=== PATIENT | female | born 1970 | race Caucasian/White ===

== ENCOUNTER 2021-06-15 06:20 | Day surgery (SDC) | payer BC ==
[2021-06-10 16:22] LABS: Absolute Lymphocytes (CBC) 2.5 K/uL (0.7-4.9); Basophils % 0.7 % (0-1.3); Hematocrit 39.8 % (36.0-45.0); Lymphocytes % 24.9 % (15.3-44.8); MPV 9.2 fL (7.6-11.3); RBC Red Blood Cell Count 4.17 M/uL (3.86-4.86)
[2021-06-10 16:25] LABS: Protime INR 0.96
[2021-06-10 16:46] LABS: Potassium 3.7 mmol/L (3.5-5.1)
[2021-06-10 17:03] LABS: Urine Appearance CLEAR (Clear); Urine Bilirubin NEGATIVE (Negative); Urine Blood NEGATIVE (Negative); Urine Color YELLOW (Yellow); Urine Glucose NEGATIVE (Negative); Urine Protein NEGATIVE (Negative); Urine Specific Gravity <=1.005 (1.005-1.030); Urine Urobilinogen 0.2 mg/dL (0.2-1.0); Urine pH 6.5 (5.0-7.0)
[2021-06-10 17:15] LABS: Urine Microscopic Reflex NO UMIC
[2021-06-15] MEDS ORDERED: Ringers Lactate 1,000 ML IV ONE (06:48)
[2021-06-15] MEDS ORDERED: CEFAZOLIN/SWI 1gm 1 GM/10 ML SYR ONE ×2 (06:49→07:19)
[2021-06-15] MEDS ORDERED: CEFAZOLIN/SWI 2gm 2 GM/20 ML SYR ONE (06:49)
[2021-06-15 07:06] LABS: Specific Gravity < 1.005 (1.005-1.030)
[2021-06-15] MEDS ORDERED: NA CHLORIDE 0.9% 0 ML IV ONE (07:18)
[2021-06-15] MEDS ORDERED: LIDOCAINE 1% W/EPI 1:100,000 MDV 20 ML VIAL ONE (07:18)
[2021-06-15] MEDS ORDERED: NA CHLORIDE 0.9% 1,000 ML ONE (07:18)
[2021-06-15] MEDS ORDERED: VASOPRESSIN 20 UNIT/ML VIAL ONE (07:19)
[2021-06-15] MEDS ORDERED: MIDAZOLAM HCL 2 MG/2 ML INJ ONE (07:27)
[2021-06-15] MEDS ORDERED: LIDOCAINE 1% MPF 5 ML VIAL ONE (07:27)
[2021-06-15] MEDS ORDERED: propofoL 200 MG/20 ML VIAL IV ONE (07:27)
[2021-06-15] MEDS ORDERED: dexAMETHasone 10 MG/ML VIAL ONE (07:27)
[2021-06-15] MEDS ORDERED: FENTANYL CITR 100 MCG/2 ML ONE (07:27)
[2021-06-15] MEDS ORDERED: ONDANSETRON 4 MG/2 ML VIAL ONE (07:29)
[2021-06-15] MEDS ORDERED: KETOROLAC 30 MG/ML INJ ONE (08:51)
[2021-06-15] MEDS ORDERED: SUMATRIPTAN SUCCI 50 MG TAB PO PRN (09:23)
[2021-06-15] MEDS ORDERED: ALPRAZOLAM 1 MG TABLET PO PRN (09:23)
[2021-06-15] MEDS ORDERED: HYDROCODONE/APAP 5/325 MG TAB PO PRN (09:24)
--- NOTE | 2021-06-15 09:27 | P.BOP ---
Preoperative diagnosis: AMPARO Postoperative diagnosis: same Primary procedure: MUS (TVT-O) Cystoscopy Answering Service Telephone Operator: Catarina Milner Estimated blood loss: 50 Specimen: none Findings: ant wall prolapse 0/0/-3/5/mod/7/-2/-2/-4 Anesthesia: General Drain(s): Urinary catheter Transferred to: Recovery Room
[2021-06-15] MEDS ORDERED: SUMATRIPTAN SUCCI 50 MG TAB PO ONE (11:45)
[2021-06-15 12:57] VITALS: BP 136/76; TEMP 97; O2SAT 94
[2021-06-15] MEDS ORDERED: HOME MED 1 EA UNK (Trazodone Hcl [Trazodone Hcl] 100 MG Tablet) PO SCH (21:00)
[2021-06-15] MEDS ORDERED: HOME MED 1 EA UNK (Citalopram Hydrobromide [Celexa] 40 MG Tablet) PO SCH (21:00)
[2021-06-15] MEDS ORDERED: HOME MED 1 EA UNK (Ropinirole Hcl [Requip] 2 MG Tablet) PO SCH (21:00)
[2021-06-16] MEDS ORDERED: DOXAZOSIN 4 MG TAB PO SCH (09:00)
[2021-06-16] MEDS ORDERED: HOME MED 1 EA UNK (Levothyroxine Sodium [Synthroid] 150 MCG Tablet) PO SCH (09:00)
--- NOTE | 2021-06-21 15:20 | OP ---
Date of Procedure: 06/15/2021 Surgeon: Carmen Andrade MD Director Environmental: Catarina Boles Preoperative Diagnosis: Stress urinary incontinence. Postoperative Diagnosis: Stress urinary incontinence. Procedures Performed: Mid urethral sling, cystoscopy (TVT-O). Anesthesia: General with LMA. Specimens: No specimens. Complications: No complications. Drains: Nolan catheter. Patient's Condition: Stable. Findings: Significant stress urinary incontinence noted with during the exam under anesth esia. The patient also has significant vaginal wall prolapse, anterior and apical, especially POP-Q -1, 0, -3, 5 cm, moderate 7, -2, -1, and -4. The patient was re-consented in the preoperative area. present . After explaining all the benefits and risks and complications of the procedure, she was consented and taken back to [facility] OR. 3 g of Ancef was given. SCDs were started. The patient was placed in a supine fashion on e operating table and general anesthesia was given. She was placed in dorsal lithotomy position [facility]. After arms were tucked by the side, positioning was checked, lower abdomen, vulva, vagina, perineum, and lateral thighs were all prepped and draped in a sterile fashion. Nolan was pl aced to drain the bladder. POP-Q as dictated above. Mid urethral area was identified by gently tugg ing on the of the Nolan at the level of the bladder neck and the mid urethral section was marked with the help of a marking pen. Dilute lidocaine with epinephrine was injected, 15 cc in the midline as well as on the sides. The le gs were placed in a high dorsal lithotomy position. Then, 1 cm mid urethral incision was made with [facility] help of a scalpel. Using the Allis clamps on both flaps, track was created on either side going t owards the ipsilateral obturator space, hugging the inferior pubic ramus at a 45-degree angle to the horizontal and vertical planes in the ipsilateral shoulder. Once the track was created, [facility] obturator membrane was perforated, the scissors were withdrawn expanding the tract. Similar disse ction performed on the opposite side as well and once the obturator space was entered, the track was widened as the scissors were pulled out. The TVT-O kit was opened. Wing guide was placed in the usu al fashion retracing the tract. The left trocar was passed first, hugging the inferior pubic ramus, exiting at a point marked 2 cm lateral to the groin fold and 1 cm above the level of the horizontal l ine dropped at the meatus. Then, once the plastic sheath was held with a Lexii, the needle was remov ed. The plastic dilator was pulled out and cut. The sheath and the graft were held with Lexii. Sim ilar pass was taken on the opposite side without any problems. There was no perforation in the forni x. Once the mesh and the sheaths were held on both sides, the mid urethral area was tensioned with the h elp of Metzenbaum scissors in the middle and the sheaths were gradually loosened from the sling leavi ng it in the place that it was tensioned. Sheath pulled out, mesh trimmed, flushed with the skin. S kin closed with the help of Dermabond, vaginal epithelium closed with the help of 3-0 Vicryl in a con tinuous running locked fashion. Once this was done, there was excellent closure. No evidence of any bleeding from the lateral incisions. Nolan was removed, cystoscopy was performed with a 17-degree s giovanna, 30-degree lens, and normal saline. Cystoscopy was normal. No evidence of any perforation or foreign body in the bladder. The scope was then removed. Nolan was replaced. The patient was recov ered from anesthesia and taken to the PACU in stable condition. EBL was less than 50. Plan was to do a voiding trial in 2 hours postop and then discharg e the patient . STEFFI/ANASTASIYAL Voice ID: [id number] Report ID: [id number]
== END 2021-06-15 12:40 | disposition home or self-care (01) ==
LOC: OR 06:20
PROVIDERS: ATTEND Obstetrics & Gynecology
PROC: 0TSD0ZZ Reposition Urethra, Open Approach (ICD-10-PCS; principal; 2021-06-15 07:30)
DX: N39.3 Stress incontinence (female) (male) (principal); N81.2 Incomplete uterovaginal prolapse; R15.9 Full incontinence of feces; E66.01 Morbid (severe) obesity due to excess calories; R39.15 Urgency of urination
CPT/HCPCS: 57288; 85025; 80048; 36415 ×2; 86900; 86850; 84703; 81025; 85610; 86901; 85730; 81003; J2704; J2250; J3010; J1100; J0690 ×3; J7120; J7030; J2405

== ENCOUNTER 2021-08-02 10:23 | Day surgery (SDC) | payer BC ==
[2021-07-29 15:32] LABS: Basophils % 0.3 % (0-1.3); Hematocrit 40.7 % (36.0-45.0); Lymphocytes % 25.2 % (15.3-44.8); MPV 9.1 fL (7.6-11.3); RBC Red Blood Cell Count 4.28 M/uL (3.86-4.86)
[2021-07-29 15:36] LABS: Protime INR 1.03
[2021-07-29 15:40] LABS: Urine Appearance CLEAR (Clear); Urine Bilirubin NEGATIVE (Negative); Urine Blood NEGATIVE (Negative); Urine Color YELLOW (Yellow); Urine Glucose NEGATIVE (Negative); Urine Protein NEGATIVE (Negative); Urine Specific Gravity <=1.005 (1.005-1.030); Urine Urobilinogen 0.2 mg/dL (0.2-1.0); Urine pH 6.5 (5.0-7.0)
[2021-07-29 15:41] LABS: Urine Microscopic Reflex NO UMIC
[2021-07-29 15:48] LABS: Potassium 3.6 mmol/L (3.5-5.1)
[2021-08-02] MEDS ORDERED: SCOPOLAMINE HYDROBROMIDE PATCH TD ONE (10:45)
[2021-08-02] MEDS ORDERED: Ringers Lactate 1,000 ML IV ONE ×3 (10:45→16:36)
[2021-08-02] MEDS ORDERED: CEFAZOLIN/NS 1gm 1 GM/50 ML BAG ONE (10:46)
[2021-08-02] MEDS ORDERED: CEFAZOLIN/SWI 2gm 2 GM/20 ML SYR ONE (10:46)
[2021-08-02] MEDS ORDERED: KETAMINE HCL 500 MG/5 ML VIAL ONE (11:15)
[2021-08-02] MEDS ORDERED: propofoL 200 MG/20 ML VIAL IV ONE (11:15)
[2021-08-02] MEDS ORDERED: dexAMETHasone 10 MG/ML VIAL ONE (11:15)
[2021-08-02] MEDS ORDERED: LIDOCAINE 2% MPF 5 ML VIAL ONE (11:15)
[2021-08-02] MEDS ORDERED: ROCURONIUM 50 MG/5 ML VIAL IV ONE (11:15)
[2021-08-02] MEDS ORDERED: NS 0.9% VIAL 10 ML ONE (11:16)
[2021-08-02] MEDS ORDERED: FENTANYL CITR 250 MCG/5 ML ONE (11:16)
[2021-08-02] MEDS ORDERED: MIDAZOLAM HCL 2 MG/2 ML INJ ONE (11:16)
[2021-08-02] MEDS ORDERED: ONDANSETRON 4 MG/2 ML VIAL ONE (11:17)
[2021-08-02] MEDS ORDERED: NA CHLORIDE 0.9% 1,000 ML ONE (11:21)
[2021-08-02 11:27] LABS: Specific Gravity < 1.005 (1.005-1.030)
[2021-08-02] MEDS ORDERED: BUPIVACAINE 0.25% PF 30 ML VIAL ONE (12:38)
[2021-08-02] MEDS: Ringers Lactate 1,000 ML IV ONE (13:45)
[2021-08-02] MEDS ORDERED: FENTANYL CITR 100 MCG/2 ML ONE (14:42)
[2021-08-02] MEDS ORDERED: GLYCOPYRROLATE 0.2 MG/ML SYR ONE (16:02)
[2021-08-02] MEDS ORDERED: NEOSTIGMINE 1 MG/ML -5 ML ONE (16:02)
[2021-08-02] MEDS ORDERED: HYDROCODONE/APAP 5/325 MG TAB PO PRN ×2 (16:12→20:13)
[2021-08-02] MEDS ORDERED: MEPERIDINE HCL 25 MG/ML SYR IM PRN (16:12)
[2021-08-02] MEDS ORDERED: PROMETHAZINE INJ 25 MG/ML AMP IV PRN ×2 (16:12→20:13)
[2021-08-02] MEDS ORDERED: IBUPROFEN 600 MG TAB PO PRN (16:12)
--- NOTE | 2021-08-02 16:17 | P.BOP ---
Preoperative diagnosis: stage 2 incomplete uterovaginal prolapse, AMPARO Postoperative diagnosis: same Primary procedure: TLH BS USLS colpopexy, cystoscopy Calciminer: BENJI WEST Estimated blood loss: min Specimen: uterus and tubes Findings: -2/-2/0/4/mod/7/-2/-2/-4, hemorrhoids and posterior defect with valsalva Anesthesia: General Complications: None Transferred to: Recovery Room Condition: Good
[2021-08-02] MEDS: MORPHINE 4 MG/ML SYR ONE ×4 (16:57→17:12)
[2021-08-02] MEDS ORDERED: MEPERIDINE HCL 50 MG/ML ONE (17:09)
[2021-08-02] MEDS: HYDROMORPHONE HCL 1 MG/ML INJ ONE ×2 (17:39→17:48)
[2021-08-02] MEDS ORDERED: HYDROCODONE/APAP 10/325 TAB ONE (18:05)
[2021-08-02] MEDS ORDERED: MEPERIDINE HCL 25 MG/ML SYR IV PRN (20:13)
[2021-08-02] MEDS ORDERED: IBUPROFEN 200 MG TAB PO PRN (20:13)
[2021-08-02] MEDS ORDERED: ONDANSETRON 4 MG/2 ML VIAL IV PRN (20:13)
[2021-08-02 20:49] VITALS: O2SAT 97
[2021-08-02] MEDS ORDERED: Ringers Lactate 1,000 ML IV SCH (21:00)
[2021-08-02 21:33] VITALS: BMI 31.7
[2021-08-03] MEDS: Ringers Lactate 1,000 ML IV ONE (07:35)
[2021-08-03] MEDS ORDERED: HYDROCODONE/APAP 5/325 MG TAB ONE (10:41)
--- NOTE | 2021-08-03 11:30 | OP ---
Date of Procedure: 08/02/2021 Surgeon: Carmen Andrade MD Ldr Rn: Lisbeth Wen. Preoperative Diagnoses: Stage II incomplete uterovaginal prolapse, stress urinary incontinence. Postoperative Diagnoses: Stage II incomplete uterovaginal prolapse, stress urinary incontinence, neftaly dder adhesions from a prior sections and abdominoplasty scar. Procedures Performed: Total laparoscopic hysterectomy, bilateral salpingectomy, uterosacral ligament suspension, colpopexy, and cystoscopy. Estimated Blood Loss: Minimal. Specimens: Uterus and tubes. Complications: No complications. Drains: No drains. Anesthesia: General endotracheal. Condition: Stable. Findings: Pop Q -2, -2, 0, 4, moderate 7, -2, -2, -4. Hemorrhoids that were significantly externall y were seen and the posterior defect was noted with Valsalva, however, mostly unremarkable. The mid urethral sling that was placed is very well healed, is not palpable. Indications: The patient noticed vaginal bulge symptoms and has been having increasing difficulty em ptying, definitely wanted her prolapse taken care of. She had her stress incontinence, mostly resolv ed after the sling. She had still a few drops that are occasional, not daily. We discussed about th e further treatment with urethral bulking of the time of the hysterectomy or we just were going to wa it and watch and do this later after the colpopexy was performed. All the benefits and risks and alternatives of the procedure were discussed with the patient includin g uterine preservation, the vaginal [place] tissue repair with sacral colpopexy after hysterectomy. A ll these were discussed, compared to the uterosacral ligament suspension, its benefits, risks, side e ffects, and recovery, and she was consented for uterosacral ligament suspension. Procedure In Detail: After informed consent was verified, she was taken back to the OR. 2 g of Ance f were given. SCDs were placed. She was placed in supine fashion. General anesthesia was given. S he was placed in a dorsal lithotomy position using Luis Carlos stirrups and the arms were tucked by the micaela e, positioning checked. SCDs were started. The case was started. Abdomen, vulva, vagina, and perineum were prepped and draped in a sterile fashion. Nolan was placed to drain the bladder and large VCare introduced into the uterus. It would not advance easily all the way to the fundus, but this was left in place. A 1 cm supraumbilical incision was made with a scalpel. There was abdominoplasty scar and the umbili cus was slightly tilted upward, so a midline supraumbilical incision was made after injecting 0.25% M arcaine. The subcutaneous fascia was incised, tagged with 0 Vicryl sutures. Multiple layers of Ethi shell sutures were noted; however, after incising clearly through the fascia and tacking this with 0 V icryl suture peritoneum was picked up between 2 hemostats and opened sharply with [place]. T hen, S retractors were placed and Audelia introduced, where the Audelia was guided and fixed in place. The abdomen was adequately insufflated. Site of entry was checked and was unremarkable. The upper abdominal surface was unremarkable as well. The patient was placed in Trendelenburg and examination of the pelvic cavity was conducted. The ureters were undisplaced and were the normal courses. No ot her anatomical deviation was seen. There were dense adhesions of the bladder to the anterior vaginal wall. The tube on the left side was detached. The utero-ovarian ligament and round ligament were taken josephine n, anterior broad ligament was opened up to go up to the bladder flap carefully. Once I was in the a aryan right next to the cervix, between the cervix and the uterine vessels, then space was created by p ush-spread technique to the expose the anterior vaginal wall. Once this was done, then staying in th is plane, the bladder adhesions were taken down close to the lower uterine segment. Once these were taken down, the bladder had pushed back exposing the anterior vaginal wall with a circumferential VCa re cup. Going posteriorly, the dissection was performed all the way on the peritoneum to past the midline. T hen, the uterine vessels, artery, and vein were dissected and the vessels were cauterized. On the opposite side, the tube was removed and handed off for permanent pathology. Utero-ovarian lig ament was taken down along the round ligament. The ovaries were attached to the round ligament. The n, the anterior flap was connected and posterior peritoneum taken down. Here, there was an injury to the ovarian vein, which started to then bleed. Pressure was held with the tip of atraumatic grasper here, and then anteriorly, the dissection was opened up on the right lateral aspect to expose the an terior vaginal wall. The adhesions were taken down systematically as well as on the other side. The anterior vaginal wall was completely exposed. The vessels were dissected away from the cervix. The n, the vessels were taken down with the help of the LigaSure laterally and medially, staying close th e cup, and once this was dissected, the uterine vessels were cauterized bleeding was seen. The cardinal ligaments were taken down on the right side than on the left side. Dissection was per formed again to expose the lateral aspect of the bladder. Then, the vessels were taken down with the help of the LigaSure and then cardinal ligaments as well. Circumferential colpotomy was performed w ith a monopolar hook blade. The specimen was detached and pulled out into the vagina. There was dif ficulty pulling it out; however, it was a tight fit, but did come out without any morcellation. Vaginal cuff was thoroughly irrigated and suctioned. There was 1 area on the posterior cuff that had to be cauterized with the help of the LigaSure. Then, there was excellent hemostasis on both sides. Simple 3-0 Vicryl sutures were placed at both ends and then 2-0 V-Loc was used to close the rest of the vaginal epithelial incision. Vaginal epithelium and sub-epithelium and some connective tissue w ere closed as the first layer from right to left and then this layer was buried by taking bites with the connective tissue and the peritoneum closing the anterior and posterior colmenares together on top of the cuff. Then, the 2 back sutures were taken to prevent rewinding of V-Loc. The 3-0 Monocryl stay suture was placed on the uterosacral ligament on the left side first after iden tifying the course of the ureter did not need a relaxing incision was made, so went ahead and took a bite through the uterosacral. This was held for retraction. [place]-Henrique suture was taken on a CT-2 needle and passed from medial to lateral, then lateral to medial on the uterosacral ligament, and the last one-third of the pelvic ligament, then posterior vaginal wall and anterior vaginal wall taken with a stitch. The stitch was held on the side, clamped. Then, the 0 PDS suture was taken an d placed through the slightly more proximal part of the uterosacral ligament. Then this was passed t hrough the posterior vaginal wall and the anterior vaginal wall and the [place]-Henrique suture was tied, the n the PDS was done. In a similar fashion, the uterosacral ligament on the right side was much more d etached. This was picked up using a 3-0 Monocryl stay suture on this from the other side was placed on this side. Then using this, the [place]-Henrique suture was placed from inside out, outside in , and then through the posterior vaginal and anterior vaginal without entering the vaginal epithelium . Then PDS suture was placed more proximal to this and then medial to the stitch in a similar fashio n as the opposite side. Once all [place]-Henrique was tied, the PDS was tied, there was excellent support an d no evidence of any injury to the ureters. Thorough irrigation and suction were performed. Picture s were taken. The ovaries were a small area of the bladder that was bleeding that was cau terized. All the trocars were removed under direct vision and injected with 0.25% Marcaine. The trocars were replaced and we are awaiting as I performed a cystoscopy. Nolan was removed. Cystoscopy was performed with a 17-[place] sheath, 30 degree lens, and normal sali ne. There were excellent jets of urine from both ureteric orifices. No evidence of any trauma or fo reign body in the bladder. The bladder was then drained. The gloves were changed and came back up. The trocars were removed under direct vision. Gas was desufflated. Fascia at the umbilicus was clos ed with the help of the tagged 0 Vicryl sutures tied to each other and simple 0 Vicryl stitch at the fascial incision suprapubic site. All skin incisions closed with the help of 4-0 chromic. The patie nt was recovered from anesthesia and instrument and sponge counts x3 were correct at the end of the case. She was taken to the PACU in a stable condition. STEFFI/RADHA Voice ID: [id number] Report ID: [id number]
[2021-08-03 12:04] VITALS: BP 101/63; TEMP 98.3
--- OUTSIDE RECORDS SUMMARY | 2021-08-07 17:32 | XMS REPORT | Continuity of Care Document ---
:1970 Author Organization [facility] t Address [address] [place] [address] [address] [place] [address] Care Team Providers Name Role Phone Mariposa Huynh Attending Clinician Nurse, Urgent Care Attending Clinician Unavailable Ayesha VELEZ Attending Clinician AYESHA Attending Clinician Unavailable OG ESPARZA Attending Clinician Unavailable Lab, Fam Pob I Attending Clinician Unavailable Og Martínez Attending Clinician Yanelis ALBERTO Attending Clinician Unavailable Christopher MACIEL Attending Clinician Red VELEZ Attending Clinician Lee MACIEL Attending Clinician Unknown Attending Clinician Unavailable UNKNOWN Attending Clinician Unavailable Harsh SCHULZ, S Attending Clinician Unavailable Sarina Hanson Attending Clinician Sarina SHARPE Attending Clinician Unavailable Doctor Unassigned, Name Attending Clinician Unavailable Sin GALAN, S Attending Clinician Manoj VOGT Attending Clinician Unavailable Payers Payer Name Policy Type Policy Number Effective Date Expiration Date [facility] - [id number] 2021 00:00:00 OUT OF STATE Problems Condition Condition Condition Status Onset Resolution Last Treating Co mments Source Name Details Category Date Date Treatment Clinician Date UTI (lower UTI (lower Disease Active U nivers urinary urinary 04-21 ity of tract tract 00:00: [place] infection) infection) 00 Il dical Branch Allergies, Adverse Reactions, Alerts Allergy Allergy Status Severity Reaction(s) Onset Inactive Treating Comm ents Source Name Type Date Date Clinician IBUPROFE DRUG Active N/V Univers N INGREDI 04-20 ity of 00:00: [place] 00 [facility] Ibuprofe Propensi Active Nausea Univer s n ty to and/or 04-20 ity of adverse Vomiting 00:00: [place] reaction 00 [facility] MORPHINE DRUG Active Anaphylaxis Uni vers INGREDI - ity of 00:00: [place] 00 [facility] Morphine Propensi Active Anaphylaxis U nivers ty to ity of adverse 00:00: [place] reaction 00 [facility] s [place] Social History Social Habit Start Date Stop Date Quantity Comments Source Exposure to Yes [facility] SARS-CoV-2 (event) [facility] Tobacco use and 2021-04-30 2021-04-30 Never used [facility] exposure 00:00:00 00:00:00 [facility] Alcohol intake 2021-04-30 2021-04-30 [facility] 00:00:00 00:00:00 [facility] Sex Ass[birth year] At [birth year] [facility] 00:00:00 00:00:00 [facility] Smoking Status Start Date Stop Date Source Never smoker [facility] Medications Ordered Filled Start Stop Current Ordering Indication Dosage Frequency Signature Comments Components Source Medication Medication Date Date Medication? Clinician (SIG) Name Name iopamidol 2020- No [id number] 100mL 100 mL, Univers (ISOVUE 05-01 Intravenou ity o f 370-500 mL) 04:35: 04:35 s, ONCE, 1 [place] injection 00 :00 dose, Fri Medic al 100 mL 04/30/21 at Branch 2345, Routine benzonatate Yes [id number] 200mg Take 1 Univers 200 mg 05-01 capsule by ity of capsule 00:00: mouth 3 [place] 00 (three) Medical times [place] daily as needed for Cough for up to 20 doses. azithromyci Yes [id number] 250mg Take 1 Univers n 04-12 [id number] tablet by ity of (ZITHROMAX 00:00: mouth [place] Z-EMELY) 250 00 daily. Medical mg tablet Take 500 Branch mg day 1, then 250 mg days 2 to 5. albuterol Yes [id number] 2{puff} Inhale 2 Univers 90 04-12 [id number] Puffs ity of mcg/actuati 00:00: every 4 [place] as on inhaler 00 (four) Medical hours as Branch needed for Wheezing or Shortness of Breath. azithromyci Yes [id number] 250mg Take 1 Univers n 7- [id number] tablet by ity of (ZITHROMAX 00:00: mouth [place] Z-EMELY) 250 00 daily. Medical mg tablet Take 500 Branch mg day 1, then 250 mg days 2 to 5. albuterol Yes [id number] 2{puff} Inhale 2 Univers 90 7- [id number] Puffs ity of mcg/actuati 00:00: every 4 [place] on inhaler 00 (four) Medical hours as Branch needed for Wheezing or Shortness of Breath. azithromyci Yes [id number] 250mg Take 1 Univers n 7- [id number] tablet by ity of (ZITHROMAX 00:00: mouth [place] Z-EMELY) 250 00 daily. Medical mg tablet Take 500 Branch mg day 1, then 250 mg days 2 to 5. albuterol Yes [id number] 2{puff} Inhale 2 Univers 90 7- [id number] Puffs ity of mcg/actuati 00:00: every 4 [place] on inhaler 00 (four) Medical hours as Branch needed for Wheezing or Shortness of Breath. azithromyci Yes [id number] 250mg Take 1 Univers n 7- [id number] tablet by ity of (ZITHROMAX 00:00: mouth [place] Z-EMELY) 250 00 daily. Medical mg tablet Take 500 Branch mg day 1, then 250 mg days 2 to 5. albuterol Yes [id number] 2{puff} Inhale 2 Univers 90 7- [id number] Puffs ity of mcg/actuati 00:00: every 4 [place] on inhaler 00 (four) Medical hours as Branch needed for Wheezing or Shortness of Breath. codeine-gua 2020- No [id number] 5mL Take 5 mL Univers ifenesin 04-12 by mouth ity of 10-100 mg/5 00:00: 04:59 every 6 [place] mL solution 00 :00 (six) Medical hours as Branch needed for Cough for up to 7 days. Indication s: acute pain citalopram Yes 40mg Take 40 mg U nivers (CELEXA) 40 7-15 by mouth ity of mg tablet 23:37: daily. [place] [address] Medical Branch levothyroxi Yes 150ug Take 150 U nivers ne 7-15 mcg by ity of (SYNTHROID) 23:37: mouth [place] 150 mcg 49 every Medical tablet morning. Branch zolpidem Yes 10mg Take 10 mg Uni vers (AMBIEN) 10 7-15 by mouth ity of mg tablet 23:37: at bedtime [place] 49 as needed Medical for Branch Insomnia. ALPRAZolam Yes 1mg Take 1 mg Un [place] (XANAX) 1 7-15 by mouth ity of mg tablet 23:37: [facility] citalopram Yes 40mg Take 40 mg U nivers (CELEXA) 40 7-15 by mouth ity of mg tablet 23:37: daily. [place] [address] Medical Branch levothyroxi Yes 150ug Take 150 U nivers ne 7-15 mcg by ity of (SYNTHROID) 23:37: mouth [place] 150 mcg 49 every Medical tablet morning. Branch zolpidem Yes 10mg Take 10 mg Uni vers (AMBIEN) 10 7-15 by mouth ity of mg tablet 23:37: at bedtime [place] 49 as needed Medical for Branch Insomnia. ALPRAZolam Yes 1mg Take 1 mg Un [place] (XANAX) 1 7-15 by mouth ity of mg tablet 23:37: [facility] citalopram Yes 40mg Take 40 mg U nivers (CELEXA) 40 7-15 by mouth ity of mg tablet 23:37: daily. [place] [address] Medical Branch levothyroxi Yes 150ug Take 150 U nivers ne 7-15 mcg by ity of (SYNTHROID) 23:37: mouth [place] 150 mcg 49 every Medical tablet morning. Branch zolpidem Yes 10mg Take 10 mg Uni vers (AMBIEN) 10 7-15 by mouth ity of mg tablet 23:37: at bedtime [place] 49 as needed Medical for Branch Insomnia. ALPRAZolam 0 Yes 1mg Take 1 mg Un [place] (XANAX) 1 7-15 by mouth ity of mg tablet 23:37: as needed. [place] 49 Medical Branch citalopram Yes 40mg Take 40 mg U nivers (CELEXA) 40 7-15 by mouth ity of mg tablet 23:37: daily. [place] [address] Medical Branch levothyroxi Yes 150ug Take 150 U nivers ne 7-15 mcg by ity of (SYNTHROID) 23:37: mouth [place] 150 mcg 49 every Medical tablet morning. Branch zolpidem Yes 10mg Take 10 mg Uni vers (AMBIEN) 10 7-15 by mouth ity of mg tablet 23:37: at bedtime [place] 49 as needed Medical for Branch Insomnia. ALPRAZolam Yes 1mg Take 1 mg Un [place] (XANAX) 1 7-15 by mouth ity of mg tablet 23:37: as needed. [place] [address] Medical Branch citalopram Yes 40mg Take 40 mg U nivers (CELEXA) 40 7-15 by mouth ity of mg tablet 23:37: daily. [place] [address] Medical Branch levothyroxi Yes 150ug Take 150 U nivers ne 7-15 mcg by ity of (SYNTHROID) 23:37: mouth [place] 150 mcg 49 every Medical tablet morning. Branch zolpidem Yes 10mg Take 10 mg Uni vers (AMBIEN) 10 7-15 by mouth ity of mg tablet 23:37: at bedtime [place] 49 as needed Medical for Branch Insomnia. ALPRAZolam 0 Yes 1mg Take 1 mg Un [place] (XANAX) 1 7-15 by mouth ity of mg tablet 23:37: as needed. [place] [address] Medical Branch citalopram Yes 40mg Take 40 mg U nivers (CELEXA) 40 7-15 by mouth ity of mg tablet 23:37: daily. [place] [address] Medical Branch levothyroxi 0 Yes 150ug Take 150 U nivers ne 7-15 mcg by ity of (SYNTHROID) 23:37: mouth [place] 150 mcg 49 every Medical tablet morning. Branch zolpidem 0 Yes 10mg Take 10 mg Uni vers (AMBIEN) 10 7-15 by mouth ity of mg tablet 23:37: at bedtime [place] 49 as needed Medical for Branch Insomnia. ALPRAZolam 0 Yes 1mg Take 1 mg Un [place] (XANAX) 1 7-15 by mouth [place]y of mg tablet 23:37: [place] needed. [place] 49 [place] Branch citalopram 0 Yes 40mg Take 40 mg U nivers (CELEXA) 40 7-15 by mouth ity of mg tablet 23:37: daily. [place] [address] Medical Branch levothyroxi 0 Yes 150ug Take 150 U nivers ne 7-15 mcg by ity of (SYNTHROID) 23:37: mouth [place] 150 mcg 49 every Medical tablet morning. Branch zolpidem 0 Yes 10mg Take 10 mg Uni vers (AMBIEN) 10 7-15 by mouth ity of mg tablet 23:37: at bedtime [place] 49 as needed Medical for Branch Insomnia. ALPRAZolam 0 Yes 1mg Take 1 mg Un [place] (XANAX) 1 7-15 by mouth ity of mg tablet 23:37: as needed. [place] 49 Medical Branch citalopram 0 Yes 40mg Take 40 mg U nivers (CELEXA) 40 7-15 by mouth ity of mg tablet 23:37: daily. [place] [address] Medical Branch levothyroxi 0 Yes 150ug Take 150 U nivers ne 7-15 mcg by ity of (SYNTHROID) 23:37: mouth [place] 150 mcg 49 every Medical tablet morning. Branch zolpidem 0 Yes 10mg Take 10 mg Uni vers (AMBIEN) 10 7-15 by mouth ity of mg tablet 23:37: at bedtime [place] 49 as needed Medical for Branch Insomnia. ALPRAZolam 2020-0 Yes 1mg Take 1 mg Un [place] (XANAX) 1 7-15 by mouth ity of mg tablet 23:37: [place] needed. [place] 49 [place] citalopram 0 Yes 40mg Take 40 mg U nivers (CELEXA) 40 7-15 by mouth ity of mg tablet 23:37: daily. [place] [address] Medical Branch levothyroxi Yes 150ug Take 150 U nivers ne 7-15 mcg by ity of (SYNTHROID) 23:37: mouth [place] 150 mcg 49 every Medical tablet morning. Branch zolpidem 0 Yes 10mg Take 10 mg Uni vers (AMBIEN) 10 7-15 by mouth ity of mg tablet 23:37: at bedtime [place] 49 as needed Medical for Branch Insomnia. ALPRAZolam 0 Yes 1mg Take 1 mg Un [place] (XANAX) 1 7-15 by mouth ity of mg tablet 23:37: as needed. [place] [facility] Medical Branch citalopram Yes 40mg Take 40 mg U nivers (CELEXA) 40 7-15 by mouth ity of mg tablet 23:37: daily. [place] [address] Medical Branch levothyroxi Yes 150ug Take 150 U nivers ne 7-15 mcg by ity of (SYNTHROID) 23:37: mouth [place] 150 mcg 49 every Medical tablet morning. Branch zolpidem 0 Yes 10mg Take 10 mg Uni vers (AMBIEN) 10 7-15 by mouth ity of mg tablet 23:37: at bedtime [place] 49 as needed Medical for Branch Insomnia. ALPRAZolam 0 Yes 1mg Take 1 mg Un [place] (XANAX) 1 7-15 by mouth ity of mg tablet 23:37: as needed. [place] [address] Medical Branch citalopram Yes 40mg Take 40 mg U nivers (CELEXA) 40 7-15 by mouth ity of mg tablet 23:37: daily. [place] [address] Medical Branch levothyroxi 0 Yes 150ug Take 150 U nivers ne 7-15 mcg by ity of (SYNTHROID) 23:37: mouth [place] 150 mcg 49 every Medical tablet morning. Branch zolpidem 0 Yes 10mg Take 10 mg Uni vers (AMBIEN) 10 7-15 by mouth ity of mg tablet 23:37: at bedtime [place] 49 as needed Medical for Branch Insomnia. ALPRAZolam 0 Yes 1mg Take 1 mg Un [place] (XANAX) 1 7-15 by mouth ity of mg tablet 23:37: as needed. [place] 49 Medical Branch benzonatate 1-0 Yes [id number] 200mg Take 2 Univers 100 mg 7-15 capsules ity of capsule 00:00: by mouth 2 [place] 00 (two) Medical times Branch daily as needed for Cough. guaiFENesin 1-0 Yes [id number] 400mg Take 1 Univers 400 mg 7-15 tablet by ity of tablet 00:00: mouth [place] 00 every 4 Medical (four) Branch hours as needed for Cough. ondansetron 2020-0 Yes [id number] 4mg Take 1 Univers 4 mg 7-15 tablet by ity of disintegrat 00:00: mouth [place] ing tablet 00 every 8 Medica l (eight) Branch hours as needed for Nausea and Vomiting (N/V). benzonatate 1-0 Yes [id number] 200mg Take 2 Univers 100 mg 7-15 capsules ity of capsule 00:00: by mouth 2 [place] 00 (two) Medical times Branch daily as needed for Cough. guaiFENesin 2020-0 Yes [id number] 400mg Take 1 Univers 400 mg 7-15 tablet by ity of tablet 00:00: mouth [place] 00 every 4 Medical (four) Branch hours as needed for Cough. ondansetron 2020-0 Yes [id number] 4mg Take 1 Univers 4 mg 7-15 tablet by ity of disintegrat 00:00: mouth [place] ing tablet 00 every 8 Medica l (eight) Branch hours as needed for Nausea and Vomiting (N/V). benzonatate 1-0 Yes [id number] 200mg Take 2 Univers 100 mg 7-15 capsules ity of capsule 00:00: by mouth 2 [place] 00 (two) Medical times Branch daily as needed for Cough. guaiFENesin 2021-0 Yes [id number] 400mg Take 1 Univers 400 mg 7-15 tablet by ity of tablet 00:00: mouth [place] 00 every 4 Medical (four) Branch hours as needed for Cough. ondansetron 2021-0 Yes [id number] 4mg Take 1 Univers 4 mg 7-15 tablet by ity of disintegrat 00:00: mouth [place] ing tablet 00 every 8 Medica l (eight) Branch hours as needed for Nausea and Vomiting (N/V). benzonatate 2021-0 Yes [id number] 200mg Take 2 Univers 100 mg 7-15 capsules ity of capsule 00:00: by mouth 2 [place] 00 (two) Medical times Branch daily as needed for Cough. guaiFENesin 1-0 Yes [id number] 400mg Take 1 Univers 400 mg 7-15 tablet by ity of tablet 00:00: mouth [place] 00 every 4 Medical (four) Branch hours as needed for Cough. ondansetron 2020-0 Yes [id number] 4mg Take 1 Univers 4 mg 7-15 tablet by ity of disintegrat 00:00: mouth [place] ing tablet 00 every 8 Medica l (eight) Branch hours as needed for Nausea and Vomiting (N/V). benzonatate 2020-0 Yes [id number] 200mg Take 2 Univers 100 mg 7-15 capsules ity of capsule 00:00: by mouth 2 [place] 00 (two) Medical times Branch daily as needed for Cough. guaiFENesin 2020-0 Yes [id number] 400mg Take 1 Univers 400 mg 7-15 tablet by ity of tablet 00:00: mouth [place] 00 every 4 Medical (four) Branch hours as needed for Cough. ondansetron 2020-0 Yes [id number] 4mg Take 1 Univers 4 mg 7-15 tablet by ity of disintegrat 00:00: mouth [place] ing tablet 00 every 8 Medica l (eight) Branch hours as needed for Nausea and Vomiting (N/V). benzonatate 1-0 Yes [id number] 200mg Take 2 Univers 100 mg 7-15 capsules ity of capsule 00:00: by mouth 2 [place] 00 (two) Medical times Branch daily as needed for Cough. guaiFENesin 2020-0 Yes [id number] 400mg Take 1 Univers 400 mg 7-15 tablet by ity of tablet 00:00: mouth [place] 00 every 4 Medical (four) Branch hours as needed for Cough. ondansetron 2021-0 Yes [id number] 4mg Take 1 Univers 4 mg 7-15 tablet by ity of disintegrat 00:00: mouth [place] ing tablet 00 every 8 Medica l (eight) Branch hours as needed for Nausea and Vomiting (N/V). benzonatate 2021-0 Yes [id number] 200mg Take 2 Univers 100 mg 7-15 capsules ity of capsule 00:00: by mouth 2 [place] 00 (two) Medical times Branch daily as needed for Cough. guaiFENesin 2021-0 Yes [id number] 400mg Take 1 Univers 400 mg 7-15 tablet by ity of tablet 00:00: mouth [place] 00 every 4 Medical (four) Branch hours as needed for Cough. ondansetron 2021-0 Yes [id number] 4mg Take 1 Univers 4 mg 7-15 tablet by ity of disintegrat 00:00: mouth [place] ing tablet 00 every 8 Medica l (eight) Branch hours as needed for Nausea and Vomiting (N/V). benzonatate 2021-0 Yes [id number] 200mg Take 2 Univers 100 mg 7-15 capsules ity of capsule 00:00: by mouth 2 [place] 00 (two) Medical times Branch daily as needed for Cough. guaiFENesin 1-0 Yes [id number] 400mg Take 1 Univers 400 mg 7-15 tablet by ity of tablet 00:00: mouth [place] 00 every 4 Medical (four) Branch hours as needed for Cough. ondansetron 2020-0 Yes [id number] 4mg Take 1 Univers 4 mg 7-15 tablet by ity of disintegrat 00:00: mouth [place] ing tablet 00 every 8 Medica l (eight) Branch hours as needed for Nausea and Vomiting (N/V). benzonatate 1-0 Yes [id number] 200mg Take 2 Univers 100 mg 7-15 capsules ity of capsule 00:00: by mouth 2 [place] 00 (two) Medical times Branch daily as needed for Cough. guaiFENesin 1-0 Yes [id number] 400mg Take 1 Univers 400 mg 7-15 tablet by ity of tablet 00:00: mouth [place] 00 every 4 Medical (four) Branch hours as needed for Cough. ondansetron 2021-0 Yes [id number] 4mg Take 1 Univers 4 mg 7-15 tablet by ity of disintegrat 00:00: mouth [place] ing tablet 00 every 8 Medica l (eight) Branch hours as needed for Nausea and Vomiting (N/V). benzonatate 2021-0 Yes [id number] 200mg Take 2 Univers 100 mg 7-15 capsules ity of capsule 00:00: by mouth 2 [place] 00 (two) Medical times Branch daily as needed for Cough. guaiFENesin 2021-0 Yes [id number] 400mg Take 1 Univers 400 mg 7-15 tablet by ity of tablet 00:00: mouth [place] 00 every 4 Medical (four) Branch hours as needed for Cough. ondansetron 2021-0 Yes [id number] 4mg Take 1 Univers 4 mg 7-15 tablet by ity of disintegrat 00:00: mouth [place] ing tablet 00 every 8 Medica l (eight) Branch hours as needed for Nausea and Vomiting (N/V). benzonatate 2020-0 Yes [id number] 200mg Take 2 Univers 100 mg 7-15 capsules ity of capsule 00:00: by mouth 2 [place] 00 (two) Medical times Branch daily as needed for Cough. guaiFENesin 2021-0 Yes [id number] 400mg Take 1 Univers 400 mg 7-15 tablet by ity of tablet 00:00: mouth [place] 00 every 4 Medical (four) Branch hours as needed for Cough. ondansetron 2020-0 Yes [id number] 4mg Take 1 Univers 4 mg 7-15 tablet by ity of disintegrat 00:00: mouth [place] ing tablet 00 every 8 Medica l (eight) Branch hours as needed for Nausea and Vomiting (N/V). NaCl 0.9% 2019-0 2019- No 1000mL at 999 Uni vers (NS) bolus 7 07-08 mL/hr, ity of infusion 07:00: 07:28 1,000 mL, [place] as 1,000 mL 00 :00 IV Medical Infusion, Branch ONCE, 1 dose, Mon04/01/20 at 0200, STAT benzonatate 2020-0 Yes [id number] 100mg Take 1 Univers 100 mg 7-08 capsule by ity of capsule 00:00: mouth 3 [place] 00 (three) Medical times Branch daily as needed for Cough. benzonatate 2020-0 Yes [id number] 100mg Take 1 Univers 100 mg 7-08 capsule by ity of capsule 00:00: mouth 3 [place] 00 (three) Medical times Branch daily as needed for Cough. benzonatate 2020-0 2021- No [id number] 100mg Take 1 Univers 100 mg 7-08 07-15 capsule by ity of capsule 00:00: 00:00 mouth 3 [place] 00 :00 (three) Medical times Branch daily as needed for Cough. citalopram Yes 40mg Take 40 mg U nivers (CELEXA) 40 7-28 by mouth ity of mg tablet 02:54: daily. [place] [facility] Branch levothyroxi Yes 150ug Take 150 U nivers ne 7-28 mcg by ity of (SYNTHROID) 02:54: mouth [place] 150 mcg 02 every Medical tablet morning. Branch zolpidem Yes 10mg Take 10 mg Uni vers (AMBIEN) 10 7-28 by mouth ity of mg tablet 02:54: at bedtime [place] 02 as needed Medical for Branch Insomnia. ALPRAZolam Yes 1mg Take 1 mg Un [place] (XANAX) 1 7-28 by mouth ity of mg tablet 02:54: [place] needed. [place] [facility] Branch citalopram Yes 40mg Take 40 mg U nivers (CELEXA) 40 7-28 by mouth ity of mg tablet 02:54: daily. [place] [facility] Branch levothyroxi Yes 150ug Take 150 U nivers ne 7-28 mcg by ity of (SYNTHROID) 02:54: mouth [place] 150 mcg 02 every Medical tablet morning. Branch zolpidem Yes 10mg Take 10 mg Uni vers (AMBIEN) 10 7-28 by mouth ity of mg tablet 02:54: at bedtime [place] 02 as needed Medical for Branch Insomnia. ALPRAZolam Yes 1mg Take 1 mg [place] (XANAX) 1 7-28 by mouth ity of mg tablet 02:54: [place] needed. [place] [facility] Branch Nitrofurant Yes [id number] Take one Univers oin&Nit. 7-27 tablet by ity of Macrocryst 00:00: mouth [place] (MACROBID) 00 twice a Medica l 100 mg day Branch capsule phenazopyri Yes [id number] 200mg Take 2 Univers dine 7-27 Tabs by ity of (PYRIDIUM) 00:00: mouth 3 [place] 100 mg 00 (three) Medical tablet times Branch daily. Nitrofurant Yes [id number] Take one Univers oin&Nit. 7-27 tablet by ity of Macrocryst 00:00: mouth [place] (MACROBID) 00 twice a Medica l 100 mg day Branch capsule phenazopyri 2014- Yes [id number] 200mg Take 2 Univers dine 7-27 Tabs by ity of (PYRIDIUM) 00:00: mouth 3 [place] 100 mg 00 (three) Medical tablet times Branch daily. Nitrofurant Yes [id number] Take one Univers oin&Nit. 7-27 tablet by ity of [place]rocryst 00:00: mouth [place] (MACROBID) 00 twice a Medica l 100 mg day Branch capsule phenazopyri Yes [id number] 200mg Take 2 Univers dine 7-27 Tabs by ity of (PYRIDIUM) 00:00: mouth 3 [place] 100 mg 00 (three) Medical tablet times Branch daily. Nitrofurant Yes [id number] Take one Univers oin&Nit. 7-27 tablet by ity of [place] 00:00: mouth [place] (MACROBID) 00 twice a Medica l 100 mg day Branch capsule phenazopyri 2014- Yes [id number] 200mg Take 2 Univers dine 7-27 Tabs by ity of (PYRIDIUM) 00:00: mouth 3 [place] 100 mg 00 (three) Medical tablet times Branch daily. Nitrofurant Yes [id number] Take one Univers oin&Nit. 7-27 tablet by ity of [place] 00:00: mouth [place] (MACROBID) 00 twice a Medica l 100 mg day Branch capsule phenazopyri 2014- Yes [id number] 200mg Take 2 Univers dine 7-27 Tabs by ity of (PYRIDIUM) 00:00: mouth 3 [place] 100 mg 00 (three) Medical tablet times Branch daily. Nitrofurant Yes [id number] Take one Univers oin&Nit. 7-27 tablet by ity of [place] 00:00: mouth [place] (MACROBID) 00 twice a Medica l 100 mg day Branch capsule phenazopyri 2014- Yes [id number] 200mg Take 2 Univers dine 7-27 Tabs by ity of (PYRIDIUM) 00:00: mouth 3 [place] 100 mg 00 (three) Medical tablet times Branch daily. Nitrofurant Yes [id number] Take one Univers oin&Nit. 7-27 tablet by ity of [place] 00:00: mouth [place] (MACROBID) 00 twice a Medica l 100 mg day Branch capsule phenazopyri Yes [id number] 200mg Take 2 Univers dine 7-27 Tabs by ity of (PYRIDIUM) 00:00: mouth 3 [place] 100 mg 00 (three) Medical tablet times Branch daily. Nitrofurant Yes [id number] Take one Univers oin&Nit. 7-27 tablet by ity of Macrocryst 00:00: mouth [place] (MACROBID) 00 twice a Medica l 100 mg day Branch capsule phenazopyri Yes [id number] 200mg Take 2 Univers dine 7-27 Tabs by ity of (PYRIDIUM) 00:00: mouth 3 [place] 100 mg 00 (three) Medical tablet times Branch daily. Nitrofurant Yes [id number] Take one Univers oin&Nit. 7-27 tablet by ity of [place]roc[place] 00:00: mouth [place] (MACROBID) 00 twice a Medica l 100 mg day Branch capsule phenazopyri Yes [id number] 200mg Take 2 Univers dine 7-27 Tabs by ity of (PYRIDIUM) 00:00: mouth 3 [place] 100 mg 00 (three) Medical tablet times Branch daily. Nitrofurant Yes [id number] Take one Univers oin&Nit. 7-27 tablet by ity of [place] 00:00: mouth [place] (MACROBID) 00 twice a Medica l 100 mg day Branch capsule phenazopyri Yes [id number] 200mg Take 2 Univers dine 7-27 Tabs by ity of (PYRIDIUM) 00:00: mouth 3 [place] 100 mg 00 (three) Medical tablet times Branch daily. Nitrofurant Yes [id number] Take one Univers oin&Nit. 7-27 tablet by ity of [place]rocryst 00:00: mouth [place] (MACROBID) 00 twice a Medica l 100 mg day Branch capsule phenazopyri Yes [id number] 200mg Take 2 Univers dine 7-27 Tabs by ity of (PYRIDIUM) 00:00: mouth 3 [place] 100 mg 00 (three) Medical tablet times Branch daily. Nitrofurant Yes [id number] Take one Univers oin&Nit. 7-27 tablet by ity of Macrocryst 00:00: mouth [place] (MACROBID) 00 twice a Medica l 100 mg day Branch capsule phenazopyri Yes [id number] 200mg Take 2 Univers dine 7-27 Tabs by ity of (PYRIDIUM) 00:00: mouth 3 [place] 100 mg 00 (three) Medical tablet times Branch daily. Nitrofurant Yes [id number] Take one Univers oin&Nit. 7-27 tablet by ity of Macrocryst 00:00: mouth [place] (MACROBID) 00 twice a Medica l 100 mg day Branch capsule phenazopyri Yes [id number] 200mg Take 2 Univers dine 7-27 Tabs by ity of (PYRIDIUM) 00:00: mouth 3 [place] 100 mg 00 (three) Medical tablet times Branch daily. Vital Signs Vital Name Observation Time Observation Value Comments Source Systolic blood 2021-05-01 06:00:00 140 mm[facility]Hg[facility] 2021-05-01 06:00:00 83 mm[Hg] Unive [facility] Respiratory rate 2021-05-01 06:00:00 20 /min [facility] Oxygen saturation in 2021-05-01 06:00:00 97 /min [facility] Arterial blood by [facility] Pulse oximetry [place] Heart rate 2021-05-01 04:00:00 99 /min [facility] Body temperature 2021-05-01 04:00:00 37 Padmini [facility] Body weight 2021-05-01 00:10:00 86.183 kg [facility] BMI 2021-05-01 00:10:00 32.61 kg/m2 [facility] Systolic blood 2021-04-30 23:55:00 134 mm[Hg] [facility] Di[facility] 2021-04-30 23:55:00 80 mm[Hg] Unive [facility] Heart rate 2021-04-30 23:55:00 103 /min [facility] Body temperature 2021-04-30 23:55:00 36.5 Padmini [facility] Respiratory rate 2021-04-30 23:55:00 20 /min [facility] Body height 2021-04-30 23:55:00 162.6 cm [facility] Body weight 2021-04-30 23:55:00 86.183 kg [facility] BMI 2021-04-30 23:55:00 32.61 kg/m2 [facility] Oxygen saturation in 2021-04-30 23:55:00 96 /min [facility] Arterial blood by [place] [facility] P[facility] oximetry [facility] Systolic blood 2021-04-12 22:30:00 123 mm[Hg] [facility]iver [facility] Diastolic blood 2021-04-12 22:30:00 73 mm[Hg] Unive [facility] Heart rate 2021-04-12 22:30:00 105 /min [facility] Body temperature 2021-04-12 22:30:00 36.61 Padmini [facility] Respiratory rate 2021-04-12 22:30:00 20 /min [facility] Body height 2021-04-12 22:30:00 162.6 cm [facility] Body weight 2021-04-12 22:30:00 86.183 kg [facility] BMI 2021-04-12 22:30:00 32.61 kg/m2 [facility] Oxygen saturation in 2021-04-12 22:30:00 96 /min [facility] Arterial blood by [place] [facility]xim[facility] Systolic blood 2021-04-13 00:00:00 116 mm[Hg] [facility] Diastolic blood 2021-04-13 00:00:00 82 mm[Hg] Unive [facility] Heart rate 2021-04-13 00:00:00 102 /min [facility] Respiratory rate 2021-04-13 00:00:00 20 /min [facility] Oxygen saturation in 2021-04-13 00:00:00 97 /min [facility] Arterial blood by [facility] Pulse oximetry Branch Body temperature 2021-04-12 22:58:00 37.11 Padmini [facility] Body weight 2021-04-12 22:58:00 86.183 kg [facility] BMI 2021-04-12 22:58:00 32.61 kg/m2 [facility] Systolic blood 2021-04-12 22:46:00 123 mm[Hg] [facility] Diastolic blood 2021-04-12 22:46:00 73 mm[Hg] Unive [facility] Heart rate 2021-04-12 22:46:00 105 /min [facility] Body temperature 2021-04-12 22:46:00 36.61 Padmini [facility] Respiratory rate 2021-04-12 22:46:00 20 /min [facility] Body height 2021-04-12 22:46:00 162.6 cm [facility] Body weight 2021-04-12 22:46:00 86.183 kg [facility] BMI 2021-04-12 22:46:00 32.61 kg/m2 [facility] Oxygen saturation in 2021-04-12 22:46:00 96 /min [facility] Arterial blood by [facility] Pulse oximetry Branch Systolic blood 2021-04-08 23:40:00 128 mm[Hg] [facility] Diastolic blood 2021-04-08 23:40:00 88 mm[Hg] Unive [facility] Heart rate 2021-04-08 23:40:00 99 /min [facility] Body temperature 2021-04-08 23:40:00 37 Padmini [facility] Respiratory rate 2021-04-08 23:40:00 20 /min [facility] Body height 2021-04-08 23:40:00 162.6 cm [facility] Body weight 2021-04-08 23:40:00 86.183 kg [facility] BMI 2021-04-08 23:40:00 32.61 kg/m2 [facility] Oxygen saturation in 2021-04-08 23:40:00 97 /min University Arterial blood by [facility] Pulse oximetry Branch Systolic blood 2020-04-01 07:33:00 133 mm[Hg] Univer sity of pressure [facility] Diastolic blood 2020-04-01 07:33:00 75 mm[Hg] Unive [facility]ity of [facility] Heart rate 2020-04-01 07:33:00 98 /min [facility] Body temperature 2020-04-01 07:33:00 36.67 Padmini [facility] 2020-04-01 07:33:00 20 /min [facility] Oxygen saturation in 2020-04-01 07:33:00 97 /min [facility] Arterial blood by [facility] Pulse oximetry Branch Body weight 2020-04-01 05:16:00 81.647 kg [facility] Procedures Procedure Date / Time Performing Clinician Source Performed CT CHEST PULMONARY 2021-05-01 04:39:51 Charan Healy [facility] ANGIOGRAM Medical Branch LIPASE 2021-05-01 03:04:00 Charan Healy [facility] TROPONIN I 2021-05-01 03:04:00 Charan Healy [facility] COMP. METABOLIC PANEL 2021-05-01 03:04:00 Charan Healy [facility] ([id number]) [facility] D-DIMER 2021-05-01 03:04:[address] CBC WITH DIFF 2021-05-01 03:03:00 Charan Healy [facility] NOTICE OF PRIVACY 2021-04-30 23:47:31 Doctor Unassigned, No Univ [facility] Name Medical Branch CONSENT/REFUSAL FOR 2021-04-30 23:47:14 Doctor Unassigned, No [facility] XR CHEST 1 VW 2021-04-12 23:30:[address] [facility] NOTICE OF PRIVACY 2021-04-12 22:51:44 Doctor Unassigned, No [facility] [place] [facility] Name Medical Branch CONSENT/REFUSAL FOR 2021-04-12 22:51:23 Doctor Unassigned, No Un [facility] DIAGNOSIS AND TREATMENT Name [facility] POCT GRP A STREP 2021-04-08 23:51:00 Keara White [facility] (MOLECULAR) [facility] POCT FLU A AND B 2021-04-08 23:51:00 Keara White [facility] (MOLECULAR) [facility] ASSIGNMENT OF BENEFITS 2021-04-08 23:16:40 Doctor Unassigned, No [facility] XR CHEST 1 VW 2020-04-01 06:29:43 Xochilt Vogt Price o f [facility] COMP. METABOLIC PANEL 2020-04-01 05:57:00 Xochilt Vogt [facility] ([id number]) [facility] CBC WITH DIFFERENTIAL 2020-04-01 05:57:00 Xochilt Vogt [facility] COVID-19 (ID NOW RAPID 2020-04-01 05:57:00 Xochilt Vogt [facility] TESTING) [facility] Branch ASSIGNMENT OF BENEFITS 2020-04-01 05:06:57 Doctor Unassigned, No [facility] Encounters Start End Encounter Admission Attending Care Care Encounter Source Date/Time Date/Time Type Type Clinicians Facility Department ID 2021-07-26 Emergency [facility] [id number] Univers 13:47:47 ity [facility] 2021-07-26 Emergency [facility] [id number] Univers 09:15:38 ity [facility] 2021-04-30 2021-05-01 Emergency Charan Healy [facility] [id number] Univers 20:47:00 01:23:00 Mariposa Melissa [id number] i ty of [place] [id number] [facility] [phone] [facility] 084 Branch 2021-04-30 2021-04-30 Nurse Nurse, [facility] 1.2 .840.114 [id number] Univers 18:44:17 18:59:[address] [facility] [id number] ity [facility] [id number] Henrique as Professio [phone] Il dical nal [address] [place] [address] One 2021-04-30 2021-04-30 [facility] [id number] Univers 18:45:00 18:45:00 NAYA ity o f [facility] 2021-04-30 2021-04-30 Outpatient [facility] [id number] Univers 18:20:00 18:20:00 [id number] [facility] 2021-04-30 2021-04-30 [facility] [id number] Univers 18:20:00 18:20:00 NAYA ity o inez [facility] 2021-04-29 2021-04-29 Outpatient [facility] [id number] Univers 20:00:00 20:00:00 [id number] [facility] 2021-04-25 2021-04-25 Outpatient R [facility] [id number] Univers 18:20:00 18:20:00 [id number] [facility] 2021-04-25 2021-04-25 [facility] [id number] Univers 18:20:00 18:20:00 TOMY [facility] 2021-04-25 2021-04-25 Laboratory Lab, Adc Fam Pob I [facility] 1.2. 840.114 [id number] Univers 17:44:09 18:04:09 Only [facility] 350.1.13. 10 [facility] [id number] Henrique as Professio [phone] [facility] nal [address] [place] [address] One 2021-04-13 2021-04-13 [facility] [id number] Univers 14:30:00 14:30:00 LUIS E [facility] 2021-04-13 2021-04-13 Outpatient R [facility] [id number] Univers 14:30:00 14:30:00 [id number] [facility] 2021-04-12 2021-04-12 [facility] 1.2.840.114 [id number] Univers 20:00:00 20:20:00 Care [facility] [id number] it y of [place] [id number] Henrique as Professio [phone] [facility] [address] One 2021-04-12 2021-04-12 Outpatient [facility] [id number] Univers 20:00:00 20:00:00 [id number] ity of [facility] 2021-04-12 2021-04-12 Outpatient R [facility] [id number] Univers 20:00:00 20:00:00 ity of [facility] 2021-04-12 2021-04-12 Emergency Moon, [facility] 1.2.840.114 [id number] Univers 18:01:00 19:37:00 Zo Melissa [id number] i ty [facility] [id number] [facility] [phone] [facility] 084 Branch 2021-04-12 2021-04-12 Nurse Nurse, [facility] 1.2 .840.114 [id number] Univers 17:44:38 17:59:38 Visit Keara [facility] [id number] ity of [place] [id number] Henrique as Professio [phone] Il dicwa nal [address] One 2021-04-12 2021-04-12 Outpatient R [facility] [id number] Univers 17:15:00 17:15:00 ity of [facility] 2021-04-10 2021-04-10 Telemedici Darryn Howard [facility] 1.2. 840.114 [id number] Univers 11:21:33 11:51:33 ne Visit Unknown, [facility] 350.1.13.1 0 [facility] [id number] [place] [address] [phone] [facility] 370 Branch Specialty Care 2021-04-10 2021-04-10 Outpatient R [facility] [id number] Univers 11:45:00 11:45:00 [id number] ity of [facility] 2021-04-10 2021-04-10 Outpatient R UNKNOWN, [facility] [id number] Univers 11:45:00 11:45:00 ATTENDING ity of [facility] 2021-04-10 2021-04-10 Nurse SCOTTIE House 1.2.840.114 [id number] Univers 00:00:00 00:00:00 Triage Anna BLEDSOE [id number] ity of [facility] [id number] Henrique as [phone] [address] 2021-04-10 2021-04-10 Telephone [facility] 1.2.215.016 [id number] Univers 00:00:00 00:00:00 [facility] [id number] it y of [place] [id number] Henrique as Professio [phone] [address] Office [facility] 2021-04-09 2021-04-09 [place] [facility] [id number] Univers 00:00:00 00:00:00 [facility] [id number] it y of [place] [id number] Henrique as Professio [phone] [address] 2021-04-08 2021-04-08 [facility] ChristopherKeara [facility] 1.2.840.114 [id number] Univers 18:17:52 18:37:52 Care Jessica Sharpe [facility] [id number] ity of [place] [id number] Henrique as Professio [phone] [address] Office [facility] One 2021-04-08 2021-04-08 Outpatient R OLIVA, [facility] [id number] Univers 18:20:00 18:20:00 JESSICA hunt o f [facility] 2021-04-08 2021-04-08 Orders Doctor RUBIN 1.2.840.114 [id number] Univers 00:00:00 00:00:00 Only Unassigned, LADI 350.1.13.10 ity of [place] [facility] [id number] Henrique as [phone] [address] 2020-04-01 2020-04-01 Emergency [facility] [id number] Univers 00:20:31 02:36:00 Xochilt [place] 350.1.13.10 i ty of [place] 4.2.7.2.686 Mauro verduzco [place] [phone] [facility] 084 Branch 2020-04-01 2020-04-01 Emergency X SIN [facility] ERT [id number] Univers 00:20:31 00:20:31 XOCHILT ity [facility] Results Test Description Test Time Test Results Result Source Comments Comments CT CHEST Impression: No CTA Univer sity of PULMONARY 7 evidence for pulmonary [facility] ANGIOGRAM 05:33:54 embolus. Linear Branch atelectasis in the lower lobes bilaterally without other acutepulmonary process. RL: 460 AFC: 14112 Ordering physician: Charan HEALY Indication: Chest pain, short of breath, elevated d-dimer Comparison: Chest radiograph dated 04/12/2021 Technique: CTA of the chest was performed following the administration ofintravenous contrast material. Three-dimensional reformats were generatedfollowing completion of the exam. CT scan was performed according to ALARA(as low as reasonably achievable) policy. Findings: The visualized thyroid gland is within normal limits. There is nothoracic aortic aneurysm or dissection. The heart is normal in size withoutsignificant pericardial effusion. No filling defect is appreciated in thepulmonary arteries to the level of the distal segmental arteries. Nopathologically enlarged mediastinal or hilar lymph nodes are identified. No acute process is identified in the upper abdomen. There is linearatelectasis in the bilateral lower lobes. Bone windows through the chestdemonstrate no osseous destructive lesion. Bilateral breast implants are inplace. [facility], Radiant Results Inft User - 05/01/2021 12:34 AM CDT Ordering physician: Charan DONALDYEUIndication: Chest pain, short of breath, elevated d-dimerComparison: Chest radiograph dated 04/12/2021Technique: CTA of the chest was performed following the administration ofintravenous contrast material. Three-dimensional reformats were generatedfollowing completion of the exam. CT scan was performed according to ALARA(as low as reasonably achievable) policy.Findings: The visualized thyroid gland is within normal limits. There is nothoracic aortic aneurysm or dissection. The heart is normal in size withoutsignificant pericardial effusion. No filling defect is appreciated in thepulmonary arteries to the level of the distal segmental arteries. Nopathologically enlarged mediastinal or hilar lymph nodes are identified.No acute process is identified in the upper abdomen. There is linearatelectasis in the bilateral lower lobes. Bone windows through the chestdemonstrate no osseous destructive lesion. Bilateral breast implants are inplace.IMPRESSIONImpr ession:No CTA evidence for pulmonary embolus.Linear atelectasis in the lower lobes bilaterally without other acutepulmonary process.RL: 460AF: [id number] signed by Amena Shi MD, PhD at 05/01/2021 12:33 AM TROPONIN I 2021-05-01 04:03:05 Test Item Value Reference Range Interpretation Comme nts TROPONIN I (test code = 0.000 ng/mL See_Comment [Au tomated message] The [id number]) system which blogTV nerated this result tra nsmitted reference range : <=0.034. The reference r devan was not used to int erpret this result as normal/abnormal . NEW (test code = NEW) Reference (Normal) Range (defined by the 99th percentile reference limit): <= 0.034 ng/mL Note: Cardiac troponin begins to rise 3-4 hours after the onset of ischemia. Repeat in 4-6 hours if the sample was drawn within 3-4 hours of the onset of the symptom and found normal. Diagnosis of myocardial injury is made with acute changes in cTn concentrations with at least one serial sample above the 99th percentile upper reference limit (URL), taken together with the patient's clinical presentation. Biotin has been reported to cause a negative bias, interpret results relative to patient's use of biotin. Lab Interpretation Normal (test code = 87019-8) [facility]. METABOLIC PANEL (97498)2021-05-01 03:53:09 Test Item Value Reference Range Interpretation Comments NA (test code = 140 mmol/L 135-145 4488071917) K (test code = 3.3 mmol/L 3.5-5.0 L 5956862654) CL (test code = 101 mmol/L 98-108 5328306962) CO2 TOTAL (test code = 30 mmol/L 23-31 5547481114) AGAP (test code = 2-16 3082943966) BUN (test code = 14 mg/dL 7-23 5043485271) GLUCOSE (test code = 88 mg/dL 70-110 7365564846) CREATININE (test code = 0.88 mg/dL 0.50-1.04 9950119691) TOTAL BILI (test code = 0.3 mg/dL 0.1-1.2 8002199748) CALCIUM (test code = 9.6 mg/dL 8.6-10.6 7930807128) T PROTEIN (test code = 8.6 g/dL 6.3-8.2 H 9820188591) ALBUMIN (test code = 4.8 g/dL 3.5-5.0 6269966190) ALK PHOS (test code = 134 U/L 34-122 H 0906864704) ALTv (test code = 28 U/L 5-35 1742-6) AST(SGOT) (test code = 33 U/L 13-40 6820886568) eGFR (test code = mL/min/1.73m2 8450170821) NEW (test code = NEW) Association of Glomerular Filtration Rate (GFR) and Staging of Kidney Disease* + --+ --+ ------+| GFR (mL/min/1.73 m2) ?| With Kidney Damage ?| ?Without Kidney Damage+ --------+ --------+ +| ?>90 ?| ?Stage one ?| ? Normal ?+ ---+ ---+ -------+| ?60-89 ?| ?Stage two ?| ? Decreased GFR ? + --+ --+ ------+| ?30-59 ?| ?Stage three ?| ? Stage three ? + --+ --+ ------+| ?15-29 ?| ?Stage four ? | ? Stage four ?+ ---+ ---+ -------+| ?<15 (or dialysis) ? ?| ?Stage five ? | ? Stage five ?+ ---+ ---+ -------+ *Each stage assumes the associated GFR level has been in effect for at least three months. ?Stages 1 to 5, with or without kidney disease, indicate chronic kidney disease. Notes: Determination of stages one and two (with eGFR >59mL/min/1.73 m2) requires estimation of kidney damage for at least three months as defined by structural or functional abnormalities of the kidney, manifested by either:Pathological abnormalities or Markers of kidney damage (including abnormalities in the composition of the blood or urine or abnormalities in imaging tests). Lab Interpretation Abnormal (test code = 76804-4) [facility], [id number] 03:53:04 Test Item Value Reference Range Interpretation Comments LIPASE (test code = 9447343289) 120 U/L 0-220 Lab Interpretation (test code = Normal 24398-6) [facility]-[id number] 03:45:46 Test Item Value Reference Interpretation Comments Range D-DIMER (test code = See_Comment H [Autom ated 5385018704) message] The system which generated this result transmitted reference range : <0.41 ?g/mL (FEU). The reference range was not used to interpret this result as normal/abnormal . NEW (test code = This test may be NEW) used in conjunction with a clinical pretest probability (PTP) assessment model to exclude venous thromboembolism (VTE) in patients suspected of deep venous thrombosis (DVT) and pulmonary embolism (PE) A D-Dimer value less than 0.50 ?g/ml (FEU) has a negative predicative value of 96 to 100% (95% CI)and 97 to 100% (95% CI) as an aid in the diagnosis of deep vein thrombosis (DVT) and pulmonary embolism when there is low or moderate pretest probability of PE or DVT. D-Dimer values are expressed in initial fibrinogen equivalent units (FEU)" The assay results should be used with other information, including the clinical context, in forming a diagnosis. Lab Interpretation Abnormal (test code = 81974-7) [facility] WITH [id number] 03:41:28 Test Item Value Reference Range Interpretation Comments WBC (test code = See_Comment H [Automated 6690-2) message] The sy stem which generated this result transmitted reference range : 4.30 - 11.10 10*3/?L. The reference range was not used to interpret this result as normal/abnormal . RBC (test code = See_Comment [Automated 789-8) message] The sy stem which generated this result transmitted reference range : 3.93 - 5.25 10*6/?L. The reference range was not used to interpret this result as normal/abnormal . HGB (test code = 13.2 g/dL 11.6-15.0 718-7) HCT (test code = 42.2 % 35.7-45.2 4544-3) MCV (test code = 99.1 fL 80.6-95.5 H 787-2) MCH (test code = 31.0 pg 25.9-32.8 785-6) MCHC (test code = 31.3 g/dL 31.6-35.1 L 786-4) RDW-SD (test code = 51.0 fL 39.0-49.9 H 53713-4) RDW-CV (test code = 14.0 % 12.0-15.5 788-0) PLT (test code = See_Comment [Automated 777-3) message] The sy stem which generated this result transmitted reference range : 166 - 358 10*3/ ?L. The reference r devan was not used to interpret this result as normal/abnormal . MPV (test code = 10.1 fL 9.5-12.9 67301-1) NRBC/100 WBC (test See_Comment [Automat ed code = 3672530727) message] The system which generated this result transmitted reference range : 0.0 - 10.0 /100 WBCs. The refer ence range was not u sed to interpret th is result as normal/abnormal . NRBC x10^3 (test code <0.01 See_Comment [Auto mated = 2168114068) message] The s ystem which generated this result transmitted reference range : 10*3/?L. The reference range was not used to interpret this result as normal/abnormal . GRAN MAT (NEUT) % 55.6 % (test code = 770-8) IMM GRAN % (test code 0.50 % = 1955396328) LYMPH % (test code = 33.8 % 736-9) MONO % (test code = 7.4 % 5905-5) EOS % (test code = 2.2 % 713-8) BASO % (test code = 0.5 % 706-2) GRAN MAT x10^3(ANC) 6.42 10*3/uL 1.88-7.09 (test code = 1768887242) IMM GRAN x10^3 (test 0.06 10*3/uL 0.00-0.06 code = 0860025160) LYMPH x10^3 (test code 3.91 10*3/uL 1.32-3.29 H = 731-0) MONO x10^3 (test code 0.85 10*3/uL 0.33-0.92 = 742-7) EOS x10^3 (test code = 0.26 10*3/uL 0.03-0.39 711-2) BASO x10^3 (test code 0.06 10*3/uL 0.01-0.07 = 704-7) Lab Interpretation Abnormal (test code = 34541-5) [facility] FLU A AND B (MOLECULAR)2021-04-09 00:01:00 Test Item Value Reference Range Interpretation Comments POCT INFLUENZA A (test code = negative Negative - Negative 3840) POCT INFLUENZA B (test code = negative Negative - Negative 3841) Lab Interpretation (test code = Normal 19178-1) [facility] GRP A STREP (MOLECULAR)2021-04-08 23:51:00 Test Item Value Reference Range Interpretation Comments POCT GP A STREP (test neg Negative - code = 26797-7) Negative NEW (test code = NEW) accurate development and interpretation of all internal controls Lab Interpretation Normal (test code = 50666-2) [facility] (ID NOW RAPID TESTING)2020-04-01 06:48:00 Test Item Value Reference Range Interpretation Comments SARS-CoV-2 Rapid ID NOW Not Detected Not Detected (test code = 19134-2) NEW (test code = NEW) ID NOW COVID-19 Assay is an isothermal nucleic acid amplification test intended for the qualitative detection of nucleic acid from SARS-CoV-2 viral RNA in nasopharyngeal ([employer]ING [employer]PERVISOR) specimens. It is used under Emergency Use Authorization (EUA) by FDA. The limit of detection (LOD) of the assay is 125 Genome Equivalents/mL. A positive result is indicative of the presence of SARS-CoV-2 RNA. ?Clinical correlation with patient history and other diagnostic information is necessary to determine patient infection status. A negative (Not Detected) result does not preclude SARS-CoV-2 infection. In patients with clinical symptoms and other tests that are consistent with SARS-CoV-2 infection, negative results should be treated as presumptive negative and a new specimen should be tested with alternative PCR molecular test. Invalid: Please collect a new specimen for repeat patient testing if clinically indicated. Lab Interpretation Normal (test code = 07411-3) [facility]. METABOLIC PANEL ([id number])2020-04-01 06:38:00 Test Item Value Reference Range Interpretation Comments NA (test code = 139 mmol/L 135-145 9668046301) K (test code = 4.2 mmol/L 3.5-5 5942443638) CL (test code = 105 mmol/L 98-108 1532968866) CO2 TOTAL (test code = 25 mmol/L 23-31 3999748265) AGAP (test code = 2-16 0744986628) BUN (test code = 11 mg/dL 7-23 5670792348) GLUCOSE (test code = 112 mg/dL 70-110 H 5754305999) CREATININE (test code = 0.75 mg/dL 0.5-1.04 1546987845) TOTAL BILI (test code = 0.3 mg/dL 0.1-1.9 2741520167) CALCIUM (test code = 9.3 mg/dL 8.6-10.6 3276681187) T PROTEIN (test code = 7.9 g/dL 6.3-8.2 5485611472) ALBUMIN (test code = 4.3 g/dL 3.5-5 6300957957) ALK PHOS (test code = 107 U/L 34-122 7005370793) ALTv (test code = 15 U/L 5-35 1742-6) AST(SGOT) (test code = 21 U/L 13-40 5847645838) eGFR Calculation mL/min/1.73m2 (Non-) (test code = 8782591333) eGFR Calculation mL/min/1.73m2 () (test code = 8417249520) NEW (test code = NEW) Association of Glomerular Filtration Rate (GFR) and Staging of Kidney Disease* + --+ --+ ------+| GFR (mL/min/1.73 m2) ?| With Kidney Damage ?| ?Without Kidney Damage+ --------+ --------+ +| ?>90 ?| ?Stage one ?| ? Normal ?+ ---+ ---+ -------+| ?60-89 ?| ?Stage two ?| ? Decreased GFR ? + --+ --+ ------+| ?30-59 ?| ?Stage three ?| ? Stage three ? + --+ --+ ------+| ?15-29 ?| ?Stage four ? | ? Stage four ?+ ---+ ---+ -------+| ?<15 (or dialysis) ? ?| ?Stage five ? | ? Stage five ?+ ---+ ---+ -------+ *Each stage assumes the associated GFR level has been in effect for at least three months. ?Stages 1 to 5, with or without kidney disease, indicate chronic kidney disease. Notes: Determination of stages one and two (with eGFR >59mL/min/1.73 m2) requires estimation of kidney damage for at least three months as defined by structural or functional abnormalities of the kidney, manifested by either:Pathological abnormalities or Markers of kidney damage (including abnormalities in the composition of the blood or urine or abnormalities in imaging tests). Lab Interpretation Abnormal (test code = 22615-0) [facility] WITH [id number] 06:10:00 Test Item Value Reference Range Interpretation Comments WBC (test code = See_Comment [Automated 3811-2) message] The sy stem which generated this result transmitted reference range : 4.30 - 11.10 10*3/?L. The reference range was not used to interpret this result as normal/abnormal . RBC (test code = See_Comment [Automated 441-4) message] The sy stem which generated this result transmitted reference range : 3.93 - 5.25 10*6/?L. The reference range was not used to interpret this result as normal/abnormal . HGB (test code = 13.0 g/dL 11.6-15 718-7) HCT (test code = 40.7 % 35.7-45.2 4544-3) MCV (test code = 99.5 fL 80.6-95.5 H 787-2) MCH (test code = 31.8 pg 25.9-32.8 785-6) MCHC (test code = 31.9 g/dL 31.6-35.1 786-4) RDW-SD (test code = 52.1 fL 39-49.9 H 46707-9) RDW-CV (test code = 14.3 % 12-15.5 788-0) PLT (test code = See_Comment [Automated 777-3) message] The sy stem which generated this result transmitted reference range : 166 - 358 10*3/ ?L. The reference r devan was not used to interpret this result as normal/abnormal . MPV (test code = 9.8 fL 9.5-12.9 31917-9) NRBC/100 WBC (test See_Comment [Automat ed code = 7796102957) message] The system which generated this result transmitted reference range : 0.0 - 10.0 /100 WBCs. The refer ence range was not u sed to interpret th is result as normal/abnormal . NRBC x10^3 (test code <0.01 See_Comment [Auto mated = [id number]) message] The s ystem which generated this result transmitted reference range : 10*3/?L. The reference range was not used to interpret this result as normal/abnormal . GRAN MAT (NEUT) % 57.1 % (test code = 770-8) IMM GRAN % (test code 0.80 % = 4260795267) LYMPH % (test code = 31.5 % 736-9) MONO % (test code = 7.2 % 5905-5) EOS % (test code = 3.3 % 713-8) BASO % (test code = 0.1 % 706-2) GRAN MAT x10^3(ANC) 5.22 10*3/uL 1.88-7.09 (test code = 7217153203) IMM GRAN x10^3 (test 0.07 10*3/uL 0-0.06 H code = 1818610772) LYMPH x10^3 (test code 2.88 10*3/uL 1.32-3.29 = 731-0) MONO x10^3 (test code 0.66 10*3/uL 0.33-0.92 = 742-7) EOS x10^3 (test code = 0.30 10*3/uL 0.03-0.39 711-2) BASO x10^3 (test code <0.03 0.01-0.07 = 704-7) Lab Interpretation Abnormal (test code = 67243-2) [facility]
== END 2021-08-03 12:30 | disposition home or self-care (01) ==
LOC: OR 10:23 → 2ND-WC 20:14 → UNDOADMIN 20:21 → 2ND-WC 20:21 → OR 08-03 12:30
PROVIDERS: ATTEND Obstetrics & Gynecology
PROC: 0UT74ZZ Resection of Bilateral Fallopian Tubes, Percutaneous Endoscopic Approach (ICD-10-PCS; 2021-08-02)
PROC: 0USG7ZZ Reposition Vagina, Via Natural or Artificial Opening (ICD-10-PCS; 2021-08-02)
PROC: 0UT94ZZ Resection of Uterus, Percutaneous Endoscopic Approach (ICD-10-PCS; principal; 2021-08-02 12:00)
DX: N81.2 Incomplete uterovaginal prolapse (principal); N39.3 Stress incontinence (female) (male); K59.00 Constipation, unspecified; Z20.822 Contact with and (suspected) exposure to COVID-19
CPT/HCPCS: 85025; 80048; 36415 ×2; 86900; 86850; 84703; 81025; 85610; 86901; 88305; 85730; 81003; 58571; 57283; U0003; J2704; J2250; J3010 ×2; J1100; J2175 ×3; J1170; J2710; J0690 ×2; J7120 ×6; J7030; J2405; 88307

== ENCOUNTER 2022-07-17 15:39 | Inpatient (IN) | payer BC ==
--- OUTSIDE RECORDS SUMMARY | 2022-07-17 15:44 | XMS REPORT | Continuity of Care Document ---
:1970 Author Organization [facility] t Address [address] [place] [address] [address] [place] [address] Care Team Providers Name Role Phone EZEQUIEL Attending Clinician Unavailable Carlota Houston Attending Clinician [phone] LEBRON Attending Clinician Unavailable Christopher Weldon Attending Clinician [phone] Charan Huynh Attending Clinician Nurse, [facility] Attending Clinician Unavailable Beverley Maier Attending Clinician BEVERLEY HODGE Attending Clinician Unavailable LISETH ESPARZA Attending Clinician Unavailable Lab, [facility] Attending Clinician Unavailable Liseth Martínez Attending Clinician LUIS E ALBERTO Attending Clinician Unavailable Keara White MD Attending Clinician Zo Willoughby Attending Clinician Darryn Howard MD Attending Clinician Unknown, Attending Attending Clinician Unavailable UNKNOWN, ATTENDING Attending Clinician Unavailable Harsh SCHULZ, Anna Verduzco Attending Clinician Unavailable Jessica Hanson Attending Clinician JESSICA SHARPE Attending Clinician Unavailable Doctor Unassigned, [place] Attending Clinician Unavailable tresa Attending Clinician Unavailable Xochilt Cormier Attending Clinician XOCHILT VOGT Attending Clinician Unavailable SISSONYang Admitting Clinician Unavailable LEBRON Admitting Clinician Unavailable tresa Admitting Clinician Unavailable Payers Payer Name Policy Type Policy Number Effective Date Expiration Date [id number] 00:00:00 OUT [facility] [id number] 2021 00:00:00 Problems Condition Condition Condition Status Onset Resolution Last Treating Co mments Source Name Details Category Date Date Treatment Clinician Date UTI (lower UTI (lower Disease Active U nivers urinary urinary 04-21 ity of tract tract 00:00: [place] infection) infection) 00 In dical Branch Allergies, Adverse Reactions, Alerts Allergy Allergy Status Severity Reaction(s) Onset Inactive Treating Comm ents Source Name Type Date Date Clinician IBUPROFE DRUG Active N/V Univers N INGREDI 04-20 ity of 00:00: [place] 00 Medical Branch Ibuprofe Propensi Active Nausea Univer s n ty to and/or 04-20 ity of adverse Vomiting 00:00: [place] reaction 00 Medical s Branch MORPHINE DRUG Active Anaphylaxis Uni vers INGREDI ity of 00:00: [place] [facility] Morphine Propensi Active Anaphylaxis U nivers ty to ity of adverse 00:00: [place] reaction 00 Medical s Branch Ibuprofe Allergy Active [place] n to [facility] Social History Social Habit Start Date Stop Date Quantity Comments Source Exposure to Yes [facility] SARS-CoV-2 (event) Medica l Branch Tobacco use and 2021-04-30 2021-04-30 Never used [facility] exposure 00:00:00 00:00:00 Medical [place] Alcohol intake 2021-04-30 2021-04-30 [facility] 00:00:00 00:00:00 [facility] Sex Ass[birth year] At [birth year] [facility] 00:00:00 00:00:00 [facility] Smoking Status Start Date Stop Date Source Never Smoker [facility] Medications Ordered Filled Start Stop Current Ordering Indication Dosage Frequency Signature Comments Components Source Medication Medication Date Date Medication? Clinician (SIG) Name Name iopamidol 2020- No [id number] 100mL 100 mL, Univers (ISOVUE 05-01 Intravenou ity o f 370-500 mL) 04:35: 04:35 s, ONCE, 1 [place] injection 00 :00 dose, Fri Medic al 100 mL 8/6/21 at Branch 2345, Routine benzonatate 0 Yes [id number] 200mg Take 1 Univers 200 mg 05-01 capsule by ity of capsule 00:00: mouth 3 [place] 00 (three) Medical times Branch daily as needed for Cough for up to 20 doses. azithromyci Yes [id number] 250mg Take 1 Univers n 7- [id number] tablet by ity of (ZITHROMAX 00:00: mouth [place] Z-EMELY) 250 00 daily. Medical mg tablet Take 500 Branch mg day 1, then 250 mg days 2 to 5. albuterol Yes [id number] 2{puff} Inhale 2 [facility] 90 7 [id number] Puffs ity of mcg/actuati 00:00: every 4 [place] as on inhaler 00 (four) Medical hours as Branch needed for Wheezing or Shortness of Breath. azithromyci Yes [id number] 250mg Take 1 Univers n 7- [id number] tablet by ity of (ZITHROMAX 00:00: mouth [place] Z-EMELY) 250 00 daily. Medical mg tablet Take 500 Branch mg day 1, then 250 mg days 2 to 5. albuterol Yes [id number] 2{puff} Inhale 2 [facility] 90 7 [id number] Puffs ity of mcg/actuati 00:00: every 4 [place] as on inhaler 00 (four) Medical hours as Branch needed for Wheezing or Shortness of Breath. azithromyci Yes [id number] 250mg Take 1 Univers n 7- [id number] tablet by ity of (ZITHROMAX 00:00: mouth [place] Z-EMELY) 250 00 daily. Medical mg tablet Take 500 Branch mg day 1, then 250 mg days 2 to 5. albuterol 2020- Yes [id number] 2{puff} Inhale 2 Univers 90 7 [id number] Puffs ity of mcg/actuati 00:00: every 4 [place] as on inhaler 00 (four) Medical hours as Branch needed for Wheezing or Shortness of Breath. azithromyci Yes [id number] 250mg Take 1 Univers n 7- [id number] tablet by ity of (ZITHROMAX 00:00: mouth [place] Z-EMELY) 250 00 daily. Medical mg tablet Take 500 Branch mg day 1, then 250 mg days 2 to 5. albuterol Yes [id number] 2{puff} Inhale 2 Univers 90 04-12 [id number] Puffs ity of mcg/actuati 00:00: every 4 [place] as on inhaler 00 (four) Medical hours as Branch needed for Wheezing or Shortness of Breath. codeine-gua No [id number] 5mL Take 5 mL Univers ifenesin 04-12 by mouth ity of 10-100 mg/5 00:00: 04:59 every 6 [place] mL solution 00 :00 (six) Medical hours as Branch needed for Cough for up to 7 days. Indication s: acute pain citalopram Yes 40mg Take 40 mg U nivers (CELEXA) 40 7-15 by mouth ity of mg tablet 23:37: daily. [place] [address] Medical Branch levothyroxi Yes 150ug Take 150 [...] as needed. [place] 49 [facility] Branch citalopram Yes 40mg Take 40 mg U nivers (CELEXA) 40 7-15 by mouth ity of mg tablet 23:37: daily. [place] [address] Medical Branch levothyroxi Yes 150ug Take 150 [...] as needed. [place] 49 [place] [facility] citalopram 0 Yes 40mg Take 40 mg U nivers (CELEXA) 40 7-15 by mouth ity of mg tablet 23:37: daily. [place] [address] Medical Branch levothyroxi 0 Yes 150ug Take [...] mouth ity of mg tablet 23:37: daily. [place] [address] Medical Branch levothyroxi Yes 150ug Take 150 [...] ity of mg tablet 23:37: as needed. [place] 49 [place] Branch citalopram 0 Yes 40mg Take 40 mg U nivers (CELEXA) 40 7-15 by mouth ity of mg tablet 23:37: daily. [place] [address] Medical Branch levothyroxi 0 Yes 150ug Take [...] of mg tablet 23:37: as needed. Te [facility] Medical Branch citalopram Yes 40mg Take 40 mg U nivers (CELEXA) 40 7-15 by mouth ity of mg tablet 23:37: daily. [place] [address] Medical Branch levothyroxi Yes 150ug Take 150 [...] ity of mg tablet 23:37: as needed. [place] [address] Medical Branch citalopram Yes 40mg Take 40 mg U nivers (CELEXA) 40 7-15 by mouth ity of mg tablet 23:37: daily. [place] [address] Medical Branch levothyroxi Yes 150ug Take 150 [...] ity of mg tablet 23:37: as needed. [place] [address] Medical Branch citalopram Yes 40mg Take 40 mg U nivers (CELEXA) 40 7-15 by mouth ity of mg tablet 23:37: daily. [place] [address] Medical Branch levothyroxi Yes 150ug Take 150 [...] [place] needed. [place] citalopram Yes 40mg Take 40 mg U nivers (CELEXA) 40 7-15 by mouth ity of mg tablet 23:37: daily. [place] [address] Medical Branch levothyroxi Yes 150ug Take 150 [...] mouth ity of mg tablet 23:37: daily. [place] [address] Medical Branch levothyroxi Yes 150ug Take 150 [...] as needed. [place] [facility] citalopram Yes 40mg Take 40 mg U nivers (CELEXA) 40 7-15 by mouth ity of mg tablet 23:37: daily. [address] Branch levothyroxi 0 Yes 150ug Take 150 U nivers ne 7-15 mcg by ity of (SYNTHROID) 23:37: mouth [place] 150 mcg 49 every Medical tablet morning. Branch zolpidem Yes 10mg Take 10 mg Uni vers (AMBIEN) 10 7-15 by mouth ity of mg tablet 23:37: at bedtime [place] [address] as needed Medical for Branch Insomnia. ALPRAZolam Yes 1mg Take 1 mg Un [place] (XANAX) 1 7-15 by mouth ity of mg tablet 23:37: as needed. [address] Branch benzonatate Yes [id number] 200mg Take 2 Univers 100 mg 7-15 capsules ity of capsule 00:00: by mouth 2 [place] 00 (two) Medical times Branch daily as needed for Cough. guaiFENesin Yes [id number] 400mg Take 1 Univers 400 mg 7-15 tablet by ity of tablet 00:00: mouth [place] 00 every 4 Medical (four) Branch hours as needed for Cough. ondansetron 0 Yes [id number] 4mg Take 1 Univers 4 mg 7-15 tablet by ity of disintegrat 00:00: mouth [place] ing tablet 00 every 8 Medica l (eight) Branch hours as needed for Nausea and Vomiting (N/V). benzonatate Yes [id number] 200mg Take 2 [facility] 100 mg 7-15 capsules ity of capsule 00:00: by mouth 2 [place] 00 (two) Medical times Branch daily as needed for Cough. guaiFENesin Yes [id number] 400mg Take 1 [facility] 400 mg 7-15 tablet by ity of tablet 00:00: mouth [place] 00 every 4 Medical (four) Branch hours as needed for Cough. ondansetron 0 Yes [id number] 4mg Take 1 Univers 4 mg 7-15 tablet by ity of disintegrat 00:00: mouth [place] ing tablet 00 every 8 Medica l (eight) Branch hours as needed for Nausea and Vomiting (N/V). benzonatate 2021-0 Yes [id number] 200mg Take 2 [facility] 100 mg 7-15 capsules ity of capsule 00:00: by mouth 2 [place] 00 (two) Medical times Branch daily as needed for Cough. guaiFENesin 2021-0 Yes [id number] 400mg Take 1 Univers 400 mg 7-15 tablet by ity of tablet 00:00: mouth [place] 00 every 4 Medical (four) Branch hours as needed for Cough. ondansetron 2021-0 Yes [id number] 4mg Take 1 Univers 4 mg 7-15 tablet by ity of disintegrat 00:00: mouth [place] ing tablet 00 every 8 Medica l (eight) Branch hours as needed for Nausea and Vomiting (N/V). benzonatate 1-0 Yes [id number] 200mg Take 2 Univers 100 mg 7-15 capsules ity of capsule 00:00: by mouth 2 [place] 00 (two) Medical times Branch daily as needed for Cough. guaiFENesin 1-0 Yes [id number] 400mg Take 1 Univers 400 mg 7-15 tablet by ity of tablet 00:00: mouth [place] 00 every 4 Medical (four) Branch hours as needed for Cough. ondansetron 1-0 Yes [id number] 4mg Take 1 Univers 4 mg 7-15 tablet by ity of disintegrat 00:00: mouth [place] ing tablet 00 every 8 Medica l (eight) Branch hours as needed for Nausea and Vomiting (N/V). benzonatate 2021-0 Yes [id number] 200mg Take 2 Univers 100 mg 7-15 capsules ity of capsule 00:00: by mouth 2 [place] 00 (two) Medical times Branch daily as needed for Cough. guaiFENesin 2021-0 Yes [id number] 400mg Take 1 Univers 400 mg 7-15 tablet by ity of tablet 00:00: mouth [place] 00 every 4 Medical (four) Branch hours as needed for Cough. ondansetron 2021-0 Yes [id number] 4mg Take 1 Univers 4 mg 7-15 tablet by ity of disintegrat 00:00: mouth [place] ing tablet 00 every 8 Medica l (eight) Branch hours as needed for Nausea and Vomiting (N/V). benzonatate 2021-0 Yes [id number] 200mg Take 2 Univers 100 mg 7-15 capsules ity of capsule 00:00: by mouth 2 [place] 00 (two) Medical times Branch daily as needed for Cough. guaiFENesin 2020-0 Yes [id number] 400mg Take 1 Univers 400 mg 7-15 tablet by ity of tablet 00:00: mouth [place] 00 every 4 Medical (four) Branch hours as needed for Cough. ondansetron 2020-0 Yes [id number] 4mg Take 1 Univers 4 mg 7-15 tablet by ity of disintegrat 00:00: mouth [place] ing tablet 00 every 8 Medica l (eight) Branch hours as needed for Nausea and Vomiting (N/V). benzonatate 2020-0 Yes [id number] 200mg Take 2 Univers 100 mg 7-15 capsules ity of capsule 00:00: by mouth 2 [place] 00 (two) Medical times Branch daily as needed for Cough. guaiFENesin 2020-0 Yes [id number] 400mg Take 1 Univers 400 mg 7-15 tablet by ity of tablet 00:00: mouth [place] 00 every 4 Medical (four) Branch hours as needed for Cough. ondansetron 2020-0 Yes [id number] 4mg Take 1 Univers 4 mg 7-15 tablet by ity of disintegrat 00:00: mouth [place] ing tablet 00 every 8 Medica l (eight) Branch hours as needed for Nausea and Vomiting (N/V). benzonatate 2020-0 Yes [id number] 200mg Take 2 Univers 100 mg 7-15 capsules ity of capsule 00:00: by mouth 2 [place] 00 (two) Medical times Branch daily as needed for Cough. guaiFENesin 2020-0 Yes [id number] 400mg Take 1 Univers 400 mg 7-15 tablet by ity of tablet 00:00: mouth [place] 00 every 4 Medical (four) Branch hours as needed for Cough. ondansetron 2020-0 Yes [id number] 4mg Take 1 Univers 4 mg 7-15 tablet by ity of disintegrat 00:00: mouth [place] ing tablet 00 every 8 Medica l (eight) Branch hours as needed for Nausea and Vomiting (N/V). benzonatate 2020-0 Yes [id number] 200mg Take 2 Univers 100 mg 7-15 capsules ity of capsule 00:00: by mouth 2 [place] 00 (two) Medical times Branch daily as needed for Cough. guaiFENesin 2021-0 Yes [id number] 400mg Take 1 Univers 400 mg 7-15 tablet by ity of tablet 00:00: mouth [place] 00 every 4 Medical (four) Branch hours as needed for Cough. ondansetron 2021-0 Yes [id number] 4mg Take 1 Univers 4 mg 7-15 tablet by ity of disintegrat 00:00: mouth [place] ing tablet 00 every 8 Medica l (eight) Branch hours as needed for Nausea and Vomiting (N/V). benzonatate 2021-0 Yes [id number] 200mg Take 2 Univers 100 mg 7-15 capsules ity of capsule 00:00: by mouth 2 [place] 00 (two) Medical times Branch daily as needed for Cough. guaiFENesin 2021-0 Yes [id number] 400mg Take 1 Univers 400 mg 7-15 tablet by ity of tablet 00:00: mouth [place] 00 every 4 Medical (four) Branch hours as needed for Cough. ondansetron 1-0 Yes [id number] 4mg Take 1 Univers 4 mg 7-15 tablet by ity of disintegrat 00:00: mouth [place] ing tablet 00 every 8 Medica l (eight) Branch hours as needed for Nausea and Vomiting (N/V). benzonatate 1-0 Yes [id number] 200mg Take 2 Univers 100 mg 7-15 capsules ity of capsule 00:00: by mouth 2 [place] 00 (two) Medical times Branch daily as needed for Cough. guaiFENesin 2021-0 Yes [id number] 400mg Take 1 Univers 400 mg 7-15 tablet by ity of tablet 00:00: mouth [place] 00 every 4 Medical (four) Branch hours as needed for Cough. ondansetron 2021-0 Yes [id number] 4mg Take 1 Univers 4 mg 7-15 tablet by ity of disintegrat 00:00: mouth [place] ing tablet 00 every 8 Medica l (eight) Branch hours as needed for Nausea and Vomiting (N/V). NaCl 0.9% 2020-0 2020- No 1000mL at 999 Uni vers (NS) bolus 04-01 07-08 mL/hr, ity of infusion 07:00: 07:28 1,000 mL, [place] as 1,000 mL 00 :00 IV Medical Infusion, Branch ONCE, 1 dose, Mon04/01/20 at 0200, STAT benzonatate 2020-0 Yes [id number] 100mg Take 1 Univers 100 mg 7-08 capsule by ity of capsule 00:00: mouth 3 [place] 00 (three) Medical times Branch daily as needed for Cough. benzonatate 2020-0 Yes [id number] 100mg Take 1 Univers 100 mg 7-08 capsule by ity of capsule 00:00: mouth 3 [place] 00 (three) Medical times Branch daily as needed for Cough. benzonatate 2020-0 2021- No [id number] 100mg Take 1 Univers 100 mg 7-08 07-15 capsule by ity of capsule 00:00: 00:00 mouth 3 [place] 00 :00 (three) Medical times Branch daily as needed for Cough. citalopram Yes 40mg Take 40 mg U nivers (CELEXA) 40 7-28 by mouth ity of mg tablet 02:54: daily. [place] Medical Branch levothyroxi Yes 150ug Take 150 [...] mg tablet 02:54: as needed. [place] 02 [place] Branch citalopram Yes 40mg Take 40 mg U nivers (CELEXA) 40 7-28 by mouth ity of mg tablet 02:54: daily. [place] Medical Branch levothyroxi Yes 150ug Take 150 [...] mg tablet 02:54: as needed. [place] 02 [place] Branch Nitrofurant Yes [id number] Take one Univers oin&Nit. 7-27 tablet by ity of Macrocryst 00:00: mouth [place] (MACROBID) 00 twice a Medica l 100 mg day Branch capsule phenazopyri Yes [id number] 200mg Take 2 Univers dine 7-27 Tabs by ity of (PYRIDIUM) 00:00: mouth 3 [place] 100 mg 00 (three) Medical tablet times Branch daily. Nitrofurant Yes [id number] Take one Univers oin&Nit. 7-27 tablet by ity of Macrocryst 00:00: mouth [place] (MACROBID) 00 twice a Medica l 100 mg day Branch capsule phenazopyri Yes [id number] 200mg Take 2 Univers dine 7-27 Tabs by ity of (PYRIDIUM) 00:00: mouth 3 [place] 100 mg 00 (three) Medical tablet times Branch daily. Nitrofurant Yes [id number] Take one Univers oin&Nit. 7-27 tablet by ity of Macrocryst 00:00: mouth [place] (MACROBID) 00 twice a Medica l 100 mg day Branch capsule phenazopyri Yes [id number] 200mg Take 2 Univers dine 7-27 Tabs by ity of (PYRIDIUM) 00:00: mouth 3 [place] 100 mg 00 (three) Medical tablet times Branch daily. Nitrofurant Yes [id number] Take one Univers oin&Nit. 7-27 tablet by ity of Macrocryst 00:00: mouth [place] (MACROBID) 00 twice a Medica l 100 mg day Branch capsule phenazopyri Yes [id number] 200mg Take 2 Univers dine 7-27 Tabs by ity of (PYRIDIUM) 00:00: mouth 3 [place] 100 mg 00 (three) Medical tablet times Branch daily. Nitrofurant Yes [id number] Take one Univers oin&Nit. 7-27 tablet by ity of Macrocryst 00:00: mouth [place] (MACROBID) 00 twice a Medica l 100 mg day Branch capsule phenazopyri Yes [id number] 200mg Take 2 Univers dine 7-27 Tabs by ity of (PYRIDIUM) 00:00: mouth 3 [place] 100 mg 00 (three) Medical tablet times Branch daily. Nitrofurant Yes [id number] Take one Univers oin&Nit. 7-27 tablet by ity of Macrocryst 00:00: mouth [place] (MACROBID) 00 twice a Medica l 100 mg day Branch capsule phenazopyri Yes [id number] 200mg Take 2 Univers dine 7-27 Tabs by ity of (PYRIDIUM) 00:00: mouth 3 [place] 100 mg 00 (three) Medical tablet times Branch daily. Nitrofurant Yes [id number] Take one Univers oin&Nit. 7-27 tablet by ity of Macrocryst 00:00: mouth [place] (MACROBID) 00 twice a Medica l 100 mg day Branch capsule phenazopyri Yes [id number] 200mg Take 2 Univers dine 7-27 Tabs by ity of (PYRIDIUM) 00:00: mouth 3 [place] 100 mg 00 (three) Medical tablet times Branch daily. Nitrofurant Yes [id number] Take one Univers oin&Nit. 7-27 tablet by ity of Macrocryst 00:00: mouth [place] (MACROBID) 00 twice a Medica l 100 mg day Branch capsule phenazopyri Yes [id number] 200mg Take 2 Univers dine 7-27 Tabs by ity of (PYRIDIUM) 00:00: mouth 3 [place] 100 mg 00 (three) Medical tablet times Branch daily. Nitrofurant Yes [id number] Take one Univers oin&Nit. 7-27 tablet by ity of Macrocryst 00:00: mouth [place] (MACROBID) 00 twice a Medica l 100 mg day Branch capsule phenazopyri Yes [id number] 200mg Take 2 Univers dine 7-27 Tabs by ity of (PYRIDIUM) 00:00: mouth 3 [place] 100 mg 00 (three) Medical tablet times Branch daily. Nitrofurant Yes [id number] Take one Univers oin&Nit. 7-27 tablet by ity of Macrocryst 00:00: mouth [place] (MACROBID) 00 twice a Medica l 100 mg day Branch capsule phenazopyri Yes [id number] 200mg Take 2 Univers dine 7-27 Tabs by ity of (PYRIDIUM) 00:00: mouth 3 [place] 100 mg 00 (three) Medical tablet times Branch daily. Nitrofurant Yes [id number] Take one Univers oin&Nit. 7-27 tablet by ity of Macrocryst 00:00: mouth [place] (MACROBID) 00 twice a Medica l 100 mg day Branch capsule phenazopyri Yes [id number] 200mg Take 2 Univers dine 7-27 Tabs by ity of (PYRIDIUM) 00:00: mouth 3 [place] 100 mg 00 (three) Medical tablet times Branch daily. Nitrofurant Yes [id number] Take one Univers oin&Nit. 7-27 tablet by ity of Macrocryst 00:00: mouth [place] (MACROBID) 00 twice a Medica l 100 mg day Branch capsule phenazopyri Yes [id number] 200mg Take 2 Univers dine 7-27 Tabs by ity of (PYRIDIUM) 00:00: mouth 3 [place] 100 mg 00 (three) Medical tablet times Branch daily. Nitrofurant Yes [id number] Take one Univers oin&Nit. 7-27 tablet by ity of Macrocryst 00:00: mouth [place] (MACROBID) 00 twice a Medica l 100 mg day Branch capsule phenazopyri Yes [id number] 200mg Take 2 Univers dine 7-27 Tabs by ity of (PYRIDIUM) 00:00: mouth 3 [place] 100 mg 00 (three) Medical tablet times Branch daily. methotrexat methotrexat No methotrexa [place] e sodium e sodium te sodium Co mmuni 2.5 mg 2.5 mg 2.5 mg ty tablet TAKE tablet TAKE tablet Hospita 5 TABLETS 5 TABLETS TAKE 5 l BY MOUTH 1 BY MOUTH 1 TABLETS BY Clinics TIME A WEEK TIME A WEEK MOUTH 1 DIRECTED DIRECTED TIME A WEEK DIRECTED metoclopram metoclopram No metoclopra [place] rosario 10 mg rosario 10 mg mide 10 mg Communi tablet TAKE tablet TAKE tablet ty 1 TABLET BY 1 TABLET BY TAKE 1 Hospita MOUTH EVERY MOUTH EVERY TABLET BY l 8 HOURS 8 HOURS MOUTH Cl inics NEEDED NEEDED EVERY 8 HOURS NEEDED Mounjaro 5 Mounjaro 5 No 5mg Q1W Mounjaro 5 [place] mg/0.5 mL mg/0.5 mL mg/0.5 mL Communi subcutaneou subcutaneou subcutaneo ty s pen s pen us pen Hospita injector injector injector l Inject 5 mg Inject 5 mg Inject 5 Clinics every week every week mg every by by week by subcutaneou subcutaneou subcutaneo s route for s route for us route 84 days. 84 days. for 84 days. nitrofurant nitrofurant No nitrofuran [place] oin oin toin Communi monohydrate monohydrate monohydrat ty /macrocryst /macrocryst e/macrocry Hospita als 100 mg als 100 mg stals 100 l capsule capsule mg capsule Cli nics TAKE 1 TAKE 1 TAKE 1 CAPSULE BY CAPSULE BY CAPSULE BY MOUTH IN MOUTH IN MOUTH IN THE MORNING THE MORNING THE AND TAKE 1 AND TAKE 1 MORNING CAPSULE BY CAPSULE BY AND TAKE 1 MOUTH IN MOUTH IN CAPSULE BY THE THE MOUTH IN EVENING. DO EVENING. DO THE ALL THIS ALL THIS EVENING. FOR 5 DAYS. FOR 5 DAYS. DO ALL THIS FOR 5 DAYS. omeprazole omeprazole No omeprazole [place] 20 mg 20 mg 20 mg Communi capsule,del capsule,del capsule,de ty ayed ayed layed Hospita release release release l TAKE 1 TAKE 1 TAKE 1 Clinics CAPSULE BY CAPSULE BY CAPSULE BY MOUTH EVERY MOUTH EVERY MOUTH MORNING IN MORNING IN EVERY THE MORNING THE MORNING MORNING IN THE MORNING ondansetron ondansetron No ondansetro [place] 4 mg 4 mg n 4 mg Communi disintegrat disintegrat disintegra ty ing tablet ing tablet ting [facility] DISSOLVE 1 DISSOLVE 1 tablet l TABLET TABLET DISSOLVE 1 Clini cs UNDER THE UNDER THE TABLET TONGUE TONGUE UNDER THE EVERY 4 EVERY 4 TONGUE HOURS HOURS EVERY 4 NEEDED NEEDED HOURS FORNAUSEA FORNAUSEA NEEDED AND AND FORNAUSEA VOMITING VOMITING AND VOMITING ondansetron ondansetron No ondansetro [place] 8 mg 8 mg n 8 mg Communi disintegrat disintegrat disintegra ty ing tablet ing tablet ting Hos [facility]ael tablet l Clinics pantoprazol pantoprazol No pantoprazo [place] e 40 mg e 40 mg le 40 mg Commu ni tablet,carlos tablet,carlos tablet,del ty yed release yed release ayed H ospita TAKE 1 TAKE 1 release l TABLET BY TABLET BY TAKE 1 Cli nics MOUTH TWICE MOUTH TWICE TABLET BY DAILY DAILY MOUTH TWICE DAILY phentermine phentermine No phentermin [place] 37.5 mg 37.5 mg e 37.5 mg Comm uni tablet tablet tablet ty Hospita l Clinics prednisone prednisone No prednisone [place] 10 mg 10 mg 10 mg Communi tablet TAKE tablet TAKE tablet ty 1 TABLET BY 1 TABLET BY TAKE 1 Hospita MOUTH TWICE MOUTH TWICE TABLET BY l DAILY DAILY MOUTH Clinics TWICE DAILY Pyridium Pyridium No Pyridium [facility] 100 mg 100 mg 100 mg Communi tablet TAKE tablet TAKE tablet ty 1 TABLET BY 1 TABLET BY TAKE 1 Hospita MOUTH THREE MOUTH THREE TABLET BY l TIMES DAILY TIMES DAILY MOUTH Clinics AFTER MEALS AFTER MEALS THREE FOR 3 DAYS FOR 3 DAYS TIMES DAILY AFTER MEALS FOR 3 DAYS quetiapine quetiapine No quetiapine [place] 400 mg 400 mg 400 mg Communi tablet TAKE tablet TAKE tablet ty 3 TABLETS 3 TABLETS TAKE 3 Hos [facility]ael BY MOUTH AT BY MOUTH AT TABLETS BY l BEDTIME BEDTIME MOUTH AT Clini BEDTIME ropinirole ropinirole No ropinirole [place] 1 mg tablet 1 mg tablet 1 mg C ommuni TAKE 1 TAKE 1 tablet ty TABLET BY TABLET BY TAKE 1 [facility]ael MOUTH AT MOUTH AT TABLET BY l BEDTIME BEDTIME MOUTH AT Clini cs BEDTIME spironolact spironolact No spironolac [place] one 100 mg one 100 mg tone 100 Communi tablet TAKE tablet TAKE mg tablet ty 1 TABLET BY 1 TABLET BY TAKE 1 Hospita MOUTH TWICE MOUTH TWICE TABLET BY l DAILY DAILY MOUTH Clinics TWICE DAILY spironolact spironolact No spironolac [place] one 50 mg one 50 mg tone 50 mg Communi tablet TAKE tablet TAKE tablet ty 1 TABLET BY 1 TABLET BY TAKE 1 Hospita MOUTH TWICE MOUTH TWICE TABLET BY l DAILY DAILY MOUTH Clinics TWICE DAILY sulfamethox sulfamethox No sulfametho [place] azole 800 azole 800 xazole 800 Communi mg-trimetho mg-trimetho mg-trimeth ty prim 160 mg prim 160 mg oprim 160 Hospita tablet tablet mg tablet l Clinics sumatriptan sumatriptan No sumatripta [place] 100 mg 100 mg n 100 mg Communi tablet TAKE tablet TAKE tablet ty 1 TABLET BY 1 TABLET BY TAKE 1 Hospita MOUTH EVERY MOUTH EVERY TABLET BY l DAY DAY MOUTH Clinics NEEDED NEEDED EVERY DAY NEEDED Sutab Sutab No Sutab [place] 1.479-0.188 1.479-0.188 1.479-0.18 Communi -0.225 gram -0.225 gram 8-0.225 ty tablet TAKE tablet TAKE gram H [facility]spita DIRECTED DIRECTED tablet l BY YOUR BY YOUR TAKE Clinic s COLONOSCOPY COLONOSCOPY DIRECTED PACKET PACKET BY YOUR INSTRUCTION INSTRUCTION COLONOSCOP S S Y PACKET INSTRUCTIO NS testosteron testosteron No 150mg testostero [place] e 100 mg e 100 mg ne 100 mg [facility] implant implant implant ty pellet Take pellet Take pellet Hospita 150 mg by 150 mg by Take 150 l implantatio implantatio mg by Clinics n route. n route. implantati on route. tranexamic tranexamic No tranexamic [place] acid 650 mg acid 650 mg acid 650 Communi tablet TAKE tablet TAKE mg tablet ty 2 TABLETS 2 TABLETS TAKE 2 [facility] BY MOUTH BY MOUTH TABLETS BY l THREE TIMES THREE TIMES MOUTH Clinics DAILY DAILY THREE DURING DURING TIMES MENSES FOR MENSES FOR DAILY 5 DAYS. 5 DAYS. DURING MENSES FOR 5 DAYS. trazodone trazodone No trazodone [place] 100 mg 100 mg 100 mg Communi tablet TAKE tablet TAKE tablet ty 1 TABLET BY 1 TABLET BY TAKE 1 Hospita MOUTH AT MOUTH AT TABLET BY l BEDTIME BEDTIME MOUTH AT Clini cs BEDTIME Uribel 118 Uribel 118 No Uribel 118 [place] mg-10 mg-10 mg-10 Communi mg-40.8 mg-40.8 mg-40.8 ty mg-36 mg mg-36 mg mg-36 mg [facility] capsule capsule capsule l TAKE 1 TAKE 1 TAKE 1 Clinics CAPSULE BY CAPSULE BY CAPSULE BY MOUTH FOUR MOUTH FOUR MOUTH FOUR TIMES DAILY TIMES DAILY TIMES FOR 10 DAYS FOR 10 DAYS DAILY FOR 10 DAYS valacyclovi valacyclovi No valacyclov [place] r 1 gram r 1 gram ir 1 gram [facility] tablet TAKE tablet TAKE tablet ty 1 TABLET BY 1 TABLET BY TAKE 1 Hospita MOUTH THREE MOUTH THREE TABLET BY l TIMES DAILY TIMES DAILY MOUTH Clinics FOR 7 DAYS FOR 7 DAYS THREE TIMES DAILY FOR 7 DAYS valacyclovi valacyclovi No valacyclov [place] r 500 mg r 500 mg ir 500 mg [facility] tablet tablet tablet ty [facility] valsartan valsartan No valsartan [place] 80 mg 80 mg 80 mg Commun[facility] tablet tablet tablet ty [facility] Virtussin Virtussin No Virtussin [place] AC 10 AC 10 AC 10 Communi mg-100 mg/5 mg-100 mg/5 mg-100 ty mL oral mL oral mg/5 mL Hospit a liquid TAKE liquid TAKE oral l 5 ML BY 5 ML BY liquid Clinics MOUTH EVERY MOUTH EVERY TAKE 5 ML 6 HOURS 6 HOURS BY MOUTH NEEDED NEEDED EVERY 6 HOURS NEEDED zinc zinc No zinc [place] sulfate 50 sulfate 50 sulfate 50 Communi mg zinc mg zinc mg zinc ty (220 mg) (220 mg) (220 mg) [facility] capsule capsule capsule l TAKE ONE TAKE ONE TAKE ONE Cli nics CAPSULE BY CAPSULE BY CAPSULE BY MOUTH EVERY MOUTH EVERY MOUTH DAY DAY EVERY DAY acyclovir acyclovir No acyclovir [place] 400 mg 400 mg 400 mg Communi tablet tablet tablet ty [facility] acyclovir acyclovir No acyclovir [place] 800 mg 800 mg 800 mg Communi tablet TAKE tablet TAKE tablet ty 1 TABLET BY 1 TABLET BY TAKE 1 Hospita MOUTH EVERY MOUTH EVERY TABLET BY l 4 HOURS 4 HOURS MOUTH Clinics WHILE AWAKE WHILE AWAKE EVERY 4 FOR 7 DAYS FOR 7 DAYS HOURS WHILE AWAKE FOR 7 DAYS albuterol albuterol No albuterol [place] sulfate HFA sulfate HFA sulfate Communi 90 90 HFA 90 ty mcg/actuati mcg/actuati mcg/[facility] aerosol on aerosol ion l inhaler inhaler aerosol Clinic s INHALE 2 INHALE 2 inhaler PUFFS BY PUFFS BY INHALE 2 MOUTH EVERY MOUTH EVERY PUFFS BY 4 HOURS 4 HOURS MOUTH NEEDED FOR NEEDED FOR EVERY 4 SHORTNESS SHORTNESS HOURS OF BREATH OF BREATH NEEDED FOR OR WHEEZING OR WHEEZING SHORTNESS OF BREATH OR WHEEZING alprazolam alprazolam No alprazolam [place] 1 mg tablet 1 mg tablet 1 mg [facility] TAKE 1 TAKE 1 tablet ty TABLET BY TABLET BY TAKE 1 [facility] MOUTH THREE MOUTH THREE TABLET BY l TIMES DAILY TIMES DAILY MOUTH Clinics THREE TIMES DAILY amoxicillin amoxicillin No amoxicilli [place] 500 mg 500 mg n 500 mg Communi capsule capsule capsule ty Hospita l Clinics azithromyci azithromyci No azithromyc [place] n 250 mg n 250 mg in 250 mg [facility] tablet TK 2 tablet TK 2 tablet TK ty TS PO ON TS PO ON 2 TS PO ON H ospita DAY 1, THEN DAY 1, THEN DAY 1, l TK 1 T PO D TK 1 T PO D THEN TK 1 Clinics FOR 4 DAYS FOR 4 DAYS T PO D FOR 4 DAYS benzonatate benzonatate No benzonatat [place] 100 mg 100 mg e 100 mg Communi capsule capsule capsule ty TAKE 2 TAKE 2 TAKE 2 Hospita CAPSULES BY CAPSULES BY CAPSULES l MOUTH TWICE MOUTH TWICE BY MOUTH Clinics DAILY DAILY TWICE NEEDED FOR NEEDED FOR DAILY COUGH COUGH NEEDED FOR COUGH cefuroxime cefuroxime No cefuroxime [place] axetil 500 axetil 500 axetil 500 Communi mg tablet mg tablet mg tablet ty TAKE 1 TAKE 1 TAKE 1 Hospita TABLET BY TABLET BY TABLET BY l MOUTH TWICE MOUTH TWICE MOUTH Clinics DAILY DAILY TWICE DAILY cholecalcif cholecalcif No cholecalci [place] ry ry ferol Communi (vitamin (vitamin (vitamin ty D3) 1,250 D3) 1,250 D3) 1,250 Hospita mcg (50,000 mcg (50,000 mcg l unit) unit) (50,000 Clinics capsule capsule unit) TAKE 1 TAKE 1 capsule CAPSULE BY CAPSULE BY TAKE 1 MOUTH EVERY MOUTH EVERY CAPSULE BY WEEK WEEK MOUTH EVERY WEEK citalopram citalopram No citalopram [place] 40 mg 40 mg 40 mg Communi tablet TAKE tablet TAKE tablet ty 1 TABLET BY 1 TABLET BY TAKE 1 Hospita MOUTH EVERY MOUTH EVERY TABLET BY l DAY DAY MOUTH Clinics EVERY DAY Contrave 8 Contrave 8 No 2 BID Contrave 8 [place] mg-90 mg mg-90 mg mg-90 mg Com nick tablet,exte tablet,exte tablet,ext ty nded nded ended Hospita release release release l Take 2 Take 2 Take 2 Clinics tablets tablets tablets twice a day twice a day twice a by oral by oral day by route for route for oral route 90 days. 90 days. for 90 days. diethylprop diethylprop No diethylpro [place] ion ER 75 ion ER 75 pion ER 75 Communi mg mg mg ty tablet,exte tablet,exte tablet,ext Hospita nded nded ended l release release release Clinic s doxazosin 4 doxazosin 4 No doxazosin [place] mg tablet mg tablet 4 mg Commu ni TAKE 1 TAKE 1 tablet ty TABLET BY TABLET BY TAKE 1 [facility] MOUTH AT MOUTH AT TABLET BY l BEDTIME BEDTIME MOUTH AT Clini cs BEDTIME escitalopra escitalopra No escitalopr [place] m 20 mg m 20 mg am 20 mg Commu ni tablet TAKE tablet TAKE tablet ty 1 TABLET BY 1 TABLET BY TAKE 1 Hospita MOUTH EVERY MOUTH EVERY TABLET BY l DAY DAY MOUTH Clinics EVERY DAY estradiol estradiol No estradiol [place] 12.5 mg 12.5 mg 12.5 mg Commun i implant implant implant ty pellet 15 pellet 15 pellet 15 Hospita mg mg mg l Clinics famotidine famotidine No famotidine [place] 20 mg 20 mg 20 mg Communi tablet TAKE tablet TAKE tablet ty 1 TABLET BY 1 TABLET BY TAKE 1 Hospita MOUTH EVERY MOUTH EVERY TABLET BY l NIGHT AT NIGHT AT MOUTH Clinic s BEDTIME BEDTIME EVERY NIGHT AT BEDTIME finasteride finasteride No finasterid [place] 5 mg tablet 5 mg tablet e 5 mg Communi TAKE 1 TAKE 1 tablet ty TABLET BY TABLET BY TAKE 1 [facility] MOUTH EVERY MOUTH EVERY TABLET BY l DAY DAY MOUTH Clinics EVERY DAY fluconazole fluconazole No fluconazol [place] 150 mg 150 mg e 150 mg Communi tablet TAKE tablet TAKE tablet ty 1 TABLET BY 1 TABLET BY TAKE 1 Hospita MOUTH NOW. MOUTH NOW. TABLET BY l REPEAT IN REPEAT IN MOUTH NOW. Clinics 72 HOURS 72 HOURS REPEAT IN 72 HOURS folic acid folic acid No folic acid [place] 1 mg tablet 1 mg tablet 1 mg [facility] TAKE 3 TAKE 3 tablet ty TABLETS BY TABLETS BY TAKE 3 H ospita MOUTH EVERY MOUTH EVERY TABLETS BY l DAY DAY MOUTH Clinics EVERY DAY gabapentin gabapentin No gabapentin [place] 300 mg 300 mg 300 mg Communi capsule capsule capsule ty TAKE 1 TAKE 1 TAKE 1 Hospita CAPSULE BY CAPSULE BY CAPSULE BY l MOUTH TWICE MOUTH TWICE MOUTH Clinics DAILY DAILY TWICE DAILY hydrocodone hydrocodone No hydrocodon [place] 5 5 e 5 Communi mg-acetamin mg-acetamin mg-acetami ty ophen 325 ophen 325 nophen 325 Hospita mg tablet mg tablet mg tablet l TAKE 1 TAKE 1 TAKE 1 Clinics TABLET BY TABLET BY TABLET BY MOUTH EVERY MOUTH EVERY MOUTH 6 HOURS 6 HOURS EVERY 6 HOURS hydroxychlo hydroxychlo No hydroxychl [place] roquine 200 roquine 200 oroquine Communi mg tablet mg tablet 200 mg ty TAKE 1 TAKE 1 tablet Hospita TABLET BY TABLET BY TAKE 1 l MOUTH TWICE MOUTH TWICE TABLET BY Clinics DAILY DAILY MOUTH TWICE DAILY levothyroxi levothyroxi No levothyrox [place] ne 150 mcg ne 150 mcg ine 150 Communi tablet TAKE tablet TAKE mcg tablet ty 1 TABLET BY 1 TABLET BY TAKE 1 Hospita MOUTH EVERY MOUTH EVERY TABLET BY l MORNING MORNING MOUTH Clinics EVERY MORNING lubiproston lubiproston No lubiprosto [place] e 24 mcg e 24 mcg ne 24 mcg [facility] capsule capsule capsule ty TAKE 1 TAKE 1 TAKE 1 Hospita CAPSULE BY CAPSULE BY CAPSULE BY l MOUTH TWICE MOUTH TWICE MOUTH Clinics DAILY WITH DAILY WITH TWICE FOOD FOOD DAILY WITH FOOD medroxyprog medroxyprog No medroxypro [place] esterone 10 esterone 10 gesterone Communi mg tablet mg tablet 10 mg ty TAKE 1 TAKE 1 tablet Hospita TABLET BY TABLET BY TAKE 1 l MOUTH EVERY MOUTH EVERY TABLET BY Clinics DAY WITH DAY WITH MOUTH FOOD FOR 14 FOOD FOR 14 EVERY DAY DAYS DAYS WITH FOOD FOR 14 DAYS methotrexat methotrexat No methotrexa [place] e sodium e sodium te sodium [facility] 2.5 mg 2.5 mg 2.5 mg ty tablet TAKE tablet TAKE tablet Hospita 5 TABLETS 5 TABLETS TAKE 5 l BY MOUTH 1 BY MOUTH 1 TABLETS BY Clinics TIME A WEEK TIME A WEEK MOUTH 1 DIRECTED DIRECTED TIME A WEEK DIRECTED metoclopram metoclopram No metoclopra [place] rosario 10 mg rosario 10 mg mide 10 mg Communi tablet TAKE tablet TAKE tablet ty 1 TABLET BY 1 TABLET BY TAKE 1 Hospita MOUTH EVERY MOUTH EVERY TABLET BY l 8 HOURS 8 HOURS MOUTH Cl inics NEEDED NEEDED EVERY 8 HOURS NEEDED Mounjaro 5 Mounjaro 5 No 5mg Q1W Mounjaro 5 [place] mg/0.5 mL mg/0.5 mL mg/0.5 mL Communi subcutaneou subcutaneou subcutaneo ty s pen s pen us pen Hospita injector injector injector l Inject 5 mg Inject 5 mg Inject 5 Clinics every week every week mg every by by week by subcutaneou subcutaneou subcutaneo s route for s route for us route 84 days. 84 days. for 84 days. nitrofurant nitrofurant No nitrofuran [place] oin oin toin Communi monohydrate monohydrate monohydrat ty /macrocryst /macrocryst e/macrocry Hospita als 100 mg als 100 mg stals 100 l capsule capsule mg capsule Cli nics TAKE 1 TAKE 1 TAKE 1 CAPSULE BY CAPSULE BY CAPSULE BY MOUTH IN MOUTH IN MOUTH IN THE MORNING THE MORNING THE AND TAKE 1 AND TAKE 1 MORNING CAPSULE BY CAPSULE BY AND TAKE 1 MOUTH IN MOUTH IN CAPSULE BY THE THE MOUTH IN EVENING. DO EVENING. DO THE ALL THIS ALL THIS EVENING. FOR 5 DAYS. FOR 5 DAYS. DO ALL THIS FOR 5 DAYS. omeprazole omeprazole No omeprazole [place] 20 mg 20 mg 20 mg Communi capsule,del capsule,del capsule,de ty ayed ayed layed Hospita release release release l TAKE 1 TAKE 1 TAKE 1 Clinics CAPSULE BY CAPSULE BY CAPSULE BY MOUTH EVERY MOUTH EVERY MOUTH MORNING IN MORNING IN EVERY THE MORNING THE MORNING MORNING IN THE MORNING ondansetron ondansetron No ondansetro [place] 4 mg 4 mg n 4 mg Communi disintegrat disintegrat disintegra ty ing tablet ing tablet ting [facility] DISSOLVE 1 DISSOLVE 1 tablet l TABLET TABLET DISSOLVE 1 Clini cs UNDER THE UNDER THE TABLET TONGUE TONGUE UNDER THE EVERY 4 EVERY 4 TONGUE HOURS HOURS EVERY 4 NEEDED NEEDED HOURS FORNAUSEA FORNAUSEA NEEDED AND AND FORNAUSEA VOMITING VOMITING AND VOMITING ondansetron ondansetron No ondansetro [place] 8 mg 8 mg n 8 mg Communi disintegrat disintegrat disintegra ty ing tablet ing tablet ting [facility] tablet l Clinics pantoprazol pantoprazol No pantoprazo [place] e 40 mg e 40 mg le 40 mg Commu ni tablet,carlos tablet,carlos tablet,del ty yed release yed release ayed H ospita TAKE 1 TAKE 1 release l TABLET BY TABLET BY TAKE 1 Cli nics MOUTH TWICE MOUTH TWICE TABLET BY DAILY DAILY MOUTH TWICE DAILY phentermine phentermine No phentermin [place] 37.5 mg 37.5 mg e 37.5 mg Comm uni tablet tablet tablet ty Hospita l Clinics prednisone prednisone No prednisone [place] 10 mg 10 mg 10 mg Communi tablet TAKE tablet TAKE tablet ty 1 TABLET BY 1 TABLET BY TAKE 1 Hospita MOUTH TWICE MOUTH TWICE TABLET BY l DAILY DAILY MOUTH Clinics TWICE DAILY Pyridium Pyridium No P[facility] mg 100 mg 100 mg Communi tablet TAKE tablet TAKE tablet ty 1 TABLET BY 1 TABLET BY TAKE 1 Hospita MOUTH THREE MOUTH THREE TABLET BY l TIMES DAILY TIMES DAILY MOUTH Clinics AFTER MEALS AFTER MEALS THREE FOR 3 DAYS FOR 3 DAYS TIMES DAILY AFTER MEALS FOR 3 DAYS quetiapine quetiapine No quetiapine [place] 400 mg 400 mg 400 mg Communi tablet TAKE tablet TAKE tablet ty 3 TABLETS 3 TABLETS TAKE 3 [facility] BY MOUTH AT BY MOUTH AT TABLETS BY l BEDTIME BEDTIME MOUTH AT [facility] BEDTIME ropinirole ropinirole No ropinirole [place] 1 mg tablet 1 mg tablet 1 mg [facility] TAKE 1 TAKE 1 tablet ty TABLET BY TABLET BY TAKE 1 [facility] MOUTH AT MOUTH AT TABLET BY l BEDTIME BEDTIME MOUTH AT [facility] BEDTIME spironolact spironolact No spironolac [place] one 100 mg one 100 mg tone 100 Communi tablet TAKE tablet TAKE mg tablet ty 1 TABLET BY 1 TABLET BY TAKE 1 Hospita MOUTH TWICE MOUTH TWICE TABLET BY l DAILY DAILY MOUTH Clinics TWICE DAILY spironolact spironolact No spironolac [place] one 50 mg one 50 mg tone 50 mg Communi tablet TAKE tablet TAKE tablet ty 1 TABLET BY 1 TABLET BY TAKE 1 Hospita MOUTH TWICE MOUTH TWICE TABLET BY l DAILY DAILY MOUTH Clinics TWICE DAILY sulfamethox sulfamethox No sulfametho [place] azole 800 azole 800 xazole 800 Communi mg-trimetho mg-trimetho mg-trimeth ty prim 160 mg prim 160 mg oprim 160 Hospita tablet tablet mg tablet l Clinics sumatriptan sumatriptan No sumatripta [place] 100 mg 100 mg n 100 mg Communi tablet TAKE tablet TAKE tablet ty 1 TABLET BY 1 TABLET BY TAKE 1 Hospita MOUTH EVERY MOUTH EVERY TABLET BY l DAY DAY MOUTH Clinics NEEDED NEEDED EVERY DAY NEEDED Sutab Sutab No Sutab [place] 1.479-0.188 1.479-0.188 1.479-0.18 Communi -0.225 gram -0.225 gram 8-0.225 ty tablet TAKE tablet TAKE gram H ospita DIRECTED DIRECTED tablet l BY YOUR BY YOUR TAKE Clinic s COLONOSCOPY COLONOSCOPY DIRECTED PACKET PACKET BY YOUR INSTRUCTION INSTRUCTION COLONOSCOP S S Y PACKET INSTRUCTIO NS testosteron testosteron No 150mg testostero [place] e 100 mg e 100 mg ne 100 mg [facility] implant implant implant ty pellet Take pellet Take pellet Hospita 150 mg by 150 mg by Take 150 l implantatio implantatio mg by Clinics n route. n route. implantati on route. tranexamic tranexamic No tranexamic [place] acid 650 mg acid 650 mg acid 650 Communi tablet TAKE tablet TAKE mg tablet ty 2 TABLETS 2 TABLETS TAKE 2 [facility] BY MOUTH BY MOUTH TABLETS BY l THREE TIMES THREE TIMES MOUTH Clinics DAILY DAILY THREE DURING DURING TIMES MENSES FOR MENSES FOR DAILY 5 DAYS. 5 DAYS. DURING MENSES FOR 5 DAYS. trazodone trazodone No trazodone [place] 100 mg 100 mg 100 mg Communi tablet TAKE tablet TAKE tablet ty 1 TABLET BY 1 TABLET BY TAKE 1 Hospita MOUTH AT MOUTH AT TABLET BY l BEDTIME BEDTIME MOUTH AT Clini cs BEDTIME Uribel 118 Uribel 118 No Uribel 118 [place] mg-10 mg-10 mg-10 Communi mg-40.8 mg-40.8 mg-40.8 ty mg-36 mg mg-36 mg mg-36 mg [facility] capsule capsule capsule l TAKE 1 TAKE 1 TAKE 1 Clinics CAPSULE BY CAPSULE BY CAPSULE BY MOUTH FOUR MOUTH FOUR MOUTH FOUR TIMES DAILY TIMES DAILY TIMES FOR 10 DAYS FOR 10 DAYS DAILY FOR 10 DAYS valacyclovi valacyclovi No valacyclov [place] r 1 gram r 1 gram ir 1 gram [facility] tablet TAKE tablet TAKE tablet ty 1 TABLET BY 1 TABLET BY TAKE 1 Hospita MOUTH THREE MOUTH THREE TABLET BY l TIMES DAILY TIMES DAILY MOUTH Clinics FOR 7 DAYS FOR 7 DAYS THREE TIMES DAILY FOR 7 DAYS valacyclovi valacyclovi No valacyclov [place] r 500 mg r 500 mg ir 500 mg [facility] tablet tablet tablet ty Hospita l Clinics valsartan valsartan No valsartan [place] 80 mg 80 mg 80 mg Communi tablet tablet tablet ty Hospita l Clinics Virtussin Virtussin No Virtussin [place] AC 10 AC 10 AC 10 Communi mg-100 mg/5 mg-100 mg/5 mg-100 ty mL oral mL oral mg/5 mL Hospit a liquid TAKE liquid TAKE oral l 5 ML BY 5 ML BY liquid Clinics MOUTH EVERY MOUTH EVERY TAKE 5 ML 6 HOURS 6 HOURS BY MOUTH NEEDED NEEDED EVERY 6 HOURS NEEDED zinc zinc No zinc [place] sulfate 50 sulfate 50 sulfate 50 Communi mg zinc mg zinc mg zinc ty (220 mg) (220 mg) (220 mg) [facility] capsule capsule capsule l TAKE ONE TAKE ONE TAKE ONE Cli nics CAPSULE BY CAPSULE BY CAPSULE BY MOUTH EVERY MOUTH EVERY MOUTH DAY DAY EVERY DAY acyclovir acyclovir No acyclovir [place] 400 mg 400 mg 400 mg Communi tablet tablet tablet ty Hospita l Clinics acyclovir acyclovir No acyclovir [place] 800 mg 800 mg 800 mg Communi tablet TAKE tablet TAKE tablet ty 1 TABLET BY 1 TABLET BY TAKE 1 Hospita MOUTH EVERY MOUTH EVERY TABLET BY l 4 HOURS 4 HOURS MOUTH Clinics WHILE AWAKE WHILE AWAKE EVERY 4 FOR 7 DAYS FOR 7 DAYS HOURS WHILE AWAKE FOR 7 DAYS albuterol albuterol No albuterol [place] sulfate HFA sulfate HFA sulfate Communi 90 90 HFA 90 ty mcg/actuati mcg/actuati mcg/actuat Hospita on aerosol on aerosol ion l inhaler inhaler aerosol Clinic s INHALE 2 INHALE 2 inhaler PUFFS BY PUFFS BY INHALE 2 MOUTH EVERY MOUTH EVERY PUFFS BY 4 HOURS 4 HOURS MOUTH NEEDED FOR NEEDED FOR EVERY 4 SHORTNESS SHORTNESS HOURS OF BREATH OF BREATH NEEDED FOR OR WHEEZING OR WHEEZING SHORTNESS OF BREATH OR WHEEZING alprazolam alprazolam No alprazolam [place] 1 mg tablet 1 mg tablet 1 mg [facility] TAKE 1 TAKE 1 tablet ty TABLET BY TABLET BY TAKE 1 [facility] MOUTH THREE MOUTH THREE TABLET BY l TIMES DAILY TIMES DAILY MOUTH Clinics THREE TIMES DAILY amoxicillin amoxicillin No amoxicilli [place] 500 mg 500 mg n 500 mg Communi capsule capsule capsule ty Hospita l Clinics azithromyci azithromyci No azithromyc [place] n 250 mg n 250 mg in 250 mg [facility] tablet TK 2 tablet TK 2 tablet TK ty TS PO ON TS PO ON 2 TS PO ON H ospita DAY 1, THEN DAY 1, THEN DAY 1, l TK 1 T PO D TK 1 T PO D THEN TK 1 Clinics FOR 4 DAYS FOR 4 DAYS T PO D FOR 4 DAYS benzonatate benzonatate No benzonatat [place] 100 mg 100 mg e 100 mg Communi capsule capsule capsule ty TAKE 2 TAKE 2 TAKE 2 Hospita CAPSULES BY CAPSULES BY CAPSULES l MOUTH TWICE MOUTH TWICE BY MOUTH Clinics DAILY DAILY TWICE NEEDED FOR NEEDED FOR DAILY COUGH COUGH NEEDED FOR COUGH cefuroxime cefuroxime No cefuroxime [place] axetil 500 axetil 500 axetil 500 Communi mg tablet mg tablet mg tablet ty TAKE 1 TAKE 1 TAKE 1 Hospita TABLET BY TABLET BY TABLET BY l MOUTH TWICE MOUTH TWICE MOUTH Clinics DAILY DAILY TWICE DAILY cholecalcif cholecalcif No cholecalci [place] ry ry ferol Communi (vitamin (vitamin (vitamin ty D3) 1,250 D3) 1,250 D3) 1,250 Hospita mcg (50,000 mcg (50,000 mcg l unit) unit) (50,000 Clinics capsule capsule unit) TAKE 1 TAKE 1 capsule CAPSULE BY CAPSULE BY TAKE 1 MOUTH EVERY MOUTH EVERY CAPSULE BY WEEK WEEK MOUTH EVERY WEEK citalopram citalopram No citalopram [place] 40 mg 40 mg 40 mg Communi tablet TAKE tablet TAKE tablet ty 1 TABLET BY 1 TABLET BY TAKE 1 Hospita MOUTH EVERY MOUTH EVERY TABLET BY l DAY DAY MOUTH Clinics EVERY DAY Contrave 8 Contrave 8 No 2 BID Contrave 8 [place] mg-90 mg mg-90 mg mg-90 mg Com nick tablet,exte tablet,exte tablet,ext ty nded nded ended Hospita release release release l Take 2 Take 2 Take 2 Clinics tablets tablets tablets twice a day twice a day twice a by oral by oral day by route for route for oral route 90 days. 90 days. for 90 days. diethylprop diethylprop No diethylpro [place] ion ER 75 ion ER 75 pion ER 75 Communi mg mg mg ty tablet,exte tablet,exte tablet,ext Hospita nded nded ended l release release release Clinic s doxazosin 4 doxazosin 4 No doxazosin [place] mg tablet mg tablet 4 mg Commu ni TAKE 1 TAKE 1 tablet ty TABLET BY TABLET BY TAKE 1 [facility] MOUTH AT MOUTH AT TABLET BY l BEDTIME BEDTIME MOUTH AT Clini cs BEDTIME escitalopra escitalopra No escitalopr [place] m 20 mg m 20 mg am 20 mg Commu ni tablet TAKE tablet TAKE tablet ty 1 TABLET BY 1 TABLET BY TAKE 1 Hospita MOUTH EVERY MOUTH EVERY TABLET BY l DAY DAY MOUTH Clinics EVERY DAY estradiol estradiol No estradiol [place] 12.5 mg 12.5 mg 12.5 mg Commun i implant implant implant ty pellet 15 pellet 15 pellet 15 Hospita mg mg mg l Clinics famotidine famotidine No famotidine [place] 20 mg 20 mg 20 mg Communi tablet TAKE tablet TAKE tablet ty 1 TABLET BY 1 TABLET BY TAKE 1 Hospita MOUTH EVERY MOUTH EVERY TABLET BY l NIGHT AT NIGHT AT MOUTH Clinic s BEDTIME BEDTIME EVERY NIGHT AT BEDTIME finasteride finasteride No finasterid [place] 5 mg tablet 5 mg tablet e 5 mg Communi TAKE 1 TAKE 1 tablet ty TABLET BY TABLET BY TAKE 1 [facility] MOUTH EVERY MOUTH EVERY TABLET BY l DAY DAY MOUTH Clinics EVERY DAY fluconazole fluconazole No fluconazol [place] 150 mg 150 mg e 150 mg Communi tablet TAKE tablet TAKE tablet ty 1 TABLET BY 1 TABLET BY TAKE 1 Hospita MOUTH NOW. MOUTH NOW. TABLET BY l REPEAT IN REPEAT IN MOUTH NOW. Clinics 72 HOURS 72 HOURS REPEAT IN 72 HOURS folic acid folic acid No folic acid [place] 1 mg tablet 1 mg tablet 1 mg [facility] TAKE 3 TAKE 3 tablet ty TABLETS BY TABLETS BY TAKE 3 H [facility]spita MOUTH EVERY MOUTH EVERY TABLETS BY l DAY DAY MOUTH Clinics EVERY DAY gabapentin gabapentin No gabapentin [place] 300 mg 300 mg 300 mg Communi capsule capsule capsule ty TAKE 1 TAKE 1 TAKE 1 Hospita CAPSULE BY CAPSULE BY CAPSULE BY l MOUTH TWICE MOUTH TWICE MOUTH Clinics DAILY DAILY TWICE DAILY hydrocodone hydrocodone No hydrocodon [place] 5 5 e 5 Communi mg-acetamin mg-acetamin mg-acetami ty ophen 325 ophen 325 nophen 325 Hospita mg tablet mg tablet mg tablet l TAKE 1 TAKE 1 TAKE 1 Clinics TABLET BY TABLET BY TABLET BY MOUTH EVERY MOUTH EVERY MOUTH 6 HOURS 6 HOURS EVERY 6 HOURS hydroxychlo hydroxychlo No hydroxychl [place] roquine 200 roquine 200 oroquine Communi mg tablet mg tablet 200 mg ty TAKE 1 TAKE 1 tablet Hospita TABLET BY TABLET BY TAKE 1 l MOUTH TWICE MOUTH TWICE TABLET BY Clinics DAILY DAILY MOUTH TWICE DAILY levothyroxi levothyroxi No levothyrox [place] ne 150 mcg ne 150 mcg ine 150 Communi tablet TAKE tablet TAKE mcg tablet ty 1 TABLET BY 1 TABLET BY TAKE 1 Hospita MOUTH EVERY MOUTH EVERY TABLET BY l MORNING MORNING MOUTH Clinics EVERY MORNING lubiproston lubiproston No lubiprosto [place] e 24 mcg e 24 mcg ne 24 mcg [facility] capsule capsule capsule ty TAKE 1 TAKE 1 TAKE 1 Hospita CAPSULE BY CAPSULE BY CAPSULE BY l MOUTH TWICE MOUTH TWICE MOUTH Clinics DAILY WITH DAILY WITH TWICE FOOD FOOD DAILY WITH FOOD medroxyprog medroxyprog No medroxypro [place] esterone 10 esterone 10 gesterone Communi mg tablet mg tablet 10 mg ty TAKE 1 TAKE 1 tablet Hospita TABLET BY TABLET BY TAKE 1 l MOUTH EVERY MOUTH EVERY TABLET BY Clinics DAY WITH DAY WITH MOUTH FOOD FOR 14 FOOD FOR 14 EVERY DAY DAYS DAYS WITH FOOD FOR 14 DAYS Vital Signs Vital Name Observation Time Observation Value Comments Source BP Diastolic 2022-07-14 00:00:00 69 mm[Hg] [facility] Clinic s Height 2022-07-14 00:00:00 64 [in_i] [facility] s BMI (Body Mass 2022-07-14 00:00:00 34.2 kg/m2 [facility] Index) [facility] s BP Systolic 2022-07-14 00:00:00 130 mm[Hg] [facility] s Body Weight 2022-07-14 00:00:00 3184 [oz_av] [facility] Clinic s Systolic blood 2021-05-01 06:00:00 140 mm[Hg] [facility] Diastolic blood 2021-05-01 06:00:00 83 mm[Hg] [facility] Respiratory rate 2021-05-01 06:00:00 20 /min [facility] Oxygen saturation in 2021-05-01 06:00:00 97 /min [facility] Arterial blood by [facility] Pulse oximetry Branch Heart rate 2021-05-01 04:00:00 99 /min [facility] Body temperature 2021-05-01 04:00:00 37 Padmini [facility] Body weight 2021-05-01 00:10:00 86.183 kg [facility] BMI 2021-05-01 00:10:00 32.61 kg/m2 [facility] Systolic blood 2021-04-30 23:55:00 134 mm[Hg] [facility] Diastolic blood 2021-04-30 23:55:00 80 mm[Hg] [facility] Heart rate 2021-04-30 23:55:00 103 /min [facility] Body temperature 2021-04-30 23:55:00 36.5 Padmini [facility] Respiratory rate 2021-04-30 23:55:00 20 /min [facility] Body height 2021-04-30 23:55:00 162.6 cm [facility] Body weight 2021-04-30 23:55:00 86.183 kg [facility] BMI 2021-04-30 23:55:00 32.61 kg/m2 [facility] Oxygen saturation in 2021-04-30 23:55:00 96 /min [facility] Arterial blood by [place] [employer] [facility] Pulse oximetry Branch Systolic blood 2021-04-12 22:30:00 123 mm[Hg] [facility] [place] [facility] Diastolic blood 2021-04-12 22:30:00 73 mm[Hg] [facility] [place] [facility] Heart rate 2021-04-12 22:30:00 105 /min [facility] Body temperature 2021-04-12 22:30:00 36.61 Padmini [facility] [place] [facility] Respiratory rate 2021-04-12 22:30:00 20 /min [facility] [place] [facility] Body height 2021-04-12 22:30:00 162.6 cm [facility] Body weight 2021-04-12 22:30:00 86.183 kg [facility] BMI 2021-04-12 22:30:00 32.61 kg/m2 [facility] Oxygen saturation in 2021-04-12 22:30:00 96 /min [facility] Arterial blood by [employer] gil Pulse oximetry Branch Systolic blood 2021-04-13 00:00:00 116 mm[Hg] [facility] [place] [facility] Diastolic blood 2021-04-13 00:00:00 82 mm[Hg] [facility] [place] [facility] Heart rate 2021-04-13 00:00:00 102 /min [facility] Respiratory rate 2021-04-13 00:00:00 20 /min [facility] [place] [facility] Oxygen saturation in 2021-04-13 00:00:00 97 /min [facility] Arterial blood by [place] [employer] [facility] Body temperature 2021-04-12 22:58:00 37.11 Padmini [facility] [place] [facility] Body weight 2021-04-12 22:58:00 86.183 kg [facility] [place] [facility] BMI 2021-04-12 22:58:00 32.61 kg/m2 [facility] [place] [facility] Systolic blood 2021-04-12 22:46:00 123 mm[Hg] [facility] Diastolic blood 2021-04-12 22:46:00 73 mm[Hg] [facility] Heart rate 2021-04-12 22:46:00 105 /min [facility] Body temperature 2021-04-12 22:46:00 36.61 Padmini [facility] [place] [facility] Respiratory rate 2021-04-12 22:46:00 20 /min [facility] [place] [facility] Body height 2021-04-12 22:46:00 162.6 cm [facility] Body weight 2021-04-12 22:46:00 86.183 kg [facility] BMI 2021-04-12 22:46:00 32.61 kg/m2 [facility] [place] [facility] Oxygen saturation in 2021-04-12 22:46:00 96 /min [facility] Arterial blood by [facility] gil Pulse oximetry Branch Systolic blood 2021-04-08 23:40:00 128 mm[Hg] [facility] [place] [facility] Diastolic blood 2021-04-08 23:40:00 88 mm[Hg] [facility] Heart rate 2021-04-08 23:40:00 99 /min [facility] Body temperature 2021-04-08 23:40:00 37 Padmini [facility] [place] [facility] Respiratory rate 2021-04-08 23:40:00 20 /min [facility] height 2021-04-08 23:40:00 162.6 cm [facility] Body weight 2021-04-08 23:40:00 86.183 kg [facility] BMI 2021-04-08 23:40:00 32.61 kg/m2 [facility] Oxygen saturation in 2021-04-08 23:40:00 97 /min [facility] Arterial blood by [facility] Pulse oximetry Branch Systolic blood 2020-04-01 07:33:00 133 mm[Hg] [facility] Diastolic blood 2020-04-01 07:33:00 75 mm[Hg] [facility] Heart rate 2020-04-01 07:33:00 98 /min [facility] Body temperature 2020-04-01 07:33:00 36.67 Padmini [facility] Respiratory rate 2020-04-01 07:33:00 20 /min [facility] Oxygen saturation in 2020-04-01 07:33:00 97 /min [facility] Arterial blood by [facility] Pulse oximetry Branch Body weight 2020-04-01 05:16:00 81.647 kg [facility] Procedures Procedure Date / Time Performing Clinician Source Performed CT CHEST PULMONARY 2021-05-01 04:39:51 Charan Healy [facility] ANGIOGRAM Medical Branch LIPASE 2021-05-01 03:04:00 Charan Healy [facility] TROPONIN I 2021-05-01 03:04:00 Charan Healy [facility] COMP. METABOLIC PANEL 2021-05-01 03:04:00 Charan [facility]aly [facility] ([id number]) [facility] D-DIMER 2021-05-01 03:04:00 Charan Healy [facility] CBC WITH DIFF 2021-05-01 03:03:00 Charan Healy [facility] NOTICE OF PRIVACY 2021-04-30 23:47:31 Doctor Unassigned, No [facility] Name Medical Branch CONSENT/REFUSAL FOR 2021-04-30 23:47:14 [facility]igned, [facility] Branch XR CHEST 1 VW 2021-04-12 23:30:00 Toby Calix [facility] NOTICE OF PRIVACY 2021-04-12 22:51:44 Doctor Unassigned, No [facility] Name Medical Branch CONSENT/REFUSAL FOR 2021-04-12 22:51:23 Doctor Unassigned, No [facility] Name Medical Branch POCT GRP A STREP 2021-04-08 23:51:00 Christopher Keara [facility] (MOLECULAR) [facility] POCT FLU A AND B 2021-04-08 23:51:00 Christopher [facility] Medical [place] ASSIGNMENT OF BENEFITS 2021-04-08 23:16:40 Doctor Unassigned, No [facility] XR CHEST 1 VW 2020-04-01 06:29:43 Xochilt Vogt [facility] COMP. METABOLIC PANEL 2020-04-01 05:57:00 Xochilt [facility]ogt [facility] ([id number]) [facility] CBC WITH DIFFERENTIAL 2020-04-01 05:57:00 Xochilt Vogt [facility] COVID-19 (ID NOW RAPID 2020-04-01 05:57:00 Xochilt Vogt [facility] TESTING) Medical Branch ASSIGNMENT OF BENEFITS 2020-04-01 05:06:57 Doctor Unassigned, No [facility] Encounters Start End Encounter Admission Attending Care Care Encounter Source Date/Time Date/Time Type Type Clinicians Facility Department ID 2021-07-26 Emergency [facility] [id number] Univers 13:47:47 ity [facility] 2021-07-26 Emergency [facility] [id number] Univers 09:15:38 ity [facility] 2022-07-14 2022-07-14 Out[address] SISSON_C 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 2022-02-09 2022-02-09 [address] [facility]IS[address]_C [facility] 2021 [place] 05:51:00 05:51:00 0518 [facility] 2022-02-09 2022-02-[address] [facility] [id number] 00:00:00 00:00:00 Carlota [id number] 2022-02-02 2022-02-02 Outpatient ROSEMARIE_Torrey [facility] 2021 [place] 05:49:00 05:49:00 0511 [facility] 2022-02-02 2022-02-[address] [facility] [id number] e-[id number] 00:00:00 00:00:00 Carlota [id number] 2022-01-12 2022-01-12 [address] RUYSON_C [facility] 2021 [place] 02:54:00 02:54:00 0420 [facility] 2021-12-17 2021-12-17 Out[address] ERICKSON_R [facility] 1163 [place] 02:40:00 02:40:00 0325 [facility] 2021-11-12 2021-11-12 [address] ERICKSON_R [facility] 1163 [place] 03:36:00 03:36:00 0218 [facility] 2021-10-11 2021-10-11 [address] [facility]_R [facility] 1163 [place] 10:01:00 10:01:00 0117 [facility] 2021-10-07 2021-10-07 [address] ERICKSON_R [facility] 1163 [place] 04:23:00 04:23:00 0113 [facility] 2021-10-01 2021-10-[address] ERICKSON_R [facility] 1163 [place] 05:21:00 05:21:00 0107 [facility] 2021-10-01 2021-10-01 Outpatient Shiraz, [facility] [id number] 00:00:00 00:00:00 Christopher [id number] López [id number] 2021-04-30 2021-05-01 Emergency [facility] 1.2.840.114 [id number] Univers 20:47:00 01:23:00 Mariposa Melissa [id number] i ty [facility] 4.2.7.2.686 [facility] [phone] [address] 2021-04-30 2021-04-30 Nurse Nurse, [facility] Urgent Care [facility] 1.2 .840.114 [id number] Univers 18:44:17 18:59:17 Visit [facility]ha [id number] [facility] 4.2.7.2.686 [facility] Professio [phone] [address] Office Building One 2021-04-30 2021-04-30 Outpatient R AYESHA [facility] [id number] Univers 18:45:00 18:45:00 BEVERLEY hunt [facility] 2021-04-30 2021-04-30 Outpatient R AYESHA [facility] [id number] Univers 18:20:00 18:20:00 BEVERLEY hunt [facility] 2021-04-25 2021-04-25 [facility] [id number] Univers 18:20:00 18:20:00 [facility] 2021-04-25 2021-04-25 Laboratory Lab, Adc Fam Pob I [facility] 1.2. 840.114 [id number] Univers 17:44:09 18:04:09 Only Liseth Esp[facility]za [facility] 350.1.13. 10 ity of [place] 4.2.7.2.686 Henrique as Professio [phone] [address] One 2021-04-13 2021-04-13 [facility] [id number] Univers 14:30:00 14:30:00 LUIS E ity [facility] 2021-04-12 2021-04-12 [facility] 1.2.840.114 [id number] Univers 20:00:00 20:20:00 Care [facility] [id number] it y of [place] 4.2.7.2.686 Henrique as Professio [phone] [address] One 2021-04-12 2021-04-12 Outpatient R [facility] [id number] Univers 20:00:00 20:00:00 ity [facility] 2021-04-12 2021-04-12 Emergency Moon, [facility] 1.2.840.114 [id number] Univers 18:01:00 19:37:00 Zo Melissa 350.1.13.10 i ty [place]2.7.2.686 [place] [phone] [address] 2021-04-12 2021-04-12 Nurse Nurse, [facility] Urgent Care [facility] 1.2 .840.114 [id number] Univers 17:44:38 17:59:38 Visit [facility] [id number] ity of [place] 4.2.7.2.686 Henrique as Professio [phone] [address] Office [facility] One 2021-04-12 2021-04-12 Outpatient R [facility] [id number] Univers 17:15:00 17:15:00 ity [facility] 2021-04-10 2021-04-10 Telemedici Darryn Howard [facility] 1.2. 840.114 [id number] Univers 11:21:33 11:51:33 ne Visit Unknown, Attending [facility] 350.1.13.1 0 ity of [place] 4.2.7.2.686 [facility] [phone] [facility] Primary & 370 Branch Specialty Care 2021-04-10 2021-04-10 Outpatient R UNKNOWN, [facility] [id number] Univers 11:45:00 11:45:00 ATTENDING ity of [facility] 2021-04-10 2021-04-10 Nurse SCOTTIE House 1.2.840.114 [id number] Univers 00:00:00 00:00:00 Triage Anna BLEDSOE [id number] ity of [facility] 4.2.7.2.686 Henrique as [phone] [place] [address] Branch 2021-04-10 2021-04-10 Telephone [facility] [id number] Univers 00:00:00 00:00:00 [facility] 350.1.13.10 it y of [place] 4.2.7.2.686 Henrique as Professio [phone] [address] Office Building One 2021-04-09 2021-04-09 Telephone [facility] [id number] Univers 00:00:00 00:00:00 [facility] 350.1.13.10 it y of [place] 4.2.7.2.686 Henrique as Professio [phone] [address] Office Building One 2021-04-08 2021-04-08 Urgent Keara White [facility] 1.2.840.114 [id number] Univers 18:17:52 18:37:52 Care Jessica Sharpe [facility] 350.1.13.10 ity of [place] 4.2.7.2.686 Henrique as Professio [phone] [address] Office Building One 2021-04-08 2021-04-08 Outpatient R OLIVA [facility] [id number] Univers 18:20:00 18:20:00 JESSICA hunt o f [facility] 2021-04-08 2021-04-08 Orders Doctor RUBIN 1.2.840.114 [id number] Univers 00:00:00 00:00:00 Only Unassigned, LADI 350.1.13.10 ity of [place] [facility] 4.2.7.2.686 [facility] [phone] [facility] 009 Branch 2020-08-12 2020-08-12 Outpatient jesika_roshni [facility] [id number] [place] 02:46:00 02:46:00 1118 [facility] 2020-04-01 2020-04-01 Emergency [facility] [id number] Univers 00:20:31 02:36:00 Xochilt S [place] 350.1.13.10 i ty of [place] 4.2.7.2.686 [facility] [phone] [facility] 084 Branch 2020-04-01 2020-04-01 Emergency X [facility] ERT [id number] Univers 00:20:31 00:20:31 XOCHILT ity of [facility] Results Test Description Test Time Test Results Result Source Comments Comments CT CHEST Impression: No CTA Univer sity of PULMONARY 7 evidence for pulmonary [facility] ANGIOGRAM 05:33:54 embolus. Linear Branch atelectasis in the lower lobes bilaterally without other acutepulmonary process. RL: 460 AFC: [id number] Ordering physician: Charan HEALY Indication: Chest pain, [...] destructive lesion. Bilateral breast implants are inplace. [facility], Radiant Results Inft User - 05/01/2021 12:34 AM CDT Ordering physician: Charan CORRALES BILYEUIndication: Chest pain, short of breath, elevated d-dimerComparison: [...] lobes bilaterally without other acutepulmonary process.RL: 460AF: [id number] signed by Amena Shi MD, PhD at 05/01/2021 12:33 AM TROPONIN I 2021-05-01 04:03:05 Test Item Value Reference Range Interpretation Comme nts TROPONIN I (test code = 0.000 ng/mL See_Comment [Au tomated message] The 8062550852) system which Relevant e-solution nerated this result tra nsmitted reference range [...] biotin. Lab Interpretation Normal (test code = 11991-5) [facility]. METABOLIC PANEL ([id number])2021-05-01 03:53:09 Test Item Value Reference Range Interpretation Comments NA (test code = 140 mmol/L 135-145 1066141667) K (test code = 3.3 mmol/L 3.5-5.0 L 0441018649) CL (test code = 101 mmol/L 98-108 3465511060) CO2 TOTAL (test code = 30 mmol/L 23-31 7748957306) AGAP (test code = 2-16 7384854948) BUN (test code = 14 mg/dL 7-23 6931784459) GLUCOSE (test code = 88 mg/dL 70-110 7922587718) CREATININE (test code = 0.88 mg/dL 0.50-1.04 8197558595) TOTAL BILI (test code = 0.3 mg/dL 0.1-1.7 9974643998) CALCIUM (test code = 9.6 mg/dL 8.6-10.6 1278429807) T PROTEIN (test code = 8.6 g/dL 6.3-8.2 H 6445648632) ALBUMIN (test code = 4.8 g/dL 3.5-5.0 8517929282) ALK PHOS (test code = 134 U/L 34-122 H 2989496154) ALTv (test code = 28 U/L 5-35 1742-6) AST(SGOT) (test code = 33 U/L 13-40 9200821336) eGFR (test code = mL/min/1.73m2 2596000406) NEW (test code = NEW) Association of [...] tests). Lab Interpretation Abnormal (test code = 93877-5) [facility] [id number] 03:53:04 Test Item Value Reference Range Interpretation Comments LIPASE (test code = 3039917547) 120 U/L 0-220 Lab Interpretation (test code = Normal 84947-6) [facility][id number] 03:45:46 Test Item Value Reference Interpretation Comments Range D-DIMER (test code = See_Comment H [Autom ated 7966795108) message] The system which generated this result [...] diagnosis. Lab Interpretation Abnormal (test code = 12941-3) [facility] WITH [id number] 03:41:28 Test Item Value Reference Range Interpretation [...] (test code = 51.0 fL 39.0-49.9 H 97822-7) RDW-CV (test code = 14.0 % 12.0-15.5 788-0) PLT (test code = See_Comment [Automated 777-3) message] The sy stem which generated this result transmitted reference range : 166 - 358 10*3/ ?L. The reference r devan was not used to interpret this result as normal/abnormal . MPV (test code = 10.1 fL 9.5-12.9 93536-1) NRBC/100 WBC (test See_Comment [Automat ed code = 7401070308) message] The system which generated this result transmitted reference range : 0.0 - 10.0 /100 WBCs. The refer ence range was not u sed to interpret th is result as normal/abnormal . NRBC x10^3 (test code <0.01 See_Comment [Auto mated = 0041499321) message] The s ystem which generated this result transmitted reference range : 10*3/?L. The reference range was not used to interpret this result as normal/abnormal . GRAN MAT (NEUT) % 55.6 % (test code = 770-8) IMM GRAN % (test code 0.50 % = 6282264850) LYMPH % (test code = 33.8 % 736-9) MONO % (test code = 7.4 % 5905-5) EOS % (test code = 2.2 % 713-8) BASO % (test code = 0.5 % 706-2) GRAN MAT x10^3(ANC) 6.42 10*3/uL 1.88-7.09 (test code = 3335621145) IMM GRAN x10^3 (test 0.06 10*3/uL 0.00-0.06 code = 7421009961) LYMPH x10^3 (test code 3.91 10*3/uL 1.32-3.29 H = 731-0) MONO x10^3 (test code 0.85 10*3/uL 0.33-0.92 = 742-7) EOS x10^3 (test code = 0.26 10*3/uL 0.03-0.39 711-2) BASO x10^3 (test code 0.06 10*3/uL 0.01-0.07 = 704-7) Lab Interpretation Abnormal (test code = 47397-0) [facility] FLU A AND B (MOLECULAR)2021-04-09 00:01:00 Test Item Value Reference Range Interpretation Comments POCT INFLUENZA A (test code = negative Negative - Negative 3840) POCT INFLUENZA B (test code = negative Negative - Negative 3841) Lab Interpretation (test code = Normal 93185-2) [facility] GRP A STREP (MOLECULAR)2021-04-08 23:51:00 Test Item Value Reference Range Interpretation Comments POCT GP A STREP (test neg Negative - code = 42811-4) Negative NEW (test code = NEW) accurate development and interpretation of all internal controls Lab Interpretation Normal (test code = 82174-1) [facility] (ID NOW RAPID TESTING)2020-04-01 06:48:00 Test Item Value Reference Range Interpretation Comments SARS-CoV-2 Rapid ID NOW Not Detected Not Detected (test code = 52873-0) NEW (test code = NEW) ID NOW COVID-19 Assay is an isothermal nucleic acid amplification test intended for the qualitative detection of nucleic acid from SARS-CoV-2 viral RNA in nasopharyngeal (LICENSE REGISTRATION EXAMINER) specimens. It is used under Emergency Use [...] indicated. Lab Interpretation Normal (test code = 57275-9) [facility]. METABOLIC PANEL (17915)2020-04-01 06:38:00 Test Item Value Reference Range Interpretation Comments NA (test code = 139 mmol/L 135-145 1246771813) K (test code = 4.2 mmol/L 3.5-5 7734202328) CL (test code = 105 mmol/L 98-108 7503464215) CO2 TOTAL (test code = 25 mmol/L 23-31 4844502350) AGAP (test code = 2-16 4670874499) BUN (test code = 11 mg/dL 7-23 3785999127) GLUCOSE (test code = 112 mg/dL 70-110 H 0717310546) CREATININE (test code = 0.75 mg/dL 0.5-1.04 8904442029) TOTAL BILI (test code = 0.3 mg/dL 0.1-1.8 0638692893) CALCIUM (test code = 9.3 mg/dL 8.6-10.6 6441483852) T PROTEIN (test code = 7.9 g/dL 6.3-8.2 4701566840) ALBUMIN (test code = 4.3 g/dL 3.5-5 5503851148) ALK PHOS (test code = 107 U/L 34-122 8913503245) ALTv (test code = 15 U/L 5-35 1742-6) AST(SGOT) (test code = 21 U/L 13-40 1533835912) eGFR Calculation mL/min/1.73m2 (Non-) (test code = 1013690689) eGFR Calculation mL/min/1.73m2 () (test code = 3994744868) NEW (test code = NEW) Association of [...] tests). Lab Interpretation Abnormal (test code = 42973-5) [facility] WITH [id number] 06:10:00 Test Item Value Reference Range Interpretation Comments WBC (test code = See_Comment [Automated 9090-2) message] The sy stem which generated this [...] (test code = 52.1 fL 39-49.9 H 84747-2) RDW-CV (test code = 14.3 % 12-15.5 788-0) PLT (test code = See_Comment [Automated 777-3) message] The sy stem which generated this result transmitted reference range : 166 - 358 10*3/ ?L. The reference r edvan was not used to interpret this result as normal/abnormal . MPV (test code = 9.8 fL 9.5-12.9 64067-5) NRBC/100 WBC (test See_Comment [Automat ed code = 9672796725) message] The system which generated this result transmitted reference range : 0.0 - 10.0 /100 WBCs. The refer ence range was not u sed to interpret th is result as normal/abnormal . NRBC x10^3 (test code <0.01 See_Comment [Auto mated = 3919971765) message] The s ystem which generated this result transmitted reference range : 10*3/?L. The reference range was not used to interpret this result as normal/abnormal . GRAN MAT (NEUT) % 57.1 % (test code = 770-8) IMM GRAN % (test code 0.80 % = 3366486371) LYMPH % (test code = 31.5 % 736-9) MONO % (test code = 7.2 % 5905-5) EOS % (test code = 3.3 % 713-8) BASO % (test code = 0.1 % 706-2) GRAN MAT x10^3(ANC) 5.22 10*3/uL 1.88-7.09 (test code = 4530011453) IMM GRAN x10^3 (test 0.07 10*3/uL 0-0.06 H code = 5121382767) LYMPH x10^3 (test code 2.88 10*3/uL 1.32-3.29 = 731-0) MONO x10^3 (test code 0.66 10*3/uL 0.33-0.92 = 742-7) EOS x10^3 (test code = 0.30 10*3/uL 0.03-0.39 711-2) BASO x10^3 (test code <0.03 0.01-0.07 = 704-7) Lab Interpretation Abnormal (test code = 48969-1) [facility]
[2022-07-17] MEDS ORDERED: MORPHINE 4 MG/ML SYR ONE ×2 (16:10→17:11)
[2022-07-17] MEDS ORDERED: FAMOTIDINE 20 MG/2 ML VIAL IV ONE (16:11)
[2022-07-17] MEDS ORDERED: ONDANSETRON 4 MG/2 ML VIAL ONE (16:11)
[2022-07-17 16:27] LABS: Urine Blood Negative (Negative); Urine Glucose Negative (Negative); Urine Protein 2+ (Negative); Urine Specific Gravity >=1.030 (1.005-1.030)
[2022-07-17 16:35] LABS: Absolute Lymphocytes (CBC) 1.7 K/uL (0.7-4.9); Lymphocytes % 17.5 % (15.3-44.8); MCV 96.9 fL (80-100); MPV 8.7 fL (7.6-11.3); RBC Red Blood Cell Count 4.64 M/uL (3.86-4.86)
[2022-07-17 16:52] LABS: Albumin 4.9 g/dL (3.4-5.0); Bilirubin Total 0.3 mg/dL (0.2-1.0)
--- NOTE | 2022-07-17 17:35 | RAD REPORT ---
EXAM DESCRIPTION: RAD - Chest Single View - 07/17/2022 5:28 pm CLINICAL HISTORY: ABDOMINAL DISTENTION COMPARISON: Chest Pa And Lat (2 Views) dated 09/05/2016 FINDINGS: Lines: None. Lungs: No evidence of edema or pneumonia. Pleural: No significant pleural effusions or pneumothorax. Cardiac: The heart size is within normal limits. Mediastinum: Within normal limits. Bones: No acute fractures. Other: None IMPRESSION: No acute cardiopulmonary disease.
[2022-07-17] MEDS ORDERED: NA CHLORIDE 0.9% 1,000 ML ONE (17:54)
[2022-07-17 18:33] LABS: Urine Bacteria <20 /HPF (<20); Urine Mucus Slight /HPF (None Seen); Urine RBC <5 /HPF (None Seen)
--- NOTE | 2022-07-17 19:23 | RAD REPORT ---
EXAM DESCRIPTION: CTAbdomen Pelvis W Contrast - 07/17/2022 6:59 pm CLINICAL HISTORY: abdominal distension COMPARISON: Abdomen Pelvis W Contrast dated 02/08/2017 TECHNIQUE: CT of the abdomen and pelvis was performed. All CT scans are performed using dose optimization technique as appropriate and may include automated exposure control or mA/KV adjustment according to patient size. FINDINGS: Lower chest: There is fluid in the distal esophagus . Liver: Low-density lesion left hepatic lobe has benign imaging features. Biliary: Mild intrahepatic biliary duct dilatation. Cholecystectomy. The common bile duct is dilated measuring 9 mm. Stomach: No significant focal abnormality. Duodenum: No significant focal abnormality. Pancreas: No significant abnormality. Spleen: No significant abnormality. Adrenal: No suspicious lesions. Kidney/ureter: No hydronephrosis. No renal calculi. Too small to characterize and/or benign appearing renal lesions are noted. Retroperitoneum: No retroperitoneal adenopathy. Vascular: No aneurysm. Bowel: Possible stricture at the sigmoid colon. The colon is redundant.. Normal appendix . Diffusely distended colon with air-fluid levels. Peritoneum: No ascites or free air. Bladder: Grossly unremarkable. Reproductive: No adnexal masses. Bones: No acute fracture. Other: n/a IMPRESSION: Findings suspicious for fixed narrowing in the sigmoid colon. This could be secondary t o underlying neoplasm or stricture. Recommend surgical consultation and/or colonoscopy. There is also some questionable hyperenhancement at the rectum. Extrahepatic common bile duct dilatation. Correlate with LFTs. It may be related to the postcholecyst ectomy state. MRCP could better evaluate.
--- NOTE | 2022-07-17 21:14 | EDPHYS ---
Physician Documentation [facility] Name: Niki Yang Age: 52 yrs Sex: Female : 1970 Arrival Date: 07/17/2022 Time: 15:42 Bed 23 Private MD: Viktor Barrera T ED Physician Benny Cortes HPI: 07/17 16:10 This 52 yrs old Female presents to ER via Ambulatory with complaints of Constipation. cp 16:10 The patient presents with abdominal pain that is diffuse, abdominal distention that is cp diffuse. 16:10 Associated signs and symptoms: Pertinent positives: constipation times 2 weeks with cp last BM 1 week ago, nausea/vomiting today, Pertinent negatives: blood in stools, diarrhea, dysuria, fever. The symptoms are described as constant. Severity of pain: in the emergency department the pain is unchanged despite home interventions. 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 - Social history:: Smoking status: Patient denies any tobacco usage or history of. Patient/guardian denies using alcohol. ROS: 16:15 Constitutional: Negative for fever. cp 16:15 Eyes: Negative for injury, pain, redness, and discharge. cp 16:15 ENT: Negative for drainage from ear(s), ear pain, sore throat, difficulty swallowing, difficulty handling secretions. 16:15 Cardiovascular: Negative for chest pain, palpitations. 16:15 Respiratory: Negative for cough, shortness of breath, wheezing. 16:15 Abdomen/GI: Positive for abdominal pain, nausea and vomiting, constipation, Negative for diarrhea, anorexia, black/tarry stool, rectal bleeding. 16:15 Back: Negative for pain at rest, pain with movement. 16:15 : Negative for urinary symptoms. 16:15 Neuro: Negative for altered mental status, headache, weakness. 16:15 All other systems are negative. Exam: 16:20 Constitutional: The patient appears in no acute distress, alert, awake, cp non-diaphoretic, non-toxic, well developed, well nourished, uncomfortable. 16:20 Head/Face: Normocephalic, atraumatic. cp 16:20 Eyes: Periorbital structures: appear normal, Conjunctiva: normal, no exudate, no cp injection, Sclera: no appreciated abnormality, Lids and lashes: appear normal, bilaterally. 16:20 ENT: External ear(s): are unremarkable, Nose: is normal, Mouth: Lips: moist, Oral cp mucosa: pink and intact, moist, Posterior pharynx: Airway: no evidence of obstruction, patent. 16:20 Chest/axilla: Inspection: normal. 16:20 Cardiovascular: Rate: tachycardic, Rhythm: regular, Edema: is not appreciated, JVD: is not appreciated. 16:20 Respiratory: the patient does not display signs of respiratory distress, Respirations: normal, no use of accessory muscles, no retractions, labored breathing, is not present, Breath sounds: are clear throughout, no decreased breath sounds, no stridor, no wheezing. 16:20 Abdomen/GI: Inspection: distension, that is moderate, in the abdomen diffusely, Bowel sounds: active, all quadrants, Palpation: soft, in all quadrants, moderate abdominal tenderness, in all quadrants, rebound tenderness, is not appreciated, involuntary guarding, is not appreciated. 16:20 Back: pain, is absent, ROM is normal. 16:20 Neuro: Orientation: to person, place \T\ time. Mentation: is normal, Motor: moves all fours, strength is normal. Vital Signs: 15:47 BP 114 / 80; Pulse 113; Resp 18; Temp 97.4; Pulse Ox 95% on R/A; Weight 77.11 kg; hb Height 5 ft. 4 in. (162.56 cm); Pain 8/10; 16:33 BP 123 / 79; Pulse 111; Resp 17; Pulse Ox 96% on R/A; Pain 9/10; ld1 17:51 BP 118 / 87; Pulse 102; Resp 18; Pulse Ox 93% on R/A; ld1 18:33 BP 118 / 87; Pulse 99; Resp 18; Pulse Ox 95% on R/A; ld1 21:32 BP 127 / 75; Pulse 105; Resp 16; Pulse Ox 95% ; Pain 3/10; kb3 15:47 Body Mass Index 29.18 (77.11 kg, 162.56 cm) hb MDM: 15:44 Patient medically screened. cp 17:00 Differential diagnosis: bowel obstruction, diverticulitis, constipation, colon mass. cp 19:40 Data reviewed: vital signs, nurses notes, lab test result(s), radiologic studies, CT cp scan, plain films, I have discussed the patient's presentation/case with the attending Emergency Department Physician;. 20:00 Physician consultation: Jesus Deng MD was contacted at 20:00, regarding consult, wants GI consult and available. 20:02 Physician consultation: Ken Lawler MD was called at 20:03, left message on voicemail. 20:50 Physician consultation: Ken Lawler MD was called at 20:50, attempt to contact, no cp answer. 20:50 ED course: Pain improved. DR Mckinley available and director of personnel starting morning of 07/18/2022. Will admit with surgical consult to DR Deng. 07/17 16:04 Order name: CBC with Diff; Complete Time: 17:09 cp 07/17 16:04 Order name: CMP; Complete Time: 17:09 cp 07/17 17:09 Interpretation: Normal except: NA 133; GLUC 119; CRE 1.32; GFR 49; CA 10.3; TP 10.0; cp GLOB 5.1; A/G 1.0. 07/17 16:04 Order name: Lipase; Complete Time: 17:09 cp 07/17 16:04 Order name: Urine Microscopic Only; Complete Time: 18:37 cp 07/17 18:38 Interpretation: Normal except: SQEPI 20-50; HYAL 5-10. 07/17 16:28 Order name: Urine Dipstick-Ancillary; Complete Time: 17:09 EDMS 07/17 16:29 Order name: Urine --Ancillary (enter results); Complete Time: 19:30 eb 07/17 16:05 Order name: XRAY Chest (1 view); Complete Time: 17:39 cp 07/17 17:39 Interpretation: Report review. 07/17 16:05 Order name: CT Abd/Pelvis - PO and IV Contrast; Complete Time: 19:30 cp 07/17 21:24 Order name: SARS RAPID; Complete Time: 22:08 kb3 07/17 16:04 Order name: IV Saline Lock; Complete Time: 16:33 cp 07/17 16:04 Order name: Labs collected and sent; Complete Time: 16:33 cp 07/17 16:04 Order name: Urine Dipstick-Ancillary (obtain specimen); Complete Time: 16:33 cp 07/17 16:04 Order name: Urine Test (obtain specimen); Complete Time: 16:33 cp Administered Medications: 16:15 Drug: Pepcid (famotidine) 20 mg Route: IVP; Site: left antecubital; ld1 17:36 Follow up: Response: No adverse reaction ld1 16:15 Drug: Zofran (Ondansetron) 4 mg Route: IVP; Site: left antecubital; ld1 17:36 Follow up: Response: No adverse reaction ld1 16:15 Drug: morphine 4 mg Route: IVP; Infused Over: 4 mins; Site: left antecubital; ld1 17:36 Follow up: Response: No adverse reaction; RASS: Alert and Calm (0) ld1 17:36 Drug: morphine 4 mg Route: IVP; Infused Over: 4 mins; Site: left antecubital; ld1 17:58 Follow up: Response: No adverse reaction; Pain is unchanged, physician notified; RASS: ld1 Alert and Calm (0) 17:58 Drug: NS 0.9% 1000 ml Route: IV; Rate: 500 ml/hr; Site: left antecubital; ld1 20:00 Follow up: Response: No adverse reaction; IV Status: Completed infusion; IV Intake: kb3 1000ml 23:19 Follow up: IV Status: Completed infusion; IV Intake: 500ml kb3 Disposition: 07/18 18:53 Co-signature as Attending Physician, Benny Cortes MD. rn Disposition Summary: 07/17/22 21:13 Hospitalization Ordered Hospitalization Status: Inpatient Admission cp Provider: Marilee Elmore cp Location: Telemetry/MedSur (Inpatient) cp Condition: Stable cp Problem: new cp Symptoms: have improved cp Bed/Room Type: Standard cp Room Assignment: 427(07/17/22 22:59) Diagnosis - Nausea with vomiting, unspecified cp - Constipation cp - Obstruction Sigmoid Colon cp Forms: - Medication Reconciliation Form cp - SBAR form cp Signatures: Dispatcher [employer] Kristin Leon RN RN mw Nieto, Roman, MD MD rn Page, Corey, PA PA cp Hilton Wyatther, RN RN hb Karla Ramachandran, RN RN ld1 Lexii Ferris, RN RN kb3 Marilee Elmore PA-C PA-C sb4 Corrections: (The following items were deleted from the chart) 07/17 22:59 21:13 cp darcie
--- NOTE | 2022-07-17 21:14 | ER ---
Nurse's Notes [facility] Name: Niki Yang Age: 52 yrs Sex: Female : 1970 Arrival Date: 07/17/2022 Time: 15:42 Bed 23 Private MD: Viktor Barrera T Diagnosis: Nausea with vomiting, unspecified;Constipation;Obstruction Sigmoid Colon Presentation: 07/17 15:47 Chief complaint: Constipation x 2 weeks, vomiting today. Today pt tried enema x 4, a hb bottle of milk of mag, and stool softeners with no results. Coronavirus screen: At this time, the client does not indicate any symptoms associated with coronavirus-19. Ebola Screen: No symptoms or risks identified at this time. Risk Assessment: Do you want to hurt yourself or someone else? Patient reports no desire to harm self or others. Onset of symptoms was June 2022. 15:47 Method Of Arrival: Ambulatory hb 15:47 Acuity: SUSANA 3 hb 23:20 Initial Sepsis Screen: Does the patient meet any 2 criteria? No. Patient's initial kb3 sepsis screen is negative. Does the patient have a suspected source of infection? No. Patient's initial sepsis screen is negative. 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 - Social history:: Smoking status: Patient denies any tobacco usage or history of. Patient/guardian denies using alcohol. Screenin:33 Abuse screen: Denies threats or abuse. Denies injuries from another. Nutritional ld1 screening: No deficits noted. Tuberculosis screening: No symptoms or risk factors identified. Fall Risk None identified. Assessment: 16:33 General: Appears in no apparent distress. uncomfortable, Behavior is calm, cooperative, ld1 appropriate for age. Pain: Complains of pain in abdomen Pain does not radiate. Pain currently is 9 out of 10 on a pain scale. Quality of pain is described as aching, throbbing, Pain began 2-3 days ago. Is continuous. Neuro: Level of Consciousness is awake, alert, obeys commands, Oriented to person, place, time, situation, Appropriate for age. Cardiovascular: Capillary refill < 3 seconds Patient's skin is warm and dry. Rhythm is sinus rhythm. Respiratory: Airway is patent Respiratory effort is even, unlabored. GI: Abdomen is round non-distended, Bowel sounds present X 4 quads. Abd is soft Abdomen is tender to palpation Reports constipation. GI: Reports nausea, vomiting. : No signs and/or symptoms were reported regarding the genitourinary system. EENT: No signs and/or symptoms were reported regarding the EENT system. Derm: No signs and/or symptoms reported regarding the dermatologic system. Musculoskeletal: No signs and/or symptoms reported regarding the musculoskeletal system. 17:51 Reassessment: Patient appears in no apparent distress at this time. Patient is alert, ld1 oriented x 3, equal unlabored respirations, skin warm/dry/pink. 18:40 Reassessment: Patient appears in no apparent distress at this time. Patient is alert, ld1 oriented x 3, equal unlabored respirations, skin warm/dry/pink. Pt reports having several loose bowel movements in a row - moved pt to room closer to bathroom. 19:00 General: Received care of pt from Karla SCHULZ. Pt was moved to room 23 in order to be kb3 closer to restroom. Pt reports ongoing constipation, took multiple OTC constipation medications and drank oral contrast for CT and now has diarrhea. Pt ambulatory to restroom numerous times with small amounts of liquid stool. Vital Signs: 15:47 BP 114 / 80; Pulse 113; Resp 18; Temp 97.4; Pulse Ox 95% on R/A; Weight 77.11 kg; hb Height 5 ft. 4 in. (162.56 cm); Pain 8/10; 16:33 BP 123 / 79; Pulse 111; Resp 17; Pulse Ox 96% on R/A; Pain 9/10; ld1 17:51 BP 118 / 87; Pulse 102; Resp 18; Pulse Ox 93% on R/A; ld1 18:33 BP 118 / 87; Pulse 99; Resp 18; Pulse Ox 95% on R/A; ld1 21:32 BP 127 / 75; Pulse 105; Resp 16; Pulse Ox 95% ; Pain 3/10; kb3 15:47 Body Mass Index 29.18 (77.11 kg, 162.56 cm) hb ED Course: 15:42 Patient arrived in ED. am2 15:42 Viktor Barrera MD is Private Physician. am2 15:44 [facility] cp 15:44 Benny Cortes MD is Attending Physician. cp 15:49 Triage completed. hb 16:32 Karla Ramachandran RN is Primary Nurse. ld1 16:33 Patient has correct armband on for positive identification. Placed in gown. Bed in low ld1 position. Call light in reach. Side rails up X2. clinical research monitor on. Pulse ox on. NIBP on. Door closed. Noise minimized. Warm blanket given. 16:33 No provider procedures requiring assistance completed. Inserted saline lock: 20 gauge ld1 in left antecubital area, using aseptic technique. Blood collected. 17:30 XRAY Chest (1 view) In Process Unspecified. EDMS 18:41 Report given to JAZZ Shultz. ld1 18:[address] via wheelchair. kb3 18:50 Arm band placed on left wrist. Patient placed in an exam room, on a stretcher. kb3 19:01 CT Abd/Pelvis - PO and IV Contrast In Process Unspecified. EDMS 21:13 Marilee Elmore PA-C is Hospitalizing Provider. cp 23:22 Patient admitted, IV remains in place. kb3 Administered Medications: 16:15 Drug: Pepcid (famotidine) 20 mg Route: IVP; Site: left antecubital; ld1 17:36 Follow up: Response: No adverse reaction ld1 16:15 Drug: Zofran (Ondansetron) 4 mg Route: IVP; Site: left antecubital; ld1 17:36 Follow up: Response: No adverse reaction ld1 16:15 Drug: morphine 4 mg Route: IVP; Infused Over: 4 mins; Site: left antecubital; ld1 17:36 Follow up: Response: No adverse reaction; RASS: Alert and Calm (0) ld1 17:36 Drug: morphine 4 mg Route: IVP; Infused Over: 4 mins; Site: left antecubital; ld1 17:58 Follow up: Response: No adverse reaction; Pain is unchanged, physician notified; RASS: ld1 Alert and Calm (0) 17:58 Drug: NS 0.9% 1000 ml Route: IV; Rate: 500 ml/hr; Site: left antecubital; ld1 20:00 Follow up: Response: No adverse reaction; IV Status: Completed infusion; IV Intake: kb3 1000ml 23:19 Follow up: IV Status: Completed infusion; IV Intake: 500ml kb3 Medication: 16:33 VIS not applicable for this client. ld1 Intake: 20:00 IV: 1000ml; Total: 1000ml. kb3 23:19 IV: 500ml; Total: 1500ml. kb3 Outcome: 21:13 Decision to Hospitalize by Provider. cp 23:30 Admitted to Med/surg accompanied by tech, via wheelchair. kb3 23:30 Condition: stable 23:30 Instructed on the need for admit. 23:58 Patient left the ED. kb3 Signatures: Dispatcher [employer] EDMS Peng Kapadia PA PA cp Baxter, Heather, RN RN Keara Pastor Lauren, RN RN ld1 Lexii Ferris RN RN kb3
[2022-07-17 21:57] LABS: SARS-CoV-2 Antigen Rapid Res Negative (Negative)
--- NOTE | 2022-07-17 22:23 | P.HP ---
Certification for Inpatient Patient admitted to: Inpatient With expected LOS: <2 Midnights Patient will require the following post-hospital care: None Practitioner: I am a practitioner with admitting privileges, knowledge of patient current condition, hospital course, and medical plan of care. Services: Services provided to patient in accordance with Admission requirements found in Title 42 Section 412.3 of the Code of Federal Regulations Patient History Date of Service: 07/17/22 Reason for admission: Colonic Stricture History of Present Illness: Patient is a 52 year old female with history of hypothyroidism and SLE who presented to the ED with complaints of constipation and abdominal pain. Patient has been seeing GI for about 10 months now for this issue and had a colonoscopy a few months back that did not reveal any abnormalities. Today, she had a CT abdomen pelvis with PO contrast that showed "Findings suspicious for fixed narrowing in the sigmoid colon. This could be secondary to underlying neoplasm or stricture. Recommend surgical consultation and/or colonoscopy. There is also some questionable hyperenhancement at the rectum." She reports that since drinking the contrast, she has had several BMs and no longer feels constipated. General surgery was contacted and has agreed to consult along side of GI. Patient will be admitted for further management. Allergies ibuprofen Allergy (Severe, Verified 08/02/21 11:30) Nausea/Vomiting Home medications list reviewed: Yes Home Medications: Alprazolam [Xanax] 1 mg PO TIDP PRN 02/08/17 Citalopram Hydrobromide [Celexa] 40 mg PO BEDTIME 02/08/17 Levothyroxine Sodium [Synthroid] 150 mcg PO DAILY #30 tablet 02/08/17 Ropinirole HCl [Requip] 1 mg PO BEDTIME 02/08/17 Sumatriptan Succinate [Imitrex] 50 mg PO PRN PRN 02/08/17 Trazodone HCl 100 mg PO BEDTIME 02/08/17 Doxazosin Mesylate 4 mg PO DAILY 06/10/21 Nitrofurantoin Monohyd/M-Cryst [Macrobid 100 mg Capsule] 100 mg PO BID #1 capsule 08/03/21 - Past Medical/Surgical History Diabetic: No -: Hypothyroidism -: Anxiety -: Depression -: Heartburn -: Lupus, stable off meds -: C-sections x2 -: Cholecystectomy -: Tubal ligation -: Breast augmentation -: Tummy tuck Psychosocial/ Personal History: Patient is single. She has 3 children. She is currently unemployed. - Family History Father -: Other (see notes) Mother -: Hypertension - Social History Smoking Status: Never smoker Alcohol use: No CD- Drugs: No Caffeine use: No Place of Residence: Home Review of Systems Gastrointestinal: Abdominal Pain, Constipation Physical Examination - Physical Exam General: Alert, In no apparent distress HEENT: Atraumatic, PERRLA, EOMI, Sclerae nonicteric Neck: Supple, 2+ carotid pulse no bruit, No LAD, Without JVD or thyroid abnormality Respiratory: Clear to auscultation bilaterally, Normal air movement Cardiovascular: Regular rate/rhythm, Normal S1 S2 Gastrointestinal: Normal bowel sounds, Soft and benign, Non-distended Musculoskeletal: No tenderness Integumentary: No rashes Neurological: Normal gait, Normal speech, Normal strength at 5/5 x4 extr, Normal tone, Normal affect - Studies Laboratory Data (last 24 hrs) 07/17/22 16:21: Sodium 133 L, Potassium 4.0, BUN 12, Creatinine 1.32 H, Glucose 119 H, Total Bilirubin 0.3, AST 17, ALT 31, Alkaline Phosphatase 106, Lipase 118 07/17/22 16:21: WBC 9.90, Hgb 14.9, Hct 45.0, Plt Count 313 Assessment and Plan - Problems (Diagnosis) (1) Colonic stricture Current Visit: Yes Status: Acute (2) Constipation Current Visit: Yes Status: Acute Qualifiers: Constipation type: unspecified constipation type Qualified Code(s): K59.00 - Constipation, unspecified (3) Hypothyroidism Current Visit: Yes Status: Chronic Qualifiers: Hypothyroidism type: acquired Qualified Code(s): E03.9 - Hypothyroidism, unspecified (4) CKD (chronic kidney disease) Current Visit: Yes Status: Acute Qualifiers: Chronic kidney disease stage: stage 3 (moderate) Chronic kidney disease stage 3 subtype: stage 3a (GFR 45-59) Qualified Code(s): N18.31 - Chronic kidney disease, stage 3a (5) Lupus (systemic lupus erythematosus) Current Visit: Yes Status: Acute Qualifiers: Systemic lupus erythematosus type: unspecified Systemic lupus erythematosus organ involvement: unspecified Qualified Code(s): M32.9 - Systemic lupus erythematosus, unspecified - Plan -NPO at midnight -GI and surgery consult -Pain medications as needed, limit to prevent further constipation -IV hydration -Stool softeners as needed -Monitor and replete electrolytes per protocol -Reconcile and continue home medications -VTE prophylaxis -Full code Discharge Plan: Home Plan to discharge in: 48 Hours - Advance Directives Does patient have a Living Will: No Does patient have a Durable POA for Healthcare: No - Code Status/Comfort Care Code Status Assessed: Yes (Full) Critical Care: No Time Spent Managing Pts Care (In Minutes): 50
[2022-07-18] MEDS ORDERED: ACETAMINOPHEN 500 MG TAB PO PRN (00:52)
[2022-07-18] MEDS: NA CHLORIDE 0.9% 1,000 ML IV SCH ×4 (01:14→21:22)
[2022-07-18] MEDS: MORPHINE 2 MG/ML SYR IV PRN ×4 (01:15→21:20)
[2022-07-18] MEDS: ONDANSETRON 4 MG/2 ML VIAL IV PRN ×4 (01:15→21:20)
[2022-07-18 01:32] VITALS: BMI 29.2
[2022-07-18 04:14] LABS: Absolute Lymphocytes (CBC) 2.2 K/uL (0.7-4.9); Hematocrit 38.2 % (36.0-45.0); Lymphocytes % 22.8 % (15.3-44.8); MCV 97.9 fL (80-100); MPV 8.4 fL (7.6-11.3)
[2022-07-18 04:30] LABS: Magnesium 2.1 mg/dL (1.8-2.4); Phosphorus 2.7 mg/dL (2.5-4.9); Potassium 3.7 mmol/L (3.5-5.1)
[2022-07-18] MEDS ORDERED: POLYETHYL GLY 3350 17 GM/DOSE PO ONE ×2 (08:10→15:00)
[2022-07-18] MEDS ORDERED: KCL 20 MEQ/100 mL IVPB 20 MEQ/100 ML BAG IV SCH (09:00)
--- NOTE | 2022-07-18 13:47 | CON ---
Date of Consultation: 07/18/2022 Brief History Of Present Illness: The patient is a 52-year-old female with a history of hypothyroidi sm, lupus, and chronic constipation and redundant colon, who presents with approximately 1 month hist ory of worsening abdominal complaints. She states that her constipation began approximately year ago . Prior to that, she had diarrhea, but she has had constipation for approximately 10 months getting progressively worse. Her last colonoscopy was approximately a year ago and she cannot recall details other than saying she believes it was fairly normal. She states that Dr. Lawler was her endoscopist at that time, but she cannot recall followup with respect to her pathology if any was performed. Avila nesbitt states that over the past several days, she had significantly worse abdominal pain and worsening co nstipation. She has been on chronic stool softeners and laxatives to help with her bowel movements. She came in with nausea, vomiting, constipation, and abdominal pain. She had a CT scan performed ye sterday and since then she states she has had multiple bowel movements, which were quite loose and avila nesbitt has no more abdominal pain. No nausea. No vomiting. No abdominal distention after multiple soft bowel movements after her CAT scan contrast was given yesterday. Past Medical History: Significant for hypothyroidism, anxiety, depression, heartburn, lupus without medications. Past Surgical History: Includes colonoscopy 1 year ago, C-sections x2, cholecystectomy, tubal ligati on, breast augmentation, abdominoplasty, and pelvic surgery with a sling approximately 1/4 years ago. Home Medications: Include Xanax, Celexa, Synthroid, Requip, Imitrex, trazodone, doxazosin, nitrofura ntoin/Macrobid. Allergies: TO IBUPROFEN WHICH CAUSES NAUSEA, VOMITING. Social History: She is single, has 3 children. Currently unemployed. Smoking, she denies smoking, alcohol, or recreational drug use. Family History: Her mother has hypertension. Review of Systems: Ten-point review of systems other than HPI, currently denies. Physical Examination: General: At the time of my examination; she is awake, alert, oriented. Psychiatric: She is appropriate, conversive. HEENT: Normocephalic. Sclerae anicteric. Mucous membranes are moist. Oropharynx clear. Neck: Supple without JVD. Chest: Expansion and excursion. Cardiovascular: Regular rate and rhythm. Pulmonary: Clear to auscultation bilaterally. Abdomen: Soft, nontender, nondistended. No rebound or guarding. No focal peritonitis. Well-healed surgical scars were evident in the periumbilical and lower pannus area. Extremities: No clubbing, cyanosis, or edema. Skin: Warm and dry. Laboratory Data: Revealed a white blood cell count of 9.6, hemoglobin 12.7, hematocrit 38.2, platele t count was 257. Her sodium was 135, potassium 3.7, chloride 103, carbon dioxide 25, BUN 9, creatini ne 0.8, glucose is 83, calcium 8.5, magnesium 2.1. Her urine test was negative. Her COVID was negative. She had a CT scan performed of the abdomen and pelvis, which was officially read on as findings suspicious for fixed narrowing of the sigmoid colon could be secondary to under lying neoplasm stricture, recommend surgical consultation and a colonoscopy. There was some question of hyperenhancement of the rectum, extrahepatic common bile duct dilatation felt easily related to p rior cholecystectomy state. MRCP could better evaluate. Assessment And Plan: This is a 52-year-old female, who comes in with abdominal pain and constipation and possible colonic stricture versus space-occupying lesion. 1.IV fluid hydration. 2.N.p.o. 3.Serial abdominal exams. 4.I have explained the patient likely would benefit from an EGD, colonoscopy. Based on her findings , I have recommended Dr. Mckinley and/or Dr. Lawler; however, the patient has stated she does not wis h to see Dr. Lawler at this time as she has experienced and was looking to change providers. Therefo re, I recommend Dr. Mckinley and the patient has asked if I could perform the endoscopy as per her re commendations of a family member of hers. As such, I have agreed to proceed with a screening colonos copy and upper gastrointestinal endoscopy. I have explained the risks, benefits, and alternatives of EGD, colonoscopy including, but not limited to bleeding, infection, damage to surrounding tissues, i njury to intestines or any internal organs, need for further operation and procedures. The patient a grees to proceed as indicated. Thank you for this interesting consult. SANGEETA/RADHA Voice ID: [id number] Report ID: [id number]
[2022-07-18] MEDS ORDERED: ALPRAZOLAM 1 MG TABLET PO PRN (14:17)
[2022-07-18] MEDS ORDERED: GOLYTELY 4000 ML PO ONE (15:00)
[2022-07-18] MEDS ORDERED: BISACODYL E.C. 5 MG TAB PO ONE (15:00)
[2022-07-18] MEDS: SUMATRIPTAN SUCCI 50 MG TAB PO PRN (15:29)
--- NOTE | 2022-07-18 16:22 | P.PN ---
Subjective Date of Service: 07/18/22 Chief Complaint: Colonic Stricture Patient is complaining of migraine. She reports intermittent abdominal pain. Physical Examination - Vital Signs Temperature: 97.6 F Blood Pressure: 113/56 Pulse: 98 Respirations: 18 Pulse Ox (%): 90 - Studies Laboratory Data (last 24 hrs) 07/17/22 16:21: Sodium 133 L, Potassium 4.0, BUN 12, Creatinine 1.32 H, Glucose 119 H, Total Bilirubin 0.3, AST 17, ALT 31, Alkaline Phosphatase 106, Lipase 118 07/17/22 16:21: WBC 9.90, Hgb 14.9, Hct 45.0, Plt Count 313 Assessment And Plan - Current Problems (Diagnosis) (1) Migraine Current Visit: Yes Status: Acute (2) Colonic stricture Current Visit: Yes Status: Acute (3) Constipation Current Visit: Yes Status: Acute Qualifiers: Constipation type: unspecified constipation type Qualified Code(s): K59.00 - Constipation, unspecified (4) Hyponatremia Current Visit: Yes Status: Acute (5) Anxiety disorder Current Visit: Yes Status: Acute - Plan Physical Exam General: Alert, In no apparent distress Respiratory: Clear to auscultation bilaterally, Normal air movement Cardiovascular: Regular rate/rhythm, Normal S1 S2 Gastrointestinal: Normal bowel sounds, Soft and benign, moderate diffuse tenderness Musculoskeletal: No tenderness Integumentary: No rashes Neurological: No focal motor deficit. Plan: Patient seen by Dr. Deng who is planning EGD and colonoscopy tomorrow. Bowel prep Supportive measures with pain management as needed. Resume home medications for migraine. Empiric zosyn. Monitor and optimize electrolytes. Continue other home medications.
--- NOTE | 2022-07-18 20:47 | P.PN ---
Date of Service: 07/19/22 Subjective: no acute events overnight no significant change, s/p bowel prep reported to nursing staff having clear liquid output ROS: 10 point ROS as noted above, otherwise negative Physical Exam: Gen: NAD, AOx3 HEENT: normal conjunctiva, sclera anicteric CV: regular rate & rhythm, no edema Pulm: non-labored respirations, clear bilaterally Abd: soft, mild-mod diffuse tenderness Neuro: normal speech, normal affect, moves all extremities vitals reviewed Problem List Possible Colonic stricture Constipation, chronic Hyponatremia, mild Anxiety disorder Migraine Patient seen by Dr. Deng who is planning EGD and colonoscopy today Bowel prep Supportive measures with pain management as needed. Resume home medications for migraine. Monitor and optimize electrolytes. continue chronic home meds pending scope findings VTE: held for procedures Code: full Dispo: home, ~1-2 days Time Spent Managing Pts Care (In Minutes): 35
[2022-07-18] MEDS ORDERED: HOME MED 1 EA UNK (Ropinirole Hcl [Requip] 2 MG Tablet) PO SCH (21:00)
[2022-07-18] MEDS ORDERED: TRAZODONE 50 MG TABLET PO SCH (21:00)
[2022-07-18] MEDS ORDERED: HOME MED 1 EA UNK (Citalopram Hydrobromide [Celexa] 40 MG Tablet) PO SCH (21:00)
[2022-07-18] MEDS ORDERED: CITALOPRAM 10 MG TABLET PO SCH (21:00)
[2022-07-18] MEDS ORDERED: HOME MED 1 EA UNK (Trazodone Hcl [Trazodone Hcl] 100 MG Tablet) PO SCH (21:00)
[2022-07-18] MEDS ORDERED: ROPINIROLE HCL 1 MG TAB PO SCH (21:00)
[2022-07-19] MEDS: SUMATRIPTAN SUCCI 50 MG TAB PO PRN (00:08)
[2022-07-19] MEDS ORDERED: PROMETHAZINE INJ 25 MG/ML AMP IV ONE (00:18)
[2022-07-19] MEDS ORDERED: LEVOTHYROXINE SOD 0.075 MG TAB PO SCH (06:30)
[2022-07-19 06:41] LABS: Hematocrit 36.8 % (36.0-45.0); MCV 98.3 fL (80-100); MPV 8.7 fL (7.6-11.3); RBC Red Blood Cell Count 3.74 M/uL (3.86-4.86)
[2022-07-19] MEDS: NA CHLORIDE 0.9% 1,000 ML IV SCH ×3 (06:52→16:52)
[2022-07-19 07:49] LABS: Magnesium 2.1 mg/dL (1.8-2.4); Potassium 3.7 mmol/L (3.5-5.1)
[2022-07-19] MEDS ORDERED: HOME MED 1 EA UNK (Levothyroxine Sodium [Synthroid] 150 MCG Tablet) PO SCH (09:00)
[2022-07-19] MEDS: MORPHINE 2 MG/ML SYR IV PRN (10:13)
[2022-07-19] MEDS: ONDANSETRON 4 MG/2 ML VIAL IV PRN (10:13)
[2022-07-19] MEDS ORDERED: propofoL 200 MG/20 ML VIAL IV ONE ×3 (14:59→15:41)
[2022-07-19] MEDS ORDERED: ONDANSETRON 4 MG/2 ML VIAL ONE (15:00)
[2022-07-19] MEDS ORDERED: LIDOCAINE 1% MPF 2 ML AMPULE ONE (15:00)
--- NOTE | 2022-07-19 15:49 | ENDO RPT ---
[address], [address] EGD PROCEDURE REPORT EXAM DATE: 07/19/2022 PATIENT NAME: Niki Yang MR#: [id number] BIRTHDATE: 1970 ATTENDING: Jesus Deng DR STATUS: inpatient - [facility] REPRODUCTION ARTIST: Kurt Santana and Kristina Burgess RN INDICATIONS: The patient is a 52 yr old Female here for an EGD due to Esophagitis, epigastric pain PROCEDURE PERFORMED: EGD with biopsy and EGD with biopsy for H. pylori MEDICATIONS: Per Anesthesia. TOPICAL ANESTHETIC: none CONSENT: The patient understands the risks and benefits of the procedure and understands that these risks include, but are not limited to: sedation, allergic reaction, infection, perforation and/or bleeding. Alternative means of evaluation and treatment include, among others: physical exam, x-rays, and/or surgical intervention. The patient elects to proceed with this endoscopic procedure. DESCRIPTION OF PROCEDURE: During intra-op preparation period all mechanical medical equipment was checked for proper function. Hand hygiene and appropriate measures for infection prevention was taken. Procedure, possible complications, and alternatives including but not limited to the possibility of bleeding, perforation, tear, infection, sepsis, need for surgery, need for blood transfusion, and anesthesia related complications were explained to the patient. After the risks, benefits and alternatives of the procedure were thoroughly explained, Informed consent was verified, confirmed and timeout was successfully executed by the treatment team. The patient was placed in the left lateral position. The patient was anesthetized with topical anesthesia. Through the anesthetized oropharyngeal area, the scope was passed without any difficulty. The [id number] ([id number]) endoscope was introduced through the mouth and advanced to the second portion of the duodenum. Retroflexed views revealed no abnormalities. The gastroscope was then slowly withdrawn and removed. Mild gastritis was found in the body and the antrum of the stomach. A biopsy of the GEJ was obtained to rule out Russo's. A biopsy for H. pylori was taken. With standard forceps, a biopsy was obtained and sent to pathology. Retained food was present in the fundus. ADVERSE EVENTS: There were no complications. IMPRESSIONS: 1. Mild gastritis was found in the body and the antrum of the stomach 2. Retained food was present in the fundus RECOMMENDATIONS: 1. anti-reflux regimen 2. anti-reflux regimen 3. await biopsy results 4. avoid NSAIDS 5. follow-up: office 2 week(s) 6. follow-up of helicobacter pylori status, treat if indicated 7. gastric emptying study REPEAT EXAM: Jesus Deng DR eSigned: Jesus Deng DR 07/19/2022 3:48 PM cc: CPT CODES: ICD9 CODES: PATIENT NAME: Niki Yang MR#: [id number]
--- NOTE | 2022-07-19 15:54 | ENDO RPT ---
[address], [address] COLONOSCOPY PROCEDURE REPORT EXAM DATE: 07/19/2022 PATIENT NAME: Niki Yang MR #: [id number] BIRTHDATE: 1970 ATTENDING: Jesus Deng DR STATUS: inpatient - 7 MANAGER CLINICAL RESEARCH: Kurt Santana and Kristina Burgess RN INDICATIONS: The patient is a 52 yr old Female here for a colonoscopy due to Possible Colonic Stricture PROCEDURE PERFORMED: Screening Colonoscopy MEDICATIONS: Per Anesthesia. ESTIMATED BLOOD LOSS: None CONSENT: The patient understands the risks and benefits of the procedure and understands that these risks include, but are not limited to: sedation, allergic reaction, infection, perforation and/or bleeding. Alternative means of evaluation and treatment include, among others: physical exam, x-rays, and/or surgical intervention. The patient elects to proceed with this endoscopic procedure. DESCRIPTION OF PROCEDURE: During intra-op preparation period all mechanical medical equipment was checked for proper function. Hand hygiene and appropriate measures for infection prevention was taken. Procedure, possible complications, alternatives including, but not limited to possibility of bleeding, perforation, tear, infection, sepsis, need for surgery, need for blood transfusion, were explained to the patient. After the risks, benefits and alternatives of the procedure were thoroughly explained, Informed consent was verified, confirmed and timeout was successfully executed by the treatment team. The patient was placed in the left lateral position. A digital rectal exam was performed and revealed internal hemorrhoids and A digital rectal exam was performed and revealed external hemorrhoids. After appropriate level of anesthesia, the scope was passed. The [id number] ([id number]) endoscope was introduced through the anus and advanced to the ascending colon. The quality of the prep was inadequate. The instrument was then slowly withdrawn as the colon was fully examined. Scope withdrawal time was 15 minutes. COLON FINDINGS: No stricture noted - scope passed easily to RIGHT colon, solid, semisolid stool present throughout entire colon. Retroflexed views revealed no abnormalities. The scope was then completely withdrawn from the patient and the procedure terminated. ADVERSE EVENTS: There were no complications. IMPRESSIONS: No stricture noted - scope passed easily to RIGHT colon, solid, semisolid stool present throughout entire colon RECOMMENDATIONS: 1. Repeat Colonoscopy with 2 day prep 2. follow-up: office 1 week(s) 3. Monitor for any evidence of rectal bleeding. 4. hemorrhoidal hygiene 5. increase dietary water RECALL: Return in 2 week(s) for Colonoscopy. Jesus Deng DR eSigned: Jesus Deng DR 07/19/2022 3:54 PM cc: CPT CODES: ICD9 CODES: PATIENT NAME: Yang Niki ManojQuirino MR#: [id number]
[2022-07-19] MEDS ORDERED: ALBUTEROL 2.5 MG/3 ML NEB SOL ONE (16:23)
[2022-07-19] MEDS ORDERED: dexAMETHasone 10 MG/ML VIAL ONE (16:28)
[2022-07-19] MEDS ORDERED: Ringers Lactate 1,000 ML IV ONE (16:28)
--- NOTE | 2022-07-19 16:33 | RAD REPORT ---
EXAM DESCRIPTION: RAD - Chest Single View - 07/19/2022 4:24 pm CLINICAL HISTORY: SOB COMPARISON: Chest Single View dated 07/17/2022; Chest Pa And Lat (2 Views) dated 09/05/2016; Abdomen Pelvis W Contrast dated 07/17/2022 FINDINGS: Lines: None. Lungs: Increased prominence of the pulmonary vasculature. Pleural: No significant pleural effusions or pneumothorax. Cardiac: The heart size is within normal limits. Mediastinum: Within normal limits. Bones: No acute fractures. Other: None IMPRESSION: Increased prominence of the pulmonary interstitium could reflect developing edema. No de finite findings to suggest aspiration.
[2022-07-19] MEDS ORDERED: MIDAZOLAM HCL 2 MG/2 ML INJ ONE (17:02)
[2022-07-19 17:42] VITALS: BP 106/63; TEMP 97.3; O2SAT 95
--- NOTE | 2022-07-19 20:23 | P.DS ---
Admission Date: 07/17/22 Discharge Date: 07/19/22 Disposition: ROUTINE DISCHARGE Reason for Admission: Colonic Stricture Consultations: General Surgery - Dr. Deng Brief History of Present Illness: 52yo F, PMH: hypothyroidism, SLE, chronic constipation and abdominal pain. Presents to ED due to constipation and abdominal pain. Previously had diarrhea / loose stools, then had c-scope a few months ago which was normal and developed constipation. Has seen GI for last ~10 months and tried several stool softeners/laxatives with no significant/consistent improvement. CT abd/pelvis in ED: suspicious for fixed narrowing in the sigmoid colon. After PO contrast, she had several BMs and no longer felt constipated. General surgery was consulted in ED and patient admitted for further management. Hospital Course: Problem List Possible Colonic stricture Constipation, chronic Hyponatremia, mild; resolved Anxiety disorder Migraine Patient was given bowel prep and Dr. Deng performed EGD and colonoscopy. These were limited due to undigested food in stomach, and stool in colon. Dr. Deng reported no evidence of a stricture, no intraluminal pathology noted on c-scope. He was able to pass the scope without any difficulty. Scopes were less than ideal secondary to insufficient prep. Patient was otherwise stable. Dr. Deng recommended further workup as outpat ient with evaluation for gastroparesis and repeat c-scope with 2+day bowel prep. After EGD/C-scope, patient was waking up and noted to have a coughing episode, associated with pressure of her chest and shortness of breath. EKG without acute ST-Twave changes, initial troponin negative, and CXR with mild increase in pulmonary vasculature. She was given breathing treatments and a benzo with some good relief. Patient was going to be monitored overnight due to episode, however she became upset that "nothing was found". Patient announced she was leaving the hospital. Patient discharged home. She was instructed to resume home meds as previously prescribed. Follow up: PCP within 1 week GI within 1-2 weeks. Vital Signs/Physical Exam: Temp Pulse Resp BP Pulse Ox 97.3 F 90 18 106/63 96 07/19/22 17:40 07/19/22 17:40 07/19/22 17:40 07/19/22 17:40 07/19/22 12:00 General: Alert, In no apparent distress, Oriented x3 HEENT: EOMI, Sclerae nonicteric Neck: Supple, No LAD Cardiovascular: No edema Gastrointestinal: Soft and benign, Non-distended, No rebound Musculoskeletal: No tenderness Integumentary: No rashes, No significant lesion Laboratory Data at Discharge: WBC 6.80 K/uL (4.3-10.9) 07/19/22 05:47 Hgb 12.2 g/dL (12.0-15.0) 07/19/22 05:47 Hct 36.8 % (36.0-45.0) 07/19/22 05:47 Plt Count 257 K/uL (152-406) 07/19/22 05:47 Sodium 139 mmol/L (136-145) 07/19/22 07:21 Potassium 3.7 mmol/L (3.5-5.1) 07/19/22 07:21 BUN 6 mg/dL (7-18) L 07/19/22 07:21 Creatinine 0.78 mg/dL (0.55-1.3) 07/19/22 07:21 Glucose 84 mg/dL (74-106) 07/19/22 07:21 Phosphorus 2.7 mg/dL (2.5-4.9) 07/18/22 04:04 Magnesium 2.1 mg/dL (1.8-2.4) 07/19/22 07:21 Total Bilirubin 0.3 mg/dL (0.2-1.0) 07/17/22 16:21 AST 17 U/L (15-37) 07/17/22 16:21 ALT 31 U/L (12-78) 07/17/22 16:21 Alkaline Phosphatase 106 U/L (45-117) 07/17/22 16:21 Lipase 118 U/L (73-393) 07/17/22 16:21 Home Medications: Alprazolam [Xanax] 1 mg PO TIDP PRN 02/08/17 Citalopram Hydrobromide [Celexa] 40 mg PO BEDTIME 02/08/17 Levothyroxine Sodium [Synthroid] 150 mcg PO DAILY #30 tablet 02/08/17 Ropinirole HCl [Requip] 1 mg PO BEDTIME 02/08/17 Sumatriptan Succinate [Imitrex] 50 mg PO PRN PRN 02/08/17 Trazodone HCl 100 mg PO BEDTIME 02/08/17 Doxazosin Mesylate 4 mg PO DAILY 06/10/21 Nitrofurantoin Monohyd/M-Cryst [Macrobid 100 mg Capsule] 100 mg PO BID #1 capsule 08/03/21 Followup: Viktor Barrera MD [Primary Care Provider] - 1 Week (Please call to make an appointment. ) Time spent managing pt's care (in minutes): 45
--- NOTE | 2022-07-21 14:34 | EKG ---
Test Date: 2022-07-19 Test Time: 16:53:19 Shaper Machine Hand: TERRY MEASUREMENT RESULTS: Intervals: Rate: 92 [place]: 162 QRSD: 80 QT: 380 QTc: 469 [place]: P: 63 [place]: 162 QRS: 5 T: 85 INTERPRETIVE STATEMENTS: Normal sinus rhythm Low voltage QRS Septal infarct, age undetermined Abnormal ECG No previous ECG available for comparison Electronically Signed On 07-21-22 14:31:14 CDT by Ricky Mixon
--- NOTE | 2022-07-21 14:34 | EKG ---
Test Date: 2022-07-19 Test Time: 16:54:24 Car Salesman: TERRY MEASUREMENT RESULTS: Intervals: Rate: 96 [place]: 150 QRSD: 82 QT: 358 QTc: 452 [place]: P: 60 HI: 150 QRS: 6 T: 81 INTERPRETIVE STATEMENTS: Normal sinus rhythm Low voltage QRS Septal infarct, age undetermined Abnormal ECG Compared to ECG 07/19/2022 16:53:19 No significant changes Electronically Signed On 07-21-22 14:31:12 CDT by Ricky Mixon
== END 2022-07-19 19:55 | disposition home or self-care (01) | DRG 392 ==
LOC: ER 15:39 → ERHOLD 22:16 → 4TH 23:23
PROVIDERS: ADMIT Internal Medicine; ATTEND Hospitalist
PROC: 0DJD8ZZ Inspection of Lower Intestinal Tract, Via Natural or Artificial Opening Endoscopic (ICD-10-PCS; 2022-07-19)
PROC: 0DB78ZX Excision of Stomach, Pylorus, Via Natural or Artificial Opening Endoscopic, Diagnostic (ICD-10-PCS; principal; 2022-07-19 15:15)
PROC: 0DB98ZX Excision of Duodenum, Via Natural or Artificial Opening Endoscopic, Diagnostic (ICD-10-PCS; 2022-07-19 15:15)
DX: K29.70 Gastritis, unspecified, without bleeding (principal); E87.1 Hypo-osmolality and hyponatremia; E03.9 Hypothyroidism, unspecified; F41.9 Anxiety disorder, unspecified; N18.31 Chronic kidney disease, stage 3a; K59.09 Other constipation; M32.9 Systemic lupus erythematosus, unspecified; G43.909 Migraine, unspecified, not intractable, without status migrainosus; Z88.8 Allergy status to other drugs, medicaments and biological substances; Z56.0 Unemployment, unspecified; Z79.01 Long term (current) use of anticoagulants; Z90.49 Acquired absence of other specified parts of digestive tract; Z98.51 Tubal ligation status; Z79.890 Hormone replacement therapy; Z79.899 Other long term (current) drug therapy; Z20.822 Contact with and (suspected) exposure to COVID-19
CPT/HCPCS: 36415; 71045; 74177; 80048; 80053; 81003; 81015; 81025; 83690; 83735; 84100; 84484; 85025; 87811; 88305; 88312; 93005; 96361; 96374; 96375; 99285; J1100; J2250; J2270; J2405; J2550; J2704; J3480; J7030; J7120; Q9967

== ENCOUNTER 2022-10-25 02:50 | Inpatient (IN) | payer BC ==
--- OUTSIDE RECORDS SUMMARY | 2022-10-25 02:57 | XMS REPORT | Continuity of Care Document ---
:1970 Author Organization [facility] Address [address] [place] [address] [address] [place] [address] Care Team Providers Name Role Phone EZEQUIEL Attending Clinician Unavailable Carlota Houston Attending Clinician [phone] LEBRON Attending Clinician Unavailable Christopher Weldon Attending Clinician [phone] Charan Huynh Attending Clinician Nurse, Bird Urgent [...] ATTENDING Attending Clinician Unavailable Harsh SCHULZ, Anna Aranda Attending Clinician Unavailable Jessica Hanson Attending Clinician JESSICA BAPTISTE Attending Clinician Unavailable Doctor Unassigned, [place] Attending Clinician Unavailable tresa Attending Clinician Unavailable Xochilt Cormier Attending Clinician XOCHILT VOGT Attending Clinician Unavailable SISSONYang Admitting Clinician Unavailable LEBRON Admitting Clinician Unavailable tresa Admitting Clinician Unavailable Payers Payer Name Policy Type Policy Number Effective Date Ex[facility] Date [id number] 00:00:00 OUT OF STATE [facility] [id number] 2021 00:00:00 Problems Condition Condition Condition Status Onset Resolution Last Treating Co mments Source Name Details Category Date Date Treatment Clinician Date UTI (lower UTI (lower Disease Active U nivers urinary urinary 04-21 ity of tract tract 00:00: [place] infection) infection) 00 Ct dical Branch Allergies, Adverse Reactions, Alerts Allergy [...] 00 Medical s Branch Ibuprofe Allergy Active [place] n to [facility] Social History Social Habit Start Date Stop Date Quantity Comments Source Exposure to Yes [facility] SARS-CoV-2 (event) Medica l Branch Tobacco use and 2021-04-30 2021-04-[address] [facility] exposure 00:00:00 00:00:00 [facility] [place] Alcohol intake 2021-04-30 2021-04-30 [facility] 00:00:00 00:00:00 [facility] Sex Assigned At [address] [facility] 00:00:00 00:00:00 [facility] Smoking Status Start Date Stop Date Source Never Smoker [facility] Medications Ordered Filled Start Stop Current Ordering Indication Dosage Frequency Signature Comments Components Source Medication Medication Date Date Medication? Clinician (SIG) Name Name iopamidol 2020- No [id number] 100mL 100 mL, Univers (ISOVUE 05-01 Intravenou ity o f 370-500 mL) 04:35: 04:35 s, ONCE, 1 [place] injection 00 :00 dose, Fri Medic al 100 mL 8/6/21 at Branch 2345, Routine benzonatate 0 Yes [id number] 200mg Take 1 Univers 200 mg 05-01 capsule by ity of capsule 00:00: mouth 3 [place] 00 (three) Medical times Branch daily as needed for Cough for up to 20 doses. azithromyci Yes [id number] 250mg Take 1 Univers n 7- [id number] tablet by ity of (ZITHROMAX 00:00: mouth [place] Z-EMELY) 250 00 daily. Medical mg tablet Take 500 Branch mg day 1, then 250 mg days 2 to 5. albuterol Yes [id number] 2{puff} Inhale 2 [facility] 90 7 [id number] Puffs ity of mcg/actuati 00:00: every 4 [place] as on inhaler 00 (four) Medical hours as Branch needed for Wheezing or Shortness of Breath. azithromyci Yes [id number] 250mg Take 1 Univers n 7- [id number] tablet by ity of (ZITHROMAX 00:00: mouth [place] Z-EMELY) 250 00 daily. Medical mg tablet Take 500 Branch mg day 1, then 250 mg days 2 to 5. albuterol Yes [id number] 2{puff} Inhale 2 [facility] 90 7 [id number] Puffs ity of mcg/actuati 00:00: every 4 [place] as on inhaler 00 (four) Medical hours as Branch needed for Wheezing or Shortness of Breath. azithromyci Yes [id number] 250mg Take 1 Univers n 7- [id number] tablet by ity of (ZITHROMAX 00:00: mouth [place] Z-EMELY) 250 00 daily. Medical mg tablet Take 500 Branch mg day 1, then 250 mg days 2 to 5. albuterol 2020- Yes [id number] 2{puff} Inhale 2 [facility] 90 7 [id number] Puffs ity of mcg/actuati 00:00: every 4 [place] as on inhaler 00 (four) Medical hours as Branch needed for Wheezing or Shortness of Breath. azithromyci Yes [id number] 250mg Take 1 Univers n 7- [id number] tablet by ity of (ZITHROMAX 00:00: mouth [place] Z-EMELY) 250 00 daily. Medical mg tablet Take 500 Branch mg day 1, then 250 mg days 2 to 5. albuterol Yes [id number] 2{puff} Inhale 2 [facility] 90 04-12 [id number] Puffs ity of mcg/actuati 00:00: every 4 [...] mouth ity of mg tablet 23:37: daily. [place] [address] Medical Branch levothyroxi Yes 150ug Take 150 [...] mouth ity of mg tablet 23:37: daily. [place] [address] Medical Branch levothyroxi Yes 150ug Take 150 [...] mouth ity of mg tablet 23:37: daily. [place] [address] Medical Branch levothyroxi 0 Yes 150ug Take [...] mouth ity of mg tablet 23:37: daily. [place] [address] Medical Branch levothyroxi Yes 150ug Take 150 [...] mouth ity of mg tablet 23:37: daily. [place] [address] Medical Branch levothyroxi 0 Yes 150ug Take [...] of mg tablet 23:37: as needed. [facility] Medical Branch citalopram Yes 40mg Take 40 mg U nivers (CELEXA) 40 7-15 by mouth ity of mg tablet 23:37: daily. [place] [address] Medical Branch levothyroxi Yes 150ug Take 150 [...] ity of mg tablet 23:37: as needed. [place] [address] Medical Branch citalopram Yes 40mg Take 40 mg U nivers (CELEXA) 40 7-15 by mouth ity of mg tablet 23:37: daily. [place] [address] Medical Branch levothyroxi Yes 150ug Take 150 [...] ity of mg tablet 23:37: as needed. [place] [address] Medical Branch citalopram Yes 40mg Take 40 mg U nivers (CELEXA) 40 7-15 by mouth ity of mg tablet 23:37: daily. [place] [address] Medical Branch levothyroxi Yes 150ug Take 150 [...] mouth ity of mg tablet 23:37: daily. [place] [address] Medical Branch levothyroxi Yes 150ug Take 150 [...] mouth ity of mg tablet 23:37: daily. [place] [address] Medical Branch levothyroxi Yes 150ug Take 150 [...] mouth ity of mg tablet 23:37: daily. [address] Branch levothyroxi 0 Yes 150ug Take 150 U nivers ne 7-15 mcg by ity of (SYNTHROID) 23:37: mouth [place] 150 mcg 49 every Medical tablet morning. Branch zolpidem Yes 10mg Take 10 mg Uni vers (AMBIEN) 10 7-15 by mouth ity of mg tablet 23:37: at bedtime [place] [address] as needed Medical for Branch Insomnia. ALPRAZolam Yes 1mg Take 1 mg Un [place] (XANAX) 1 7-15 by mouth ity of mg tablet 23:37: as needed. [address] Branch benzonatate Yes [id number] 200mg Take 2 [facility] 100 mg 7-15 capsules ity of capsule 00:00: by mouth 2 [place] (two) Medical times Branch daily as needed for Cough. guaiFENesin Yes [id number] 400mg Take 1 [facility] 400 mg 7-15 tablet by ity of tablet 00:00: mouth [place] 00 every 4 Medical (four) Branch hours as needed for Cough. ondansetron 0 Yes [id number] 4mg Take 1 Univers 4 mg 7-15 tablet by ity of disintegrat 00:00: mouth [place] ing tablet 00 every 8 Medica l (eight) Branch hours as needed for Nausea and Vomiting (N/V). benzonatate Yes [id number] 200mg Take 2 [facility] 100 mg 7-15 capsules ity of capsule 00:00: by mouth 2 [place] 00 (two) Medical times Branch daily as needed for Cough. guaiFENesin Yes [id number] 400mg Take 1 [facility] 400 mg 7-15 tablet by ity of tablet 00:00: mouth [place] 00 every 4 Medical (four) Branch hours as needed for Cough. ondansetron 0 Yes [id number] 4mg Take 1 Univers 4 mg 7-15 tablet by ity of disintegrat 00:00: mouth [place] ing tablet 00 every 8 Medica l (eight) Branch hours as needed for Nausea and Vomiting (N/V). benzonatate 2021-0 Yes [id number] 200mg Take 2 [facility] 100 mg 7-15 capsules ity of capsule 00:00: by mouth 2 [place] 00 (two) Medical times Branch daily as needed for Cough. guaiFENesin 2021-0 Yes [id number] 400mg Take 1 [facility] 400 mg 7-15 tablet by ity of tablet 00:00: mouth [place] 00 every 4 Medical (four) Branch hours as needed for Cough. ondansetron 2021-0 Yes [id number] 4mg Take 1 Univers 4 mg 7-15 tablet by ity of disintegrat 00:00: mouth [place] ing tablet 00 every 8 Medica l (eight) Branch hours as needed for Nausea and Vomiting (N/V). benzonatate 1-0 Yes [id number] 200mg Take 2 [facility] 100 mg 7-15 capsules ity of capsule 00:00: by mouth 2 [place] (two) Medical times Branch daily as needed for Cough. guaiFENesin 1-0 Yes [id number] 400mg Take 1 [facility] 400 mg 7-15 tablet by ity of tablet 00:00: mouth [place] 00 every 4 Medical (four) Branch hours as needed for Cough. ondansetron 1-0 Yes [id number] 4mg Take 1 Univers 4 mg 7-15 tablet by ity of disintegrat 00:00: mouth [place] ing tablet 00 every 8 Medica l (eight) Branch hours as needed for Nausea and Vomiting (N/V). benzonatate 2021-0 Yes [id number] 200mg Take 2 [facility] 100 mg 7-15 capsules ity of capsule 00:00: by mouth 2 [place] 00 (two) Medical times Branch daily as needed for Cough. guaiFENesin 2021-0 Yes [id number] 400mg Take 1 [facility] 400 mg 7-15 tablet by ity of tablet 00:00: mouth [place] 00 every 4 Medical (four) Branch hours as needed for Cough. ondansetron 2021-0 Yes [id number] 4mg Take 1 [facility] 4 mg 7-15 tablet by ity of disintegrat 00:00: mouth [place] ing tablet 00 every 8 Medica l (eight) Branch hours as needed for Nausea and Vomiting (N/V). benzonatate 2021-0 Yes [id number] 200mg Take 2 [facility] 100 mg 7-15 capsules ity of capsule 00:00: by mouth 2 [place] 00 (two) Medical times Branch daily as needed for Cough. guaiFENesin 2020-0 Yes [id number] 400mg Take 1 [facility] 400 mg 7-15 tablet by ity of tablet 00:00: mouth [place] 00 every 4 Medical (four) Branch hours as needed for Cough. ondansetron 2020-0 Yes [id number] 4mg Take 1 Univers 4 mg 7-15 tablet by ity of disintegrat 00:00: mouth [place] ing tablet 00 every 8 Medica l (eight) Branch hours as needed for Nausea and Vomiting (N/V). benzonatate 2020-0 Yes [id number] 200mg Take 2 [facility] 100 mg 7-15 capsules ity of capsule 00:00: by mouth 2 [place] (two) Medical times Branch daily as needed for Cough. guaiFENesin 2020-0 Yes [id number] 400mg Take 1 [facility] 400 mg 7-15 tablet by ity of tablet 00:00: mouth [place] 00 every 4 Medical (four) Branch hours as needed for Cough. ondansetron 2020-0 Yes [id number] 4mg Take 1 Univers 4 mg 7-15 tablet by ity of disintegrat 00:00: mouth [place] ing tablet 00 every 8 Medica l (eight) Branch hours as needed for Nausea and Vomiting (N/V). benzonatate 2020-0 Yes [id number] 200mg Take 2 [facility] 100 mg 7-15 capsules ity of capsule 00:00: by mouth 2 [place] 00 (two) Medical times Branch daily as needed for Cough. guaiFENesin 2020-0 Yes [id number] 400mg Take 1 [facility] 400 mg 7-15 tablet by ity of tablet 00:00: mouth [place] 00 every 4 Medical (four) Branch hours as needed for Cough. ondansetron 2020-0 Yes [id number] 4mg Take 1 Univers 4 mg 7-15 tablet by ity of disintegrat 00:00: mouth [place] ing tablet 00 every 8 Medica l (eight) Branch hours as needed for Nausea and Vomiting (N/V). benzonatate 2020-0 Yes [id number] 200mg Take 2 [facility] 100 mg 7-15 capsules ity of capsule 00:00: by mouth 2 [place] 00 (two) Medical times Branch daily as needed for Cough. guaiFENesin 2021-0 Yes [id number] 400mg Take 1 [facility] 400 mg 7-15 tablet by ity of tablet 00:00: mouth [place] 00 every 4 Medical (four) Branch hours as needed for Cough. ondansetron 2021-0 Yes [id number] 4mg Take 1 Univers 4 mg 7-15 tablet by ity of disintegrat 00:00: mouth [place] ing tablet 00 every 8 Medica l (eight) Branch hours as needed for Nausea and Vomiting (N/V). benzonatate 2021-0 Yes [id number] 200mg Take 2 [facility] 100 mg 7-15 capsules ity of capsule 00:00: by mouth 2 [place] 00 (two) Medical times Branch daily as needed for Cough. guaiFENesin 2021-0 Yes [id number] 400mg Take 1 [facility] 400 mg 7-15 tablet by ity of tablet 00:00: mouth [place] 00 every 4 Medical (four) Branch hours as needed for Cough. ondansetron 1-0 Yes [id number] 4mg Take 1 Univers 4 mg 7-15 tablet by ity of disintegrat 00:00: mouth [place] ing tablet 00 every 8 Medica l (eight) Branch hours as needed for Nausea and Vomiting (N/V). benzonatate 1-0 Yes [id number] 200mg Take 2 [facility] 100 mg 7-15 capsules ity of capsule 00:00: by mouth 2 [place] 00 (two) Medical times Branch daily as needed for Cough. guaiFENesin 2021-0 Yes [id number] 400mg Take 1 [facility] 400 mg 7-15 tablet by ity of tablet 00:00: mouth [place] 00 every 4 Medical (four) Branch hours as needed for Cough. ondansetron 2021-0 Yes [id number] 4mg Take 1 Univers 4 mg 7-15 [...] Mon04/01/20 at 0200, STAT benzonatate 2020-0 Yes [id number] 100mg Take 1 [facility] 100 mg 7-08 capsule by ity of capsule 00:00: mouth 3 [place] 00 (three) Medical times Branch daily as needed for Cough. benzonatate 2020-0 Yes [id number] 100mg Take 1 [facility] 100 mg 7-08 capsule by ity of capsule 00:00: mouth 3 [place] 00 (three) Medical times Branch daily as needed for Cough. benzonatate 2020-0 2021- No [id number] 100mg Take 1 Univers 100 mg 7-08 07-15 capsule by ity of capsule 00:00: 00:00 mouth 3 [place] 00 :00 (three) Medical times Branch daily as needed for Cough. citalopram Yes 40mg Take 40 mg U nivers (CELEXA) 40 7-28 by mouth ity of mg tablet 02:54: daily. [place] [facility] levothyroxi Yes 150ug Take 150 [...] mouth ity of mg tablet 02:54: daily. [place] [facility] levothyroxi Yes 150ug Take 150 [...] [place] 02 [place] Branch Nitrofurant Yes [id number] Take one Univers oin&Nit. 7-27 tablet by ity of Macrocryst 00:00: mouth [place] (MACROBID) 00 twice a Medica l 100 mg day Branch capsule phenazopyri Yes [id number] 200mg Take 2 Univers dine 7-27 Tabs by ity of (PYRIDIUM) 00:00: mouth 3 [place] 100 mg 00 (three) Medical tablet times Branch daily. Nitrofurant Yes [id number] Take one Univers oin&Nit. 7-27 tablet by ity of Macrocryst 00:00: mouth [place] (MACROBID) 00 twice a Medica l 100 mg day Branch capsule phenazopyri Yes [id number] 200mg Take 2 Univers dine 7-27 Tabs by ity of (PYRIDIUM) 00:00: mouth 3 [place] 100 mg 00 (three) Medical tablet times Branch daily. Nitrofurant Yes [id number] Take one Univers oin&Nit. 7-27 tablet by ity of Macrocryst 00:00: mouth [place] (MACROBID) 00 twice a Medica l 100 mg day Branch capsule phenazopyri Yes [id number] 200mg Take 2 Univers dine 7-27 Tabs by ity of (PYRIDIUM) 00:00: mouth 3 [place] 100 mg 00 (three) Medical tablet times Branch daily. Nitrofurant Yes [id number] Take one Univers oin&Nit. 7-27 tablet by ity of Macrocryst 00:00: mouth [place] (MACROBID) 00 twice a Medica l 100 mg day Branch capsule phenazopyri Yes [id number] 200mg Take 2 Univers dine 7-27 Tabs by ity of (PYRIDIUM) 00:00: mouth 3 [place] 100 mg 00 (three) Medical tablet times Branch daily. Nitrofurant Yes [id number] Take one Univers oin&Nit. 7-27 tablet by ity of Macrocryst 00:00: mouth [place] (MACROBID) 00 twice a Medica l 100 mg day Branch capsule phenazopyri Yes [id number] 200mg Take 2 Univers dine 7-27 Tabs by ity of (PYRIDIUM) 00:00: mouth 3 [place] 100 mg 00 (three) Medical tablet times Branch daily. Nitrofurant Yes [id number] Take one Univers oin&Nit. 7-27 tablet by ity of Mac[place]ryst 00:00: mouth [place] (MACROBID) 00 twice a Medica l 100 mg day Branch capsule phenazopyri Yes [id number] 200mg Take 2 Univers dine 7-27 Tabs by ity of (PYRIDIUM) 00:00: mouth 3 [place] 100 mg 00 (three) Medical tablet times Branch daily. Nitrofurant Yes [id number] Take one Univers oin&Nit. 7-27 tablet by ity of Macrocryst 00:00: mouth [place] (MACROBID) 00 twice a Medica l 100 mg day Branch capsule phenazopyri Yes [id number] 200mg Take 2 Univers dine 7-27 Tabs by ity of (PYRIDIUM) 00:00: mouth 3 [place] 100 mg 00 (three) Medical tablet times Branch daily. Nitrofurant Yes [id number] Take one Univers oin&Nit. 7-27 tablet by ity of [place] 00:00: mouth [place] (MACROBID) 00 twice a Medica l 100 mg day Branch capsule phenazopyri Yes [id number] 200mg Take 2 Univers dine 7-27 Tabs by ity of (PYRIDIUM) 00:00: mouth 3 [place] 100 mg 00 (three) Medical tablet times Branch daily. Nitrofurant Yes [id number] Take one Univers oin&Nit. 7-27 tablet by ity of Macrocryst 00:00: mouth [place] (MACROBID) 00 twice a Medica l 100 mg day Branch capsule phenazopyri Yes [id number] 200mg Take 2 Univers dine 7-27 Tabs by ity of (PYRIDIUM) 00:00: mouth 3 [place] 100 mg 00 (three) Medical tablet times Branch daily. Nitrofurant Yes [id number] Take one Univers oin&Nit. 7-27 tablet by ity of Macrocryst 00:00: mouth [place] (MACROBID) 00 twice a Medica l 100 mg day Branch capsule phenazopyri Yes [id number] 200mg Take 2 Univers dine 7-27 Tabs by ity of (PYRIDIUM) 00:00: mouth 3 [place] 100 mg 00 (three) Medical tablet times Branch daily. Nitrofurant Yes [id number] Take one Univers oin&Nit. 7-27 tablet by ity of Macrocryst 00:00: mouth [place] (MACROBID) 00 twice a Medica l 100 mg day Branch capsule phenazopyri Yes [id number] 200mg Take 2 Univers dine 7-27 Tabs by ity of (PYRIDIUM) 00:00: mouth 3 [place] 100 mg 00 (three) Medical tablet times Branch daily. Nitrofurant Yes [id number] Take one Univers oin&Nit. 7-27 tablet by ity of Macrocryst 00:00: mouth [place] (MACROBID) 00 twice a Medica l 100 mg day Branch capsule phenazopyri Yes [id number] 200mg Take 2 Univers dine 7-27 Tabs by ity of (PYRIDIUM) 00:00: mouth 3 [place] 100 mg 00 (three) Medical tablet times Branch daily. Nitrofurant Yes [id number] Take one Univers oin&Nit. 7-27 tablet by ity of Macrocryst 00:00: mouth [place] (MACROBID) 00 twice a Medica l 100 mg day Branch capsule phenazopyri Yes [id number] 200mg Take 2 Univers dine 7-27 Tabs by ity of (PYRIDIUM) 00:00: mouth 3 [place] 100 mg 00 (three) Medical tablet times Branch daily. Pyridium Pyridium No Pyridium [facility] 100 mg 100 mg 100 mg Communi tablet TAKE tablet TAKE tablet ty 1 TABLET BY 1 TABLET BY TAKE 1 Hospita MOUTH THREE MOUTH THREE TABLET BY l TIMES DAILY TIMES DAILY MOUTH Clinics AFTER MEALS AFTER MEALS THREE FOR 3 DAYS FOR 3 DAYS TIMES DAILY AFTER MEALS FOR 3 DAYS quetiapine quetiapine No quetiapine [place] 400 mg 400 mg 400 mg Communi tablet TAKE tablet TAKE tablet ty 3 TABLETS 3 TABLETS TAKE 3 [facility] BY MOUTH AT BY MOUTH AT TABLETS BY l BEDTIME BEDTIME MOUTH AT Clini cs BEDTIME ropinirole ropinirole No ropinirole [place] 1 mg tablet 1 mg tablet 1 mg C [facility]i TAKE 1 TAKE 1 tablet ty TABLET BY TABLET BY TAKE 1 [facility] MOUTH AT MOUTH AT TABLET BY l BEDTIME BEDTIME MOUTH AT Clini cs BEDTIME spironolact spironolact No spironolac [place] one 100 mg one 100 mg tone 100 Communi tablet TAKE tablet TAKE mg tablet ty 1 TABLET BY 1 TABLET BY TAKE 1 Hospita MOUTH TWICE MOUTH TWICE TABLET BY l DAILY DAILY MOUTH Clinics TWICE DAILY spironolact spironolact No spironolac [place] one 50 mg one 50 mg tone 50 mg Communi tablet TAKE tablet TAKE tablet ty 1 TABLET BY 1 TABLET BY TAKE 1 Hospita MOUTH TWICE MOUTH TWICE TABLET BY l DAILY DAILY MOUTH Clinics TWICE DAILY sulfamethox sulfamethox No sulfametho [place] azole 800 azole 800 xazole 800 Communi mg-trimetho mg-trimetho mg-trimeth ty prim 160 mg prim 160 mg oprim 160 Hospita tablet tablet mg tablet l Clinics sumatriptan sumatriptan No sumatripta [place] 100 mg 100 mg n 100 mg Communi tablet TAKE tablet TAKE tablet ty 1 TABLET BY 1 TABLET BY TAKE 1 Hospita MOUTH EVERY MOUTH EVERY TABLET BY l DAY DAY MOUTH Clinics NEEDED NEEDED EVERY DAY NEEDED Sutab Sutab No Sutab [place] 1.479-0.188 1.479-0.188 1.479-0.18 Communi -0.225 gram -0.225 gram 8-0.225 ty tablet TAKE tablet TAKE gram H ospita DIRECTED DIRECTED tablet l BY YOUR BY YOUR TAKE Clinic s COLONOSCOPY COLONOSCOPY DIRECTED PACKET PACKET BY YOUR INSTRUCTION INSTRUCTION COLONOSCOP S S Y PACKET INSTRUCTIO NS testosteron testosteron No 150mg testostero [place] e 100 mg e 100 mg ne 100 mg Co [facility] implant implant implant ty pellet Take pellet Take pellet Hospita 150 mg by 150 mg by Take 150 l implantatio implantatio mg by Clinics n route. n route. implantati on route. tranexamic tranexamic No tranexamic [place] acid 650 mg acid 650 mg acid 650 Communi tablet TAKE tablet TAKE mg tablet ty 2 TABLETS 2 TABLETS TAKE 2 [facility] BY MOUTH BY MOUTH TABLETS BY l THREE TIMES THREE TIMES MOUTH Clinics DAILY DAILY THREE DURING DURING TIMES MENSES FOR MENSES FOR DAILY 5 DAYS. 5 DAYS. DURING MENSES FOR 5 DAYS. trazodone trazodone No trazodone [place] 100 mg 100 mg 100 mg Communi tablet TAKE tablet TAKE tablet ty 1 TABLET BY 1 TABLET BY TAKE 1 Hospita MOUTH AT MOUTH AT TABLET BY l BEDTIME BEDTIME MOUTH AT Clini cs BEDTIME Uribel 118 Uribel 118 No Uribel 118 [place] mg-10 mg-10 mg-10 Communi mg-40.8 mg-40.8 mg-40.8 ty mg-36 mg mg-36 mg mg-36 mg [facility] capsule capsule capsule l TAKE 1 TAKE 1 TAKE 1 Clinics CAPSULE BY CAPSULE BY CAPSULE BY MOUTH FOUR MOUTH FOUR MOUTH FOUR TIMES DAILY TIMES DAILY TIMES FOR 10 DAYS FOR 10 DAYS DAILY FOR 10 DAYS valacyclovi valacyclovi No valacyclov [place] r 1 gram r 1 gram ir 1 gram [facility] tablet TAKE tablet TAKE tablet ty 1 TABLET BY 1 TABLET BY TAKE 1 Hospita MOUTH THREE MOUTH THREE TABLET BY l TIMES DAILY TIMES DAILY MOUTH Clinics FOR 7 DAYS FOR 7 DAYS THREE TIMES DAILY FOR 7 DAYS valacyclovi valacyclovi No valacyclov [place] r 500 mg r 500 mg ir 500 mg Co [facility] tablet tablet tablet ty [facility] valsartan valsartan No valsartan [place] 80 mg 80 mg 80 mg Communi tablet tablet tablet ty [facility] Virtussin Virtussin No Virtussin [place] AC 10 AC 10 AC 10 Communi mg-100 mg/5 mg-100 mg/5 mg-100 ty mL oral mL oral mg/5 mL Hospit a liquid TAKE liquid TAKE oral l 5 ML BY 5 ML BY liquid Clinics MOUTH EVERY MOUTH EVERY TAKE 5 ML 6 HOURS 6 HOURS BY MOUTH NEEDED NEEDED EVERY 6 HOURS NEEDED zinc zinc No zinc [place] sulfate 50 sulfate 50 sulfate 50 Communi mg zinc mg zinc mg zinc ty (220 mg) (220 mg) (220 mg) [facility] capsule capsule capsule l TAKE ONE TAKE ONE TAKE ONE Cli nics CAPSULE BY CAPSULE BY CAPSULE BY MOUTH EVERY MOUTH EVERY MOUTH DAY DAY EVERY DAY acyclovir acyclovir No acyclovir [place] 800 mg 800 mg 800 mg Communi tablet tablet tablet ty Hospita l Clinics albuterol albuterol No albuterol [place] sulfate HFA sulfate HFA sulfate Communi 90 [...] BREATH OR WHEEZING alprazolam alprazolam No alprazolam [place] 1 mg tablet 1 mg tablet 1 mg C [facility] TAKE 1 TAKE 1 tablet ty TABLET BY TABLET BY TAKE 1 [facility] MOUTH THREE MOUTH THREE TABLET BY l TIMES DAILY TIMES DAILY MOUTH Clinics THREE TIMES DAILY Amitiza 24 Amitiza 24 No Amitiza 24 [place] mcg capsule mcg capsule mcg C [facility] TAKE 1 TAKE 1 capsule ty CAPSULE BY CAPSULE BY TAKE 1 H ospita MOUTH TWICE MOUTH TWICE CAPSULE BY l DAILY WITH DAILY WITH MOUTH Cl inics FOOD AND FOOD AND TWICE WATER WATER DAILY WITH FOOD AND WATER azithromyci azithromyci No azithromyc [place] n 250 mg n 250 mg in [...] FOR 4 DAYS benzonatate benzonatate No benzonatat [place] 100 mg 100 mg e 100 mg Communi capsule capsule capsule ty TAKE 2 TAKE 2 TAKE 2 Hospita CAPSULES BY CAPSULES BY CAPSULES l MOUTH TWICE MOUTH TWICE BY MOUTH Clinics DAILY DAILY TWICE NEEDED FOR NEEDED FOR DAILY COUGH COUGH NEEDED FOR COUGH cefuroxime cefuroxime No cefuroxime [place] axetil 500 axetil 500 axetil 500 Communi mg tablet mg tablet mg tablet ty TAKE 1 TAKE 1 TAKE 1 Hospita TABLET BY TABLET BY TABLET BY l MOUTH TWICE MOUTH TWICE MOUTH Clinics DAILY DAILY TWICE DAILY citalopram citalopram No citalopram [place] 40 mg 40 mg 40 mg Communi tablet TAKE tablet TAKE tablet ty 1 TABLET BY 1 TABLET BY TAKE 1 Hospita MOUTH ONCE MOUTH ONCE TABLET BY l DAILY DAILY MOUTH ONCE Clinics DAILY diethylprop diethylprop No diethylpro [place] ion ER 75 ion ER 75 pion ER 75 Communi mg mg mg ty tablet,exte tablet,exte tablet,ext Hospita nded nded ended l release release release Clinic s doxazosin 4 doxazosin 4 No doxazosin [place] mg tablet mg tablet 4 mg Commu ni TAKE 1 TAKE 1 tablet ty TABLET BY TABLET BY TAKE 1 [facility] MOUTH AT MOUTH AT TABLET BY l BEDTIME BEDTIME MOUTH AT Clini cs BEDTIME escitalopra escitalopra No escitalopr [place] m 20 mg m 20 mg am 20 mg Com[facility] ni tablet TAKE tablet TAKE tablet ty 1 TABLET BY 1 TABLET BY TAKE 1 Hospita MOUTH EVERY MOUTH EVERY TABLET BY l DAY DAY MOUTH Clinics EVERY DAY famotidine famotidine No famotidine [place] 20 mg 20 mg 20 mg Communi tablet TAKE tablet TAKE tablet ty 1 TABLET BY 1 TABLET BY TAKE 1 Hospita MOUTH EVERY MOUTH EVERY TABLET BY l NIGHT AT NIGHT AT MOUTH Clinic s BEDTIME BEDTIME EVERY NIGHT AT BEDTIME fluconazole fluconazole No fluconazol [place] 150 mg 150 mg e 150 mg [facility] tablet TAKE tablet TAKE tablet ty 1 TABLET BY 1 TABLET BY TAKE 1 Hospita MOUTH NOW. MOUTH NOW. TABLET BY l REPEAT IN 7 REPEAT IN 7 MOUTH NOW. Clinics DAYS DAYS REPEAT IN 7 DAYS folic acid folic acid No folic acid [place] 1 mg tablet 1 mg tablet 1 mg [facility] TAKE 3 TAKE 3 tablet ty TABLETS BY TABLETS BY TAKE 3 [facility] MOUTH EVERY MOUTH EVERY TABLETS BY l DAY DAY MOUTH Clinics EVERY DAY gabapentin gabapentin No gabapentin [facility] [place] 300 mg 300 mg 300 mg [facility] capsule capsule capsule ty TAKE 1 TAKE 1 TAKE 1 [facility]ospita CAPSULE BY CAPSULE BY CAPSULE BY l MOUTH TWICE MOUTH TWICE MOUTH Clinics DAILY DAILY TWICE DAILY hydrocodone hydrocodone No hydrocodon [facility] 5 5 e 5 [facility] mg-acetamin mg-acetamin mg-acetami ty ophen 325 ophen 325 nophen 325 [facility]osp[facility] mg tablet mg tablet mg tablet l TAKE 1 TAKE 1 TAKE 1 Clinics TABLET BY TABLET BY TABLET BY MOUTH EVERY MOUTH EVERY MOUTH 6 HOURS 6 HOURS EVERY 6 HOURS hydroxychlo hydroxychlo No hydroxychl [facility] [place] roquine 200 roquine 200 oroquine [facility] mg tablet mg tablet 200 mg ty TAKE 1 TAKE 1 tablet Hospita TABLET BY TABLET BY TAKE 1 l MOUTH TWICE MOUTH TWICE TABLET BY Clinics DAILY DAILY MOUTH TWICE DAILY levothyroxi levothyroxi No levothyrox [facility] [place] ne 150 mcg ne 150 mcg ine 150 [facility] tablet TAKE tablet TAKE mcg tablet ty 1 TABLET BY 1 TABLET BY TAKE 1 Hospita MOUTH EVERY MOUTH EVERY TABLET BY l MORNING MORNING MOUTH Clinics EVERY MORNING medroxyprog medroxyprog No medroxypro [facility] [place] esterone 10 esterone 10 gesterone [facility] mg tablet mg tablet 10 mg ty TAKE 1 TAKE 1 tablet Hospita TABLET BY TABLET BY TAKE 1 l MOUTH EVERY MOUTH EVERY TABLET BY Clinics DAY WITH DAY WITH MOUTH FOOD FOR 14 FOOD FOR 14 EVERY DAY DAYS DAYS WITH FOOD FOR 14 DAYS methotrexat methotrexat No methotrexa [facility] [place] e sodium e sodium te sodium [facility] 2.5 mg 2.5 mg 2.5 mg ty tablet TAKE tablet TAKE tablet Hosp[facility] 5 TABLETS 5 TABLETS TAKE 5 l BY MOUTH 1 BY MOUTH 1 TABLETS BY Clinics TIME A WEEK TIME A WEEK MOUTH 1 DIRECTED DIRECTED TIME A WEEK DIRECTED metoclopram metoclopram No metoclopra [place] rosario 10 mg rosario 10 mg mide 10 mg [facility] tablet TAKE tablet TAKE tablet ty DIRECTED DIRECTED TAKE Hospita PER PER DIRECTED l COLONOSCOPY COLONOSCOPY PER C linics PREP PACKET PREP PACKET COLONOSCOP Y PREP PACKET nitrofurant nitrofurant No nitrofuran [facility] [place] oin oin toin Commun[facility] monohydrate monohydrate monohydrat ty /macrocryst /macrocryst e/macrocry [facility]osp[facility] als 100 mg als 100 mg stals 100 l capsule capsule mg capsule Cli nics TAKE 1 TAKE 1 TAKE 1 CAPSULE BY CAPSULE BY CAPSULE BY MOUTH TWICE MOUTH TWICE MOUTH A DAY WITH A DAY WITH TWICE A FOOD FOR 5 FOOD FOR 5 DAY WITH DAYS DAYS FOOD FOR 5 DAYS omeprazole omeprazole No omeprazole [facility] [place] 20 mg 20 mg 20 mg [facility] capsule,del capsule,del capsule,de ty ayed ayed layed Hospita release release release l TAKE 1 TAKE 1 TAKE 1 Clinics CAPSULE BY CAPSULE BY CAPSULE BY MOUTH EVERY MOUTH EVERY MOUTH MORNING MORNING EVERY MORNING ondansetron ondansetron No ondansetro [place] 4 mg 4 mg n 4 mg [...] VOMITING AND VOMITING ondansetron ondansetron No ondansetro [place] 8 mg 8 mg n 8 mg [facility] disintegrat disintegrat disintegra ty ing tablet ing tablet ting [facility] tablet l Clinics pantoprazol pantoprazol No pantoprazo [place] e 40 mg e 40 mg le 40 mg Commu ni tablet,carlos tablet,carlos tablet,del ty yed release yed release ayed [facility] TAKE 1 TAKE 1 release l TABLET BY TABLET BY TAKE 1 Cli nics MOUTH TWICE MOUTH TWICE TABLET BY DAILY DAILY MOUTH TWICE DAILY prednisone prednisone No prednisone [place] 10 mg 10 mg 10 mg Communi [...] FOR 3 DAYS quetiapine quetiapine No quetiapine [facility] [place] 400 mg 400 mg 400 mg [facility] tablet TAKE tablet TAKE tablet ty 3 TABLETS 3 TABLETS TAKE 3 [facility] BY MOUTH AT BY MOUTH AT TABLETS BY l BEDTIME BEDTIME MOUTH AT Clini cs BEDTIME ropinirole ropinirole No ropinirole [facility] [place] 1 mg tablet 1 mg tablet 1 mg [facility] TAKE 1 TAKE 1 tablet ty TABLET BY TABLET BY TAKE 1 [facility] MOUTH AT MOUTH AT TABLET BY l BEDTIME BEDTIME MOUTH AT Clini cs BEDTIME sulfamethox sulfamethox No sulfametho [facility] [place] azole 800 azole 800 xazole 800 [facility] mg-trimetho mg-trimetho mg-trimeth ty prim 160 mg prim 160 mg oprim 160 Hospita tablet tablet mg tablet l Clinics sumatriptan sumatriptan No sumatripta [facility] [place] 100 mg 100 mg n 100 mg [facility] tablet TAKE tablet TAKE tablet ty 1 TABLET BY 1 TABLET BY TAKE 1 Hospita MOUTH EVERY MOUTH EVERY TABLET BY l DAY DAY MOUTH Clinics NEEDED NEEDED EVERY DAY NEEDED Sutab Sutab No Sutab [place] 1.479-0.188 1.479-0.188 1.479-0.18 [facility]i -0.225 gram -0.225 gram 8-0.225 ty tablet TAKE tablet TAKE gram [facility] DIRECTED DIRECTED tablet l BY YOUR BY YOUR TAKE Clinic s COLONOSCOPY COLONOSCOPY DIRECTED PACKET PACKET BY YOUR INSTRUCTION INSTRUCTION COLONOSCOP S S Y PACKET INSTRUCTIO NS tranexamic tranexamic No tranexamic [facility] [place] acid 650 mg acid 650 mg acid 650 [facility] tablet TAKE tablet TAKE mg tablet ty 2 TABLETS 2 TABLETS TAKE 2 [facility] BY MOUTH BY MOUTH TABLETS BY l THREE TIMES THREE TIMES MOUTH Clinics DAILY DAILY THREE DURING DURING TIMES MENSES FOR MENSES FOR DAILY 5 DAYS. 5 DAYS. DURING MENSES FOR 5 DAYS. trazodone trazodone No trazodone [facility] [place] 100 mg 100 mg 100 mg [facility] tablet TAKE tablet TAKE tablet ty 1 TABLET BY 1 TABLET BY TAKE 1 [facility]ospita MOUTH AT MOUTH AT TABLET BY l BEDTIME BEDTIME MOUTH AT Clini cs BEDTIME Uribel 118 Uribel 118 No Uribel 118 [facility] [place] mg-10 mg-10 mg-10 [facility] mg-40.8 mg-40.8 mg-40.8 ty mg-36 mg mg-36 mg mg-36 mg [facility] capsule capsule capsule l TAKE 1 TAKE 1 TAKE 1 Clinics CAPSULE BY CAPSULE BY CAPSULE BY MOUTH FOUR MOUTH FOUR MOUTH FOUR TIMES DAILY TIMES DAILY TIMES FOR 10 DAYS FOR 10 DAYS DAILY FOR 10 DAYS valacyclovi valacyclovi No valacyclov [place] r 1 gram r 1 gram ir 1 gram [facility] tablet tablet tablet ty [facility]osp[facility] l Clinics valsartan valsartan No valsartan [place] 80 mg 80 mg 80 mg [facility] tablet tablet tablet ty Hospita l Clinics Virtussin Virtussin No Virtussin [place] AC 10 AC 10 AC 10 [facility] mg-100 mg/5 mg-100 mg/5 mg-100 ty mL oral mL oral mg/5 mL Hospit a liquid TAKE liquid TAKE oral l 5 ML BY 5 ML BY liquid Clinics MOUTH EVERY MOUTH EVERY TAKE 5 ML 6 HOURS 6 HOURS BY MOUTH NEEDED NEEDED EVERY 6 HOURS NEEDED zinc zinc No zinc [facility] [place] sulfate 50 sulfate 50 sulfate 50 [facility] mg zinc mg zinc mg zinc ty (220 mg) (220 mg) (220 mg) [facility] capsule capsule capsule l TAKE ONE TAKE ONE TAKE ONE Cli nics CAPSULE BY CAPSULE BY CAPSULE BY MOUTH EVERY MOUTH EVERY MOUTH DAY DAY EVERY DAY acyclovir acyclovir No acyclovir [place] 400 mg 400 mg 400 mg [facility] acyclovir acyclovir No acyclovir [place] 800 mg 800 mg 800 mg [facility] tablet TAKE tablet TAKE tablet ty 1 TABLET BY 1 TABLET BY TAKE 1 Hospita MOUTH EVERY MOUTH EVERY TABLET BY l 4 HOURS 4 HOURS MOUTH Clinics WHILE AWAKE WHILE AWAKE EVERY 4 FOR 7 DAYS FOR 7 DAYS HOURS WHILE AWAKE FOR 7 DAYS albuterol albuterol No albuterol [place] sulfate HFA sulfate HFA sulfate [facility] 90 90 HFA 90 ty mcg/actuati mcg/actuati mcg/actuat [facility] on aerosol on aerosol ion l inhaler inhaler aerosol Clinic s INHALE 2 INHALE 2 inhaler PUFFS BY PUFFS BY INHALE 2 MOUTH EVERY MOUTH EVERY PUFFS BY 4 HOURS 4 HOURS MOUTH NEEDED FOR NEEDED FOR EVERY 4 SHORTNESS SHORTNESS HOURS OF BREATH OF BREATH NEEDED FOR OR WHEEZING OR WHEEZING SHORTNESS OF BREATH OR WHEEZING alprazolam alprazolam No alprazolam [place] 1 mg tablet 1 mg tablet 1 mg [facility] TAKE 1 TAKE 1 tablet ty TABLET BY TABLET BY TAKE 1 [facility] MOUTH THREE MOUTH THREE TABLET BY l TIMES DAILY TIMES DAILY MOUTH Clinics THREE TIMES DAILY [facility] 24 Amitiza 24 No Amitiza 24 [place] mcg capsule mcg capsule mcg [facility] TAKE 1 TAKE 1 capsule ty CAPSULE BY CAPSULE BY TAKE 1 H [facility]ita MOUTH TWICE MOUTH TWICE CAPSULE BY l DAILY WITH DAILY WITH MOUTH Cl inics FOOD AND FOOD AND TWICE WATER WATER DAILY WITH FOOD AND WATER amoxicillin amoxicillin No amoxicilli [place] 500 mg 500 mg n 500 mg [facility] capsule capsule capsule ty [facility] Clinics azithromyci azithromyci No azithromyc [place] n 250 mg n 250 mg in [...] FOR 4 DAYS benzonatate benzonatate No benzonatat [place] 100 mg 100 mg e 100 mg [facility] capsule capsule capsule ty TAKE 2 TAKE 2 TAKE 2 Hospita CAPSULES BY CAPSULES BY CAPSULES l MOUTH TWICE MOUTH TWICE BY MOUTH Clinics DAILY DAILY TWICE NEEDED FOR NEEDED FOR DAILY COUGH COUGH NEEDED FOR COUGH cefuroxime cefuroxime No cefuroxime [place] axetil 500 axetil 500 axetil 500 [facility] mg tablet mg tablet mg tablet ty TAKE 1 TAKE 1 TAKE 1 Hospita TABLET BY TABLET BY TABLET BY l MOUTH TWICE MOUTH TWICE MOUTH Clinics DAILY DAILY TWICE DAILY citalopram citalopram No citalopram [place] 40 mg 40 mg 40 mg [facility] tablet TAKE tablet TAKE tablet ty 1 TABLET BY 1 TABLET BY TAKE 1 Hospita MOUTH EVERY MOUTH EVERY TABLET BY l DAY DAY MOUTH Clinics EVERY DAY Contrave 8 Contrave 8 No 2 BID Contrave 8 [place] mg-90 mg mg-90 mg mg-90 mg Com [facility] tablet,exte tablet,exte tablet,ext ty nded nded ended Hospita release release release l Take 2 Take 2 Take 2 Clinics tablets tablets tablets twice a day twice a day twice a by oral by oral day by route for route for oral route 90 days. 90 days. for 90 days. diethylprop diethylprop No diethylpro [place] ion ER 75 ion ER 75 pion ER 75 Commun[facility] mg mg mg ty tablet,exte tablet,exte tablet,ext Hospita nded nded ended l release release release Clinic s doxazosin 4 doxazosin 4 No doxazosin [facility] [place] mg tablet mg tablet 4 mg Com[facility] ni TAKE 1 TAKE 1 tablet ty TABLET BY TABLET BY TAKE 1 [facility] MOUTH AT MOUTH AT TABLET BY l BEDTIME BEDTIME MOUTH AT Clini cs BEDTIME escitalopra escitalopra No escitalopr [place] m 20 mg m 20 mg am 20 mg Com[facility] ni tablet TAKE tablet TAKE tablet ty 1 TABLET BY 1 TABLET BY TAKE 1 Hospita MOUTH EVERY MOUTH EVERY TABLET BY l DAY DAY MOUTH Clinics EVERY DAY famotidine famotidine No famotidine [facility] [place] 20 mg 20 mg 20 mg [facility] tablet TAKE tablet TAKE tablet ty 1 TABLET BY 1 TABLET BY TAKE 1 Hospita MOUTH EVERY MOUTH EVERY TABLET BY l NIGHT AT NIGHT AT MOUTH Clinic s BEDTIME BEDTIME EVERY NIGHT AT BEDTIME finasteride finasteride No finasterid [place] 5 mg tablet 5 mg tablet e 5 mg [facility]i TAKE 1 TAKE 1 tablet ty TABLET BY TABLET BY TAKE 1 [facility] MOUTH EVERY MOUTH EVERY TABLET BY l DAY DAY MOUTH Clinics EVERY DAY fluconazole fluconazole No fluconazol [place] 150 mg 150 mg e 150 mg [facility] tablet TAKE tablet TAKE tablet ty 1 TABLET BY 1 TABLET BY TAKE 1 Hospita MOUTH NOW. MOUTH NOW. TABLET BY l REPEAT IN REPEAT IN MOUTH NOW. Clinics 72 HOURS 72 HOURS REPEAT IN 72 HOURS folic acid folic acid No folic acid [place] 1 mg tablet 1 mg tablet 1 mg [facility] TAKE 3 TAKE 3 tablet ty TABLETS BY TABLETS BY TAKE 3 [facility] MOUTH EVERY MOUTH EVERY TABLETS BY l DAY DAY MOUTH Clinics EVERY DAY gabapentin gabapentin No gabapentin [place] 300 mg 300 mg 300 mg [facility] capsule capsule capsule ty TAKE 1 TAKE 1 TAKE 1 [facility]ospita CAPSULE BY CAPSULE BY CAPSULE BY l MOUTH TWICE MOUTH TWICE MOUTH Clinics DAILY DAILY TWICE DAILY hydrocodone hydrocodone No hydrocodon [place] 5 5 e 5 Communi mg-acetamin mg-acetamin mg-acetami ty ophen 325 ophen 325 nophen 325 [facility]osp[facility] mg tablet mg tablet mg tablet l TAKE 1 TAKE 1 TAKE 1 Clinics TABLET BY TABLET BY TABLET BY MOUTH EVERY MOUTH EVERY MOUTH 6 HOURS 6 HOURS EVERY 6 HOURS hydroxychlo hydroxychlo No hydroxychl [place] roquine 200 roquine 200 oroquine [facility] mg tablet mg tablet 200 mg ty TAKE 1 TAKE 1 tablet [facility]ospita TABLET BY TABLET BY TAKE 1 l MOUTH TWICE MOUTH TWICE TABLET BY Clinics DAILY DAILY MOUTH TWICE DAILY levothyroxi levothyroxi No levothyrox [place] ne 150 mcg ne 150 mcg ine 150 Communi tablet TAKE tablet TAKE mcg tablet ty 1 TABLET BY 1 TABLET BY TAKE 1 Hospita MOUTH EVERY MOUTH EVERY TABLET BY l MORNING MORNING MOUTH Clinics EVERY MORNING medroxyprog medroxyprog No medroxypro [place] esterone 10 esterone 10 gesterone [facility] mg tablet mg tablet 10 mg ty TAKE 1 TAKE 1 tablet [facility]ospita TABLET BY TABLET BY TAKE 1 l MOUTH EVERY MOUTH EVERY TABLET BY Clinics DAY WITH DAY WITH MOUTH FOOD FOR 14 FOOD FOR 14 EVERY DAY DAYS DAYS WITH FOOD FOR 14 DAYS methotrexat methotrexat No methotrexa [place] e sodium e sodium te sodium [facility] 2.5 mg 2.5 mg 2.5 mg ty tablet TAKE tablet TAKE tablet Hosp[facility] 5 TABLETS 5 TABLETS TAKE 5 l BY MOUTH 1 BY MOUTH 1 TABLETS BY Clinics TIME A WEEK TIME A WEEK MOUTH 1 DIRECTED DIRECTED TIME A WEEK DIRECTED metoclopram metoclopram No metoclopra [place] rosario 10 mg rosario 10 mg mide 10 mg Commun[facility] tablet TAKE tablet TAKE tablet ty DIRECTED DIRECTED TAKE Hospita PER PER DIRECTED l COLONOSCOPY COLONOSCOPY PER C linics PREP PACKET PREP PACKET COLONOSCOP Y PREP PACKET nitrofurant nitrofurant No nitrofuran [place] oin oin toin Communi monohydrate monohydrate monohydrat ty /macrocryst /macrocryst e/macrocry [facility]osp[facility] als 100 mg als 100 mg stals 100 l capsule capsule mg capsule Cli nics TAKE 1 TAKE 1 TAKE 1 CAPSULE BY CAPSULE BY CAPSULE BY MOUTH TWICE MOUTH TWICE MOUTH A DAY WITH A DAY WITH TWICE A FOOD FOR 5 FOOD FOR 5 DAY WITH DAYS DAYS FOOD FOR 5 DAYS omeprazole omeprazole No omeprazole [facility] [place] 20 mg 20 mg 20 mg [facility] capsule,del capsule,del capsule,de ty ayed ayed layed [facility]osp[facility] release release release l TAKE 1 TAKE 1 TAKE 1 Clinics CAPSULE BY CAPSULE BY CAPSULE BY MOUTH EVERY MOUTH EVERY MOUTH MORNING MORNING EVERY MORNING ondansetron ondansetron No ondansetro [place] 4 mg 4 mg n 4 mg [...] VOMITING AND VOMITING ondansetron ondansetron No ondansetro [place] 8 mg 8 mg n 8 mg [facility] disintegrat disintegrat disintegra ty ing tablet ing tablet ting [facility] tablet l Clinics pantoprazol pantoprazol No pantoprazo [place] e 40 mg e 40 mg le 40 mg Commu ni tablet,carlos tablet,carlos tablet,del ty yed release yed release ayed [facility] TAKE 1 TAKE 1 release l TABLET BY TABLET BY TAKE 1 Cli nics MOUTH TWICE MOUTH TWICE TABLET BY DAILY DAILY MOUTH TWICE DAILY phentermine phentermine No phentermin [facility] [place] 37.5 mg 37.5 mg e 37.5 mg Comm uni tablet tablet tablet ty Hospita l Clinics prednisone prednisone No prednisone [place] 10 mg 10 mg 10 mg Communi [...] FOR 3 DAYS quetiapine quetiapine No quetiapine [place] 400 mg 400 mg 400 mg [facility] tablet TAKE tablet TAKE tablet ty 3 TABLETS 3 TABLETS TAKE 3 [facility] BY MOUTH AT BY MOUTH AT TABLETS BY l BEDTIME BEDTIME MOUTH AT [facility] BEDTIME ropinirole ropinirole No ropinirole [place] 1 mg tablet 1 mg tablet 1 mg [facility] TAKE 1 TAKE 1 tablet ty TABLET BY TABLET BY TAKE 1 [facility] MOUTH AT MOUTH AT TABLET BY l BEDTIME BEDTIME MOUTH AT [facility] BEDTIME spironolact spironolact No spironolac [place] one 100 mg one 100 mg tone 100 [facility] tablet TAKE tablet TAKE mg tablet ty 1 TABLET BY 1 TABLET BY TAKE 1 Hospita MOUTH TWICE MOUTH TWICE TABLET BY l DAILY DAILY MOUTH Clinics TWICE DAILY spironolact spironolact No spironolac [place] one 50 mg one 50 mg tone 50 mg [facility] tablet TAKE tablet TAKE tablet ty 1 TABLET BY 1 TABLET BY TAKE 1 Hospita MOUTH TWICE MOUTH TWICE TABLET BY l DAILY DAILY MOUTH Clinics TWICE DAILY sulfamethox sulfamethox No sulfametho [place] azole 800 azole 800 xazole 800 Communi mg-trimetho mg-trimetho mg-trimeth ty prim 160 mg prim 160 mg oprim 160 Hospita tablet tablet mg tablet l Clinics sumatriptan sumatriptan No sumatripta [facility] [place] 100 mg 100 mg n 100 mg [facility] tablet TAKE tablet TAKE tablet ty 1 TABLET BY 1 TABLET BY TAKE 1 Hospita MOUTH EVERY MOUTH EVERY TABLET BY l DAY DAY MOUTH Clinics NEEDED NEEDED EVERY DAY NEEDED Sutab Sutab No Sutab [place] 1.479-0.188 1.479-0.188 1.479-0.18 Communi -0.225 gram -0.225 gram 8-0.225 ty tablet TAKE tablet TAKE gram [facility] DIRECTED DIRECTED tablet l BY YOUR BY YOUR TAKE Clinic s COLONOSCOPY COLONOSCOPY DIRECTED PACKET PACKET BY YOUR INSTRUCTION INSTRUCTION COLONOSCOP S S Y PACKET INSTRUCTIO NS tranexamic tranexamic No tranexamic [place] acid 650 mg acid 650 mg acid 650 Communi tablet TAKE tablet TAKE mg tablet ty 2 TABLETS 2 TABLETS TAKE 2 [facility] BY MOUTH BY MOUTH TABLETS BY l THREE TIMES THREE TIMES MOUTH Clinics DAILY DAILY THREE DURING DURING TIMES MENSES FOR MENSES FOR DAILY 5 DAYS. 5 DAYS. DURING MENSES FOR 5 DAYS. trazodone trazodone No trazodone [place] 100 mg 100 mg 100 mg [facility] tablet TAKE tablet TAKE tablet ty 1 TABLET BY 1 TABLET BY TAKE 1 Hospita MOUTH AT MOUTH AT TABLET BY l BEDTIME BEDTIME MOUTH AT Clini cs BEDTIME Uribel 118 Uribel 118 No Uribel 118 [place] mg-10 mg-10 mg-10 [facility] mg-40.8 mg-40.8 mg-40.8 ty mg-36 mg mg-36 mg mg-36 mg [facility] capsule capsule capsule l TAKE 1 TAKE 1 TAKE 1 Clinics CAPSULE BY CAPSULE BY CAPSULE BY MOUTH FOUR MOUTH FOUR MOUTH FOUR TIMES DAILY TIMES DAILY TIMES FOR 10 DAYS FOR 10 DAYS DAILY FOR 10 DAYS valacyclovi valacyclovi No valacyclov [place] r 1 gram r 1 gram ir 1 gram [facility] tablet tablet tablet ty [facility] valsartan valsartan No valsartan [place] 80 mg 80 mg 80 mg Communi tablet tablet tablet ty [facility] Virtussin Virtussin No Virtussin [place] AC 10 AC 10 AC 10 [facility] mg-100 mg/5 mg-100 mg/5 mg-100 ty mL oral mL oral mg/5 mL Hospit a liquid TAKE liquid TAKE oral l 5 ML BY 5 ML BY liquid Clinics MOUTH EVERY MOUTH EVERY TAKE 5 ML 6 HOURS 6 HOURS BY MOUTH NEEDED NEEDED EVERY 6 HOURS NEEDED zinc zinc No zinc [place] sulfate 50 sulfate 50 sulfate 50 [facility] mg zinc mg zinc mg zinc ty (220 mg) (220 mg) (220 mg) [facility] capsule capsule capsule l TAKE ONE TAKE ONE TAKE ONE Cli nics CAPSULE BY CAPSULE BY CAPSULE BY MOUTH EVERY MOUTH EVERY MOUTH DAY DAY EVERY DAY acyclovir acyclovir No acyclovir [place] 400 mg 400 mg 400 mg [facility]i tablet tablet tablet ty [facility] Clinics acyclovir acyclovir No acyclovir [place] 800 mg 800 mg 800 mg [facility] tablet TAKE tablet TAKE tablet ty 1 TABLET BY 1 TABLET BY TAKE 1 Hospita MOUTH EVERY MOUTH EVERY TABLET BY l 4 HOURS 4 HOURS MOUTH Clinics WHILE AWAKE WHILE AWAKE EVERY 4 FOR 7 DAYS FOR 7 DAYS HOURS WHILE AWAKE FOR 7 DAYS albuterol albuterol No albuterol [place] sulfate HFA sulfate HFA sulfate Communi 90 90 HFA 90 ty mcg/actuati mcg/actuati mcg/actuat [facility] on aerosol on aerosol ion l inhaler inhaler aerosol Clinic s INHALE 2 INHALE 2 inhaler PUFFS BY PUFFS BY INHALE 2 MOUTH EVERY MOUTH EVERY PUFFS BY 4 HOURS 4 HOURS MOUTH NEEDED FOR NEEDED FOR EVERY 4 SHORTNESS SHORTNESS HOURS OF BREATH OF BREATH NEEDED FOR OR WHEEZING OR WHEEZING SHORTNESS OF BREATH OR WHEEZING alprazolam alprazolam No alprazolam [place] 1 mg tablet 1 mg tablet 1 mg [facility] TAKE 1 TAKE 1 tablet ty TABLET BY TABLET BY TAKE 1 [facility] MOUTH THREE MOUTH THREE TABLET BY l TIMES TIMES MOUTH Clinics DAILY. DAILY. THREE TIMES DAILY. Amitiza 24 Amitiza 24 No Amitiza 24 [place] mcg capsule mcg capsule mcg [facility] TAKE 1 TAKE 1 capsule ty CAPSULE BY CAPSULE BY TAKE 1 H [facility]spita MOUTH TWICE MOUTH TWICE CAPSULE BY l DAILY WITH DAILY WITH MOUTH Cl inics FOOD AND FOOD AND TWICE WATER WATER DAILY WITH FOOD AND WATER amoxicillin amoxicillin No amoxicilli [place] 500 mg 500 mg n 500 mg Communi capsule capsule capsule ty [facility] azithromyci azithromyci No azithromyc [place] n 250 mg n 250 mg in [...] FOR 4 DAYS benzonatate benzonatate No benzonatat [place] 100 mg 100 mg e 100 mg Communi capsule capsule capsule ty TAKE 2 TAKE 2 TAKE 2 Hospita CAPSULES BY CAPSULES BY CAPSULES l MOUTH TWICE MOUTH TWICE BY MOUTH Clinics DAILY DAILY TWICE NEEDED FOR NEEDED FOR DAILY COUGH COUGH NEEDED FOR COUGH cefuroxime cefuroxime No cefuroxime [place] axetil 500 axetil 500 axetil 500 Communi mg tablet mg tablet mg tablet ty TAKE 1 TAKE 1 TAKE 1 Hospita TABLET BY TABLET BY TABLET BY l MOUTH TWICE MOUTH TWICE MOUTH Clinics DAILY DAILY TWICE DAILY cholecalcif cholecalcif No 1capsul Q1W cholecalci [place] ry ry e(s) ferol Communi (vitamin (vitamin (vitamin ty D3) 1,250 D3) 1,250 D3) 1,250 Hospita mcg (50,000 mcg (50,000 mcg l unit) unit) (50,000 Clinics capsule capsule unit) Take 1 Take 1 capsule capsule capsule Take 1 every week every week capsule by oral by oral every week route for route for by oral 84 days. 84 days. route for 84 days. citalopram citalopram No citalopram [place] 40 mg 40 mg 40 mg Communi tablet TAKE tablet TAKE tablet ty 1 TABLET BY 1 TABLET BY TAKE 1 Hospita MOUTH EVERY MOUTH EVERY TABLET BY l DAY DAY MOUTH Clinics EVERY DAY Contrave 8 Contrave 8 No 2 BID Contrave 8 [facility] [place] mg-90 mg mg-90 mg mg-90 mg [facility] tablet,exte tablet,exte tablet,ext ty nded nded ended [facility]ospita release release release l Take 2 Take 2 Take 2 Clinics tablets tablets tablets twice a day twice a day twice a by oral by oral day by route for route for oral route 90 days. 90 days. for 90 days. diethylprop diethylprop No diethylpro [place] ion ER 75 ion ER 75 pion ER 75 Communi mg mg mg ty tablet,exte tablet,exte tablet,ext Hospita nded nded ended l release release release Clinic s doxazosin 4 doxazosin 4 No doxazosin [place] mg tablet mg tablet 4 mg Com[facility] ni TAKE 1 TAKE 1 tablet ty TABLET BY TABLET BY TAKE 1 [facility] MOUTH AT MOUTH AT TABLET BY l BEDTIME BEDTIME MOUTH AT Clini cs BEDTIME escitalopra escitalopra No escitalopr [place] m 20 mg m 20 mg am 20 mg Com[facility] ni tablet TAKE tablet TAKE tablet ty 1 TABLET BY 1 TABLET BY TAKE 1 Hospita MOUTH EVERY MOUTH EVERY TABLET BY l DAY DAY MOUTH Clinics EVERY DAY famotidine famotidine No famotidine [place] 20 mg 20 mg 20 mg Communi tablet TAKE tablet TAKE tablet ty 1 TABLET BY 1 TABLET BY TAKE 1 Hospita MOUTH EVERY MOUTH EVERY TABLET BY l NIGHT AT NIGHT AT MOUTH Clinic s BEDTIME BEDTIME EVERY NIGHT AT BEDTIME finasteride finasteride No finasterid [place] 5 mg tablet 5 mg tablet e 5 mg Communi TAKE 1 TAKE 1 tablet ty TABLET BY TABLET BY TAKE 1 [facility] MOUTH EVERY MOUTH EVERY TABLET BY l DAY DAY MOUTH Clinics EVERY DAY fluconazole fluconazole No fluconazol [place] 150 mg 150 mg e 150 mg Communi tablet TAKE tablet TAKE tablet ty 1 TABLET BY 1 TABLET BY TAKE 1 Hospita MOUTH NOW. MOUTH NOW. TABLET BY l REPEAT IN REPEAT IN MOUTH NOW. Clinics 72 HOURS 72 HOURS REPEAT IN 72 HOURS folic acid folic acid No folic acid [place] 1 mg tablet 1 mg tablet 1 mg [facility] TAKE 3 TAKE 3 tablet ty TABLETS BY TABLETS BY TAKE 3 H [facility] MOUTH EVERY MOUTH EVERY TABLETS BY l DAY DAY MOUTH Clinics EVERY DAY gabapentin gabapentin No gabapentin [place] 300 mg 300 mg 300 mg Communi capsule capsule capsule ty TAKE 1 TAKE 1 TAKE 1 [facility]ospita CAPSULE BY CAPSULE BY CAPSULE BY l MOUTH TWICE MOUTH TWICE MOUTH Clinics DAILY DAILY TWICE DAILY hydrocodone hydrocodone No hydrocodon [facility] [place] 5 5 e 5 Communi mg-acetamin mg-acetamin mg-acetami ty ophen 325 ophen 325 nophen 325 [facility]ospita mg tablet mg tablet mg tablet l TAKE 1 TAKE 1 TAKE 1 Clinics TABLET BY TABLET BY TABLET BY MOUTH EVERY MOUTH EVERY MOUTH 6 HOURS 6 HOURS EVERY 6 HOURS hydroxychlo hydroxychlo No hydroxychl [place] roquine 200 roquine 200 oroquine Communi mg tablet mg tablet 200 mg ty TAKE 1 TAKE 1 tablet [facility]ospita TABLET BY TABLET BY TAKE 1 l MOUTH TWICE MOUTH TWICE TABLET BY Clinics DAILY DAILY MOUTH TWICE DAILY levothyroxi levothyroxi No levothyrox [place] ne 150 mcg ne 150 mcg ine 150 Communi tablet TAKE tablet TAKE mcg tablet ty 1 TABLET BY 1 TABLET BY TAKE 1 Hospita MOUTH EVERY MOUTH EVERY TABLET BY l MORNING MORNING MOUTH Clinics EVERY MORNING medroxyprog medroxyprog No medroxypro [place] esterone 10 esterone 10 gesterone Communi mg tablet mg tablet 10 mg ty TAKE 1 TAKE 1 tablet Hospita TABLET BY TABLET BY TAKE 1 l MOUTH EVERY MOUTH EVERY TABLET BY Clinics DAY WITH DAY WITH MOUTH FOOD FOR 14 FOOD FOR 14 EVERY DAY DAYS DAYS WITH FOOD FOR 14 DAYS methotrexat methotrexat No methotrexa [place] e sodium e sodium te sodium [facility] 2.5 mg 2.5 mg 2.5 mg ty tablet TAKE tablet TAKE tablet [facility]osp[facility] 5 TABLETS 5 TABLETS TAKE 5 l BY MOUTH 1 BY MOUTH 1 TABLETS BY Clinics TIME A WEEK TIME A WEEK MOUTH 1 DIRECTED DIRECTED TIME A WEEK DIRECTED metoclopram metoclopram No metoclopra [place] rosario 10 mg rosario 10 mg mide 10 mg Communi tablet TAKE tablet TAKE tablet ty DIRECTED DIRECTED TAKE Hospita PER PER DIRECTED l COLONOSCOPY COLONOSCOPY PER C linics PREP PACKET PREP PACKET COLONOSCOP Y PREP PACKET nitrofurant nitrofurant No nitrofuran [place] oin oin toin Communi monohydrate monohydrate monohydrat ty /macrocryst /macrocryst e/macrocry [facility]osp[facility] als 100 mg als 100 mg stals 100 l capsule capsule mg capsule Cli nics TAKE 1 TAKE 1 TAKE 1 CAPSULE BY CAPSULE BY CAPSULE BY MOUTH TWICE MOUTH TWICE MOUTH A DAY WITH A DAY WITH TWICE A FOOD FOR 5 FOOD FOR 5 DAY WITH DAYS DAYS FOOD FOR 5 DAYS omeprazole omeprazole No omeprazole [facility] 20 mg 20 mg 20 mg [facility] capsule,del capsule,del capsule,de ty ayed ayed layed Hospita release release release l TAKE 1 TAKE 1 TAKE 1 Clinics CAPSULE BY CAPSULE BY CAPSULE BY MOUTH EVERY MOUTH EVERY MOUTH MORNING MORNING EVERY MORNING ondansetron ondansetron No ondansetro [facility] [place] 4 mg 4 mg n 4 mg [...] VOMITING AND VOMITING ondansetron ondansetron No ondansetro [place] 8 mg 8 mg n 8 mg Communi disintegrat disintegrat disintegra ty ing tablet ing tablet ting [facility] tablet l Clinics pantoprazol pantoprazol No pantoprazo [place] e 40 mg e 40 mg le 40 mg Commu ni tablet,carlos tablet,carlos tablet,del ty yed release yed release ayed [facility]ita TAKE 1 TAKE 1 release l TABLET BY TABLET BY TAKE 1 Cli nics MOUTH TWICE MOUTH TWICE TABLET BY DAILY DAILY MOUTH TWICE DAILY phentermine phentermine No phentermin [facility] [place] 37.5 mg 37.5 mg e 37.5 mg Comm uni tablet tablet tablet ty Hospita l Clinics prednisone prednisone No prednisone [place] 10 mg 10 mg 10 mg Communi [...] FOR 3 DAYS quetiapine quetiapine No quetiapine [facility] [place] 400 mg 400 mg 400 mg Communi tablet TAKE tablet TAKE tablet ty 3 TABLETS 3 TABLETS TAKE 3 [facility] BY MOUTH AT BY MOUTH AT TABLETS BY l BEDTIME BEDTIME MOUTH AT [facility] BEDTIME ropinirole ropinirole No ropinirole [place] 1 mg tablet 1 mg tablet 1 mg [facility] TAKE 1 TAKE 1 tablet ty TABLET BY TABLET BY TAKE 1 [facility] MOUTH AT MOUTH AT TABLET BY l BEDTIME BEDTIME MOUTH AT [facility] BEDTIME spironolact spironolact No spironolac [place] one 100 mg one 100 mg tone 100 Communi tablet TAKE tablet TAKE mg tablet ty 1 TABLET BY 1 TABLET BY TAKE 1 Hospita MOUTH TWICE MOUTH TWICE TABLET BY l DAILY DAILY MOUTH Clinics TWICE DAILY spironolact spironolact No spironolac [place] one 50 mg one 50 mg tone 50 mg Communi tablet TAKE tablet TAKE tablet ty 1 TABLET BY 1 TABLET BY TAKE 1 Hospita MOUTH TWICE MOUTH TWICE TABLET BY l DAILY DAILY MOUTH Clinics TWICE DAILY sulfamethox sulfamethox No sulfametho [place] azole 800 azole 800 xazole 800 Communi mg-trimetho mg-trimetho mg-trimeth ty prim 160 mg prim 160 mg oprim 160 Hospita tablet tablet mg tablet l Clinics sumatriptan sumatriptan No sumatripta [facility] [place] 100 mg 100 mg n 100 mg Communi tablet TAKE tablet TAKE tablet ty 1 TABLET BY 1 TABLET BY TAKE 1 Hospita MOUTH EVERY MOUTH EVERY TABLET BY l DAY DAY MOUTH Clinics NEEDED NEEDED EVERY DAY NEEDED Sutab Sutab No Sutab [place] 1.479-0.188 1.479-0.188 1.479-0.18 Communi -0.225 gram -0.225 gram 8-0.225 ty tablet TAKE tablet TAKE gram [facility]ita DIRECTED DIRECTED tablet l BY YOUR BY YOUR TAKE Clinic s COLONOSCOPY COLONOSCOPY DIRECTED PACKET PACKET BY YOUR INSTRUCTION INSTRUCTION COLONOSCOP S S Y PACKET INSTRUCTIO NS tranexamic tranexamic No tranexamic [place] acid 650 mg acid 650 mg acid 650 Communi tablet TAKE tablet TAKE mg tablet ty 2 TABLETS 2 TABLETS TAKE 2 [facility] BY MOUTH BY MOUTH TABLETS BY l THREE TIMES THREE TIMES MOUTH Clinics DAILY DAILY THREE DURING DURING TIMES MENSES FOR MENSES FOR DAILY 5 DAYS. 5 DAYS. DURING MENSES FOR 5 DAYS. trazodone trazodone No trazodone [place] 100 mg 100 mg 100 mg Communi tablet TAKE tablet TAKE tablet ty 1 TABLET BY 1 TABLET BY TAKE 1 Hospita MOUTH AT MOUTH AT TABLET BY l BEDTIME BEDTIME MOUTH AT Clini cs BEDTIME acyclovir acyclovir No acyclovir [place] 400 mg 400 mg 400 mg Communi tablet tablet tablet ty [facility] Uribel 118 Uribel 118 No Uribel 118 [place] mg-10 mg-10 mg-10 Communi mg-40.8 mg-40.8 mg-40.8 ty mg-36 mg mg-36 mg mg-36 mg [facility] capsule capsule capsule l TAKE 1 TAKE 1 TAKE 1 Clinics CAPSULE BY CAPSULE BY CAPSULE BY MOUTH FOUR MOUTH FOUR MOUTH FOUR TIMES DAILY TIMES DAILY TIMES FOR 10 DAYS FOR 10 DAYS DAILY FOR 10 DAYS valacyclovi valacyclovi No valacyclov [place] r 1 gram r 1 gram ir 1 gram [facility] tablet tablet tablet ty [facility] valsartan valsartan No valsartan [place] 80 mg 80 mg 80 mg [facility] tablet [facility] Virtussin Virtussin No Virtussin [place] AC 10 AC 10 AC 10 Communi mg-100 mg/5 mg-100 mg/5 mg-100 ty mL oral mL oral mg/5 mL Hospit a liquid TAKE liquid TAKE oral l 5 ML BY 5 ML BY liquid Clinics MOUTH EVERY MOUTH EVERY TAKE 5 ML 6 HOURS 6 HOURS BY MOUTH NEEDED NEEDED EVERY 6 HOURS NEEDED zinc zinc No zinc [place] sulfate 50 sulfate 50 sulfate 50 Communi mg zinc mg zinc mg zinc ty (220 mg) (220 mg) (220 mg) [facility] capsule capsule capsule l TAKE ONE TAKE ONE TAKE ONE Cli nics CAPSULE BY CAPSULE BY CAPSULE BY MOUTH EVERY MOUTH EVERY MOUTH DAY DAY EVERY DAY acyclovir acyclovir No acyclovir [place] 800 mg 800 mg 800 mg Communi tablet TAKE tablet TAKE tablet ty 1 TABLET BY 1 TABLET BY TAKE 1 Hospita MOUTH EVERY MOUTH EVERY TABLET BY l 4 HOURS 4 HOURS MOUTH Clinics WHILE AWAKE WHILE AWAKE EVERY 4 FOR 7 DAYS FOR 7 DAYS HOURS WHILE AWAKE FOR 7 DAYS acyclovir acyclovir No acyclovir [place] 400 mg 400 mg 400 mg Communi tablet tablet tablet ty Hospita l Clinics acyclovir acyclovir No acyclovir [place] 800 mg 800 mg 800 mg Communi tablet TAKE tablet TAKE tablet ty 1 TABLET BY 1 TABLET BY TAKE 1 Hospita MOUTH EVERY MOUTH EVERY TABLET BY l 4 HOURS 4 HOURS MOUTH Clinics WHILE AWAKE WHILE AWAKE EVERY 4 FOR 7 DAYS FOR 7 DAYS HOURS WHILE AWAKE FOR 7 DAYS albuterol albuterol No albuterol [place] sulfate HFA sulfate HFA sulfate Communi 90 90 HFA 90 ty mcg/actuati mcg/actuati mcg/actuat [facility] on aerosol on aerosol ion l inhaler inhaler aerosol Clinic s INHALE 2 INHALE 2 inhaler PUFFS BY PUFFS BY INHALE 2 MOUTH EVERY MOUTH EVERY PUFFS BY 4 HOURS 4 HOURS MOUTH NEEDED FOR NEEDED FOR EVERY 4 SHORTNESS SHORTNESS HOURS OF BREATH OF BREATH NEEDED FOR OR WHEEZING OR WHEEZING SHORTNESS OF BREATH OR WHEEZING alprazolam alprazolam No alprazolam [place] 1 mg tablet 1 mg tablet 1 mg [facility] TAKE 1 TAKE 1 tablet ty TABLET BY TABLET BY TAKE 1 [facility] MOUTH THREE MOUTH THREE TABLET BY l TIMES DAILY TIMES DAILY MOUTH Clinics THREE TIMES DAILY amoxicillin amoxicillin No amoxicilli [place] 500 mg 500 mg n 500 mg Communi capsule capsule capsule ty Hospita l Clinics azithromyci azithromyci No azithromyc [place] n 250 mg n 250 mg in [...] FOR 4 DAYS benzonatate benzonatate No benzonatat [place] 100 mg 100 mg e 100 mg Communi capsule capsule capsule ty TAKE 2 TAKE 2 TAKE 2 Hospita CAPSULES BY CAPSULES BY CAPSULES l MOUTH TWICE MOUTH TWICE BY MOUTH Clinics DAILY DAILY TWICE NEEDED FOR NEEDED FOR DAILY COUGH COUGH NEEDED FOR COUGH cefuroxime cefuroxime No cefuroxime [place] axetil 500 axetil 500 axetil 500 Communi mg tablet mg tablet mg tablet ty TAKE 1 TAKE 1 TAKE 1 Hospita TABLET BY TABLET BY TABLET BY l MOUTH TWICE MOUTH TWICE MOUTH Clinics DAILY DAILY TWICE DAILY cholecalcif cholecalcif No cholecalci [place] ry ry ferol Communi (vitamin (vitamin (vitamin ty D3) 1,250 D3) 1,250 D3) 1,250 Hospita mcg (50,000 mcg (50,000 mcg l unit) unit) (50,000 Clinics capsule capsule unit) TAKE 1 TAKE 1 capsule CAPSULE BY CAPSULE BY TAKE 1 MOUTH EVERY MOUTH EVERY CAPSULE BY WEEK WEEK MOUTH EVERY WEEK albuterol albuterol No albuterol [place] sulfate HFA sulfate HFA sulfate Communi 90 [...] OR WHEEZING SHORTNESS OF BREATH OR WHEEZING citalopram citalopram No citalopram [place] 40 mg 40 mg 40 mg Communi tablet TAKE tablet TAKE tablet ty 1 TABLET BY 1 TABLET BY TAKE 1 Hospita MOUTH EVERY MOUTH EVERY TABLET BY l DAY DAY MOUTH Clinics EVERY DAY Contrave 8 Contrave 8 No 2 BID Contrave 8 [place] mg-90 mg mg-90 mg mg-90 mg Com nick tablet,exte tablet,exte tablet,ext ty nded nded ended Hospita release release release l Take 2 Take 2 Take 2 Clinics tablets tablets tablets twice a day twice a day twice a by oral by oral day by route for route for oral route 90 days. 90 days. for 90 days. diethylprop diethylprop No diethylpro [place] ion ER 75 ion ER 75 pion ER 75 Communi mg mg mg ty tablet,exte tablet,exte tablet,ext Hospita nded nded ended l release release release Clinic s doxazosin 4 doxazosin 4 No doxazosin [facility] [place] mg tablet mg tablet 4 mg Com[facility] ni TAKE 1 TAKE 1 tablet ty TABLET BY TABLET BY TAKE 1 [facility] MOUTH AT MOUTH AT TABLET BY l BEDTIME BEDTIME MOUTH AT Clini cs BEDTIME escitalopra escitalopra No escitalopr [place] m 20 mg m 20 mg am 20 mg Commu ni tablet TAKE tablet TAKE tablet ty 1 TABLET BY 1 TABLET BY TAKE 1 Hospita MOUTH EVERY MOUTH EVERY TABLET BY l DAY DAY MOUTH Clinics EVERY DAY estradiol estradiol No estradiol [facility] [place] 12.5 mg 12.5 mg 12.5 mg Commun i implant implant implant ty pellet 15 pellet 15 pellet 15 Hospita mg mg mg l Clinics famotidine famotidine No famotidine [facility] [place] 20 mg 20 mg 20 mg Communi tablet TAKE tablet TAKE tablet ty 1 TABLET BY 1 TABLET BY TAKE 1 Hospita MOUTH EVERY MOUTH EVERY TABLET BY l NIGHT AT NIGHT AT MOUTH Clinic s BEDTIME BEDTIME EVERY NIGHT AT BEDTIME finasteride finasteride No finasterid [facility] [place] 5 mg tablet 5 mg tablet e 5 mg Communi TAKE 1 TAKE 1 tablet ty TABLET BY TABLET BY TAKE 1 [facility] MOUTH EVERY MOUTH EVERY TABLET BY l DAY DAY MOUTH Clinics EVERY DAY fluconazole fluconazole No fluconazol [facility] [place] 150 mg 150 mg e 150 mg Communi tablet TAKE tablet TAKE tablet ty 1 TABLET BY 1 TABLET BY TAKE 1 Hospita MOUTH NOW. MOUTH NOW. TABLET BY l REPEAT IN REPEAT IN MOUTH NOW. Clinics 72 HOURS 72 HOURS REPEAT IN 72 HOURS folic acid folic acid No folic acid [facility] [place] 1 mg tablet 1 mg tablet 1 mg [facility] TAKE 3 TAKE 3 tablet ty TABLETS BY TABLETS BY TAKE 3 H [facility]spita MOUTH EVERY MOUTH EVERY TABLETS BY l DAY DAY MOUTH Clinics EVERY DAY alprazolam alprazolam No alprazolam [facility] [place] 1 mg tablet 1 mg tablet 1 mg [facility] TAKE 1 TAKE 1 tablet ty TABLET BY TABLET BY TAKE 1 [facility] MOUTH THREE MOUTH THREE TABLET BY l TIMES DAILY TIMES DAILY MOUTH Clinics THREE TIMES DAILY gabapentin gabapentin No gabapentin [facility] [place] 300 mg 300 mg 300 mg Communi capsule capsule capsule ty TAKE 1 TAKE 1 TAKE 1 Hospita CAPSULE BY CAPSULE BY CAPSULE BY l MOUTH TWICE MOUTH TWICE MOUTH Clinics DAILY DAILY TWICE DAILY hydrocodone hydrocodone No hydrocodon [facility] [place] 5 5 e 5 Communi mg-acetamin mg-acetamin mg-acetami ty ophen 325 ophen 325 nophen 325 Hospita mg tablet mg tablet mg tablet l TAKE 1 TAKE 1 TAKE 1 Clinics TABLET BY TABLET BY TABLET BY MOUTH EVERY MOUTH EVERY MOUTH 6 HOURS 6 HOURS EVERY 6 HOURS hydroxychlo hydroxychlo No hydroxychl [facility] [place] roquine 200 roquine 200 oroquine Communi mg tablet mg tablet 200 mg ty TAKE 1 TAKE 1 tablet Hospita TABLET BY TABLET BY TAKE 1 l MOUTH TWICE MOUTH TWICE TABLET BY Clinics DAILY DAILY MOUTH TWICE DAILY levothyroxi levothyroxi No levothyrox [place] ne 150 mcg ne 150 mcg ine 150 Communi tablet TAKE tablet TAKE mcg tablet ty 1 TABLET BY 1 TABLET BY TAKE 1 Hospita MOUTH EVERY MOUTH EVERY TABLET BY l MORNING MORNING MOUTH Clinics EVERY MORNING lubiproston lubiproston No lubiprosto [facility] [place] e 24 mcg e 24 mcg ne 24 mcg [facility] capsule capsule capsule ty TAKE 1 TAKE 1 TAKE 1 Hospita CAPSULE BY CAPSULE BY CAPSULE BY l MOUTH TWICE MOUTH TWICE MOUTH Clinics DAILY WITH DAILY WITH TWICE FOOD FOOD DAILY WITH FOOD medroxyprog medroxyprog No medroxypro [place] esterone 10 esterone 10 gesterone Communi mg tablet mg tablet 10 mg ty TAKE 1 TAKE 1 tablet Hospita TABLET BY TABLET BY TAKE 1 l MOUTH EVERY MOUTH EVERY TABLET BY Clinics DAY WITH DAY WITH MOUTH FOOD FOR 14 FOOD FOR 14 EVERY DAY DAYS DAYS WITH FOOD FOR 14 DAYS methotrexat methotrexat No methotrexa [place] e sodium e sodium te sodium [facility] 2.5 mg 2.5 mg 2.5 mg ty tablet TAKE tablet TAKE tablet [facility]osp[facility] 5 TABLETS 5 TABLETS TAKE 5 l BY MOUTH 1 BY MOUTH 1 TABLETS BY Clinics TIME A WEEK TIME A WEEK MOUTH 1 DIRECTED DIRECTED TIME A WEEK DIRECTED metoclopram metoclopram No metoclopra [facility] [place] rosario 10 mg rosario 10 mg mide 10 mg Communi tablet TAKE tablet TAKE tablet ty 1 TABLET BY 1 TABLET BY TAKE 1 Hospita MOUTH EVERY MOUTH EVERY TABLET BY l 8 HOURS 8 HOURS MOUTH Cl inics NEEDED NEEDED EVERY 8 HOURS NEEDED Mounjaro 5 Mounjaro 5 No Mounjaro 5 [facility] [place] mg/0.5 mL mg/0.5 mL mg/0.5 mL Communi subcutaneou subcutaneou subcutaneo ty s pen s pen us pen Hospita injector injector injector l INJECT FIVE INJECT FIVE INJECT Clinics (5) MG (5) MG FIVE (5) UNDER THE UNDER THE MG UNDER SKIN SKIN THE SKIN WEEKLY. WEEKLY. WEEKLY. nitrofurant nitrofurant No nitrofuran [facility] [place] oin oin toin Communi monohydrate monohydrate monohydrat [...] DAYS. DO ALL THIS FOR 5 DAYS. amoxicillin amoxicillin No amoxicilli [facility] [place] 500 mg 500 mg n 500 mg Communi capsule capsule capsule ty Hospita l Clinics omeprazole omeprazole No omeprazole [facility] [place] 20 mg 20 mg 20 mg Communi capsule,del capsule,del capsule,de ty ayed ayed layed [facility]ospita release release release l TAKE 1 TAKE 1 TAKE 1 Clinics CAPSULE BY CAPSULE BY CAPSULE BY MOUTH EVERY MOUTH EVERY MOUTH MORNING IN MORNING IN EVERY THE MORNING THE MORNING MORNING IN THE MORNING ondansetron ondansetron No ondansetro [facility] [place] 4 mg 4 mg n 4 mg Communi disintegrat disintegrat disintegra ty ing tablet ing tablet ting [facility] DISSOLVE 1 DISSOLVE 1 tablet l TABLET ON TABLET ON DISSOLVE 1 Clinics THE TONGUE THE TONGUE TABLET ON EVERY 6 TO EVERY 6 TO THE TONGUE 8 HOURS FOR 8 HOURS FOR EVERY 6 TO 5 DAYS 5 DAYS 8 HOURS NEEDED NEEDED FOR 5 DAYS NEEDED ondansetron ondansetron No ondansetro [facility] [place] 8 mg 8 mg n 8 mg Communi disintegrat disintegrat disintegra ty ing tablet ing tablet ting [facility] tablet l Clinics pantoprazol pantoprazol No pantoprazo [place] e 40 mg e 40 mg le 40 mg Commu ni tablet,carlos tablet,carlos tablet,del ty yed release yed release ayed [facility] TAKE 1 TAKE 1 release l TABLET BY TABLET BY TAKE 1 Cli nics MOUTH TWICE MOUTH TWICE TABLET BY DAILY DAILY MOUTH TWICE DAILY phentermine phentermine No phentermin [facility] [place] 37.5 mg 37.5 mg e 37.5 mg Comm uni tablet tablet tablet ty Hospita l Clinics prednisone prednisone No prednisone [place] 10 mg 10 mg 10 mg Communi [...] FOR 3 DAYS quetiapine quetiapine No quetiapine [facility] [place] 400 mg 400 mg 400 mg Communi tablet TAKE tablet TAKE tablet ty 3 TABLETS 3 TABLETS TAKE 3 [facility] BY MOUTH AT BY MOUTH AT TABLETS BY l BEDTIME BEDTIME MOUTH AT Clini cs BEDTIME ropinirole ropinirole No ropinirole [facility] [place] 1 mg tablet 1 mg tablet 1 mg [facility] TAKE 1 TAKE 1 tablet ty TABLET BY TABLET BY TAKE 1 [facility] MOUTH AT MOUTH AT TABLET BY l BEDTIME BEDTIME MOUTH AT Clini cs BEDTIME spironolact spironolact No spironolac [place] one 100 mg one 100 mg tone 100 Communi tablet TAKE tablet TAKE mg tablet ty 1 TABLET BY 1 TABLET BY TAKE 1 Hospita MOUTH TWICE MOUTH TWICE TABLET BY l DAILY DAILY MOUTH Clinics TWICE DAILY azithromyci azithromyci No azithromyc [place] n 250 mg n 250 mg in [...] DAYS T PO D FOR 4 DAYS spironolact spironolact No spironolac [place] one 50 mg one 50 mg tone 50 mg Communi tablet TAKE tablet TAKE tablet ty 1 TABLET BY 1 TABLET BY TAKE 1 Hospita MOUTH TWICE MOUTH TWICE TABLET BY l DAILY DAILY MOUTH Clinics TWICE DAILY sulfamethox sulfamethox No sulfametho [place] azole 800 azole 800 xazole 800 Communi mg-trimetho mg-trimetho mg-trimeth ty prim 160 mg prim 160 mg oprim 160 Hospita tablet TAKE tablet TAKE mg tablet l 1 TABLET BY 1 TABLET BY TAKE 1 Clinics MOUTH TWICE MOUTH TWICE TABLET BY DAILY DAILY MOUTH TWICE DAILY sumatriptan sumatriptan No sumatripta [facility] [place] 100 mg 100 mg n 100 mg Communi tablet TAKE tablet TAKE tablet ty 1 TABLET BY 1 TABLET BY TAKE 1 Hospita MOUTH EVERY MOUTH EVERY TABLET BY l DAY DAY MOUTH Clinics NEEDED NEEDED EVERY DAY NEEDED Sutab Sutab No Sutab [place] 1.479-0.188 1.479-0.188 1.479-0.18 Communi -0.225 gram -0.225 gram 8-0.225 ty tablet TAKE tablet TAKE gram H [facility] DIRECTED DIRECTED tablet l BY YOUR BY YOUR TAKE Clinic s COLONOSCOPY COLONOSCOPY DIRECTED PACKET PACKET BY YOUR INSTRUCTION INSTRUCTION COLONOSCOP S S Y PACKET INSTRUCTIO NS testosteron testosteron No 150mg testostero [facility] [place] e 100 mg e 100 mg ne 100 mg [facility] implant implant implant ty pellet Take pellet Take pellet [facility]ospita 150 mg by 150 mg by Take 150 l implantatio implantatio mg by Clinics n route. n route. implantati on route. tranexamic tranexamic No tranexamic [facility] [place] acid 650 mg acid 650 mg acid 650 Communi tablet TAKE tablet TAKE mg tablet ty 2 TABLETS 2 TABLETS TAKE 2 [facility] BY MOUTH BY MOUTH TABLETS BY l THREE TIMES THREE TIMES MOUTH Clinics DAILY DAILY THREE DURING DURING TIMES MENSES FOR MENSES FOR DAILY 5 DAYS. 5 DAYS. DURING MENSES FOR 5 DAYS. trazodone trazodone No trazodone [facility] [place] 100 mg 100 mg 100 mg Communi tablet TAKE tablet TAKE tablet ty 1 TABLET BY 1 TABLET BY TAKE 1 Hospita MOUTH AT MOUTH AT TABLET BY l BEDTIME BEDTIME MOUTH AT Clini cs BEDTIME Uribel 118 Uribel 118 No Uribel 118 [place] mg-10 mg-10 mg-10 Communi mg-40.8 mg-40.8 mg-40.8 ty mg-36 mg mg-36 mg mg-36 mg [facility] capsule capsule capsule l TAKE 1 TAKE 1 TAKE 1 Clinics CAPSULE BY CAPSULE BY CAPSULE BY MOUTH FOUR MOUTH FOUR MOUTH FOUR TIMES DAILY TIMES DAILY TIMES FOR 10 DAYS FOR 10 DAYS DAILY FOR 10 DAYS valacyclovi valacyclovi No valacyclov [facility] [place] r 1 gram r 1 gram ir 1 gram [facility] tablet TAKE tablet TAKE tablet ty 1 TABLET BY 1 TABLET BY TAKE 1 Hospita MOUTH THREE MOUTH THREE TABLET BY l TIMES DAILY TIMES DAILY MOUTH Clinics FOR 7 DAYS FOR 7 DAYS THREE TIMES DAILY FOR 7 DAYS valacyclovi valacyclovi No valacyclov [facility] [place] r 500 mg r 500 mg ir 500 mg [facility] tablet tablet tablet ty [facility] benzonatate benzonatate No benzonatat [place] 100 mg 100 mg e 100 mg Communi capsule capsule capsule ty TAKE 2 TAKE 2 TAKE 2 Hospita CAPSULES BY CAPSULES BY CAPSULES l MOUTH TWICE MOUTH TWICE BY MOUTH Clinics DAILY DAILY TWICE NEEDED FOR NEEDED FOR DAILY COUGH COUGH NEEDED FOR COUGH valsartan valsartan No valsartan [place] 80 mg 80 mg 80 mg Communi tablet tablet tablet ty [facility] Virtussin Virtussin No Virtussin [place] AC 10 AC 10 AC 10 Communi mg-100 mg/5 mg-100 mg/5 mg-100 ty mL oral mL oral mg/5 mL Hospit a liquid TAKE liquid TAKE oral l 5 ML BY 5 ML BY liquid Clinics MOUTH EVERY MOUTH EVERY TAKE 5 ML 6 HOURS 6 HOURS BY MOUTH NEEDED NEEDED EVERY 6 HOURS NEEDED zinc zinc No zinc [facility] [place] sulfate 50 sulfate 50 sulfate 50 Communi mg zinc mg zinc mg zinc ty (220 mg) (220 mg) (220 mg) [facility] capsule capsule capsule l TAKE ONE TAKE ONE TAKE ONE Cli nics CAPSULE BY CAPSULE BY CAPSULE BY MOUTH EVERY MOUTH EVERY MOUTH DAY DAY EVERY DAY cefuroxime cefuroxime No cefuroxime [place] axetil 500 axetil 500 axetil 500 Communi mg tablet mg tablet mg tablet ty TAKE 1 TAKE 1 TAKE 1 Hospita TABLET BY TABLET BY TABLET BY l MOUTH TWICE MOUTH TWICE MOUTH Clinics DAILY DAILY TWICE DAILY acyclovir acyclovir No 1 Q12H acyclovir [place] 400 mg 400 mg 400 mg Communi tablet Take tablet Take tablet ty 1 tablet 1 tablet Take 1 Hospi ta every 12 every 12 tablet l hours by hours by every 12 Cli nics oral route oral route hours by for 90 for 90 oral route days. days. for 90 days. acyclovir acyclovir No acyclovir [place] 800 mg 800 mg 800 mg Communi tablet TAKE tablet TAKE tablet ty 1 TABLET BY 1 TABLET BY TAKE 1 Hospita MOUTH EVERY MOUTH EVERY TABLET BY l 4 HOURS 4 HOURS MOUTH Clinics WHILE AWAKE WHILE AWAKE EVERY 4 FOR 7 DAYS FOR 7 DAYS HOURS WHILE AWAKE FOR 7 DAYS alprazolam alprazolam No alprazolam [facility] [place] 1 mg tablet 1 mg tablet 1 mg [facility] TAKE 1 TAKE 1 tablet ty TABLET BY TABLET BY TAKE 1 [facility] MOUTH THREE MOUTH THREE TABLET BY l TIMES DAILY TIMES DAILY MOUTH Clinics THREE TIMES DAILY citalopram citalopram No citalopram [place] 40 mg 40 mg 40 mg Communi tablet TAKE tablet TAKE tablet ty 1 TABLET BY 1 TABLET BY TAKE 1 Hospita MOUTH EVERY MOUTH EVERY TABLET BY l DAY DAY MOUTH Clinics EVERY DAY estradiol estradiol No estradiol [facility] [place] 12.5 mg 12.5 mg 12.5 mg Commun i implant implant implant ty pellet 15 pellet 15 pellet 15 Hospita mg mg mg l Clinics famotidine famotidine No famotidine [facility] [place] 20 mg 20 mg 20 mg Communi tablet TAKE tablet TAKE tablet ty 1 TABLET BY 1 TABLET BY TAKE 1 Hospita MOUTH EVERY MOUTH EVERY TABLET BY l NIGHT AT NIGHT AT MOUTH Clinic s BEDTIME BEDTIME EVERY NIGHT AT BEDTIME cholecalcif cholecalcif No cholecalci [place] ry ry ferol Communi (vitamin (vitamin (vitamin ty D3) 1,250 D3) 1,250 D3) 1,250 Hospita mcg (50,000 mcg (50,000 mcg l unit) unit) (50,000 Clinics capsule capsule unit) TAKE 1 TAKE 1 capsule CAPSULE BY CAPSULE BY TAKE 1 MOUTH EVERY MOUTH EVERY CAPSULE BY WEEK WEEK MOUTH EVERY WEEK finasteride finasteride No finasterid [place] 5 mg tablet 5 mg tablet e 5 mg Communi TAKE 1 TAKE 1 tablet ty TABLET BY TABLET BY TAKE 1 [facility] MOUTH EVERY MOUTH EVERY TABLET BY l DAY DAY MOUTH Clinics EVERY DAY levothyroxi levothyroxi No levothyrox [place] ne 150 mcg ne 150 mcg ine 150 Communi tablet TAKE tablet TAKE mcg tablet ty 1 TABLET BY 1 TABLET BY TAKE 1 Hospita MOUTH EVERY MOUTH EVERY TABLET BY l MORNING MORNING MOUTH Clinics EVERY MORNING liothyronin liothyronin No 1 Q1D liothyroni [facility] [place] e 5 mcg e 5 mcg ne 5 mcg Com[facility] ni tablet Take tablet Take tablet ty 1 tablet 1 tablet Take 1 Hospi ta every day every day tablet l by oral by oral every day Clin ics route for route for by oral 90 days. 90 days. route for 90 days. lubiproston lubiproston No lubiprosto [facility] [place] e 24 mcg e 24 mcg ne 24 mcg [facility] capsule capsule capsule ty TAKE 1 TAKE 1 TAKE 1 Hospita CAPSULE BY CAPSULE BY CAPSULE BY l MOUTH TWICE MOUTH TWICE MOUTH Clinics DAILY WITH DAILY WITH TWICE FOOD FOOD DAILY WITH FOOD Mounjaro 5 Mounjaro 5 No Mounjaro 5 [place] mg/0.5 mL mg/0.5 mL mg/0.5 mL Communi subcutaneou subcutaneou subcutaneo ty s pen s pen us pen Hospita injector injector injector l INJECT FIVE INJECT FIVE INJECT Clinics (5) MG (5) MG FIVE (5) UNDER THE UNDER THE MG UNDER SKIN SKIN THE SKIN WEEKLY. WEEKLY. WEEKLY. ondansetron ondansetron No ondansetro [place] 4 mg 4 mg n 4 mg Communi disintegrat disintegrat disintegra ty ing tablet ing tablet ting [facility] DISSOLVE 1 DISSOLVE 1 tablet l TABLET ON TABLET ON DISSOLVE 1 Clinics THE TONGUE THE TONGUE TABLET ON EVERY 6 TO EVERY 6 TO THE TONGUE 8 HOURS FOR 8 HOURS FOR EVERY 6 TO 5 DAYS 5 DAYS 8 HOURS NEEDED NEEDED FOR 5 DAYS NEEDED quetiapine quetiapine No quetiapine [facility] [place] 400 mg 400 mg 400 mg Communi tablet TAKE tablet TAKE tablet ty 3 TABLETS 3 TABLETS TAKE 3 [facility] BY MOUTH AT BY MOUTH AT TABLETS BY l BEDTIME BEDTIME MOUTH AT Clini cs BEDTIME ropinirole ropinirole No ropinirole [facility] [place] 1 mg tablet 1 mg tablet 1 mg [facility] TAKE 1 TAKE 1 tablet ty TABLET BY TABLET BY TAKE 1 [facility] MOUTH AT MOUTH AT TABLET BY l BEDTIME BEDTIME MOUTH AT Clini cs BEDTIME spironolact spironolact No spironolac [facility] [place] one 100 mg one 100 mg tone 100 Communi tablet TAKE tablet TAKE mg tablet ty 1 TABLET BY 1 TABLET BY TAKE 1 Hospita MOUTH TWICE MOUTH TWICE TABLET BY l DAILY DAILY MOUTH Clinics TWICE DAILY sumatriptan sumatriptan No sumatripta [facility] [place] 100 mg 100 mg n 100 mg [facility] tablet TAKE tablet TAKE tablet ty 1 TABLET BY 1 TABLET BY TAKE 1 [facility]ospita MOUTH EVERY MOUTH EVERY TABLET BY l DAY DAY MOUTH Clinics NEEDED NEEDED EVERY DAY NEEDED citalopram citalopram No citalopram [place] 40 mg 40 mg 40 mg [facility] tablet TAKE tablet TAKE tablet ty 1 TABLET BY 1 TABLET BY TAKE 1 [facility]ospita MOUTH EVERY MOUTH EVERY TABLET BY l DAY DAY MOUTH Clinics EVERY DAY testosteron testosteron No 150mg testostero [place] e 100 mg e 100 mg ne 100 mg [facility] implant implant implant ty pellet Take pellet Take pellet [facility] 150 mg by 150 mg by Take 150 l implantatio implantatio mg by Clinics n route. n route. implantati on route. trazodone trazodone No trazodone [place] 100 mg 100 mg 100 mg [facility] tablet TAKE tablet TAKE tablet ty 1 TABLET BY 1 TABLET BY TAKE 1 [facility]ospita MOUTH AT MOUTH AT TABLET BY l BEDTIME BEDTIME MOUTH AT Clini cs BEDTIME zinc zinc No zinc [place] sulfate 50 sulfate 50 sulfate 50 [facility] mg zinc mg zinc mg zinc ty (220 mg) (220 mg) (220 mg) [facility] capsule capsule capsule l TAKE ONE TAKE ONE TAKE ONE Cli nics CAPSULE BY CAPSULE BY CAPSULE BY MOUTH EVERY MOUTH EVERY MOUTH DAY DAY EVERY DAY Contrave 8 Contrave 8 No 2 BID Contrave 8 [place] mg-90 mg mg-90 mg mg-90 mg Com [facility] tablet,exte tablet,exte tablet,ext ty nded nded ended Hospita release release release l Take 2 Take 2 Take 2 Clinics tablets tablets tablets twice a day twice a day twice a by oral by oral day by route for route for oral route 90 days. 90 days. for 90 days. diethylprop diethylprop No diethylpro [place] ion ER 75 ion ER 75 pion ER 75 [facility] mg mg mg ty tablet,exte tablet,exte tablet,ext Hospita nded nded ended l release release release Clinic s doxazosin 4 doxazosin 4 No doxazosin [place] mg tablet mg tablet 4 mg [facility] ni TAKE 1 TAKE 1 tablet ty TABLET BY TABLET BY TAKE 1 [facility] MOUTH AT MOUTH AT TABLET BY l BEDTIME BEDTIME MOUTH AT Clini cs BEDTIME escitalopra escitalopra No escitalopr [place] m 20 mg m 20 mg am 20 mg [facility] ni tablet TAKE tablet TAKE tablet ty 1 TABLET BY 1 TABLET BY TAKE 1 [facility] MOUTH EVERY MOUTH EVERY TABLET BY l DAY DAY MOUTH Clinics EVERY DAY estradiol estradiol No estradiol [place] 12.5 mg 12.5 mg 12.5 mg [facility] i implant implant implant ty pellet 15 pellet 15 pellet 15 [facility] mg mg mg l Clinics famotidine famotidine No famotidine [place] 20 mg 20 mg 20 mg [facility] tablet TAKE tablet TAKE tablet ty 1 TABLET BY 1 TABLET BY TAKE 1 [facility]ita MOUTH EVERY MOUTH EVERY TABLET BY l NIGHT AT NIGHT AT MOUTH Clinic s BEDTIME BEDTIME EVERY NIGHT AT BEDTIME finasteride finasteride No finasterid [place] 5 mg tablet 5 mg tablet e 5 mg [facility] TAKE 1 TAKE 1 tablet ty TABLET BY TABLET BY TAKE 1 [facility] MOUTH EVERY MOUTH EVERY TABLET BY l DAY DAY MOUTH Clinics EVERY DAY fluconazole fluconazole No fluconazol [place] 150 mg 150 mg e 150 mg [facility] tablet TAKE tablet TAKE tablet ty 1 TABLET BY 1 TABLET BY TAKE 1 [facility]ospita MOUTH NOW. MOUTH NOW. TABLET BY l REPEAT IN REPEAT IN MOUTH NOW. Clinics 72 HOURS 72 HOURS REPEAT IN 72 HOURS folic acid folic acid No folic acid [place] 1 mg tablet 1 mg tablet 1 mg [facility] TAKE 3 TAKE 3 tablet ty TABLETS BY TABLETS BY TAKE 3 [facility] MOUTH EVERY MOUTH EVERY TABLETS BY l DAY DAY MOUTH Clinics EVERY DAY gabapentin gabapentin No gabapentin [place] 300 mg 300 mg 300 mg [facility] capsule capsule capsule ty TAKE 1 TAKE 1 TAKE 1 [facility] CAPSULE BY CAPSULE BY CAPSULE BY l MOUTH TWICE MOUTH TWICE MOUTH Clinics DAILY DAILY TWICE DAILY hydrocodone hydrocodone No hydrocodon [place] 5 5 e 5 Communi mg-acetamin mg-acetamin mg-acetami ty ophen 325 ophen 325 nophen 325 [facility] mg tablet mg tablet mg tablet l TAKE 1 TAKE 1 TAKE 1 Clinics TABLET BY TABLET BY TABLET BY MOUTH EVERY MOUTH EVERY MOUTH 6 HOURS 6 HOURS EVERY 6 HOURS hydroxychlo hydroxychlo No hydroxychl [place] roquine 200 roquine 200 oroquine [facility] mg tablet mg tablet 200 mg ty TAKE 1 TAKE 1 tablet [facility] TABLET BY TABLET BY TAKE 1 l MOUTH TWICE MOUTH TWICE TABLET BY Clinics DAILY DAILY MOUTH TWICE DAILY levothyroxi levothyroxi No levothyrox [place] ne 150 mcg ne 150 mcg ine 150 [facility] tablet TAKE tablet TAKE mcg tablet ty 1 TABLET BY 1 TABLET BY TAKE 1 [facility]ospita MOUTH EVERY MOUTH EVERY TABLET BY l MORNING MORNING MOUTH Clinics EVERY MORNING lubiproston lubiproston No lubiprosto [place] e 24 mcg e 24 mcg ne 24 mcg [facility] capsule capsule capsule ty TAKE 1 TAKE 1 TAKE 1 [facility] CAPSULE BY CAPSULE BY CAPSULE BY l MOUTH TWICE MOUTH TWICE MOUTH Clinics DAILY WITH DAILY WITH TWICE FOOD FOOD DAILY WITH FOOD medroxyprog medroxyprog No medroxypro [place] esterone 10 esterone 10 gesterone [facility] mg tablet mg tablet 10 mg ty TAKE 1 TAKE 1 tablet [facility]osp[facility] TABLET BY TABLET BY TAKE 1 l MOUTH EVERY MOUTH EVERY TABLET BY Clinics DAY WITH DAY WITH MOUTH FOOD FOR 14 FOOD FOR 14 EVERY DAY DAYS DAYS WITH FOOD FOR 14 DAYS methotrexat methotrexat No methotrexa [place] e sodium e sodium te sodium [facility] 2.5 mg 2.5 mg 2.5 mg ty tablet TAKE tablet TAKE tablet [facility]osp[facility] 5 TABLETS 5 TABLETS TAKE 5 l BY MOUTH 1 BY MOUTH 1 TABLETS BY Clinics TIME A WEEK TIME A WEEK MOUTH 1 DIRECTED DIRECTED TIME A WEEK DIRECTED metoclopram metoclopram No metoclopra [place] rosario 10 mg rosario 10 mg mide 10 mg [facility] tablet TAKE tablet TAKE tablet ty 1 TABLET BY 1 TABLET BY TAKE 1 [facility] MOUTH EVERY MOUTH EVERY TABLET BY l 8 HOURS 8 HOURS MOUTH Cl inics NEEDED NEEDED EVERY 8 HOURS NEEDED Mounjaro 5 Mounjaro 5 No 5mg Q1W Mounjaro 5 [place] mg/0.5 mL mg/0.5 mL mg/0.5 mL [facility] subcutaneou subcutaneou subcutaneo ty s pen s pen us pen Hosp[facility] injector injector injector l Inject 5 mg Inject 5 mg Inject 5 Clinics every week every week mg every by by week by subcutaneou subcutaneou subcutaneo s route for s route for us route 84 days. 84 days. for 84 days. nitrofurant nitrofurant No nitrofuran [place] oin oin toin [facility] monohydrate monohydrate monohydrat [...] FOR 5 DAYS. omeprazole omeprazole No omeprazole [place] 20 mg 20 mg 20 mg [facility] capsule,del capsule,del capsule,de ty ayed ayed layed [facility]osp[facility] release release release l TAKE 1 TAKE 1 TAKE 1 Clinics CAPSULE BY CAPSULE BY CAPSULE BY MOUTH EVERY MOUTH EVERY MOUTH MORNING IN MORNING IN EVERY THE MORNING THE MORNING MORNING IN THE MORNING ondansetron ondansetron No ondansetro [place] 4 mg 4 mg n 4 mg [...] VOMITING AND VOMITING ondansetron ondansetron No ondansetro [place] 8 mg 8 mg n 8 mg [facility] disintegrat disintegrat disintegra ty ing tablet ing tablet ting [facility] tablet l Clinics pantoprazol pantoprazol No pantoprazo [place] e 40 mg e 40 mg le 40 mg Com[facility] ni tablet,carlos tablet,cralos tablet,del ty yed release yed release ayed [facility] TAKE 1 TAKE 1 release l TABLET BY TABLET BY TAKE 1 Cli nics MOUTH TWICE MOUTH TWICE TABLET BY DAILY DAILY MOUTH TWICE DAILY phentermine phentermine No phentermin [place] 37.5 mg 37.5 mg e 37.5 mg Comm uni tablet tablet tablet ty Hospita l Clinics prednisone prednisone No prednisone [place] 10 mg 10 mg 10 mg Communi [...] FOR 3 DAYS quetiapine quetiapine No quetiapine [place] 400 mg 400 mg 400 mg [facility] tablet TAKE tablet TAKE tablet ty 3 TABLETS 3 TABLETS TAKE 3 [facility] BY MOUTH AT BY MOUTH AT TABLETS BY l BEDTIME BEDTIME MOUTH AT Clini cs BEDTIME ropinirole ropinirole No ropinirole [place] 1 mg tablet 1 mg tablet 1 mg [facility] TAKE 1 TAKE 1 tablet ty TABLET BY TABLET BY TAKE 1 [facility] MOUTH AT MOUTH AT TABLET BY l BEDTIME BEDTIME MOUTH AT Clini cs BEDTIME spironolact spironolact No spironolac [place] one 100 mg one 100 mg tone 100 [facility] tablet TAKE tablet TAKE mg tablet ty 1 TABLET BY 1 TABLET BY TAKE 1 [facility] MOUTH TWICE MOUTH TWICE TABLET BY l DAILY DAILY MOUTH Clinics TWICE DAILY spironolact spironolact No spironolac [place] one 50 mg one 50 mg tone 50 mg [facility] tablet TAKE tablet TAKE tablet ty 1 TABLET BY 1 TABLET BY TAKE 1 [facility] MOUTH TWICE MOUTH TWICE TABLET BY l DAILY DAILY MOUTH Clinics TWICE DAILY sulfamethox sulfamethox No sulfametho [place] azole 800 azole 800 xazole 800 [facility] mg-trimetho mg-trimetho mg-trimeth ty prim 160 mg prim 160 mg oprim 160 [facility]ospita tablet tablet mg tablet l Clinics sumatriptan sumatriptan No sumatripta [place] 100 mg 100 mg n 100 mg [facility] tablet TAKE tablet TAKE tablet ty 1 TABLET BY 1 TABLET BY TAKE 1 [facility]ospita MOUTH EVERY MOUTH EVERY TABLET BY l DAY DAY MOUTH Clinics NEEDED NEEDED EVERY DAY NEEDED Sutab Sutab No Sutab [place] 1.479-0.188 1.479-0.188 1.479-0.18 Communi -0.225 gram -0.225 gram 8-0.225 ty tablet TAKE tablet TAKE gram H [facility] DIRECTED DIRECTED tablet l BY YOUR BY YOUR TAKE Clinic s COLONOSCOPY COLONOSCOPY DIRECTED PACKET PACKET BY YOUR INSTRUCTION INSTRUCTION COLONOSCOP S S Y PACKET INSTRUCTIO NS testosteron testosteron No 150mg testostero [place] e 100 mg e 100 mg ne 100 mg [facility] implant implant implant ty pellet Take pellet Take pellet [facility] 150 mg by 150 mg by Take 150 l implantatio implantatio mg by Clinics n route. n route. implantati on route. tranexamic tranexamic No tranexamic [place] acid 650 mg acid 650 mg acid 650 [facility] tablet TAKE tablet TAKE mg tablet ty 2 TABLETS 2 TABLETS TAKE 2 [facility] BY MOUTH BY MOUTH TABLETS BY l THREE TIMES THREE TIMES MOUTH Clinics DAILY DAILY THREE DURING DURING TIMES MENSES FOR MENSES FOR DAILY 5 DAYS. 5 DAYS. DURING MENSES FOR 5 DAYS. trazodone trazodone No trazodone [place] 100 mg 100 mg 100 mg [facility] tablet TAKE tablet TAKE tablet ty 1 TABLET BY 1 TABLET BY TAKE 1 [facility]ospita MOUTH AT MOUTH AT TABLET BY l BEDTIME BEDTIME MOUTH AT Clini cs BEDTIME Uribel 118 Uribel 118 No Uribel 118 [place] mg-10 mg-10 mg-10 [facility] mg-40.8 mg-40.8 mg-40.8 ty mg-36 mg mg-36 mg mg-36 mg [facility] capsule capsule capsule l TAKE 1 TAKE 1 TAKE 1 Clinics CAPSULE BY CAPSULE BY CAPSULE BY MOUTH FOUR MOUTH FOUR MOUTH FOUR TIMES DAILY TIMES DAILY TIMES FOR 10 DAYS FOR 10 DAYS DAILY FOR 10 DAYS valacyclovi valacyclovi No valacyclov [place] r 1 gram r 1 gram ir 1 gram [facility] tablet TAKE tablet TAKE tablet ty 1 TABLET BY 1 TABLET BY TAKE 1 [facility] MOUTH THREE MOUTH THREE TABLET BY l TIMES DAILY TIMES DAILY MOUTH Clinics FOR 7 DAYS FOR 7 DAYS THREE TIMES DAILY FOR 7 DAYS valacyclovi valacyclovi No valacyclov [place] r 500 mg r 500 mg ir 500 mg [facility] tablet tablet tablet ty [facility]osp[facility] l Clinics valsartan valsartan No valsartan [place] 80 mg 80 mg 80 mg [facility] tablet tablet tablet ty Hospita l Clinics Virtussin Virtussin No Virtussin [place] AC 10 AC 10 AC 10 [facility] mg-100 mg/5 mg-100 mg/5 mg-100 ty mL oral mL oral mg/5 mL Hospit a liquid TAKE liquid TAKE oral l 5 ML BY 5 ML BY liquid Clinics MOUTH EVERY MOUTH EVERY TAKE 5 ML 6 HOURS 6 HOURS BY MOUTH NEEDED NEEDED EVERY 6 HOURS NEEDED zinc zinc No zinc [place] sulfate 50 sulfate 50 sulfate 50 [facility] mg zinc mg zinc mg zinc ty (220 mg) (220 mg) (220 mg) [facility] capsule capsule capsule l TAKE ONE TAKE ONE TAKE ONE Cli nics CAPSULE BY CAPSULE BY CAPSULE BY MOUTH EVERY MOUTH EVERY MOUTH DAY DAY EVERY DAY diethylprop diethylprop No diethylpro [place] ion ER 75 ion ER 75 pion ER 75 [facility] mg mg mg ty tablet,exte tablet,exte tablet,ext [facility]ospita nded nded ended l release release release Clinic s acyclovir acyclovir No acyclovir [place] 400 mg 400 mg 400 mg [facility] tablet tablet tablet ty [facility]osp[facility] l Clinics acyclovir acyclovir No acyclovir [place] 800 mg 800 mg 800 mg [facility] tablet TAKE tablet TAKE tablet ty 1 TABLET BY 1 TABLET BY TAKE 1 [facility]ospita MOUTH EVERY MOUTH EVERY TABLET BY l 4 HOURS 4 HOURS MOUTH Clinics WHILE AWAKE WHILE AWAKE EVERY 4 FOR 7 DAYS FOR 7 DAYS HOURS WHILE AWAKE FOR 7 DAYS albuterol albuterol No albuterol [place] sulfate HFA sulfate HFA sulfate Communi 90 [...] BREATH OR WHEEZING alprazolam alprazolam No alprazolam [place] 1 mg tablet 1 mg tablet 1 mg [facility] TAKE 1 TAKE 1 tablet ty TABLET BY TABLET BY TAKE 1 [facility] MOUTH THREE MOUTH THREE TABLET BY l TIMES DAILY TIMES DAILY MOUTH Clinics THREE TIMES DAILY amoxicillin amoxicillin No amoxicilli [place] 500 mg 500 mg n 500 mg [facility] capsule capsule capsule ty [facility]osp[facility] l Clinics doxazosin 4 doxazosin 4 No doxazosin [place] mg tablet mg tablet 4 mg Com[facility] ni TAKE 1 TAKE 1 tablet ty TABLET BY TABLET BY TAKE 1 [facility] MOUTH AT MOUTH AT TABLET BY l BEDTIME BEDTIME MOUTH AT Clini cs BEDTIME azithromyci azithromyci No azithromyc [place] n 250 mg n 250 mg in [...] FOR 4 DAYS benzonatate benzonatate No benzonatat [place] 100 mg 100 mg e 100 mg [facility] capsule capsule capsule ty TAKE 2 TAKE 2 TAKE 2 [facility]ita CAPSULES BY CAPSULES BY CAPSULES l MOUTH TWICE MOUTH TWICE BY MOUTH Clinics DAILY DAILY TWICE NEEDED FOR NEEDED FOR DAILY COUGH COUGH NEEDED FOR COUGH cefuroxime cefuroxime No cefuroxime [place] axetil 500 axetil 500 axetil 500 [facility] mg tablet mg tablet mg tablet ty TAKE 1 TAKE 1 TAKE 1 [facility] TABLET BY TABLET BY TABLET BY l MOUTH TWICE MOUTH TWICE MOUTH Clinics DAILY DAILY TWICE DAILY cholecalcif cholecalcif No cholecalci [place] ry ry ferol [facility] (vitamin (vitamin (vitamin ty D3) 1,250 D3) 1,250 D3) 1,250 [facility]ospita mcg (50,000 mcg (50,000 mcg l unit) unit) (50,000 Clinics capsule capsule unit) TAKE 1 TAKE 1 capsule CAPSULE BY CAPSULE BY TAKE 1 MOUTH EVERY MOUTH EVERY CAPSULE BY WEEK WEEK MOUTH EVERY WEEK citalopram citalopram No citalopram [place] 40 mg 40 mg 40 mg [facility] tablet TAKE tablet TAKE tablet ty 1 TABLET BY 1 TABLET BY TAKE 1 [facility] MOUTH EVERY MOUTH EVERY TABLET BY l DAY DAY MOUTH Clinics EVERY DAY escitalopra escitalopra No escitalopr [place] m 20 mg m 20 mg am 20 mg Com[facility] ni tablet TAKE tablet TAKE tablet ty 1 TABLET BY 1 TABLET BY TAKE 1 [facility] MOUTH EVERY MOUTH EVERY TABLET BY l DAY DAY MOUTH Clinics EVERY DAY Contrave 8 Contrave 8 No 2 BID Contrave 8 [place] mg-90 mg mg-90 mg mg-90 mg [facility] tablet,exte tablet,exte tablet,ext ty nded nded ended [facility]osp[facility] release release release l Take 2 Take 2 Take 2 Clinics tablets tablets tablets twice a day twice a day twice a by oral by oral day by route for route for oral route 90 days. 90 days. for 90 days. estradiol estradiol No estradiol [place] 12.5 mg 12.5 mg 12.5 mg Commun i implant implant implant ty pellet 15 pellet 15 pellet 15 [facility] mg mg mg l Clinics famotidine famotidine No famotidine [place] 20 mg 20 mg 20 mg [facility] tablet TAKE tablet TAKE tablet ty 1 TABLET BY 1 TABLET BY TAKE 1 [facility] MOUTH EVERY MOUTH EVERY TABLET BY l NIGHT AT NIGHT AT MOUTH Clinic s BEDTIME BEDTIME EVERY NIGHT AT BEDTIME finasteride finasteride No finasterid [place] 5 mg tablet 5 mg tablet e 5 mg [facility]i TAKE 1 TAKE 1 tablet ty TABLET BY TABLET BY TAKE 1 [facility] MOUTH EVERY MOUTH EVERY TABLET BY l DAY DAY MOUTH Clinics EVERY DAY fluconazole fluconazole No fluconazol [place] 150 mg 150 mg e 150 mg [facility] tablet TAKE tablet TAKE tablet ty 1 TABLET BY 1 TABLET BY TAKE 1 [facility] MOUTH NOW. MOUTH NOW. TABLET BY l REPEAT IN REPEAT IN MOUTH NOW. Clinics 72 HOURS 72 HOURS REPEAT IN 72 HOURS folic acid folic acid No folic acid [place] 1 mg tablet 1 mg tablet 1 mg [facility] TAKE 3 TAKE 3 tablet ty TABLETS BY TABLETS BY TAKE 3 [facility] MOUTH EVERY MOUTH EVERY TABLETS BY l DAY DAY MOUTH Clinics EVERY DAY gabapentin gabapentin No gabapentin [place] 300 mg 300 mg 300 mg [facility] capsule capsule capsule ty TAKE 1 TAKE 1 TAKE 1 [facility] CAPSULE BY CAPSULE BY CAPSULE BY l MOUTH TWICE MOUTH TWICE MOUTH Clinics DAILY DAILY TWICE DAILY hydrocodone hydrocodone No hydrocodon [place] 5 5 e 5 Communi mg-acetamin mg-acetamin mg-acetami ty ophen 325 ophen 325 nophen 325 [facility] mg tablet mg tablet mg tablet l TAKE 1 TAKE 1 TAKE 1 Clinics TABLET BY TABLET BY TABLET BY MOUTH EVERY MOUTH EVERY MOUTH 6 HOURS 6 HOURS EVERY 6 HOURS hydroxychlo hydroxychlo No hydroxychl [place] roquine 200 roquine 200 oroquine [facility] mg tablet mg tablet 200 mg ty TAKE 1 TAKE 1 tablet [facility] TABLET BY TABLET BY TAKE 1 l MOUTH TWICE MOUTH TWICE TABLET BY Clinics DAILY DAILY MOUTH TWICE DAILY levothyroxi levothyroxi No levothyrox [place] ne 150 mcg ne 150 mcg ine 150 [facility] tablet TAKE tablet TAKE mcg tablet ty 1 TABLET BY 1 TABLET BY TAKE 1 [facility] MOUTH EVERY MOUTH EVERY TABLET BY l MORNING MORNING MOUTH Clinics EVERY MORNING lubiproston lubiproston No lubiprosto [place] e 24 mcg e 24 mcg ne 24 mcg [facility] capsule capsule capsule ty TAKE 1 TAKE 1 TAKE 1 [facility] CAPSULE BY CAPSULE BY CAPSULE BY l MOUTH TWICE MOUTH TWICE MOUTH Clinics DAILY WITH DAILY WITH TWICE FOOD FOOD DAILY WITH FOOD medroxyprog medroxyprog No medroxypro [place] esterone 10 esterone 10 gesterone [facility] mg tablet mg tablet 10 mg ty TAKE 1 TAKE 1 tablet [facility] TABLET BY TABLET BY TAKE 1 l MOUTH EVERY MOUTH EVERY TABLET BY Clinics DAY WITH DAY WITH MOUTH FOOD FOR 14 FOOD FOR 14 EVERY DAY DAYS DAYS WITH FOOD FOR 14 DAYS methotrexat methotrexat No methotrexa [place] e sodium e sodium te sodium [facility] 2.5 mg 2.5 mg 2.5 mg ty tablet TAKE tablet TAKE tablet [facility] 5 TABLETS 5 TABLETS TAKE 5 l BY MOUTH 1 BY MOUTH 1 TABLETS BY Clinics TIME A WEEK TIME A WEEK MOUTH 1 DIRECTED DIRECTED TIME A WEEK DIRECTED metoclopram metoclopram No metoclopra [place] rosario 10 mg rosario 10 mg mide 10 mg [facility] tablet TAKE tablet TAKE tablet ty 1 TABLET BY 1 TABLET BY TAKE 1 [facility] MOUTH EVERY MOUTH EVERY TABLET BY l 8 HOURS 8 HOURS MOUTH Cl inics NEEDED NEEDED EVERY 8 HOURS NEEDED Mounjaro 5 Mounjaro 5 No 5mg Q1W Mounjaro 5 [place] mg/0.5 mL mg/0.5 mL mg/0.5 mL [facility]i subcutaneou subcutaneou subcutaneo ty s pen s pen us pen [facility]osp[facility] injector injector injector l Inject 5 mg Inject 5 mg Inject 5 Clinics every week every week mg every by by week by subcutaneou subcutaneou subcutaneo s route for s route for us route 84 days. 84 days. for 84 days. nitrofurant nitrofurant No nitrofuran [place] oin oin toin Communi monohydrate monohydrate monohydrat [...] FOR 5 DAYS. omeprazole omeprazole No omeprazole [place] 20 mg 20 mg 20 mg [facility] capsule,del capsule,del capsule,de ty ayed ayed layed [facility] release release release l TAKE 1 TAKE 1 TAKE 1 Clinics CAPSULE BY CAPSULE BY CAPSULE BY MOUTH EVERY MOUTH EVERY MOUTH MORNING IN MORNING IN EVERY THE MORNING THE MORNING MORNING IN THE MORNING ondansetron ondansetron No ondansetro [place] 4 mg 4 mg n 4 mg [...] VOMITING AND VOMITING ondansetron ondansetron No ondansetro [place] 8 mg 8 mg n 8 mg Communi disintegrat disintegrat disintegra ty ing tablet ing tablet ting [facility] tablet l Clinics pantoprazol pantoprazol No pantoprazo [place] e 40 mg e 40 mg le 40 mg Com[facility] ni tablet,carlos tablet,carlos tablet,del ty yed release yed release ayed [facility] TAKE 1 TAKE 1 release l TABLET BY TABLET BY TAKE 1 Cli nics MOUTH TWICE MOUTH TWICE TABLET BY DAILY DAILY MOUTH TWICE DAILY phentermine phentermine No phentermin [place] 37.5 mg 37.5 mg e 37.5 mg Comm uni tablet tablet tablet ty Hospita l Clinics prednisone prednisone No prednisone [place] 10 mg 10 mg 10 mg [facility] tablet TAKE tablet TAKE tablet ty 1 TABLET BY 1 TABLET BY TAKE 1 [facility]ospita MOUTH TWICE MOUTH TWICE TABLET BY l DAILY DAILY MOUTH Clinics TWICE DAILY Vital Signs Vital Name Observation Time Observation Value Comments Source BP Diastolic 2022-07-14 00:00:00 69 mm[Hg] [facility] Height 2022-07-14 00:00:00 64 [in_i] [facility] BMI (Body Mass 2022-07-14 00:00:00 34.2 kg/m2 [facility] s BP Systolic 2022-07-14 00:00:00 130 mm[Hg] [facility] Body Weight 2022-07-14 00:00:00 3184 [oz_av] [facility] BP Diastolic 2022-02-02 00:00:00 76 mm[Hg] [facility] Height 2022-02-02 00:00:00 64 [in_i] [facility] BMI (Body Mass 2022-02-02 00:00:00 34.2 kg/m2 [facility] s BP Systolic 2022-02-02 00:00:00 104 mm[Hg] [facility] Body Weight 2022-02-02 00:00:00 3184 [oz_av] [facility] Systolic blood 2021-05-01 06:00:00 140 mm[Hg] [facility] Diastolic blood 2021-05-01 06:00:00 83 mm[Hg] [facility] Respiratory rate 2021-05-01 06:00:00 20 /min [facility] Oxygen saturation in 2021-05-01 06:00:00 97 /min [facility] Arterial blood by [facility] Pulse oximetry Branch Heart rate 2021-05-01 04:00:00 99 /min [facility] Body temperature 2021-05-01 04:00:00 37 Padmini [facility] Body weight 2021-05-01 00:10:00 86.183 kg [facility] BMI 2021-05-01 00:10:00 32.61 kg/m2 [facility] Systolic blood 2021-04-30 23:55:00 134 mm[Hg] [facility] Diastolic blood 2021-04-30 23:55:00 80 mm[Hg] [facility] Heart rate 2021-04-30 23:55:00 103 /min [facility] Body temperature 2021-04-30 23:55:00 36.5 Padmini [facility] 2021-04-30 23:55:00 20 /min [facility] Body height 2021-04-30 23:55:00 162.6 cm [facility] Body weight 2021-04-30 23:55:00 86.183 kg [facility] BMI 2021-04-30 23:55:00 32.61 kg/m2 [facility] Oxygen saturation in 2021-04-30 23:55:00 96 /min [facility] Arterial blood by [facility] Pulse oximetry Branch Systolic blood 2021-04-12 22:30:00 123 mm[Hg] [facility] Diastolic blood 2021-04-12 22:30:00 73 mm[Hg] [facility] Heart rate 2021-04-12 22:30:00 105 /min [facility] Body temperature 2021-04-12 22:30:00 36.61 Padmini [facility] Respiratory rate 2021-04-12 22:30:00 20 /min [facility] Body height 2021-04-12 22:30:00 162.6 cm [facility] Body weight 2021-04-12 22:30:00 86.183 kg [facility] BMI 2021-04-12 22:30:00 32.61 kg/m2 [facility] Oxygen saturation in 2021-04-12 22:30:00 96 /min [facility] Arterial blood by [facility] Pulse oximetry Branch Systolic blood 2021-04-13 00:00:00 116 mm[Hg] [facility] Diastolic blood 2021-04-13 00:00:00 82 mm[Hg] [facility] Heart rate 2021-04-13 00:00:00 102 /min [facility] Respiratory rate 2021-04-13 00:00:00 20 /min [facility] Oxygen saturation in 2021-04-13 00:00:00 97 /min [facility] Arterial blood by [facility] Pulse oximetry Branch Body temperature 2021-04-12 22:58:00 37.11 Padmini [facility] Body weight 2021-04-12 22:58:00 86.183 kg [facility] BMI 2021-04-12 22:58:00 32.61 kg/m2 [facility] Systolic blood 2021-04-12 22:46:00 123 mm[Hg] [facility] Diastolic blood 2021-04-12 22:46:00 73 mm[Hg] [facility] Heart rate 2021-04-12 22:46:00 105 /min [facility] Body temperature 2021-04-12 22:46:00 36.61 Padmini [facility] Respiratory rate 2021-04-12 22:46:00 20 /min [facility] Body height 2021-04-12 22:46:00 162.6 cm [facility] Body weight 2021-04-12 22:46:00 86.183 kg [facility] BMI 2021-04-12 22:46:00 32.61 kg/m2 [facility] Oxygen saturation in 2021-04-12 22:46:00 96 /min [facility] Systolic blood 2021-04-08 23:40:00 128 mm[Hg] [facility] Diastolic blood 2021-04-08 23:40:00 88 mm[Hg] [facility] Heart rate 2021-04-08 23:40:00 99 /min [facility] Body temperature 2021-04-08 23:40:00 37 Padmini [facility] Respiratory rate 2021-04-08 23:40:00 20 /min [facility] Body height 2021-04-08 23:40:00 162.6 cm [facility] Body weight 2021-04-08 23:40:00 86.183 kg [facility] BMI 2021-04-08 23:40:00 32.61 kg/m2 [facility] Oxygen saturation in 2021-04-08 23:40:00 97 /min [facility] Arterial blood by [place] [facility] Pulse oximetry Branch Systolic blood 2020-04-01 07:33:00 133 mm[Hg] [facility]iver [facility] Diastolic blood 2020-04-01 07:33:00 75 mm[Hg] Unive rsity of pressure [facility] Heart rate 2020-04-01 07:33:00 98 /min [facility] Body temperature 2020-04-01 07:33:00 36.67 Padmini [facility] Res[facility] rate 2020-04-01 07:33:00 20 /min [facility] Oxygen saturation in 2020-04-01 07:33:00 97 /min [facility] Arterial blood by [facility] Pulse oximetry [place] Body weight 2020-04-01 05:16:00 81.647 kg [facility] Procedures Procedure Date / Time Performing Clinician Source Performed CT CHEST PULMONARY 2021-05-01 04:39:[address] [facility] ANGIOGRAM Medical Branch LIPASE 2021-05-01 03:04:[address] [facility] TROPONIN I 2021-05-01 03:04:[address] [facility] COMP. METABOLIC PANEL 2021-05-01 03:04:00 Charan Healy [facility] ([id number]) [facility] D-DIMER 2021-05-01 03:04:00 [address] He[address] [facility] CBC WITH DIFF 2021-05-01 03:03:00 Fadumo [facility] NOTICE OF PRIVACY 2021-04-30 23:47:31 Doctor Unassigned, No [facility] CONSENT/REFUSAL FOR 2021-04-30 23:47:14 Doctor Unassigned, No Un iversity [facility] DIAGNOSIS AND TREATMENT Name [facility] XR CHEST 1 VW 2021-04-12 23:30:00 Toby Calix [facility] NOTICE OF PRIVACY 2021-04-12 22:51:44 Doctor Unassigned, No Univ ersity [facility] PRACTICES Name Medical Branch CONSENT/REFUSAL FOR 2021-04-12 22:51:23 Doctor Unassigned, No [facility] Name Medical Branch POCT GRP A STREP 2021-04-08 23:51:[address] [facility] ([facility]) [facility] POCT FLU A AND B 2021-04-08 23:51:[address] [facility] (MOLECULAR) Medical Branch ASSIGNMENT OF BENEFITS 2021-04-08 23:16:40 Doctor Unassigned, No [facility] XR CHEST 1 VW 2020-04-01 06:29:43 Xochilt Vogt [place] [facility] COMP. METABOLIC PANEL 2020-04-01 05:57:00 Xochilt Vogt [facility] ([id number]) [facility] CBC WITH DIFFERENTIAL 2020-04-01 05:57:00 Xochilt Vogt [facility] COVID-19 (ID NOW RAPID 2020-04-01 05:57:00 Xochilt Vogt [facility] TESTING) Medical Branch ASSIGNMENT OF BENEFITS 2020-04-01 05:06:57 Doctor Unassigned, No [facility] Plan of Care Planned Activity Planned Date Details Comments Source Diagnostic Test 2022-08-25 estradiol, serum [facility] Pending 00:00:00 [code = estradiol, [facility] serum] Diagnostic Test 2022-08-25 testosterone, total, [facility] Pending 00:00:00 serum [code = [facility] testosterone, total, serum] Diagnostic Test 2022-08-25 FSH [facility] Pending 00:00:00 (follicle-stimulatin [facility] g hormone), serum [code = FSH (follicle-stimulatin g hormone), serum] Diagnostic Test 2022-08-25 thyroid peroxidase [facility] Pending 00:00:00 (tpo) Ab, serum [facility] [code = thyroid peroxidase (tpo) Ab, serum] Diagnostic Test 2022-08-25 TSH + free T4, serum [facility] Pending 00:00:00 [code = TSH + free [facility] T4, serum] Encounters Start End Encounter Admission Attending Care Care Encounter Source Date/Time Date/Time Type Type Clinicians Facility Department ID 2021-07-26 Emergency [facility] [id number] [facility]-26 [facility] [id number] [facility] 2022-08-31 2022-08-31 Outpatient SISSON_C [facility] [id number] [place] 00:00:00 00:00:00 [address] 2022-08-31 2022-08-31 [facility] [place] [id number] [place] 00:00:00 00:00:00 Rosemarie, [facility] MSN, SOFTWARE BUILD ENGINEER, Hospital - ty FRUIT FARMER-C: [address] [place] [facility] [address], Clinic s [address], [place] [address], [place] MSN, [employer]ARM[employer]-C [address] , Ph. 2022-08-25 2022-08-25 Outpatient SISSON_C [facility] 2021 [place] 00:00:00 00:00:00 1201 Commun i ty Hospita l Clinics 2022-08-25 2022-08-25 [facility] [place] [id number] [place] 00:00:00 00:00:00 Rosemarie, [facility] MSN, SOFTWARE BUILD ENGINEER, Hospital - ty FRUIT FARMER-C: [address] [place] [facility] N[facility], Clinic s [address], [address] [address], [place] MSN, [employer]ARM[employer]-C [address] , Ph. 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, Clinic s [address], [address] [address], [place] MSN, FRUIT FARMER-C [address] , Ph. 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 2022-02-02 2022-02-02 Outpatient ROSEMARIE_C [facility] 2021 [place] 05:49:00 05:49:00 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 2022-01-12 2022-01-12 Outpatient SISSON_C [facility] 2021 [place] 02:54:00 02:54:00 [address] 2021-12-17 2021-12-17 Outpatient ERICKSON_R [facility] [id number] [place] 02:40:00 02:40:00 0325 Commun i ty Hospita l Clinics 2021-11-12 2021-11-12 Outpatient ERICKSON_R [facility] [id number] [place] 03:36:00 03:36:00 0218 Commun i ty Hospita l Clinics 2021-10-11 2021-10-11 Outpatient ERICKSON_R [facility] [id number] [place] 10:01:00 10:01:00 0117 Commun i ty Hospita l Clinics 2021-10-07 2021-10-07 Outpatient ERICKSON_R [facility] 116 [place] 04:23:00 04:23:00 0113 Commun i ty Hospita l Clinics 2021-10-01 2021-10-01 Outpatient ERICKSON_R [facility] [id number] [place] 05:21:00 05:21:00 0107 Commun i ty Hospita l Clinics 2021-10-01 2021-10-01 Christopher [facility] [place] 00:00:00 00:00:00 [facility] - DO: [address] [facility] l [address], HOSPITAL Clinic s [place], [place] CLINIC, [address] BHAVANA , Ph. 2021-10-01 2021-10-01 Outpatient Bhavana [facility] [id number] 00:00:00 00:00:00 Christopher [id number] López [id number] 2021-04-30 2021-05-01 Emergency Fadumo, K [facility] [id number] Univers 20:47:00 01:23:00 Mariposa Melissa [id number] i ty of [place] 4.2.7.2.686 [facility] [phone] [facility] 084 Branch 2021-04-30 2021-04-30 Nurse Nurse, [facility] Urgent Care [facility] 1.2 .840.114 [id number] [facility] 18:44:17 18:59:17 Visit Ayesha[facility] [id number] [place]y [place] 4.2.7.2.686 Henrique as Professio [phone] Ct dic[address] One 2021-04-30 2021-04-30 [facility] [id number] Univers 18:45:00 18:45:00 BEVERLEY mariny o inez [facility] 2021-04-30 2021-04-30 [facility] [id number] Univers 18:20:00 18:20:00 BEVERLEY mariny o inez [facility] 2021-04-25 2021-04-25 [facility] [id number] Univers 18:20:00 18:20:00 LISETH [facility] 2021-04-25 2021-04-25 Laboratory Lab, Adc Fam Pob I [facility] 1.. [id number] [id number] Univers 17:44:09 18:04:09 Only Liseth [facility] 350.1.13. 10 [place]y [place] 4.2.7.2.686 Henrique as Professio [phone] Ct dicnm nal [address] [place] [address] One 2021-04-13 2021-04-13 [facility] [id number] Univers 14:30:00 14:30:00 LUIS E [facility] 2021-04-12 2021-04-12 [facility] 1..840.114 [id number] Univers 20:00:00 20:20:00 Care [facility] [id number] it y of [place] 4.2.7.2.686 Henrique as Professio [phone] Ct dical nal [address] [place] [address] One 2021-04-12 2021-04-12 Outpatient R [facility] [id number] Univers 20:00:00 20:00:00 ity [facility] 2021-04-12 2021-04-12 Emergency [facility] 1..840.114 [id number] Univers 18:01:00 19:37:00 Zo Melissa 350.1.13.10 i ty of [place] 4.2.7.2.686 [facility] [id number] [facility] 084 Branch 2021-04-12 2021-04-12 Nurse Bird Hoffmann Ur[facility] 1.2 .840.114 [id number] Univers 17:44:38 17:59:38 Visit ChristopherKeara [facility] [id number] ity of [place] 4.2.7.2.686 Henrique as Professio [phone] [address] Office Building One 2021-04-12 2021-04-12 Outpatient R [facility] [id number] Univers 17:15:00 17:15:00 ity of [facility] 2021-04-10 2021-04-10 Telemedici Darryn Howard [facility] 1.2. 840.114 [id number] Univers 11:21:33 11:51:33 ne Visit Unknown, [facility] 350.1.13.1 0 ity [place] [address] [place] [address] [phone] [facility] Primary & 370 Branch Specialty Care 2021-04-10 2021-04-10 Outpatient R UNKNOWN, [facility] [id number] Univers 11:45:00 11:45:00 ATTENDING ity of [facility] 2021-04-10 2021-04-10 Nurse SCOTTIE House 1.2.840.114 [id number] Univers 00:00:00 00:00:00 Triage Anna BLEDSOE 350.1.13.10 ity of [facility] 4.2.7.2.686 Henrique as [phone] [facility] 019 Branch 2021-04-10 2021-04-10 [facility]phone [facility] [id number] Univers 00:00:00 00:00:00 [facility] 350.1.13.10 it [place] 4.2.7.2.686 Henrique as Professio [phone] [address] Office Building One 2021-04-09 2021-04-09 Telephone Christopher [facility] [id number] Univers 00:00:00 00:00:00 Keara [facility] 350.1.13.10 it y of [place] 4.2.7.2.686 Henrique as Professio [phone] Ct dical nal [address] [place] [address] One 2021-04-08 2021-04-08 Urgent Keara White [facility] 1.2.840.114 [id number] Univers 18:17:52 18:37:52 Care AnnemarieJessica [facility] 350.1.13.10 ity of [place] 4.2.7.2.686 Henrique as Professio [phone] Ct dical nal [address] [place] Office Building One 2021-04-08 2021-04-08 Outpatient R ANNEMARIE [facility] [id number] Univers 18:20:00 18:20:00 JESSICA ity o f [facility] 2021-04-08 2021-04-08 Orders Doctor SCOTTIE 1.2.840.114 [id number] Univers 00:00:00 00:00:00 Only Unassigned, LADI 350.1.13.10 ity of [place] [facility] 4.2.7.2.686 Henrique as [phone] [facility] 009 Branch 2020-08-12 2020-08-12 Outpatient attema_roshni [facility] [id number] [place] 02:46:00 02:46:00 1118 [facility] 2020-04-01 2020-04-01 Emergency [facility] [id number] Univers 00:20:31 02:36:00 Xochilt Aranda [place] 350.1.13.10 i ty [place] 4[place]2.7.2.686 [place] [id number] [facility] 084 Branch 2020-04-01 2020-04-01 Emergency X [facility] ERT [id number] Univers 00:20:31 00:20:31 XOCHILT ity of [facility] Results Test Description Test Time Test Results Result Source Comments Comments CT CHEST Impression: No CTA Univer sity of PULMONARY 7 evidence for pulmonary [facility] ANGIOGRAM 05:33:54 embolus. Linear Branch atelectasis in the lower lobes bilaterally without other acutepulmonary process. RL: 460 AFC: [id number] Ordering physician: Charan HEALY Indication: Chest pain, [...] destructive lesion. Bilateral breast implants are inplace. [facility], Radiant Results Inft User - 05/01/2021 12:34 [...] lower lobes bilaterally without other acutepulmonary process.RL: 460AFC: [id number] signed by Amena Shi MD, PhD at 05/01/2021 12:33 AM TROPONIN I 2021-05-01 04:03:05 Test Item Value Reference Range Interpretation Comme nts TROPONIN I (test code = 0.000 ng/mL See_Comment [Au tomated message] The [id number]) system which ge nerated this result tra nsmitted reference range [...] biotin. Lab Interpretation Normal (test code = 58213-0) [facility]. METABOLIC PANEL (11105)2021-05-01 03:53:09 Test Item Value Reference Range Interpretation Comments NA (test code = 140 mmol/L 135-145 1237620491) K (test code = 3.3 mmol/L 3.5-5.0 L 4956761711) CL (test code = 101 mmol/L 98-108 0704160164) CO2 TOTAL (test code = 30 mmol/L 23-31 2504581814) AGAP (test code = 2-16 2791383817) BUN (test code = 14 mg/dL 7-23 6468489784) GLUCOSE (test code = 88 mg/dL 70-110 8373585452) CREATININE (test code = 0.88 mg/dL 0.50-1.04 0818318109) TOTAL BILI (test code = 0.3 mg/dL 0.1-1.4 4832458295) CALCIUM (test code = 9.6 mg/dL 8.6-10.6 7625179015) T PROTEIN (test code = 8.6 g/dL 6.3-8.2 H 3688681593) ALBUMIN (test code = 4.8 g/dL 3.5-5.0 1607309093) ALK PHOS (test code = 134 U/L 34-122 H 0560950256) ALTv (test code = 28 U/L 5-35 1742-6) AST(SGOT) (test code = 33 U/L 13-40 1477207830) eGFR (test code = mL/min/1.73m2 4044019113) NEW (test code = NEW) Association of [...] tests). Lab Interpretation Abnormal (test code = 47515-0) [facility] [place] [facility], [id number] 03:53:04 Test Item Value Reference Range Interpretation Comments LIPASE (test code = 0023896911) 120 U/L 0-220 Lab Interpretation (test code = Normal 84557-8) [facility] [place] [facility] Center[facility]-[id number] 03:45:46 Test Item Value Reference Interpretation Comments Range D-DIMER (test code = See_Comment H [Autom ated 6970238393) message] The system which generated this result [...] diagnosis. Lab Interpretation Abnormal (test code = 86694-8) [facility] WITH [id number] 03:41:28 Test Item Value Reference Range Interpretation Comments WBC (test code = See_Comment H [Automated 6590-2) message] The sy stem which generated this result transmitted reference range : 4.30 - 11.10 10*3/?L. The reference range was not used to interpret this result as normal/abnormal . RBC (test code = See_Comment [Automated 769-8) message] The sy stem which generated this [...] (test code = 51.0 fL 39.0-49.9 H 02778-3) RDW-CV (test code = 14.0 % 12.0-15.5 788-0) PLT (test code = See_Comment [Automated 777-3) message] The sy stem which generated this result transmitted reference range : 166 - 358 10*3/ ?L. The reference r devan was not used to interpret this result as normal/abnormal . MPV (test code = 10.1 fL 9.5-12.9 57373-2) NRBC/100 WBC (test See_Comment [Automat ed code = 8737418950) message] The system which generated this result transmitted reference range : 0.0 - 10.0 /100 WBCs. The refer ence range was not u sed to interpret th is result as normal/abnormal . NRBC x10^3 (test code <0.01 See_Comment [Auto mated = 2726034765) message] The s ystem which generated this result transmitted reference range : 10*3/?L. The reference range was not used to interpret this result as normal/abnormal . GRAN MAT (NEUT) % 55.6 % (test code = 770-8) IMM GRAN % (test code 0.50 % = 2591546645) LYMPH % (test code = 33.8 % 736-9) MONO % (test code = 7.4 % 5905-5) EOS % (test code = 2.2 % 713-8) BASO % (test code = 0.5 % 706-2) GRAN MAT x10^3(ANC) 6.42 10*3/uL 1.88-7.09 (test code = 2701764678) IMM GRAN x10^3 (test 0.06 10*3/uL 0.00-0.06 code = 9592165648) LYMPH x10^3 (test code 3.91 10*3/uL 1.32-3.29 H = 731-0) MONO x10^3 (test code 0.85 10*3/uL 0.33-0.92 = 742-7) EOS x10^3 (test code = 0.26 10*3/uL 0.03-0.39 711-2) BASO x10^3 (test code 0.06 10*3/uL 0.01-0.07 = 704-7) Lab Interpretation Abnormal (test code = 45870-4) [facility] FLU A AND B (MOLECULAR)2021-04-09 00:01:00 Test Item Value Reference Range Interpretation Comments POCT INFLUENZA A (test code = negative Negative - Negative 3840) POCT INFLUENZA B (test code = negative Negative - Negative 3841) Lab Interpretation (test code = Normal 26592-0) [facility] GRP A STREP (MOLECULAR)2021-04-08 23:51:00 Test Item Value Reference Range Interpretation Comments POCT GP A STREP (test neg Negative - code = 23475-3) Negative NEW (test code = NEW) accurate development and interpretation of all internal controls Lab Interpretation Normal (test code = 81250-5) [facility] [place] [facility] (ID NOW RAPID TESTING)2020-04-01 06:48:00 Test Item Value Reference Range Interpretation Comments SARS-CoV-2 Rapid ID NOW Not Detected Not Detected (test code = 47551-7) NEW (test code = NEW) ID NOW COVID-19 Assay is an isothermal nucleic acid amplification test intended for the qualitative detection of nucleic acid from SARS-CoV-2 viral RNA in nasopharyngeal (LINING FINISHER) specimens. It is used under Emergency Use [...] indicated. Lab Interpretation Normal (test code = 96504-3) [facility] METABOLIC PANEL (17099)2020-04-01 06:38:00 Test Item Value Reference Range Interpretation Comments NA (test code = 139 mmol/L 135-145 3227013649) K (test code = 4.2 mmol/L 3.5-5 9123958651) CL (test code = 105 mmol/L 98-108 4410631520) CO2 TOTAL (test code = 25 mmol/L 23-31 1104963640) AGAP (test code = 2-16 7907067260) BUN (test code = 11 mg/dL 7-23 9484825556) GLUCOSE (test code = 112 mg/dL 70-110 H 6187813422) CREATININE (test code = 0.75 mg/dL 0.5-1.04 1638969078) TOTAL BILI (test code = 0.3 mg/dL 0.1-1.1 0975235231) CALCIUM (test code = 9.3 mg/dL 8.6-10.6 8307437448) T PROTEIN (test code = 7.9 g/dL 6.3-8.2 6859446327) ALBUMIN (test code = 4.3 g/dL 3.5-5 4043592370) ALK PHOS (test code = 107 U/L 34-122 7072552028) ALTv (test code = 15 U/L 5-35 1742-6) AST(SGOT) (test code = 21 U/L 13-40 4396086838) eGFR Calculation mL/min/1.73m2 (Non-) (test code = 3927790296) eGFR Calculation mL/min/1.73m2 () (test code = 8740869513) NEW (test code = NEW) Association of [...] tests). Lab Interpretation Abnormal (test code = 91516-1) [facility] WITH [id number] 06:10:00 Test Item Value Reference Range Interpretation Comments WBC (test code = See_Comment [Automated 5209-2) message] The sy stem which generated this result transmitted reference range : 4.30 - 11.10 10*3/?L. The reference range was not used to interpret this result as normal/abnormal . RBC (test code = See_Comment [Automated 868-8) message] The sy stem which generated this [...] (test code = 52.1 fL 39-49.9 H 87476-8) RDW-CV (test code = 14.3 % 12-15.5 788-0) PLT (test code = See_Comment [Automated 967-3) message] The sy stem which generated this result transmitted reference range : 166 - 358 10*3/ ?L. The reference r devan was not used to interpret this result as normal/abnormal . MPV (test code = 9.8 fL 9.5-12.9 18332-7) NRBC/100 WBC (test See_Comment [Automat ed code = 2637168573) message] The system which generated this result transmitted reference range : 0.0 - 10.0 /100 WBCs. The refer ence range was not u sed to interpret th is result as normal/abnormal . NRBC x10^3 (test code <0.01 See_Comment [Auto mated = 5724874726) message] The s ystem which generated this result transmitted reference range : 10*3/?L. The reference range was not used to interpret this result as normal/abnormal . GRAN MAT (NEUT) % 57.1 % (test code = 770-8) IMM GRAN % (test code 0.80 % = 1027611245) LYMPH % (test code = 31.5 % 736-9) MONO % (test code = 7.2 % 5905-5) EOS % (test code = 3.3 % 713-8) BASO % (test code = 0.1 % 706-2) GRAN MAT x10^3(ANC) 5.22 10*3/uL 1.88-7.09 (test code = 4860112084) IMM GRAN x10^3 (test 0.07 10*3/uL 0-0.06 H code = 0403884765) LYMPH x10^3 (test code 2.88 10*3/uL 1.32-3.29 = 731-0) MONO x10^3 (test code 0.66 10*3/uL 0.33-0.92 = 742-7) EOS x10^3 (test code = 0.30 10*3/uL 0.03-0.39 711-2) BASO x10^3 (test code <0.03 0.01-0.07 = 704-7) Lab Interpretation Abnormal (test code = 90433-8) [facility]
[2022-10-25] MEDS ORDERED: NA CHLORIDE 0.9% 2,000 ML ONE (03:27)
[2022-10-25] MEDS ORDERED: ONDANSETRON 4 MG/2 ML VIAL ONE ×2 (03:27→09:47)
[2022-10-25] MEDS ORDERED: CEFTRIAXONE 1000 MG/VIAL ONE (03:27)
[2022-10-25] MEDS ORDERED: FAMOTIDINE 20 MG/2 ML VIAL IV ONE (03:27)
[2022-10-25 03:38] LABS: Arterial Blood Carboxyhemoglob 0.7 % (0-1.5); Blood Gas Oxyhemoglobin 93.2 % (94-97); Blood O2 Saturation 95.4 % (92-98.5)
[2022-10-25 04:26] LABS: Absolute Lymphocytes (CBC) 0.8 K/uL (0.7-4.9); Hematocrit 48.8 % (36.0-45.0); Lymphocytes % 3.9 % (15.3-44.8); MCV 97.8 fL (80-100); MPV 9.3 fL (7.6-11.3); RBC Red Blood Cell Count 4.99 M/uL (3.86-4.86)
[2022-10-25 04:27] LABS: Protime INR 1.21
[2022-10-25 04:34] LABS: Bilirubin Direct 0.2 mg/dL (0-0.2); Bilirubin Total 0.5 mg/dL (0.2-1.0); Magnesium 2.5 mg/dL (1.6-2.4); Potassium 4.3 mmol/L (3.5-5.1); Protein, Total 8.8 g/dL (6.4-8.2); Troponin High Sensitivity 4.7 pg/mL (<58.9)
[2022-10-25 05:04] LABS: Blood Morphology Comment NOT SEEN (NOT SEEN); Platelet Estimate ADEQ; SARS-COV-2 RT PCR NEGATIVE (NEGATIVE)
--- NOTE | 2022-10-25 05:15 | EDPHYS ---
Physician Documentation [facility] Name: Niki Yang Age: 52 yrs Sex: Female : 1970 Arrival Date: 10/25/2022 Time: 02:52 Bed 27 Private MD: ED Physician Peng Hoffman HPI: 10/25 03:36 This 52 yrs old Female presents to ER via Wheelchair with complaints of tomas Syncope. 03:36 The patient has experienced near-syncope, felt dizzy, felt faint, felt generally weak. tomas Onset: The symptoms/episode began/occurred yesterday. Duration: The patient has had multiple episodes, that last 20 second(s). Context: the episode(s) was witnessed, by family, . Associated injury: The patient did not suffer any apparent associated injury. Associated signs and symptoms: Pertinent positives: abdominal pain, nausea, vomiting. Current symptoms: headache, that is mild. The patient has experienced similar episodes in the past, chronically. Historical: - Allergies: 03:10 Ibuprofen; aa9 - PMHx: 03:10 Anxiety; Depression; Hypothyroidism; Lupus erythematosus; aa9 - PSHx: 03:10 Cholecystectomy; aa9 - Immunization history:: Client reports having NOT received the Covid vaccine. - Social history:: Smoking status: Patient denies any tobacco usage or history of. ROS: 03:37 Constitutional: Negative for fever, chills, and weight loss, Eyes: Negative for injury, tomas pain, redness, and discharge, ENT: Negative for injury, pain, and discharge, Neck: Negative for injury, pain, and swelling, Respiratory: Negative for shortness of breath, cough, wheezing, and pleuritic chest pain, Back: Negative for injury and pain, : Negative for injury, bleeding, discharge, and swelling, MS/Extremity: Negative for injury and deformity, Skin: Negative for injury, rash, and discoloration, Neuro: Negative for headache, weakness, numbness, tingling, and seizure, Psych: Negative for depression, anxiety, suicide ideation, homicidal ideation, and hallucinations, Allergy/Immunology: Negative for hives, rash, and allergies, Endocrine: Negative for neck swelling, polydipsia, polyuria, polyphagia, and marked weight changes, Hematologic/Lymphatic: Negative for swollen nodes, abnormal bleeding, and unusual bruising. 03:37 Neck: Positive for 03:37 Cardiovascular: Positive for palpitations. 03:37 Abdomen/GI: Positive for abdominal pain, nausea and vomiting, abdominal cramps, abdominal distension, of the right upper quadrant, left upper quadrant, right lower quadrant and left lower quadrant. Exam: 03:37 Constitutional: This is a well developed, well nourished patient who is awake, alert, tomas and in no acute distress. Head/Face: Normocephalic, atraumatic. Eyes: Pupils equal round and reactive to light, extra-ocular motions intact. Lids and lashes normal. Conjunctiva and sclera are non-icteric and not injected. Cornea within normal limits. Periorbital areas with no swelling, redness, or edema. ENT: Nares patent. No nasal discharge, no septal abnormalities noted. Tympanic membranes are normal and external auditory canals are clear. Oropharynx with no redness, swelling, or masses, exudates, or evidence of obstruction, uvula midline. Mucous membranes moist. Neck: Trachea midline, no thyromegaly or masses palpated, and no cervical lymphadenopathy. Supple, full range of motion without nuchal rigidity, or vertebral point tenderness. No Meningismus. Chest/axilla: Normal chest wall appearance and motion. Nontender with no deformity. No lesions are appreciated. Respiratory: Lungs have equal breath sounds bilaterally, clear to auscultation and percussion. No rales, rhonchi or wheezes noted. No increased work of breathing, no retractions or nasal flaring. Back: No spinal tenderness. No costovertebral tenderness. Full range of motion. Pelvic Exam: Normal external genitalia. Speculum exam with closed cervical os, no discharge or bleeding noted. Bimanual exam with normal adnexa, no adnexal or cervical motion tenderness. Normal uterus. Female : Normal external genitalia. Skin: Warm, dry with normal turgor. Normal color with no rashes, no lesions, and no evidence of cellulitis. MS/ Extremity: Pulses equal, no cyanosis. Neurovascular intact. Full, normal range of motion. Psych: Awake, alert, with orientation to person, place and time. Behavior, mood, and affect are within normal limits. 03:37 Cardiovascular: Rate: tachycardic, actual rate is 129 bpm, Rhythm: regular, Pulses: Pulses are 4+ in bilateral radial, brachial, femoral, popliteal, posterior tibial and and dorsalis pedis arteries.. Heart sounds: normal, Edema: is not appreciated, JVD: is not appreciated. 03:37 Musculoskeletal/extremity: DVT Exam: No signs of deep vein thrombosis. no pain, no swelling, no tenderness, negative Homans' sign noted on exam, no appreciated bluish discoloration, no erythema, no increased warmth. 05:16 ECG was reviewed by the Attending Physician. tomas Vital Signs: 03:08 BP 123 / 76; Pulse 129; Resp 20 S; Temp 97.6(O); Pulse Ox 100% on R/A; Weight 68.04 kg aa9 (R); Height 5 ft. 4 in. (162.56 cm) (R); 04:21 BP 129 / 76; Pulse 119; Resp 16; Pulse Ox 100% on R/A; kl 05:06 BP 123 / 58; Pulse 110; kl 06:03 BP 121 / 77; Pulse Ox 100% on R/A; kl 03:08 Body Mass Index 25.75 (68.04 kg, 162.56 cm) aa9 MDM: 03:02 Patient medically screened. tomas 03:41 Differential Diagnosis altered mental status, sepsis, flu. Differential Diagnosis: tomas cardiac arrhythmia, cerebrovascular accident, GI bleed, idiopathic syncope, pseudo seizure, sepsis, transient ischemic attack, vasovagal episode. Differential diagnosis: Cholelithiasis, diverticulitis, gastroesophageal reflux disease, Hepatitis, myocardia ischemia or infarction, non-specific abd pain, pancreatitis, Peptic Ulcer Disease, Pyelonephritis, urinary tract infection. Data reviewed: vital signs, nurses notes, lab test result(s), EKG, radiologic studies, CT scan, plain films. Consideration of Admission/Observation Patient was admitted/placed on observation. Escalation of care including admission/observation considered. I considered the following discharge prescriptions or medication management in the emergency department Medications were administered in the Emergency Department. See MAR. Test considered but Not performed: MRI: abd pelvis. 10/25 03:18 Order name: Basic Metabolic Panel; Complete Time: 05:00 [facility] 10/25 03:18 Order name: CBC with Diff; Complete Time: 05:15 [facility] 10/25 03:18 Order name: LFT's; Complete Time: 05:00 [facility] 10/25 03:18 Order name: Magnesium; Complete Time: 05:00 [facility] 10/25 03:18 Order name: NT PRO-BNP; Complete Time: 05:00 [facility] 10/25 03:18 Order name: PT-INR; Complete Time: 04:33 [facility] 10/25 03:18 Order name: Troponin HS; Complete Time: 05:00 [facility] 10/25 03:18 Order name: Lipase; Complete Time: 05:00 [facility] 10/25 03:18 Order name: UDS [facility] 10/25 03:18 Order name: Urine Microscopic Only [facility] 10/25 03:18 Order name: COVID-19/FLU A+B; Complete Time: 05:15 [facility] 10/25 03:18 Order name: ABG; Complete Time: 04:33 [facility] 10/25 03:18 Order name: Blood Culture Adult (2) [facility] 10/25 03:18 Order name: Lactate w/ 2H reflex if indic.; Complete Time: 05:00 [facility] 10/25 03:18 Order name: XRAY Chest (1 view) [facility] 10/25 03:18 Order name: CT Head Brain wo Cont [facility] 10/25 03:18 Order name: CT Chest For PE Angio [facility] 10/25 03:18 Order name: CT Abd/Pelvis - IV Contrast Only [facility] 10/25 04:36 Order name: Manual Differential; Complete Time: 05:15 [facility] 10/25 06:02 Order name: Stool Culture [facility] 10/25 06:02 Order name: Fecal Leukocyte Stain [facility] 10/25 06:02 Order name: Ova And Parasites [facility] 10/25 06:02 Order name: CDIFF [facility] 10/25 06:27 Order name: Urine Dipstick-Ancillary [facility] 10/25 03:18 Order name: EKG; Complete Time: 03:19 [facility] 10/25 03:18 Order name: Cardiac monitoring; Complete Time: 03:59 [facility] 10/25 03:18 Order name: EKG - Nurse/Tech; Complete Time: 03:59 [facility] 10/25 03:18 Order name: IV Saline Lock; Complete Time: 03:59 [facility] 10/25 03:18 Order name: Labs collected and sent; Complete Time: 03:59 [facility] 10/25 03:18 Order name: O2 Per Protocol; Complete Time: 03:59 [facility] 10/25 03:18 Order name: O2 Sat Monitoring; Complete Time: 03:59 [facility] 10/25 03:18 Order name: Urine Dipstick-Ancillary (obtain specimen); Complete Time: 06:47 tomas 10/25 09:13 Order name: Bucky, Dr Enciso EDRI 10/25 09:19 Order name: MARYANN EDMS EC:16 Rate is 132 beats/min. Rhythm is regular. QRS [place] is Normal. IA interval is normal. tomas QRS interval is normal. QT interval is normal. T waves are Inverted in leads I, aVL. No ST changes noted. Clinical impression: Abnormal EKG without significant change and No evidence of ischemia. Interpreted by me. Reviewed by me. Administered Medications: 03:30 Drug: Pepcid (famotidine) 20 mg Route: IVP; Site: left antecubital; kl 04:22 Follow up: Response: No adverse reaction kl 03:40 Drug: NS 0.9% 1000 ml Route: IV; Rate: 1 bolus; Site: left antecubital; kl 05:05 Follow up: IV Status: Completed infusion; IV Intake: 1000ml kl 03:45 Drug: Zofran (Ondansetron) 4 mg Route: IVP; Site: left antecubital; kl 04:22 Follow up: Response: No adverse reaction; Nausea is decreased kl 05:05 Drug: NS 0.9% 1000 ml Route: IV; Rate: 1 bolus; Site: left antecubital; kl 06:50 Follow up: Response: No adverse reaction; IV Status: Completed infusion; IV Intake: as6 1000ml 05:30 Drug: Rocephin (cefTRIAXone) 1 grams Route: IV; Rate: per protocol; Site: left kl antecubital; 06:50 Follow up: Response: No adverse reaction; IV Status: Completed infusion; IV Intake: [id number] 06:22 Drug: Flagyl (metroNIDAZOLE) 500 mg Volume: 100 ml; Route: IVPB; Rate: 200 ml/hr; as6 Infused Over: 30 mins; Site: left antecubital; 06:50 Follow up: Response: No adverse reaction; IV Status: Completed infusion; IV Intake: as6 100ml 06:50 Drug: LevaQUIN (levofloxacin) 750 mg Volume: 150 ml; Route: IVPB; Infused Over: 90 as6 mins; Site: left antecubital; Disposition Summary: 10/25/22 05:15 Hospitalization Ordered Hospitalization Status: Inpatient Admission tomas Provider: Vicky, Brandon tomas Condition: Fair tomas Problem: new tomas Symptoms: have improved tomas Bed/Room Type: Standard tomas Location: Telemetry/MedSurg (Inpatient)(10/25/22 12:19) dw Room Assignment: 219(10/25/22 12:19) dw Diagnosis - Severe sepsis without septic shock tomas - Elevated white blood cell count tomas - Bandemia tomas - Abdominal pain, Generalized tomas - Dehydration tomas - Acute kidney failure, unspecified tomas - Left sided colitis tomas Forms: - Medication Reconciliation Form tomas - SBAR form tomas Signatures: Dispatcher [employer] EDIzzy Barajas RN RN Kristin Infante RN RN Dodie Ozuna RN Peng Jennings MD MD cha Slawson, Ashby RN RN as6 Conchis Calix RN RN aa9 Corrections: (The following items were deleted from the chart) 03:11 03:10 PMHx: constipation; aa9 aa9 05:17 05:15 Telemetry/MedSurg (Inpatient) tomas mw 05:17 05:15 tomas mw 12:19 05:17 [facility] ER HOLD mw dw 12:19 05:17 ERHOLD- mw dw
--- NOTE | 2022-10-25 05:15 | ER ---
Nurse's Notes [facility] Name: Niki Yang Age: 52 yrs Sex: Female : 1970 Arrival Date: 10/25/2022 Time: 02:52 Bed 27 Private MD: Diagnosis: Severe sepsis without septic shock;Elevated white blood cell count;Bandemia;Abdominal pain, Generalized;Dehydration;Acute kidney failure, unspecified;Left sided colitis Presentation: 10/25 03:08 Chief complaint: Patient states: I was dx with a bowel obstruction a few months ago aa9 here actually, and I feel really weak today, I just feel like I am going to pass out all the time. I have an appointment to see a specialist in a few weeks in [place]. Coronavirus screen: Vaccine status: Patient reports being unvaccinated. Ebola Screen: No symptoms or risks identified at this time. Initial Sepsis Screen: Does the patient meet any 2 criteria? HR > 90 bpm. No. Patient's initial sepsis screen is negative. Does the patient have a suspected source of infection? No. Patient's initial sepsis screen is negative. Risk Assessment: Do you want to hurt yourself or someone else? Patient reports no desire to harm self or others. Onset of symptoms was October 25, 2022. 03:08 Method Of Arrival: Wheelchair aa9 03:08 Acuity: SUSANA 3 aa9 04:47 Note several attempts for 2nd set of blood cultures made without success provider kl notified To CT ultrasound guided IV to be attempted Rocephin on hold at this time. Triage Assessment: 03:11 General: Appears uncomfortable, ill, Behavior is cooperative, anxious. Pain: Complains aa9 of pain in abdomen Also complains of nausea. Neuro: Level of Consciousness is awake, alert, obeys commands, Oriented to person, place, time, situation, Reports a syncopal episode weakness. Cardiovascular: Patient's skin is warm and dry. Respiratory: Airway is patent Respiratory effort is even, unlabored. GI: Reports constipation. : No deficits noted. Derm: Skin is intact, is healthy with good turgor, Skin is pale. Musculoskeletal: No signs and/or symptoms reported regarding the musculoskeletal system. Historical: - Allergies: 03:10 Ibuprofen; aa9 - PMHx: 03:10 Anxiety; Depression; Hypothyroidism; Lupus erythematosus; aa9 - PSHx: 03:10 Cholecystectomy; aa9 - Immunization history:: Client reports having NOT received the Covid vaccine. - Social history:: Smoking status: Patient denies any tobacco usage or history of. Screenin:[address] [facility] ED Fall Risk Assessment (Adult) History of falling in the last 3 months, kl including since admission No falls in past 3 months (0 pts) Confusion or Disorientation Yes (5 pts) Intoxicated or Sedated No (0 pts) Impaired Gait No (0 pts) Mobility Assist Device Used No (0 pt) Altered Elimination No (0 pt) Score/Fall Risk Level 3 or more points = High Risk Oriented to surroundings, Maintained a safe environment, Educated pt \T\ family on fall prevention, incl call for assistance when getting out of bed, Hourly rounding (assess needs \T\ fall precautionary measures) done, Apply high fall risk patient identification: yellow non skid footwear/ fall signage, Remained w/in arm's length of patient and in sight while toileting, Offered frequent toileting (1:1 observation), Remained with patient while ambulating. 04:23 Abuse screen: Denies threats or abuse. Nutritional screening: No deficits noted. kl Tuberculosis screening: No symptoms or risk factors identified. Assessment: 04:23 Reassessment: Patient appears in no apparent distress at this time. Patient and/or kl family updated on plan of care and expected duration. Pain level reassessed. Patient is alert, oriented x 3, equal unlabored respirations, skin warm/dry/pink. Patient states feeling better. Patient states symptoms have improved. Neuro: No deficits noted. Cardiovascular: Rhythm is sinus tachycardia. Vital Signs: 03:08 BP 123 / 76; Pulse 129; Resp 20 S; Temp 97.6(O); Pulse Ox 100% on R/A; Weight 68.04 kg aa9 (R); Height 5 ft. 4 in. (162.56 cm) (R); 04:21 BP 129 / 76; Pulse 119; Resp 16; Pulse Ox 100% on R/A; kl 05:06 BP 123 / 58; Pulse 110; kl 06:03 BP 121 / 77; Pulse Ox 100% on R/A; kl 03:08 Body Mass Index 25.75 (68.04 kg, 162.56 cm) aa9 ED Course: 02:52 Patient arrived in ED. ag3 03:02 Peng Hoffman MD is Attending Physician. tomas 03:10 Triage completed. aa9 03:12 Arm band placed on. aa9 03:51 Lactate w/ 2H reflex if indic. Sent. kl 03:59 Inserted saline lock: 20 gauge in left antecubital area, using aseptic technique. Blood rv1 collected. 03:59 COVID-19/FLU A+B Sent. rv1 03:59 Basic Metabolic Panel Sent. rv1 03:59 CBC with Diff Sent. rv1 03:59 LFT's Sent. rv1 03:59 Magnesium Sent. rv1 04:00 XRAY Chest (1 view) In Process Unspecified. EDMS 04:00 NT PRO-BNP Sent. rv1 04:00 PT-INR Sent. rv1 04:00 Troponin HS Sent. rv1 04:00 Lipase Sent. rv1 04:00 ABG Sent. rv1 04:34 Notified ED physician of a critical lab result(s). WBCs of 20.3 Dr Hoffman notified. bb 04:35 COVID-19/FLU A+B Sent. rv1 04:39 Notified ED physician of a critical lab result(s). lactate of 3.3 Dr Hoffman notified. bb 05:06 CT Head Brain wo Cont In Process Unspecified. EDMS 05:06 CT Chest For PE Angio In Process Unspecified. EDMS 05:07 CT Abd/Pelvis - IV Contrast Only In Process Unspecified. EDMS 05:13 Brandon Perry MD is Hospitalizing Provider. tomas 05:32 Missed attempt(s): 20 gauge in right upper arm. Bleeding controlled, band aid applied, bb catheter tip intact. 06:03 No provider procedures requiring assistance completed. Patient admitted, IV remains in kl place. 06:04 Patient has correct armband on for positive identification. kl 06:44 Urine Microscopic Only Sent. rv1 06:44 UDS Sent. rv1 Administered Medications: 03:30 Drug: Pepcid (famotidine) 20 mg Route: IVP; Site: left antecubital; kl 04:22 Follow up: Response: No adverse reaction kl 03:40 Drug: NS 0.9% 1000 ml Route: IV; Rate: 1 bolus; Site: left antecubital; kl 05:05 Follow up: IV Status: Completed infusion; IV Intake: 1000ml kl 03:45 Drug: Zofran (Ondansetron) 4 mg Route: IVP; Site: left antecubital; kl 04:22 Follow up: Response: No adverse reaction; Nausea is decreased 05:05 Drug: NS 0.9% 1000 ml Route: IV; Rate: 1 bolus; Site: left antecubital; kl 06:50 Follow up: Response: No adverse reaction; IV Status: Completed infusion; IV Intake: as6 1000ml 05:30 Drug: Rocephin (cefTRIAXone) 1 grams Route: IV; Rate: per protocol; Site: left kl antecubital; 06:50 Follow up: Response: No adverse reaction; IV Status: Completed infusion; IV Intake: [id number] 06:22 Drug: Flagyl (metroNIDAZOLE) 500 mg Volume: 100 ml; Route: IVPB; Rate: 200 ml/hr; as6 Infused Over: 30 mins; Site: left antecubital; 06:50 Follow up: Response: No adverse reaction; IV Status: Completed infusion; IV Intake: as6 100ml 06:50 Drug: LevaQUIN (levofloxacin) 750 mg Volume: 150 ml; Route: IVPB; Infused Over: 90 as6 mins; Site: left antecubital; Medication: 06:04 VIS not applicable for this client. kl Intake: 05:05 IV: 1000ml; Total: 1000ml. kl 06:50 IV: 10ml; Total: 1010ml. as6 06:50 IV: 100ml; Total: 1110ml. as6 06:50 IV: 1000ml; Total: 2110ml. as6 Outcome: 05:15 Decision to Hospitalize by Provider. [facility] 06:04 Admitted to ER Hold. Please see [facility] for further documentation. 06:04 Condition: improved 06:04 Instructed on the need for admit, Demonstrated understanding of instructions. 13:02 Patient left the ED. aa5 Signatures: Dispatcher [employer] EDIzzy Barajas RN RN kl Anderson, Corey, MD MD cha Ballard, Brenda, RN RN bb Calderon, Audri, RN RN aa5 Kelsi Mccracken ag3 Erasmo Doshi RN RN as6 Conchis Calix RN RN aa9 Taylor Rowley rv1 Corrections: (The following items were deleted from the chart) 03:11 03:10 PMHx: constipation; aa9 aa9
[2022-10-25] MEDS ORDERED: Levofloxacin 750mg IV 750 MG/150 ML BAG IV ONE (06:19)
[2022-10-25] MEDS ORDERED: METRONIDAZOLE 500mg IVPB 500 MG/100 ML BAG IV ONE (06:20)
[2022-10-25 06:27] LABS: Urine Blood Negative (Negative); Urine Glucose Negative (Negative); Urine Protein Negative (Negative); Urine Specific Gravity <=1.005 (1.005-1.030)
[2022-10-25 06:44] LABS: Urine Bacteria None Seen /HPF (<20); Urine RBC <5 /HPF (None Seen)
[2022-10-25 06:55] LABS: Barbiturates NEGATIVE (NEGATIVE); Benzodiazepines POSITIVE (NEGATIVE); Cocaine NEGATIVE (NEGATIVE); METHAMPHETAM NEGATIVE (NEGATIVE); Methadone NEGATIVE (NEGATIVE); Opiates NEGATIVE (NEGATIVE); Phencyclidine NEGATIVE (NEGATIVE); THC Cannibis NEGATIVE (NEGATIVE)
--- NOTE | 2022-10-25 09:27 | P.HP ---
Certification for Inpatient Patient admitted to: Inpatient With expected LOS: >2 Midnights Patient will require the following post-hospital care: None Practitioner: I am a practitioner with admitting privileges, knowledge of patient current condition, hospital course, and medical plan of care. Services: Services provided to patient in accordance with Admission requirements found in Title 42 Section 412.3 of the Code of Federal Regulations <Yohan Saab - Last Filed: 10/25/22 11:36> Patient History Date of Service: 10/25/22 Reason for admission: Colitis, Sepsis History of Present Illness: Patient is a 52-year-old female with a past medical history significant for anxiety disorder, depression, hypothyroidism, lupus, chronic constipation who presents with complaint of generalized abdominal pain. Patient reported that she has been suffering from constipation and that she normally have a BM once a week after intensive laxative use. Between the use of laxative and having a bowel movement patient normally experiences generalized abdominal pain. Patient reported that she started her cycle of laxative use on Monday after suffering constipation for a week and patient had hard stools eventually. Patient reported that after the BM she started having severe bouts of diarrhea. Patient experienced dizziness and episodes of near syncope. Patient reported that she has not eaten in 2 days. Patient reported associated signs and symptoms of nausea, vomiting, subjective fever, fatigue, weakness and generalized malaise. Patient denies any other signs and symptoms. Symptoms are aggravated or relieved by nothing. Patient decided to present to the hospital due to worsening symptoms. - Past Medical/Surgical History Diabetic: No -: Hypothyroidism -: Anxiety -: Depression -: Heartburn -: Lupus, stable off meds -: COVID19 03/2021 -: C-sections x2 -: Cholecystectomy -: Tubal ligation -: Breast augmentation -: Inderjit stevenson Psychosocial/ Personal History: Patient is single. She has 3 children. She is currently unemployed. - Family History Father -: Other (see notes) Mother -: Hypertension - Social History Smoking Status: Never smoker Alcohol use: No CD- Drugs: No Caffeine use: No Place of Residence: Home <LupeTheron nesbittoleg Nesbitt - Last Filed: 10/25/22 11:36> Date of Service: 10/25/22 <Brandon Perry - Last Filed: 10/25/22 23:48> Allergies ibuprofen Allergy (Severe, Verified 08/02/21 11:30) Nausea/Vomiting Home Medications: Alprazolam [Xanax] 1 mg PO TIDP PRN 02/08/17 Citalopram Hydrobromide [Celexa] 40 mg PO BEDTIME 02/08/17 Levothyroxine Sodium [Synthroid] 150 mcg PO DAILY #30 tablet 02/08/17 Ropinirole HCl [Requip] 1 mg PO BEDTIME 02/08/17 Sumatriptan Succinate [Imitrex] 50 mg PO PRN PRN 02/08/17 Trazodone HCl 100 mg PO BEDTIME 02/08/17 Review of Systems General: Fever, Weakness, Malaise, Other (Fatigue) Eyes: Unremarkable ENT: Unremarkable Respiratory: Unremarkable Cardiovascular: Unremarkable Gastrointestinal: Nausea, Vomiting, Abdominal Pain, Diarrhea Genitourinary: Unremarkable Musculoskeletal: Unremarkable Integumentary: Unremarkable Neurological: Weakness, Other (Dizziness, Near syncope ) <Yohan Saab - Last Filed: 10/25/22 11:36> Physical Examination - Physical Exam General: Alert, In no apparent distress, Oriented x3, Mild distress HEENT: Atraumatic, PERRLA, Mucous membr. moist/pink, EOMI, Sclerae nonicteric Neck: Supple, 2+ carotid pulse no bruit, No LAD, Without JVD or thyroid abnormality Respiratory: Clear to auscultation bilaterally, Normal air movement Cardiovascular: No edema, Regular rate/rhythm, Normal S1 S2 Capillary refill: <2 Seconds Gastrointestinal: Hypoactive, Tenderness Musculoskeletal: No clubbing, No swelling, No contractures, No tenderness Integumentary: No rashes, No breakdown, No significant lesion Neurological: Normal speech, Normal tone, Normal affect Lymphatics: No axilla or inguinal lymphadenopathy - Studies Laboratory Data (last 24 hrs) 10/25/22 03:51: PT 13.3 H, INR 1.21 10/25/22 03:51: WBC 20.30 H*, Hgb 16.2 H, Hct 48.8 H, Plt Count 333 10/25/22 03:51: Sodium 130 L, Potassium 4.3, BUN 21 H, Creatinine 1.35 H, Glucose 148 H, Magnesium 2.5 H, Total Bilirubin 0.5, AST 17, ALT 27, Alkaline Phosphatase 94, Lipase 43 L <UnuigbYohan nesbitt Last Filed: 10/25/22 11:36> - Studies Laboratory Data (last 24 hrs) 10/25/22 03:51: PT 13.3 H, INR 1.21 10/25/22 03:51: WBC 20.30 H*, Hgb 16.2 H, Hct 48.8 H, Plt Count 333 10/25/22 03:51: Sodium 130 L, Potassium 4.3, BUN 21 H, Creatinine 1.35 H, Glucose 148 H, Magnesium 2.5 H, Total Bilirubin 0.5, AST 17, ALT 27, Alkaline Phosphatase 94, Lipase 43 L <VickyBrandon - Last Filed: 10/25/22 23:48> Assessment and Plan - Plan --Colitis. Noted on imaging. Patient started on antibiotics. Gastroente rologist consulted. We will await further recommendation from GI MD --Diarrhea. Stool studies pending to rule out any infectious process. Continue antibiotics and IV hydration. -- Nausea and vomiting. Antiemetics on board. --Near syncope\dizziness. Likely secondary to dehydration. Patient had multiple episodes of diarrhea, nausea and vomiting. Continue IV hydration. -- Anxiety disorder\depression. Continue home medications appropriate. --Hypothyroidism. Continue home medication when appropriate. -- Acute pain\Lupus. We will manage pain with current pain medication regimen. --ROBERT. Likely secondary to fluid losses. Continue IV hydration. We will continue to monitor renal functions. --Sepsis. Likely secondary to colitis. Blood cultures pending. Continue antibiotics and IV hydration. --Leukocytosis. Blood cultures pending. Continue antibiotics. We will continue to monitor WBC levels. --GERD. Patient placed on Protonix IV. --DVT prophylaxis with SCDs. - Advance Directives Does patient have a Living Will: No Does patient have a Durable POA for Healthcare: No <KatianaYohan Benny - Last Filed: 10/25/22 11:36> Physician Review: Patient Assessed, Agree with Above Assessment and Plan Physician Review Additional Text: Correction to diagnoses: Severe Sepsis suspect secondary to Infectious Colitis <Brandon Perry - Last Filed: 10/25/22 23:48>
[2022-10-25] MEDS ORDERED: D5 0.9 NS 1,000 ML IV ONE (09:40)
[2022-10-25] MEDS ORDERED: HYDROMORPHONE HCL 2 MG/ML inj ONE (09:42)
[2022-10-25] MEDS ORDERED: PROMETHAZINE 25 MG/SUPP PR ONE (09:43)
[2022-10-25] MEDS ORDERED: PROMETHAZINE 12.5 MG/SUPP PR ONE (09:44)
[2022-10-25] MEDS: ONDANSETRON 4 MG/2 ML VIAL IV PRN (09:45)
[2022-10-25] MEDS: D5 0.9 NS 1,000 ML IV SCH ×3 (09:45→22:07)
[2022-10-25] MEDS ORDERED: HYDROMORPHONE HCL 2 MG/ML inj IV ONE (10:00)
[2022-10-25] MEDS: ACETAMINOPHEN 325 MG TABLET PO PRN ×2 (10:08→23:22)
[2022-10-25] MEDS ORDERED: ACETAMINOPHEN 325 MG TABLET ONE (10:09)
[2022-10-25 10:22] VITALS: BMI 25.7
[2022-10-25] MEDS ORDERED: SODIUM CHLORIDE 0.9% 10ML INJ IV PRN (11:35)
[2022-10-25] MEDS ORDERED: ACETAMINOPHEN 500 MG TAB ONE (12:14)
[2022-10-25] MEDS: PANTOPRAZOLE 40 MG INJ IVP SCH (14:02)
--- NOTE | 2022-10-25 14:17 | RAD REPORT ---
EXAM DESCRIPTION: RAD - Chest Single View - 10/25/2022 3:58 am CLINICAL HISTORY: 52 years Female, ABDOMINAL DISTENTION COMPARISON: Chest x-ray report from 07/19/2022. The image was unavailable for review. TECHNIQUE: Single portable x-ray view of the chest performed on 10/25/2022 at 3:55 AM FINDINGS: The lungs are well expanded and are clear. There is no evidence of a pneumothorax. The cardiac silhouette is normal in size and configuration. The mediastinal contours are normal. No acute osseous abnormality is identified. No acute soft tissue abnormalities are seen. Lines and tubes: None. Free air: None IMPRESSION: No evidence of acute intrathoracic disease. Electronically signed by: Jenna Samson DO 10/25/2022 4:42 AM RECORDS ASSISTANT Due to temporary technical issues with the PACS/Fluency reporting system, reports are being signed by the in house radiologists without review as a courtesy to insure prompt reporting. The interpreting radiologist is fully responsible for the content of the report.
--- NOTE | 2022-10-25 14:18 | RAD REPORT ---
EXAM DESCRIPTION: CT - Head Brain Wo Cont - 10/25/2022 6:23 am CLINICAL HISTORY: 52 years Female Syncope, recurrent COMPARISON: None TECHNIQUE: Noncontrast CT of the head. This exam was performed according to our departmental dose-optimization program, which includes autom ated exposure control, adjustment of the mA and/or kV according to patient size and/or use of iterati ve reconstruction technique. FINDINGS: Parenchyma: No acute hemorrhage, large territorial infarction, or mass effect. Ventricles and extra-axial spaces: Appropriate for age. Visualized paranasal sinuses: Clear. Mastoid air cells: Clear. Bones: No acute focal abnormality. Additional comment: None. IMPRESSION: No acute intracranial findings. Electronically signed by: Zander Khan MD 10/25/2022 5:20 AM MANAGER INFRASTRUCTURE Due to temporary technical issues with the PACS/Fluency reporting system, reports are being signed by the in house radiologists without review as a courtesy to insure prompt reporting. The interpreting radiologist is fully responsible for the content of the report.
--- NOTE | 2022-10-25 14:20 | RAD REPORT ---
EXAM DESCRIPTION: CT - Chest For Pe Angio - 10/25/2022 6:23 am CLINICAL HISTORY: 52 years Female dyspnea COMPARISON: Chest x-ray 10/25/2022. CT abdomen pelvis 10/25/2022 TECHNIQUE: Intravenous low osmolar contrast. Coronal and sagittal reformations including 3D maximu m intensity projections. This exam was performed according to our departmental dose-optimization program, which includes autom ated exposure control, adjustment of the mA and/or kV according to patient size and/or use of iterati ve reconstruction technique. FINDINGS: PULMONARY ARTERIAL SYSTEM: Contrast bolus is adequate. No CT evidence for pulmonary emb olism. CARDIAC: Normal. AORTA/VASCULAR: No aneurysm. LYMPH NODES/MEDIASTINUM: No thoracic adenopathy. CENTRAL AIRWAYS: Central airways are patent. LUNGS: No focal consolidation. Scattered bilateral linear opacities, likely subsegmental atelectasis /scarring. PLEURA: Normal. ESOPHAGUS: Collapsed and not well assessed by CT, without obvious abnormality. THYROID: Negative, where seen. CHEST WALL: Bilateral breast implants. UPPER ABDOMEN: See same-day CT abdomen pelvis for detailed findings. THORACIC SKELETAL: No acute finding. ADDITIONAL CHEST FINDINGS: None. IMPRESSION: 1. No evidence of acute pulmonary embolus. 2. No focal consolidation. Scattered bilateral linear opacities, likely subsegmental atelectasis/sc arring. Electronically signed by: Zander Khan MD 10/25/2022 5:23 AM ENTERTAINMENT CENTRE MANAGER Due to temporary technical issues with the PACS/Fluency reporting system, reports are being signed by the in house radiologists without review as a courtesy to insure prompt reporting. The interpreting radiologist is fully responsible for the content of the report.
--- NOTE | 2022-10-25 14:21 | RAD REPORT ---
EXAM DESCRIPTION: CT - Abdomen Pelvis W Contrast - 10/25/2022 6:24 am CLINICAL HISTORY: Abdominal pain, acute, nonlocalized COMPARISON: 07/17/2022. TECHNIQUE: CT ABDOMEN PELVIS WITH IV CONTRAST on 10/25/2022 3:18 AM BABY REGISTRY SALES CONSULTANT This exam was performed according to our departmental dose-optimization program, which includes autom ated exposure control, adjustment of the mA and/or kV according to patient size and/or use of iterati ve reconstruction technique. FINDINGS: There is mild left basilar atelectasis. Abdomen: Liver is fatty in attenuation. There is no biliary dilatation. Cholecystectomy was performed . The pancreas and spleen are normal in appearance. The adrenal glands and kidneys are unremarkable. Abdominal aorta is normal in course and caliber without aneurysm. There is no free air. There is no r etroperitoneal adenopathy. Pelvis: There is mild thickening of much of the left colon. Urinary bladder is unremarkable. There is no free fluid. Hysterectomy was performed. Appendix is normal. Skeleton: There are no acute osseous findings. No suspicious bony lesions. IMPRESSION: Left colonic infectious or inflammatory colitis. Electronically signed by: Gualberto Gardiner MD 10/25/2022 5:36 AM BABY REGISTRY SALES CONSULTANT Due to temporary technical issues with the PACS/Fluency reporting system, reports are being signed by the in house radiologists without review as a courtesy to insure prompt reporting. The interpreting radiologist is fully responsible for the content of the report.
[2022-10-25] MEDS: HYDROMORPHONE HCL 1 MG/ML INJ IV PRN ×2 (14:48→18:41)
[2022-10-25 15:27] LABS: Magnesium 2.2 mg/dL (1.6-2.4); Phosphorus 2.7 mg/dL (2.5-4.9); Thyroid Stimulating Hormone 0.181 uIU/mL (0.358-3.740)
[2022-10-25] MEDS: METRONIDAZOLE 500mg IVPB 500 MG/100 ML BAG IV SCH (16:45)
--- NOTE | 2022-10-25 16:54 | EKG ---
Test Date: 2022-10-25 Test Time: 03:37:51 Tip Bander: ED MEASUREMENT RESULTS: Intervals: Rate: 132 PA: 148 QRSD: 80 QT: 278 QTc: 411 [place]: P: 56 PA: 148 QRS: -16 T: 134 INTERPRETIVE STATEMENTS: Sinus tachycardia Inferior infarct, age undetermined Anteroseptal infarct, age undetermined T wave abnormality, consider lateral ischemia Abnormal ECG Compared to ECG 07/19/2022 16:54:24 T-wave abnormality now present Possible ischemia now present Sinus rhythm no longer present Myocardial infarct finding still present Electronically Signed On 10-25-22 16:53:14 HOSTEL PARENT by Ricky Mixon
[2022-10-25] MEDS: CIPROFLOXACIN 400mg IV 400 MG/200 ML BAG IV SCH (20:27)
[2022-10-25] MEDS: SUMATRIPTAN SUCCI 50 MG TAB PO PRN (20:58)
[2022-10-25] MEDS: PROMETHAZINE INJ 25 MG/ML AMP IV PRN (21:02)
[2022-10-25] MEDS ORDERED: Ringers Lactate 1,000 ML IV ONE (23:43)
[2022-10-26] MEDS: Ringers Lactate 1,000 ML IV SCH ×3 (00:04→14:18)
[2022-10-26] MEDS: METRONIDAZOLE 500mg IVPB 500 MG/100 ML BAG IV SCH ×3 (00:05→17:00)
[2022-10-26] MEDS: ACETAMINOPHEN 325 MG TABLET PO PRN (05:04)
[2022-10-26 07:27] LABS: Potassium 4.2 mmol/L (3.5-5.1)
[2022-10-26 07:44] LABS: Absolute Lymphocytes (CBC) 1.9 K/uL (0.7-4.9); Hematocrit 35.5 % (36.0-45.0); Lymphocytes % 12.9 % (15.3-44.8); MCV 98.1 fL (80-100); MPV 9.1 fL (7.6-11.3); RBC Red Blood Cell Count 3.62 M/uL (3.86-4.86)
[2022-10-26] MEDS: CIPROFLOXACIN 400mg IV 400 MG/200 ML BAG IV SCH ×2 (08:18→20:45)
[2022-10-26] MEDS: PANTOPRAZOLE 40 MG INJ IVP SCH (08:18)
[2022-10-26] MEDS ORDERED: Ringers Lactate 1,000 ML IV SCH (10:00)
[2022-10-26] MEDS: SUMATRIPTAN SUCCI 50 MG TAB PO PRN ×2 (13:03→21:13)
[2022-10-26] MEDS: HYDROMORPHONE HCL 1 MG/ML INJ IV PRN ×2 (14:18→21:13)
--- NOTE | 2022-10-26 19:50 | P.PN ---
Subjective Date of Service: 10/26/22 Chief Complaint: Colitis, Sepsis Overnight, she has had soft blood pressures. She has been treated with intermittent boluses of fluids, with improvement in her blood pressure readings. She states that she continues to have abdominal pain and tenesmus, which is slightly improved compared to yesterday. She denies any nausea/vomiting overnight Review of Systems 10-point ROS is otherwise unremarkable Gastrointestinal: Abdominal Pain Physical Examination - Vital Signs Temperature: 98.5 F Blood Pressure: 95/56 Pulse: 94 Respirations: 18 Pulse Ox (%): 96 - Physical Exam General: Alert, In no apparent distress, Oriented x3 HEENT: Atraumatic, EOMI, Sclerae nonicteric Respiratory: Clear to auscultation bilaterally, Normal air movement Cardiovascular: No edema, Regular rate/rhythm, Normal S1 S2, No gallops, No rubs, No murmurs Gastrointestinal: Normal bowel sounds, Soft and benign, Non-distended, No rebound, No guarding, Tenderness (mid-left abdomen) Musculoskeletal: No clubbing Integumentary: No rashes Neurological: Normal speech, Normal affect Assessment And Plan - Plan # Severe Sepsis likely secondary to Acute Left-Sided Colitis She meets sepsis criteria based on HR > 90 bpm and WBC > 12,000, and the suspected source is colitis. Severe sepsis is suspected due to concern for tissue hypoperfusion/organ dysfunction based on hypotension (SBP < 90) and lactic acid > 2 mmol/L. - CT abdomen/pelvis = "left colonic infectious or inflammatory colitis." - She is at risk for IBD given her other autoimmune diseases - CT chest angiogram = "1. No evidence of acute pulmonary embolus. 2. No focal consolidation. Scattered bilateral linear opacities, likely subsegmental atelectasis/scarring" - Sepsis order set was initiated - Lactate trend: 3.3 -> 1.8 - Blood cultures drawn before antibiotics were given - Broad spectrum antibiotics started: Ciprofloxacin + Metronidazole - In regards to fluids: - 30 mL/kg of IV fluids were given based on patient's actual body weight - Gastroenterology was consulted and spoke with Dr. 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
[2022-10-26] MEDS: ALPRAZOLAM 1 MG TABLET PO PRN (20:44)
[2022-10-26] MEDS: TRAZODONE 50 MG TABLET PO SCH (20:45)
[2022-10-26] MEDS: CITALOPRAM 10 MG TABLET PO SCH (20:45)
[2022-10-26] MEDS: ROPINIROLE HCL 1 MG TAB PO SCH (21:13)
[2022-10-27] MEDS: METRONIDAZOLE 500mg IVPB 500 MG/100 ML BAG IV SCH ×3 (00:37→16:12)
[2022-10-27] MEDS: Ringers Lactate 1,000 ML IV SCH ×3 (00:38→16:11)
[2022-10-27 05:47] LABS: Absolute Lymphocytes (CBC) 2.2 K/uL (0.7-4.9); Hematocrit 33.4 % (36.0-45.0); Lymphocytes % 16.4 % (15.3-44.8); MCV 98.8 fL (80-100); RBC Red Blood Cell Count 3.39 M/uL (3.86-4.86)
[2022-10-27 05:48] LABS: Bicarbonate 24 mmol/L (21-32); Glomerular Filtration Rate 108 ml/min (=/>90); Glucose Level 88 mg/dL (74-106); Magnesium 2.1 mg/dL (1.6-2.4); Potassium 3.5 mmol/L (3.5-5.1); Sodium Level 140 mmol/L (136-145)
[2022-10-27 05:50] LABS: BUN Blood Urea Nitrogen < 3 mg/dL (7-18)
[2022-10-27] MEDS ORDERED: Ringers Lactate 1,000 ML IV ONE (07:04)
[2022-10-27] MEDS: LEVOTHYROXINE SOD 0.075 MG TAB PO SCH (07:58)
[2022-10-27] MEDS: PANTOPRAZOLE 40 MG INJ IVP SCH (07:58)
[2022-10-27] MEDS: CIPROFLOXACIN 400mg IV 400 MG/200 ML BAG IV SCH ×2 (08:43→21:00)
[2022-10-27] MEDS ORDERED: POTASSIUM CL SA 10 MEQ TAB PO ONE (09:00)
[2022-10-27] MEDS: HYDROMORPHONE HCL 1 MG/ML INJ IV PRN ×4 (09:15→20:55)
[2022-10-27 10:56] LABS: C.diff Antigen/Toxin Ag neg : Tox neg (NEG : NEG)
[2022-10-27] MEDS: SUMATRIPTAN SUCCI 50 MG TAB PO PRN (12:34)
--- NOTE | 2022-10-27 13:54 | P.PN ---
Subjective Date of Service: 10/27/22 Chief Complaint: Colitis, Sepsis No acute events overnight. Her diarrhea has improved, she has had no hematochezia. Her abdominal pain and tenesmus has slightly improved, but is persistent. She denies any nausea/vomiting. Awaiting Gastroenterology recommendations. Review of Systems 10-point ROS is otherwise unremarkable Gastrointestinal: Abdominal Pain, Other (tenesmus) Physical Examination - Vital Signs Temperature: 97.2 F Blood Pressure: 108/53 Pulse: 99 Respirations: 16 Pulse Ox (%): 95 Assessment And Plan - Plan - Physical Exam General: Alert, In no apparent distress, Oriented x3 HEENT: Atraumatic, Sclerae nonicteric Respiratory: Clear to auscultation bilaterally, Normal air movement Cardiovascular: No edema, Regular rate/rhythm, Normal S1 S2, No gallops, No rubs, No murmurs Gastrointestinal: Normal bowel sounds, Soft and benign, Non-distended, No rebound, No guarding, Tenderness (mid-left abdomen) Musculoskeletal: No clubbing Integumentary: No rashes Neurological: Normal speech, Normal affect # Severe Sepsis likely secondary to Acute Left-Sided Colitis She meets sepsis criteria based on HR > 90 bpm and WBC > 12,000, and the suspected source is colitis. Severe sepsis is suspected due to concern for tissue hypoperfusion/organ dysfunction based on hypotension (SBP < 90) and lactic acid > 2 mmol/L. - CT abdomen/pelvis = "left colonic infectious or inflammatory colitis." - She is at risk for IBD given her other autoimmune diseases - CT chest angiogram = "1. No evidence of acute pulmonary embolus. 2. No focal consolidation. Scattered bilateral linear opacities, likely subsegmental atelectasis/scarring" - Sepsis order set was initiated - Lactate trend: 3.3 -> 1.8 - Blood cultures drawn before antibiotics were given - Broad spectrum antibiotics started: Ciprofloxacin + Metronidazole - In regards to fluids: - 30 mL/kg of IV fluids were given based on patient's actual body weight - C. Difficile toxin has returned negative. - Gastroenterology was consulted and spoke with Dr. 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
[2022-10-27] MEDS ORDERED: POLYETHYL GLY 3350 17 GM/DOSE PO ONE (14:30)
[2022-10-27] MEDS: PROMETHAZINE INJ 25 MG/ML AMP IV PRN (18:51)
[2022-10-27] MEDS: ONDANSETRON 4 MG/2 ML VIAL IV PRN (20:55)
[2022-10-27] MEDS: LACTOBACILLUS/ACIDOPHILUS TAB PO SCH ×2 (21:00→22:50)
[2022-10-27] MEDS: CITALOPRAM 10 MG TABLET PO SCH ×2 (21:00→22:50)
[2022-10-27] MEDS: TRAZODONE 50 MG TABLET PO SCH ×2 (21:00→22:50)
[2022-10-27] MEDS: ROPINIROLE HCL 1 MG TAB PO SCH ×2 (21:00→22:50)
[2022-10-27] MEDS ORDERED: SIMETHICONE 80 MG TAB PO ONE (22:50)
[2022-10-27] MEDS: ACETAMINOPHEN 325 MG TABLET PO PRN (22:51)
[2022-10-27] MEDS: ALPRAZOLAM 1 MG TABLET PO PRN (23:00)
[2022-10-28] MEDS: METRONIDAZOLE 500mg IVPB 500 MG/100 ML BAG IV SCH ×3 (00:06→16:18)
[2022-10-28] MEDS: HYDROMORPHONE HCL 1 MG/ML INJ IV PRN ×5 (01:00→22:03)
[2022-10-28] MEDS: Ringers Lactate 1,000 ML IV SCH ×4 (01:45→22:09)
[2022-10-28] MEDS: SUMATRIPTAN SUCCI 50 MG TAB PO PRN ×2 (03:02→22:01)
[2022-10-28] MEDS ORDERED: FAMOTIDINE 20 MG/2 ML VIAL IV ONE (03:09)
[2022-10-28 05:58] LABS: Absolute Lymphocytes (CBC) 1.9 K/uL (0.7-4.9); Hematocrit 33.9 % (36.0-45.0); MCV 98.2 fL (80-100); MPV 8.4 fL (7.6-11.3); RBC Red Blood Cell Count 3.45 M/uL (3.86-4.86)
[2022-10-28 06:15] LABS: Bicarbonate 26 mmol/L (21-32); Glomerular Filtration Rate 109 ml/min (=/>90); Glucose Level 85 mg/dL (74-106); Potassium 3.6 mmol/L (3.5-5.1); Sodium Level 139 mmol/L (136-145)
[2022-10-28 06:17] LABS: BUN Blood Urea Nitrogen < 3 mg/dL (7-18)
[2022-10-28] MEDS ORDERED: KCL 20 MEQ/100 mL IVPB 20 MEQ/100 ML BAG IV SCH (07:00)
[2022-10-28] MEDS: LACTOBACILLUS/ACIDOPHILUS TAB PO SCH ×3 (09:00→20:27)
[2022-10-28] MEDS: LEVOTHYROXINE SOD 0.075 MG TAB PO SCH (09:00)
[2022-10-28] MEDS: PANTOPRAZOLE 40 MG INJ IVP SCH (09:09)
[2022-10-28] MEDS: CIPROFLOXACIN 400mg IV 400 MG/200 ML BAG IV SCH ×2 (09:09→20:27)
[2022-10-28] MEDS ORDERED: Ringers Lactate 500 ML IV ONE (13:25)
[2022-10-28] MEDS ORDERED: propofoL 200 MG/20 ML VIAL IV ONE ×3 (14:31→15:03)
[2022-10-28] MEDS ORDERED: LIDOCAINE 1% MPF 5 ML VIAL ONE (14:31)
--- NOTE | 2022-10-28 14:56 | ENDO RPT ---
[address], [address] EGD PROCEDURE REPORT EXAM DATE: 10/28/2022 PATIENT NAME: Niki Yang MR#: [id number] BIRTHDATE: 1970 ATTENDING: Ken Lawler Dr STATUS: inpatient - [facility] BAGGAGE CLERK: Dunia Feldman RN INDICATIONS: The patient is a 52 yr old Female here for an EGD due to abdominal pain, nausea and vomiting, and chronic unexplained diarrhea PROCEDURE PERFORMED: EGD with biopsy MEDICATIONS: Per Anesthesia. TOPICAL ANESTHETIC: none CONSENT: The patient understands the risks and benefits of the procedure and understands that these risks include, but are not limited to: sedation, allergic reaction, infection, perforation and/or bleeding. Alternative means of evaluation and treatment include, among others: physical exam, x-rays, and/or surgical intervention. The patient elects to proceed with this endoscopic procedure. DESCRIPTION OF PROCEDURE: During intra-op preparation period all mechanical medical equipment was checked for proper function. Hand hygiene and appropriate measures for infection prevention was taken. Procedure, possible complications, and alternatives including but not limited to the possibility of bleeding, perforation, tear, infection, sepsis, need for surgery, need for blood transfusion, and anesthesia related complications were explained to the patient. After the risks, benefits and alternatives of the procedure were thoroughly explained, Informed consent was verified, confirmed and timeout was successfully executed by the treatment team. The patient was placed in the left lateral position. The patient was anesthetized with topical anesthesia. Through the anesthetized oropharyngeal area, the scope was passed without any difficulty. The EC-[id number] ([id number]) and [id number] ([id number]) endoscope was introduced through the mouth and advanced to the third portion of the duodenum. Retroflexed views revealed a small hiatal hernia. The gastroscope was then slowly withdrawn and removed. A small hiatal hernia was found Moderate gastritis was found in the body and the antrum of the stomach. Multiple biopsies were obtained and sent to pathology. Small bowel biopsies obtained. ADVERSE EVENTS: There were no complications. IMPRESSIONS: 1. Small hiatal hernia 2. Moderate gastritis in the body and the antrum of the stomach, s/p biopsies 3. Small bowel biopsies obtained RECOMMENDATIONS: 1. await biopsy results 2. acid suppression therapy REPEAT EXAM: Ken Lawler Dr eSigned: Ken Lawler Dr 10/28/2022 2:56 PM cc: CPT CODES: ICD9 CODES: PATIENT NAME: Niki Yang MR#: [id number]
--- NOTE | 2022-10-28 15:19 | ENDO RPT ---
[address], [address] COLONOSCOPY PROCEDURE REPORT EXAM DATE: 10/28/2022 PATIENT NAME: Niki Yang MR #: [id number] BIRTHDATE: 1970 ATTENDING: Ken Lawler Dr STATUS: inpatient - [facility] BAND TUMBLER: Dunia Feldman RN INDICATIONS: The patient is a 52 yr old Female here for a colonoscopy due to abdominal pain, anemia, abnormal CT of abdomen, constipation, and unexplained chronic diarrhea PROCEDURE PERFORMED: Colonoscopy with biopsy MEDICATIONS: Per Anesthesia. ESTIMATED BLOOD LOSS: None CONSENT: The patient understands the risks and benefits of the procedure and understands that these risks include, but are not limited to: sedation, allergic reaction, infection, perforation and/or bleeding. Alternative means of evaluation and treatment include, among others: physical exam, x-rays, and/or surgical intervention. The patient elects to proceed with this endoscopic procedure. DESCRIPTION OF PROCEDURE: During intra-op preparation period all mechanical medical equipment was checked for proper function. Hand hygiene and appropriate measures for infection prevention was taken. Procedure, possible complications, alternatives including, but not limited to possibility of bleeding, perforation, tear, infection, sepsis, need for surgery, need for blood transfusion, were explained to the patient. After the risks, benefits and alternatives of the procedure were thoroughly explained, Informed consent was verified, confirmed and timeout was successfully executed by the treatment team. The patient was placed in the left lateral position. A digital rectal exam was performed and revealed external hemorrhoids. After appropriate level of anesthesia, the scope was passed. The EC-[id number] ([id number]) endoscope was introduced through the anus and advanced to the distal transverse colon. The quality of the prep was poor. The instrument was then slowly withdrawn as the colon was fully examined. Scope withdrawal time was 8 minutes. COLON FINDINGS: Multiple ( 10) large (5-25 mm) shallow, irregular shaped, serpiginous and clean-based ulcers with occasional speck of fresh heme were found in the transverse colon and descending colon. Large internal and external hemorrhoids were found. Retroflexed views not performed, rectum too narrow. The scope was then completely withdrawn from the patient and the procedure terminated. ADVERSE EVENTS: There were no complications. IMPRESSIONS: 1. Multiple ( 10) large (5-25 mm) shallow clean-based ulcers with occasional speck of fresh heme in the transverse colon and descending colon 2. Large internal and external hemorrhoids RECOMMENDATIONS: 1. await biopsy results RECALL: Return in 1 month(s) for Colonoscopy. Ken Lawler Dr eSigned: Ken Lawler Dr 10/28/2022 3:19 PM cc: CPT CODES: ICD9 CODES: PATIENT NAME: Niki Yang MR#: [id number]
[2022-10-28] MEDS: ONDANSETRON 4 MG/2 ML VIAL IV PRN ×2 (16:17→22:01)
[2022-10-28] MEDS ORDERED: FORMULATION-R RECTAL 57GM PR PRN (17:16)
--- NOTE | 2022-10-28 20:01 | P.PN ---
Subjective Date of Service: 10/28/22 Chief Complaint: Colitis, Sepsis No acute events overnight. She states that her abdominal pain is gradually improving. Plan is for EGD + colonoscopy today around 14:00. She has been NPO past midnight. Review of Systems 10-point ROS is otherwise unremarkable Gastrointestinal: Abdominal Pain Physical Examination - Vital Signs Temperature: 97.7 F Blood Pressure: 124/70 Pulse: 107 Respirations: 16 Pulse Ox (%): 96 Assessment And Plan - Plan - Physical Exam General: Alert, In no apparent distress, Oriented x3 HEENT: Atraumatic, Sclerae nonicteric Respiratory: Clear to auscultation bilaterally, Normal air movement Cardiovascular: No edema, Regular rate/rhythm, Normal S1 S2, No gallops, No rubs, No murmurs Gastrointestinal: Normal bowel sounds, Soft and benign, Non-distended, No rebound, No guarding, Tenderness (mid-left abdomen, improved compared to yesterday) Musculoskeletal: No clubbing Integumentary: No rashes Neurological: Normal speech, Normal affect # Severe Sepsis likely secondary to Acute Left-Sided Colitis She meets sepsis criteria based on HR > 90 bpm and WBC > 12,000, and the suspected source is colitis. Severe sepsis is suspected due to concern for tissue hypoperfusion/organ dysfunction based on hypotension (SBP < 90) and lactic acid > 2 mmol/L. - CT abdomen/pelvis = "left colonic infectious or inflammatory colitis." - She is at risk for IBD given her other autoimmune diseases - CT chest angiogram = "1. No evidence of acute pulmonary embolus. 2. No focal consolidation. Scattered bilateral linear opacities, likely subsegmental atelectasis/scarring" - Sepsis order set was initiated - Lactate trend: 3.3 -> 1.8 - Blood cultures drawn before antibiotics were given - Broad spectrum antibiotics started: Ciprofloxacin + Metronidazole - In regards to fluids: - 30 mL/kg of IV fluids were given based on patient's actual body weight - C. Difficile toxin has returned negative. - Gastroenterology was consulted and spoke with Dr. 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
[2022-10-28] MEDS: TRAZODONE 50 MG TABLET PO SCH (20:27)
[2022-10-28] MEDS: CITALOPRAM 10 MG TABLET PO SCH (20:28)
[2022-10-28] MEDS: ROPINIROLE HCL 1 MG TAB PO SCH (20:28)
[2022-10-29] MEDS: PROMETHAZINE INJ 25 MG/ML AMP IV PRN ×3 (00:26→23:07)
[2022-10-29] MEDS: METRONIDAZOLE 500mg IVPB 500 MG/100 ML BAG IV SCH ×3 (00:27→17:00)
[2022-10-29] MEDS: HYDROMORPHONE HCL 1 MG/ML INJ IV PRN ×6 (02:00→23:08)
[2022-10-29] MEDS: ALPRAZOLAM 1 MG TABLET PO PRN ×2 (02:34→21:46)
[2022-10-29] MEDS: ONDANSETRON 4 MG/2 ML VIAL IV PRN ×2 (05:57→19:09)
[2022-10-29 05:58] LABS: Bicarbonate 25 mmol/L (21-32); Glomerular Filtration Rate 104 ml/min (=/>90); Glucose Level 91 mg/dL (74-106); Potassium 3.4 mmol/L (3.5-5.1); Sodium Level 139 mmol/L (136-145)
[2022-10-29 05:59] LABS: BUN Blood Urea Nitrogen < 3 mg/dL (7-18)
[2022-10-29] MEDS: POTASSIUM CL SA 10 MEQ TAB PO ONE ×2 (08:00→09:27)
[2022-10-29] MEDS: PANTOPRAZOLE 40 MG INJ IVP SCH (08:28)
[2022-10-29] MEDS: CIPROFLOXACIN 400mg IV 400 MG/200 ML BAG IV SCH ×2 (08:29→21:47)
[2022-10-29] MEDS: LACTOBACILLUS/ACIDOPHILUS TAB PO SCH ×3 (09:27→21:47)
[2022-10-29] MEDS: Ringers Lactate 1,000 ML IV SCH ×3 (09:27→19:09)
[2022-10-29] MEDS: LEVOTHYROXINE SOD 0.075 MG TAB PO SCH (09:27)
[2022-10-29] MEDS: KCL 20 MEQ/100 mL IVPB 100 ML IV SCH ×2 (10:56→14:12)
--- NOTE | 2022-10-29 18:40 | P.PN ---
Subjective Date of Service: 10/29/22 Chief Complaint: Colitis, Sepsis S/P EGD + colonoscopy today. EGD revealed, "1. Small hiatal hernia. 2. Moderate gastritis in the body and the antrum of the stomach, s/p biopsies 3. Small bowel biopsies obtained." Colonoscopy revealed, "1. Multiple (10) large (5-25 mm) shallow clean-based ulcers with occasional speck of fresh heme in the transverse colon and descending colon 2. Large internal and external hemorrhoids." She reports significant postop abdominal pain. She reports that she has been having flatus as well as passing stool. She denies any hematochezia. Review of Systems 10-point ROS is otherwise unremarkable Gastrointestinal: Abdominal Pain Physical Examination - Vital Signs Temperature: 97.3 F Blood Pressure: 96/47 Pulse: 87 Respirations: 14 Pulse Ox (%): 94 Assessment And Plan - Plan - Physical Exam General: Alert, In no apparent distress, Oriented x3 HEENT: Atraumatic, Sclerae nonicteric Respiratory: Clear to auscultation bilaterally, Normal air movement Cardiovascular: No edema, Regular rate/rhythm, No murmurs Gastrointestinal: Normal bowel sounds, Soft and benign, Non-distended, Tenderness (mid-left abdomen, improved compared to yesterday) Musculoskeletal: No clubbing Integumentary: No rashes Neurological: Normal speech, Normal affect # Severe Sepsis likely secondary to Acute Transverse and Descending Colitis with Ulcerations # Moderate Gastritis She meets sepsis criteria based on HR > 90 bpm and WBC > 12,000, and the suspected source is colitis. Severe sepsis is suspected due to concern for tissue hypoperfusion/organ dysfunction based on hypotension (SBP < 90) and lactic acid > 2 mmol/L. - CT abdomen/pelvis = "left colonic infectious or inflammatory colitis." - She is at risk for IBD given her other autoimmune diseases - CT chest angiogram = "1. No evidence of acute pulmonary embolus. 2. No focal consolidation. Scattered bilateral linear opacities, likely subsegmental atelectasis/scarring" - Sepsis order set was initiated - Lactate trend: 3.3 -> 1.8 - Blood cultures drawn before antibiotics were given - Broad spectrum antibiotics started: Ciprofloxacin + Metronidazole - In regards to fluids: - 30 mL/kg of IV fluids were given based on patient's actual body weight - C. Difficile toxin has returned negative. - Gastroenterology was consulted and spoke with Dr. Lwaler - recommendations appreciated - EGD revealed = "1. Small hiatal hernia. 2. Moderate gastritis in the body and the antrum of the stomach, s/p biopsies 3. Small bowel biopsies obtained." - Colonoscopy = "1. Multiple (10) large (5-25 mm) shallow clean-based ulcers with occasional speck of fresh heme in the transverse colon and descending colon 2. 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
[2022-10-29] MEDS: ROPINIROLE HCL 1 MG TAB PO SCH (21:46)
[2022-10-29] MEDS: CITALOPRAM 10 MG TABLET PO SCH (21:47)
[2022-10-29] MEDS: TRAZODONE 50 MG TABLET PO SCH (21:47)
[2022-10-30] MEDS: METRONIDAZOLE 500mg IVPB 500 MG/100 ML BAG IV SCH ×2 (01:02→09:39)
[2022-10-30] MEDS: ONDANSETRON 4 MG/2 ML VIAL IV PRN ×2 (03:23→11:20)
[2022-10-30] MEDS: HYDROMORPHONE HCL 1 MG/ML INJ IV PRN ×3 (03:23→11:16)
[2022-10-30 06:44] LABS: Bicarbonate 27 mmol/L (21-32); Glomerular Filtration Rate 106 ml/min (=/>90); Glucose Level 88 mg/dL (74-106); Potassium 3.6 mmol/L (3.5-5.1); Sodium Level 139 mmol/L (136-145)
[2022-10-30 06:45] LABS: BUN Blood Urea Nitrogen < 3 mg/dL (7-18)
[2022-10-30] MEDS: PROMETHAZINE INJ 25 MG/ML AMP IV PRN (07:09)
[2022-10-30] MEDS ORDERED: KCL 20 MEQ/100 mL IVPB 20 MEQ/100 ML BAG IV ONE (09:00)
[2022-10-30] MEDS: PANTOPRAZOLE 40 MG INJ IVP SCH (09:00)
[2022-10-30] MEDS: LEVOTHYROXINE SOD 0.075 MG TAB PO SCH (09:39)
[2022-10-30] MEDS: LACTOBACILLUS/ACIDOPHILUS TAB PO SCH ×2 (09:39→15:06)
[2022-10-30] MEDS: CIPROFLOXACIN 400mg IV 400 MG/200 ML BAG IV SCH (09:39)
[2022-10-30] MEDS: Ringers Lactate 1,000 ML IV SCH (09:39)
[2022-10-30 11:34] VITALS: O2SAT 95
[2022-10-30 12:18] VITALS: BP 100/47; TEMP 97.4
[2022-10-30] MEDS ORDERED: POTASSIUM 25 MEQ EFFERV TAB PO ONE (13:00)
[2022-10-30] MEDS: SUMATRIPTAN SUCCI 50 MG TAB PO PRN (15:06)
--- NOTE | 2022-10-30 15:24 | P.DS ---
Admission Date: 10/25/22 Discharge Date: 10/30/22 Disposition: ROUTINE DISCHARGE Discharge Condition: GOOD Reason for Admission: Colitis, Sepsis Consultations: 1. 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 Niki Yang is a 52 year old female with a past medical history significant for systemic lupus erythematosus, hypothyroidism secondary to José Manuel's disease, anxiety, and depressive disorder who was admitted to the [facility] on 10/25/2022 for abdominal pain. She was admitted to the Medicine service. Upon further evaluation, her CT abdomen/pelvis revealed, "left colonic infectious or inflammatory colitis." She was found to meet severe sepsis secondary to suspected infectious colitis. Gastroenterology was consulted and she was evaluated by Dr. Lawler. On 10/28/2022, she underwent an esophagogastroduodenoscopy which revealed, "1. Small hiatal hernia. 2. Moderate gastritis in the body and the antrum of the stomach, s/p biopsies 3. Small bowel biopsies obtained." Her colonoscopy revealed, "1. Multiple (10) large (5-25 mm) shallow clean-based ulcers with occasional speck of fresh heme in the transverse colon and descending colon 2. Large internal and external hemorrhoids." Over the course of her hospitalization, she received as needed pain medications, with improvement of her symptoms. Her diet was gradually advanced to a regular diet. Today she was able to tolerate a peanut butter/jelly sandwich, without any abdominal pain, nausea, or vomiting. She states that she feels well and would like to be discharged home. On 10/30/2022, she was seen on rounds and deemed medically stable for discharge. She was discharged with instructions to schedule follow-up appointments with her PCP (Dr. Barrera) and with Gastroenterology (Dr. Lawler). She was provided prescriptions for ciprofloxacin, metronidazole, dicyclomine, sucralfate, and sumatriptan. She and her were given the opportunity to ask questions and reported no further questions. Furthermore, all questions were answered to the best of my ability. A copy of this discharge summary will be sent to the above providers to facilitate continuity of care. Today, I personally spent 35 minutes on her case, of which greater than 50% of the time was spent in patient education, counseling, and coordination of care as described above. - Physical Exam General: Alert, In no apparent distress, Oriented x3 HEENT: Atraumatic, Sclerae nonicteric Respiratory: Clear to auscultation bilaterally, Normal air movement Cardiovascular: No edema, Regular rate/rhythm, No murmurs Gastrointestinal: Normal bowel sounds, Soft and benign, Non-distended, No tenderness Musculoskeletal: No clubbing Integumentary: No rashes Neurological: Normal speech, Normal affect Vital Signs/Physical Exam: Temp Pulse Resp BP Pulse Ox 97.4 F 84 16 100/47 L 91 10/30/22 12:00 10/30/22 12:00 10/30/22 12:00 10/30/22 12:00 10/30/22 12:00 Laboratory Data at Discharge: WBC 9.80 K/uL (4.3-10.9) 10/28/22 05:23 Hgb 11.4 g/dL (12.0-15.0) L 10/28/22 05:23 Hct 33.9 % (36.0-45.0) L 10/28/22 05:23 Plt Count 286 K/uL (152-406) 10/28/22 05:23 PT 13.3 SECONDS (9.5-12.5) H 10/25/22 03:51 INR 1.21 10/25/22 03:51 Sodium 139 mmol/L (136-145) 10/30/22 06:00 Potassium Cancelled 10/30/22 Unknown BUN < 3 mg/dL (7-18) L 10/30/22 06:00 Creatinine 0.68 mg/dL (0.55-1.02) 10/30/22 06:00 Glucose 88 mg/dL (74-106) 10/30/22 06:00 Phosphorus 2.7 mg/dL (2.5-4.9) 10/25/22 13:53 Magnesium 2.1 mg/dL (1.6-2.4) 10/27/22 04:33 Total Bilirubin 0.5 mg/dL (0.2-1.0) 10/25/22 03:51 AST 17 U/L (15-37) 10/25/22 03:51 ALT 27 U/L (13-56) 10/25/22 03:51 Alkaline Phosphatase 94 U/L (45-117) 10/25/22 03:51 Triglycerides 46 mg/dL (<150) 10/25/22 13:53 Cholesterol 86 mg/dL (<200) 10/25/22 13:53 HDL Cholesterol 46 mg/dL (40-60) 10/25/22 13:53 Cholesterol/HDL Ratio 1.87 10/25/22 13:53 Lipase 43 U/L (73-393) L 10/25/22 03:51 Home Medications: Alprazolam [Xanax] 1 mg PO TIDP PRN 02/08/17 Citalopram Hydrobromide [Celexa] 40 mg PO BEDTIME 02/08/17 Levothyroxine Sodium [Synthroid] 150 mcg PO DAILY #30 tablet 02/08/17 Ropinirole HCl [Requip] 1 mg PO BEDTIME 02/08/17 Trazodone HCl 100 mg PO BEDTIME 02/08/17 Ciprofloxacin HCl [Cipro] 500 mg PO BID 7 Days #14 tab 10/30/22 Dicyclomine [Bentyl] 10 mg PO TID PRN 7 Days #20 cap 10/30/22 Docusate [Colace Cap*] 100 mg PO BID cap 10/30/22 L.acidoph,Paracasei, B.lactis [Probiotic] 1 each PO DAILY #1 10/30/22 PE-Ep/Mo/Slov/Pet [Formulation R*] 1 appl DC BID PRN tube 10/30/22 Pantoprazole [Protonix Tab*] 40 mg PO DAILY #30 tab 10/30/22 Sucralfate [Carafate -Tab] 1 gm PO ACHS #120 tab 10/30/22 Sumatriptan [Imitrex*] 50 mg PO DAILY PRN #10 tab 10/30/22 metroNIDAZOLE [Flagyl*] 500 mg PO Q8H 7 Days #21 tab 10/30/22 New Medications: Dicyclomine [Bentyl] 10 mg PO TID PRN 7 Days #20 cap PRN Reason: Abdominal Pain Sucralfate [Carafate -Tab] 1 gm PO ACHS #120 tab Ciprofloxacin HCl [Cipro] 500 mg PO BID 7 Days #14 tab metroNIDAZOLE [Flagyl*] 500 mg PO Q8H 7 Days #21 tab Sumatriptan [Imitrex*] 50 mg PO DAILY PRN #10 tab PRN Reason: Pain Scale 8-10 (Severe) L.acidoph,Paracasei, B.lactis [Probiotic] 1 each PO DAILY #1 Pantoprazole [Protonix Tab*] 40 mg PO DAILY #30 tab Physician Discharge Instructions: 1. Please call and schedule a follow-up appointment with your PCP (Dr. Barrera) in 35 days - Your thyroid function tests are slightly abnormal, please have them rechecked at this appointment - As you requested, I have prescribed a several day supply of Imitrex, please obtain refills from your PCP 2. Please call and schedule a follow-up appointment with Gastroenterology (Dr. Lawler) in 5-7 days - Please stop taking all [id number] anti-inflammatory medications (i.e. Advil, ibuprofen, naproxen, Aleve, etc.) - The only [id number] pain medicine that is safe for your ulcers is Tylenol (acetaminophen) - please make sure you are never to exceed 3000 mg within a 24-hour period. Diet: Regular Activity: Ad asim Followup: Viktor Barrera MD [Primary Care Provider] - Ken Lawler MD [ASSOCIATE-ACTIVE - CAN ADMIT] - Time spent managing pt's care (in minutes): 35
[2022-10-30] MEDS ORDERED: DOCUSATE NA 100 MG CAP PO SCH (21:00)
== END 2022-10-30 16:00 | disposition home or self-care (01) | DRG 872 ==
LOC: ER 02:50 → ERHOLD 09:06 → 2ND 12:31
PROVIDERS: ADMIT Internal Medicine; ATTEND Internal Medicine
PROC: 0DBE8ZX Excision of Large Intestine, Via Natural or Artificial Opening Endoscopic, Diagnostic (ICD-10-PCS; 2022-10-28)
PROC: 0DB78ZX Excision of Stomach, Pylorus, Via Natural or Artificial Opening Endoscopic, Diagnostic (ICD-10-PCS; principal; 2022-10-28 14:00)
PROC: 0DB88ZX Excision of Small Intestine, Via Natural or Artificial Opening Endoscopic, Diagnostic (ICD-10-PCS; 2022-10-28 14:00)
DX: A41.9 Sepsis, unspecified organism (principal); N17.9 Acute kidney failure, unspecified; A09 Infectious gastroenteritis and colitis, unspecified; R65.20 Severe sepsis without septic shock; E03.9 Hypothyroidism, unspecified; E86.0 Dehydration; K64.4 Residual hemorrhoidal skin tags; D64.9 Anemia, unspecified; K64.8 Other hemorrhoids; K44.9 Diaphragmatic hernia without obstruction or gangrene; F32.A Depression, unspecified; M32.9 Systemic lupus erythematosus, unspecified; E06.3 Autoimmune thyroiditis; F41.9 Anxiety disorder, unspecified; K21.9 Gastro-esophageal reflux disease without esophagitis; K29.70 Gastritis, unspecified, without bleeding; K59.09 Other constipation; Z88.8 Allergy status to other drugs, medicaments and biological substances; Z90.49 Acquired absence of other specified parts of digestive tract; Z98.51 Tubal ligation status; Z79.890 Hormone replacement therapy; Z28.310 Unvaccinated for COVID-19; Z79.899 Other long term (current) drug therapy; Z20.822 Contact with and (suspected) exposure to COVID-19
CPT/HCPCS: 0240U; 36415; 70450; 71045; 71275; 74177; 80048; 80061; 80076; 80307; 81003; 81015; 82805; 83036; 83605; 83690; 83735; 83880; 84100; 84132; 84439; 84443; 84484; 85025; 85610; 86021; 86036; 86671; 87040; 87045; 87046; 87324; 88305; 88312; 89055; 93005; 96361; 96365; 96375; 99285; C9113; J0744; J1170; J2001; J2405; J2550; J2704; J3480; J7030; J7042; J7120; Q9967

== ENCOUNTER 2023-02-05 23:34 | Emergency (ER) | payer BC ==
--- OUTSIDE RECORDS SUMMARY | 2023-02-05 23:41 | XMS REPORT | Continuity of Care Document ---
:1970 Author Organization [facility] t Address [address] [place] [id number] Care Team Providers Name Role Phone EZEQUIEL Attending Clinician Unavailable Carlota Houston Attending Clinician [phone] LEBRON Attending Clinician Unavailable Christopher Weldon Attending Clinician [phone] Charan Huynh Attending Clinician Nurse, Bird Urgent [...] JESSICA BAPTISTE Attending Clinician Unavailable Doctor Unassigned, Elias-Fela Solis Attending Clinician Unavailable tresa Attending Clinician Unavailable Xochilt Cormier Attending Clinician XOCHILT VOGT Attending Clinician Unavailable SISSONYang Admitting Clinician Unavailable LEBRON Admitting Clinician Unavailable tresa Admitting Clinician Unavailable Payers Payer Name Policy Type Policy Number Effective Date Expiration Date [id number] 2021 00:00:00 [facility] [id number] 2021 00:00:00 Problems Condition Condition Condition Status Onset Resolution Last Treating Co mments Source Name Details Category Date Date Treatment Clinician Date UTI (lower UTI (lower Disease Active U nivers urinary urinary 04-21 ity of tract tract 00:00: [place] infection) infection) 00 De dical Branch Allergies, Adverse Reactions, Alerts Allergy [...] 00 Medical s Branch Ibuprofe Allergy Active [place] [facility] Social History Social Habit Start Date Stop Date Quantity Comments Source Exposure to Yes [facility] SARS-CoV-2 (event) Medica l Branch Tobacco use and 2021-04-30 2021-04-30 Never used [facility] exposure 00:00:00 00:00:00 Medical [place] Alcohol intake 2021-04-30 2021-04-30 [facility] 00:00:00 00:00:00 [facility] Sex Ass[birth year] At [birth year] [facility] 00:00:00 00:00:00 [facility] Smoking Status Start Date Stop Date Source Never Smoker [facility] Medications Ordered Filled Start Stop Current Ordering Indication Dosage Frequency Signature Comments Components Source Medication Medication Date Date Medication? Clinician (SIG) Name Name iopamidol 2020- No [id number] 100mL 100 mL, Univers (ISOVUE 05-01 Intravenou ity o f 370-500 mL) 04:35: 04:35 s, ONCE, 1 [place] injection 00 :00 dose, Fri Medic al 100 mL 8/6/21 at Branch 2345, Routine benzonatate 0 Yes [id number] 200mg Take 1 [facility] 200 mg 05-01 capsule by ity of capsule 00:00: mouth 3 [place] 00 (three) Medical times Branch daily as needed for Cough for up to 20 doses. azithromyci Yes [id number] 250mg Take 1 Univers n 7- [id number] tablet by ity of (ZITHROMAX 00:00: mouth [place] Z-EMELY) 250 00 daily. Medical mg tablet Take 500 Branch mg day 1, then 250 mg days 2 to 5. albuterol Yes [id number] 2{puff} Inhale 2 [facility] 90 7 [id number] Puffs ity of mcg/actuati 00:00: every 4 [place] as on inhaler 00 (four) Medical hours as Branch needed for Wheezing or Shortness of Breath. azithromyci Yes [id number] 250mg Take 1 Univers n 7- [id number] tablet by ity of (ZITHROMAX 00:00: mouth [place] Z-EMELY) 250 00 daily. Medical mg tablet Take 500 Branch mg day 1, then 250 mg days 2 to 5. albuterol Yes [id number] 2{puff} Inhale 2 [facility] 90 7 [id number] Puffs ity of mcg/actuati 00:00: every 4 [place] as on inhaler 00 (four) Medical hours as Branch needed for Wheezing or Shortness of Breath. azithromyci Yes [id number] 250mg Take 1 Univers n 7- [id number] tablet by ity of (ZITHROMAX 00:00: mouth [place] Z-EMELY) 250 00 daily. Medical mg tablet Take 500 Branch mg day 1, then 250 mg days 2 to 5. albuterol 2020- Yes [id number] 2{puff} Inhale 2 [facility] 90 7 [id number] Puffs ity of mcg/actuati 00:00: every 4 [place] as on inhaler 00 (four) Medical hours as Branch needed for Wheezing or Shortness of Breath. azithromyci Yes [id number] 250mg Take 1 Univers n 7- [id number] tablet by ity of (ZITHROMAX 00:00: mouth [place] Z-EMELY) 250 00 daily. Medical mg tablet Take 500 Branch mg day 1, then 250 mg days 2 to 5. albuterol Yes [id number] 2{puff} Inhale 2 [facility] 90 04-12 [id number] Puffs ity of mcg/actuati 00:00: every 4 [...] mouth ity of mg tablet 23:37: daily. [place] [address] Medical Branch levothyroxi Yes 150ug Take 150 [...] mouth ity of mg tablet 23:37: daily. [place] [address] Medical Branch levothyroxi Yes 150ug Take 150 [...] mouth ity of mg tablet 23:37: daily. [place] [address] Medical Branch levothyroxi 0 Yes 150ug Take [...] mouth ity of mg tablet 23:37: daily. [place] [address] Medical Branch levothyroxi Yes 150ug Take 150 [...] mouth ity of mg tablet 23:37: daily. [place] [address] Medical Branch levothyroxi 0 Yes 150ug Take [...] of mg tablet 23:37: as needed. [facility] citalopram Yes 40mg Take 40 mg U nivers (CELEXA) 40 7-15 by mouth ity of mg tablet 23:37: daily. [place] [address] Medical Branch levothyroxi Yes 150ug Take 150 [...] ity of mg tablet 23:37: as needed. [place] [address] Medical Branch citalopram Yes 40mg Take 40 mg U nivers (CELEXA) 40 7-15 by mouth ity of mg tablet 23:37: daily. [place] [address] Medical Branch levothyroxi Yes 150ug Take 150 [...] ity of mg tablet 23:37: as needed. [place] [address] Medical Branch citalopram Yes 40mg Take 40 mg U nivers (CELEXA) 40 7-15 by mouth ity of mg tablet 23:37: daily. [place] [address] Medical Branch levothyroxi Yes 150ug Take 150 [...] mouth ity of mg tablet 23:37: daily. [place] [address] Medical Branch levothyroxi Yes 150ug Take 150 [...] mouth ity of mg tablet 23:37: daily. [place] [address] Medical Branch levothyroxi Yes 150ug Take 150 [...] mouth ity of mg tablet 23:37: daily. [address] Branch levothyroxi 0 Yes 150ug Take 150 U nivers ne 7-15 mcg by ity of (SYNTHROID) 23:37: mouth [place] 150 mcg 49 every Medical tablet morning. Branch zolpidem Yes 10mg Take 10 mg Uni vers (AMBIEN) 10 7-15 by mouth ity of mg tablet 23:37: at bedtime [place] [address] as needed Medical for Branch Insomnia. ALPRAZolam Yes 1mg Take 1 mg Un [place] (XANAX) 1 7-15 by mouth ity of mg tablet 23:37: as needed. [address] Branch benzonatate Yes [id number] 200mg Take 2 [facility] 100 mg 7-15 capsules ity of capsule 00:00: by mouth 2 [place] (two) Medical times Branch daily as needed for Cough. guaiFENesin Yes [id number] 400mg Take 1 [facility] 400 mg 7-15 tablet by ity of tablet 00:00: mouth [place] 00 every 4 Medical (four) Branch hours as needed for Cough. ondansetron 0 Yes [id number] 4mg Take 1 [facility] 4 mg 7-15 tablet by ity of disintegrat 00:00: mouth [place] ing tablet 00 every 8 Medica l (eight) Branch hours as needed for Nausea and Vomiting (N/V). benzonatate Yes [id number] 200mg Take 2 [facility] 100 mg 7-15 capsules ity of capsule 00:00: by mouth 2 [place] 00 (two) Medical times Branch daily as needed for Cough. guaiFENesin Yes [id number] 400mg Take 1 [facility] 400 mg 7-15 tablet by ity of tablet 00:00: mouth [place] 00 every 4 Medical (four) Branch hours as needed for Cough. ondansetron 0 Yes [id number] 4mg Take 1 [facility] 4 mg 7-15 tablet by ity of disintegrat 00:00: mouth [place] ing tablet 00 every 8 Medica l (eight) Branch hours as needed for Nausea and Vomiting (N/V). benzonatate 2021-0 Yes [id number] 200mg Take 2 [facility] 100 mg 7-15 capsules ity of capsule 00:00: by mouth 2 [place] 00 (two) Medical times Branch daily as needed for Cough. guaiFENesin 2021-0 Yes [id number] 400mg Take 1 [facility] 400 mg 7-15 tablet by ity of tablet 00:00: mouth [place] 00 every 4 Medical (four) Branch hours as needed for Cough. ondansetron 2021-0 Yes [id number] 4mg Take 1 [facility] 4 mg 7-15 tablet by ity of disintegrat 00:00: mouth [place] ing tablet 00 every 8 Medica l (eight) Branch hours as needed for Nausea and Vomiting (N/V). benzonatate 1-0 Yes [id number] 200mg Take 2 [facility] 100 mg 7-15 capsules ity of capsule 00:00: by mouth 2 [place] (two) Medical times Branch daily as needed for Cough. guaiFENesin 1-0 Yes [id number] 400mg Take 1 [facility] 400 mg 7-15 tablet by ity of tablet 00:00: mouth [place] 00 every 4 Medical (four) Branch hours as needed for Cough. ondansetron 1-0 Yes [id number] 4mg Take 1 [facility] 4 mg 7-15 tablet by ity of disintegrat 00:00: mouth [place] ing tablet 00 every 8 Medica l (eight) Branch hours as needed for Nausea and Vomiting (N/V). benzonatate 2021-0 Yes [id number] 200mg Take 2 [facility] 100 mg 7-15 capsules ity of capsule 00:00: by mouth 2 [place] (two) Medical times Branch daily as needed for Cough. guaiFENesin 2021-0 Yes [id number] 400mg Take 1 [facility] 400 mg 7-15 tablet by ity of tablet 00:00: mouth [place] 00 every 4 Medical (four) Branch hours as needed for Cough. ondansetron 2021-0 Yes [id number] 4mg Take 1 [facility] 4 mg 7-15 tablet by ity of disintegrat 00:00: mouth [place] ing tablet 00 every 8 Medica l (eight) Branch hours as needed for Nausea and Vomiting (N/V). benzonatate 2021-0 Yes [id number] 200mg Take 2 [facility] 100 mg 7-15 capsules ity of capsule 00:00: by mouth 2 [place] 00 (two) Medical times Branch daily as needed for Cough. guaiFENesin 2020-0 Yes [id number] 400mg Take 1 [facility] 400 mg 7-15 tablet by ity of tablet 00:00: mouth [place] 00 every 4 Medical (four) Branch hours as needed for Cough. ondansetron 2020-0 Yes [id number] 4mg Take 1 [facility] 4 mg 7-15 tablet by ity of disintegrat 00:00: mouth [place] ing tablet 00 every 8 Medica l (eight) Branch hours as needed for Nausea and Vomiting (N/V). benzonatate 2020-0 Yes [id number] 200mg Take 2 [facility] 100 mg 7-15 capsules ity of capsule 00:00: by mouth 2 [place] (two) Medical times Branch daily as needed for Cough. guaiFENesin 2020-0 Yes [id number] 400mg Take 1 [facility] 400 mg 7-15 tablet by ity of tablet 00:00: mouth [place] 00 every 4 Medical (four) Branch hours as needed for Cough. ondansetron 2020-0 Yes [id number] 4mg Take 1 [facility] 4 mg 7-15 tablet by ity of disintegrat 00:00: mouth [place] ing tablet 00 every 8 Medica l (eight) Branch hours as needed for Nausea and Vomiting (N/V). benzonatate 2020-0 Yes [id number] 200mg Take 2 [facility] 100 mg 7-15 capsules ity of capsule 00:00: by mouth 2 [place] 00 (two) Medical times Branch daily as needed for Cough. guaiFENesin 2020-0 Yes [id number] 400mg Take 1 [facility] 400 mg 7-15 tablet by ity of tablet 00:00: mouth [place] 00 every 4 Medical (four) Branch hours as needed for Cough. ondansetron 2020-0 Yes [id number] 4mg Take 1 [facility] 4 mg 7-15 tablet by ity of disintegrat 00:00: mouth [place] ing tablet 00 every 8 Medica l (eight) Branch hours as needed for Nausea and Vomiting (N/V). benzonatate 2020-0 Yes [id number] 200mg Take 2 [facility] 100 mg 7-15 capsules ity of capsule 00:00: by mouth 2 [place] 00 (two) Medical times Branch daily as needed for Cough. guaiFENesin 2021-0 Yes [id number] 400mg Take 1 [facility] 400 mg 7-15 tablet by ity of tablet 00:00: mouth [place] 00 every 4 Medical (four) Branch hours as needed for Cough. ondansetron 2021-0 Yes [id number] 4mg Take 1 [facility] 4 mg 7-15 tablet by ity of disintegrat 00:00: mouth [place] ing tablet 00 every 8 Medica l (eight) Branch hours as needed for Nausea and Vomiting (N/V). benzonatate 2021-0 Yes [id number] 200mg Take 2 [facility] 100 mg 7-15 capsules ity of capsule 00:00: by mouth 2 [place] 00 (two) Medical times Branch daily as needed for Cough. guaiFENesin 2021-0 Yes [id number] 400mg Take 1 [facility] 400 mg 7-15 tablet by ity of tablet 00:00: mouth [place] 00 every 4 Medical (four) Branch hours as needed for Cough. ondansetron 1-0 Yes [id number] 4mg Take 1 [facility] 4 mg 7-15 tablet by ity of disintegrat 00:00: mouth [place] ing tablet 00 every 8 Medica l (eight) Branch hours as needed for Nausea and Vomiting (N/V). benzonatate 1-0 Yes [id number] 200mg Take 2 [facility] 100 mg 7-15 capsules ity of capsule 00:00: by mouth 2 [place] 00 (two) Medical times Branch daily as needed for Cough. guaiFENesin 2021-0 Yes [id number] 400mg Take 1 [facility] 400 mg 7-15 tablet by ity of tablet 00:00: mouth [place] 00 every 4 Medical (four) Branch hours as needed for Cough. ondansetron 2021-0 Yes [id number] 4mg Take 1 Univers 4 mg 7-15 [...] Mon04/01/20 at 0200, STAT benzonatate 2020-0 Yes [id number] 100mg Take 1 [facility] 100 mg 7-08 capsule by ity of capsule 00:00: mouth 3 [place] 00 (three) Medical times Branch daily as needed for Cough. benzonatate 2020-0 Yes [id number] 100mg Take 1 [facility] 100 mg 7-08 capsule by ity of capsule 00:00: mouth 3 [place] 00 (three) Medical times Branch daily as needed for Cough. benzonatate 2020-0 2021- No [id number] 100mg Take 1 Univers 100 mg 7-08 07-15 capsule by ity of capsule 00:00: 00:00 mouth 3 [place] 00 :00 (three) Medical times Branch daily as needed for Cough. citalopram Yes 40mg Take 40 mg U nivers (CELEXA) 40 7-28 by mouth ity of mg tablet 02:54: daily. [place] [facility] Branch levothyroxi Yes 150ug Take 150 [...] ity of mg tablet 02:54: daily. [place] [facility] levothyroxi Yes 150ug Take 150 [...] [place] Branch Nitrofurant Yes [id number] Take one Univers oin&Nit. 7-27 tablet by ity of Macrocryst 00:00: mouth [place] (MACROBID) 00 twice a Medica l 100 mg day Branch capsule phenazopyri Yes [id number] 200mg Take 2 Univers dine 7-27 Tabs by ity of (PYRIDIUM) 00:00: mouth 3 [place] 100 mg 00 (three) Medical tablet times Branch daily. Nitrofurant Yes [id number] Take one Univers oin&Nit. 7-27 tablet by ity of Macrocryst 00:00: mouth [place] (MACROBID) 00 twice a Medica l 100 mg day Branch capsule phenazopyri Yes [id number] 200mg Take 2 Univers dine 7-27 Tabs by ity of (PYRIDIUM) 00:00: mouth 3 [place] 100 mg 00 (three) Medical tablet times Branch daily. Nitrofurant Yes [id number] Take one Univers oin&Nit. 7-27 tablet by ity of Macrocryst 00:00: mouth [place] (MACROBID) 00 twice a Medica l 100 mg day Branch capsule phenazopyri Yes [id number] 200mg Take 2 Univers dine 7-27 Tabs by ity of (PYRIDIUM) 00:00: mouth 3 [place] 100 mg 00 (three) Medical tablet times Branch daily. Nitrofurant Yes [id number] Take one Univers oin&Nit. 7-27 tablet by ity of Macrocryst 00:00: mouth [place] (MACROBID) 00 twice a Medica l 100 mg day Branch capsule phenazopyri Yes [id number] 200mg Take 2 Univers dine 7-27 Tabs by ity of (PYRIDIUM) 00:00: mouth 3 [place] 100 mg 00 (three) Medical tablet times Branch daily. Nitrofurant Yes [id number] Take one Univers oin&Nit. 7-27 tablet by ity of Macrocryst 00:00: mouth [place] (MACROBID) 00 twice a Medica l 100 mg day Branch capsule phenazopyri Yes [id number] 200mg Take 2 Univers dine 7-27 Tabs by ity of (PYRIDIUM) 00:00: mouth 3 [place] 100 mg 00 (three) Medical tablet times Branch daily. Nitrofurant Yes [id number] Take one Univers oin&Nit. 7-27 tablet by ity of Macrocryst 00:00: mouth [place] (MACROBID) 00 twice a Medica l 100 mg day Branch capsule phenazopyri Yes [id number] 200mg Take 2 Univers dine 7-27 Tabs by ity of (PYRIDIUM) 00:00: mouth 3 [place] 100 mg 00 (three) Medical tablet times Branch daily. Nitrofurant Yes [id number] Take one Univers oin&Nit. 7-27 tablet by ity of Macrocryst 00:00: mouth [place] (MACROBID) 00 twice a Medica l 100 mg day Branch capsule phenazopyri Yes [id number] 200mg Take 2 Univers dine 7-27 Tabs by ity of (PYRIDIUM) 00:00: mouth 3 [place] 100 mg 00 (three) Medical tablet times Branch daily. Nitrofurant Yes [id number] Take one Univers oin&Nit. 7-27 tablet by ity of Macrocryst 00:00: mouth [place] (MACROBID) 00 twice a Medica l 100 mg day Branch capsule phenazopyri Yes [id number] 200mg Take 2 Univers dine 7-27 Tabs by ity of (PYRIDIUM) 00:00: mouth 3 [place] 100 mg 00 (three) Medical tablet times Branch daily. Nitrofurant Yes [id number] Take one Univers oin&Nit. 7-27 tablet by ity of Macrocryst 00:00: mouth [place] (MACROBID) 00 twice a Medica l 100 mg day Branch capsule phenazopyri Yes [id number] 200mg Take 2 Univers dine 7-27 Tabs by ity of (PYRIDIUM) 00:00: mouth 3 [place] 100 mg 00 (three) Medical tablet times Branch daily. Nitrofurant Yes [id number] Take one Univers oin&Nit. 7-27 tablet by ity of Macrocryst 00:00: mouth [place] (MACROBID) 00 twice a Medica l 100 mg day Branch capsule phenazopyri Yes [id number] 200mg Take 2 Univers dine 7-27 Tabs by ity of (PYRIDIUM) 00:00: mouth 3 [place] 100 mg 00 (three) Medical tablet times Branch daily. Nitrofurant Yes [id number] Take one Univers oin&Nit. 7-27 tablet by ity of Macrocryst 00:00: mouth [place] (MACROBID) 00 twice a Medica l 100 mg day Branch capsule phenazopyri Yes [id number] 200mg Take 2 Univers dine 7-27 Tabs by ity of (PYRIDIUM) 00:00: mouth 3 [place] 100 mg 00 (three) Medical tablet times Branch daily. Nitrofurant Yes [id number] Take one Univers oin&Nit. 7-27 tablet by ity of Macrocryst 00:00: mouth [place] (MACROBID) 00 twice a Medica l 100 mg day Branch capsule phenazopyri Yes [id number] 200mg Take 2 Univers dine 7-27 Tabs by ity of (PYRIDIUM) 00:00: mouth 3 [place] 100 mg 00 (three) Medical tablet times Branch daily. Nitrofurant Yes [id number] Take one Univers oin&Nit. 7-27 tablet by ity of Macrocryst 00:00: mouth [place] (MACROBID) 00 twice a Medica l 100 mg day Branch capsule phenazopyri 2014- Yes [id number] 200mg Take 2 Univers dine 7-27 Tabs by ity of (PYRIDIUM) 00:00: mouth 3 [place] 100 mg 00 (three) Medical tablet times Branch daily. Uribel 118 Uribel 118 No Uribel 118 [place] mg-10 mg-10 mg-10 Communi mg-40.8 mg-40.8 mg-40.8 ty mg-36 mg mg-36 mg mg-36 mg [facility] capsule capsule capsule l TAKE 1 TAKE 1 TAKE 1 Clinics CAPSULE BY CAPSULE BY CAPSULE BY MOUTH FOUR MOUTH FOUR MOUTH FOUR TIMES DAILY TIMES DAILY TIMES FOR 10 DAYS FOR 10 DAYS DAILY FOR 10 DAYS valacyclovi valacyclovi No valacyclov [place] r 1 gram r 1 gram ir 1 gram Co [facility] tablet TAKE tablet TAKE tablet ty 1 TABLET BY 1 TABLET BY TAKE 1 Hospita MOUTH THREE MOUTH THREE TABLET BY l TIMES DAILY TIMES DAILY MOUTH Clinics FOR 7 DAYS FOR 7 DAYS THREE TIMES DAILY FOR 7 DAYS valacyclovi valacyclovi No valacyclov [place] r 500 mg r 500 mg ir 500 mg Co [facility]i tablet tablet tablet ty [facility] valsartan valsartan No valsartan [place] 80 mg 80 mg 80 mg Communi tablet tablet tablet ty [facility] Virtussin Virtussin No Virtussin [place] AC 10 AC 10 AC 10 Communi mg-100 mg/5 mg-100 mg/5 mg-100 ty mL oral mL oral mg/5 mL Hospit a liquid TAKE liquid TAKE oral l 5 ML BY 5 ML BY liquid Clinics MOUTH EVERY MOUTH EVERY TAKE 5 ML 6 HOURS 6 HOURS BY MOUTH NEEDED NEEDED EVERY 6 HOURS NEEDED zinc zinc No zinc [place] sulfate 50 sulfate 50 sulfate 50 Communi mg zinc mg zinc mg zinc ty (220 mg) (220 mg) (220 mg) [facility] capsule capsule capsule l TAKE ONE TAKE ONE TAKE ONE Cli nics CAPSULE BY CAPSULE BY CAPSULE BY MOUTH EVERY MOUTH EVERY MOUTH DAY DAY EVERY DAY acyclovir acyclovir No acyclovir [place] 800 mg 800 mg 800 mg Communi tablet tablet tablet ty [facility] albuterol albuterol No albuterol [place] sulfate HFA sulfate HFA sulfate Communi 90 90 HFA 90 ty mcg/actuati [facility]cg/act[facility]ati [facility] ion l inhaler inhaler aerosol Clinic s INHALE 2 INHALE 2 inhaler PUFFS BY PUFFS BY INHALE 2 MOUTH EVERY MOUTH EVERY PUFFS BY 4 HOURS 4 HOURS MOUTH NEEDED FOR NEEDED FOR EVERY 4 SHORTNESS SHORTNESS HOURS OF BREATH OF BREATH NEEDED FOR OR WHEEZING OR WHEEZING SHORTNESS OF BREATH OR WHEEZING alprazolam alprazolam No alprazolam [place] 1 mg tablet 1 mg tablet 1 mg C om[facility]i TAKE 1 TAKE 1 tablet ty TABLET BY TABLET BY TAKE 1 [facility] MOUTH THREE MOUTH THREE TABLET BY l TIMES DAILY TIMES DAILY MOUTH Clinics THREE TIMES DAILY Amitiza 24 Amitiza 24 No Amitiza 24 [place] mcg capsule mcg capsule mcg C [facility]i TAKE 1 TAKE 1 capsule ty CAPSULE BY CAPSULE BY TAKE 1 H ospita MOUTH TWICE MOUTH TWICE CAPSULE BY l DAILY WITH DAILY WITH MOUTH Cl inics FOOD AND FOOD AND TWICE WATER WATER DAILY WITH FOOD AND WATER azithromyci azithromyci No azithromyc [place] n 250 mg n 250 mg in [...] FOR 4 DAYS benzonatate benzonatate No benzonatat [place] 100 mg 100 mg e 100 mg Communi capsule capsule capsule ty TAKE 2 TAKE 2 TAKE 2 Hospita CAPSULES BY CAPSULES BY CAPSULES l MOUTH TWICE MOUTH TWICE BY MOUTH Clinics DAILY DAILY TWICE NEEDED FOR NEEDED FOR DAILY COUGH COUGH NEEDED FOR COUGH cefuroxime cefuroxime No cefuroxime [place] axetil 500 axetil 500 axetil 500 Communi mg tablet mg tablet mg tablet ty TAKE 1 TAKE 1 TAKE 1 Hospita TABLET BY TABLET BY TABLET BY l MOUTH TWICE MOUTH TWICE MOUTH Clinics DAILY DAILY TWICE DAILY citalopram citalopram No citalopram [place] 40 mg 40 mg 40 mg Communi tablet TAKE tablet TAKE tablet ty 1 TABLET BY 1 TABLET BY TAKE 1 Hospita MOUTH ONCE MOUTH ONCE TABLET BY l DAILY DAILY MOUTH ONCE Clinics DAILY diethylprop diethylprop No diethylpro [place] ion ER 75 ion ER 75 pion ER 75 Communi mg mg mg ty tablet,exte tablet,exte tablet,ext Hospita nded nded ended l release release release Clinic s doxazosin 4 doxazosin 4 No doxazosin [place] mg tablet mg tablet 4 mg Commu ni TAKE 1 TAKE 1 tablet ty TABLET BY TABLET BY TAKE 1 [facility] MOUTH AT MOUTH AT TABLET BY l BEDTIME BEDTIME MOUTH AT Clini cs BEDTIME escitalopra escitalopra No escitalopr [place] m 20 mg m 20 mg am 20 mg Commu ni tablet TAKE tablet TAKE tablet ty 1 TABLET BY 1 TABLET BY TAKE 1 Hospita MOUTH EVERY MOUTH EVERY TABLET BY l DAY DAY MOUTH Clinics EVERY DAY famotidine famotidine No famotidine [place] 20 mg 20 mg 20 mg Communi tablet TAKE tablet TAKE tablet ty 1 TABLET BY 1 TABLET BY TAKE 1 Hospita MOUTH EVERY MOUTH EVERY TABLET BY l NIGHT AT NIGHT AT MOUTH Clinic s BEDTIME BEDTIME EVERY NIGHT AT BEDTIME fluconazole fluconazole No fluconazol [place] 150 mg 150 mg e 150 mg Communi tablet TAKE tablet TAKE tablet ty 1 TABLET BY 1 TABLET BY TAKE 1 Hospita MOUTH NOW. MOUTH NOW. TABLET BY l REPEAT IN 7 REPEAT IN 7 MOUTH NOW. Clinics DAYS DAYS REPEAT IN 7 DAYS folic acid folic acid No folic acid [place] 1 mg tablet 1 mg tablet 1 mg C ommuni TAKE 3 TAKE 3 tablet ty TABLETS BY TABLETS BY TAKE 3 H ospita MOUTH EVERY MOUTH EVERY TABLETS BY l DAY DAY MOUTH Clinics EVERY DAY gabapentin gabapentin No gabapentin [place] 300 mg 300 mg 300 mg Communi capsule capsule capsule ty TAKE 1 TAKE 1 TAKE 1 Hospita CAPSULE BY CAPSULE BY CAPSULE BY l MOUTH TWICE MOUTH TWICE MOUTH Clinics DAILY DAILY TWICE DAILY hydrocodone hydrocodone No hydrocodon [place] 5 5 e 5 Communi mg-acetamin mg-acetamin mg-acetami ty ophen 325 ophen 325 nophen 325 Hospita mg tablet mg tablet mg tablet l TAKE 1 TAKE 1 TAKE 1 Clinics TABLET BY TABLET BY TABLET BY MOUTH EVERY MOUTH EVERY MOUTH 6 HOURS 6 HOURS EVERY 6 HOURS hydroxychlo hydroxychlo No hydroxychl [place] roquine 200 roquine 200 oroquine Communi mg tablet mg tablet 200 mg ty TAKE 1 TAKE 1 tablet Hospita TABLET BY TABLET BY TAKE 1 l MOUTH TWICE MOUTH TWICE TABLET BY Clinics DAILY DAILY MOUTH TWICE DAILY levothyroxi levothyroxi No levothyrox [place] ne 150 mcg ne 150 mcg ine 150 Communi tablet TAKE tablet TAKE mcg tablet ty 1 TABLET BY 1 TABLET BY TAKE 1 Hospita MOUTH EVERY MOUTH EVERY TABLET BY l MORNING MORNING MOUTH Clinics EVERY MORNING medroxyprog medroxyprog No medroxypro [place] esterone 10 esterone 10 gesterone Communi mg tablet mg tablet 10 mg ty TAKE 1 TAKE 1 tablet Hospita TABLET BY TABLET BY TAKE 1 l MOUTH EVERY MOUTH EVERY TABLET BY Clinics DAY WITH DAY WITH MOUTH FOOD FOR 14 FOOD FOR 14 EVERY DAY DAYS DAYS WITH FOOD FOR 14 DAYS methotrexat methotrexat No methotrexa [place] e sodium e sodium te sodium Co [facility]i 2.5 mg 2.5 mg 2.5 mg ty tablet TAKE tablet TAKE tablet Hospita 5 TABLETS 5 TABLETS TAKE 5 l BY MOUTH 1 BY MOUTH 1 TABLETS BY Clinics TIME A WEEK TIME A WEEK MOUTH 1 DIRECTED DIRECTED TIME A WEEK DIRECTED metoclopram metoclopram No metoclopra [place] rosario 10 mg rosario 10 mg mide 10 mg Communi tablet TAKE tablet TAKE tablet ty DIRECTED DIRECTED TAKE Hospita PER PER DIRECTED l COLONOSCOPY COLONOSCOPY PER C linics PREP PACKET PREP PACKET COLONOSCOP Y PREP PACKET nitrofurant nitrofurant No nitrofuran [place] oin oin toin Communi monohydrate monohydrate monohydrat [...] FOR 5 DAYS omeprazole omeprazole No omeprazole [place] 20 mg 20 mg 20 mg Communi capsule,del capsule,del capsule,de ty ayed ayed layed Hospita release release release l TAKE 1 TAKE 1 TAKE 1 Clinics CAPSULE BY CAPSULE BY CAPSULE BY MOUTH EVERY MOUTH EVERY MOUTH MORNING MORNING EVERY MORNING ondansetron ondansetron No ondansetro [place] 4 mg 4 mg n 4 mg [...] VOMITING AND VOMITING ondansetron ondansetron No ondansetro [facility] 8 mg 8 mg n 8 mg [facility] disintegrat disintegrat disintegra ty ing tablet ing tablet ting [facility] tablet l [facility] pantoprazol pantoprazol No pantoprazo [facility] e 40 mg e 40 mg le 40 mg Commu ni tablet,carlos tablet,carlos tablet,del ty yed release yed release ayed [facility] TAKE 1 TAKE 1 release l TABLET BY TABLET BY TAKE 1 Cli nics MOUTH TWICE MOUTH TWICE TABLET BY DAILY DAILY MOUTH TWICE DAILY prednisone prednisone No prednisone [facility] 10 mg 10 mg 10 mg Communi [...] FOR 3 DAYS quetiapine quetiapine No quetiapine [facility] 400 mg 400 mg 400 mg [facility] tablet TAKE tablet TAKE tablet ty 3 TABLETS 3 TABLETS TAKE 3 [facility] BY MOUTH AT BY MOUTH AT TABLETS BY l BEDTIME BEDTIME MOUTH AT [facility]ini cs BEDTIME ropinirole ropinirole No ropinirole [facility] 1 mg tablet 1 mg tablet 1 mg [facility] TAKE 1 TAKE 1 tablet ty TABLET BY TABLET BY TAKE 1 [facility] MOUTH AT MOUTH AT TABLET BY l BEDTIME BEDTIME MOUTH AT [facility]ini cs BEDTIME sulfamethox sulfamethox No sulfametho [facility] azole 800 azole 800 xazole 800 [facility] mg-trimetho mg-trimetho mg-trimeth ty prim 160 mg prim 160 mg oprim 160 [facility] tablet tablet mg tablet l Clinics sumatriptan sumatriptan No sumatripta [facility] 100 mg 100 mg n 100 mg [facility] tablet TAKE tablet TAKE tablet ty 1 TABLET BY 1 TABLET BY TAKE 1 [facility] MOUTH EVERY MOUTH EVERY TABLET BY l DAY DAY MOUTH Clinics NEEDED NEEDED EVERY DAY NEEDED Sutab Sutab No Sutab [facility] 1.479-0.188 1.479-0.188 1.479-0.18 [facility]i -0.225 gram -0.225 gram 8-0.225 ty tablet TAKE tablet TAKE gram [facility] DIRECTED DIRECTED tablet l BY YOUR BY YOUR TAKE Clinic s COLONOSCOPY COLONOSCOPY DIRECTED PACKET PACKET BY YOUR INSTRUCTION INSTRUCTION COLONOSCOP S S Y PACKET INSTRUCTIO NS tranexamic tranexamic No tranexamic [facility] acid 650 mg acid 650 mg acid 650 [facility] tablet TAKE tablet TAKE mg tablet ty 2 TABLETS 2 TABLETS TAKE 2 [facility] BY MOUTH BY MOUTH TABLETS BY l THREE TIMES THREE TIMES MOUTH Clinics DAILY DAILY THREE DURING DURING TIMES MENSES FOR MENSES FOR DAILY 5 DAYS. 5 DAYS. DURING MENSES FOR 5 DAYS. trazodone trazodone No trazodone [facility] 100 mg 100 mg 100 mg [facility] tablet TAKE tablet TAKE tablet ty 1 TABLET BY 1 [facility] MOUTH AT TABLET BY l BEDTIME BEDTIME MOUTH AT Clini cs BEDTIME Uribel 118 Uribel 118 No Uribel 118 [facility] mg-10 mg-10 mg-10 [facility] mg-40.8 mg-40.8 mg-40.8 ty mg-36 mg mg-36 mg mg-36 mg [facility] capsule capsule capsule l TAKE 1 TAKE 1 TAKE 1 Clinics CAPSULE BY CAPSULE BY CAPSULE BY MOUTH FOUR MOUTH FOUR MOUTH FOUR TIMES DAILY TIMES DAILY TIMES FOR 10 DAYS FOR 10 DAYS DAILY FOR 10 DAYS valacyclovi valacyclovi No valacyclov [facility] r 1 gram r 1 gram ir 1 gram [facility] tablet tablet tablet ty [facility] valsartan valsartan No valsartan [facility] 80 mg 80 mg 80 mg [facility] tablet tablet tablet ty [facility] Virtussin Virtussin No Virtussin [facility] AC 10 AC 10 AC 10 [facility] mg-100 mg/5 mg-100 mg/5 mg-100 ty mL oral mL oral mg/5 mL Hospit a liquid TAKE liquid TAKE oral l 5 ML BY 5 ML BY liquid Clinics MOUTH EVERY MOUTH EVERY TAKE 5 ML 6 HOURS 6 HOURS BY MOUTH NEEDED NEEDED EVERY 6 HOURS NEEDED zinc zinc No zinc [facility] sulfate 50 sulfate 50 sulfate 50 [facility] mg zinc mg zinc mg zinc ty (220 mg) (220 mg) (220 mg) [facility] capsule capsule capsule l TAKE ONE TAKE ONE TAKE ONE Cli nics CAPSULE BY CAPSULE BY CAPSULE BY MOUTH EVERY MOUTH EVERY MOUTH DAY DAY EVERY DAY acyclovir acyclovir No acyclovir [facility] 400 mg 400 mg 400 mg [facility] tablet tablet tablet ty [facility] acyclovir acyclovir No acyclovir [facility] 800 mg 800 mg 800 mg [facility] tablet TAKE tablet TAKE tablet ty 1 TABLET BY 1 TABLET BY TAKE 1 [facility] MOUTH EVERY MOUTH EVERY TABLET BY l 4 HOURS 4 HOURS MOUTH Clinics WHILE AWAKE WHILE AWAKE EVERY 4 FOR 7 DAYS FOR 7 DAYS HOURS WHILE AWAKE FOR 7 DAYS albuterol albuterol No albuterol [facility] sulfate HFA sulfate HFA sulfate [facility] 90 [...] BREATH OR WHEEZING alprazolam alprazolam No alprazolam [facility] 1 mg tablet 1 mg tablet 1 mg [facility] TAKE 1 TAKE 1 tablet ty TABLET BY TABLET BY TAKE 1 [facility] MOUTH THREE MOUTH THREE TABLET BY l TIMES DAILY TIMES DAILY MOUTH Clinics THREE TIMES DAILY Amitiza 24 Amitiza 24 No Amitiza 24 [facility] mcg capsule mcg capsule mcg [facility] TAKE 1 TAKE 1 capsule ty CAPSULE BY CAPSULE BY TAKE 1 [facility] MOUTH TWICE MOUTH TWICE CAPSULE BY l DAILY WITH DAILY WITH MOUTH Cl inics FOOD AND FOOD AND TWICE WATER WATER DAILY WITH FOOD AND WATER amoxicillin amoxicillin No amoxicilli [facility] 500 mg 500 mg n 500 mg [facility] capsule capsule capsule ty [facility] l Clinics azithromyci azithromyci No azithromyc [facility] n 250 mg n 250 mg in [...] FOR 4 DAYS benzonatate benzonatate No benzonatat [facility] 100 mg 100 mg e 100 mg [facility] capsule capsule capsule ty TAKE 2 TAKE 2 TAKE 2 [facility]ita CAPSULES BY CAPSULES BY CAPSULES l MOUTH TWICE MOUTH TWICE BY MOUTH Clinics DAILY DAILY TWICE NEEDED FOR NEEDED FOR DAILY COUGH COUGH NEEDED FOR COUGH cefuroxime cefuroxime No cefuroxime [facility] axetil 500 axetil 500 axetil 500 [facility] mg tablet mg tablet mg tablet ty TAKE 1 TAKE 1 TAKE 1 [facility]ospita TABLET BY TABLET BY TABLET BY l MOUTH TWICE MOUTH TWICE MOUTH Clinics DAILY DAILY TWICE DAILY citalopram citalopram No citalopram [facility] 40 mg 40 mg 40 mg [facility] tablet TAKE tablet TAKE tablet ty 1 TABLET BY 1 TABLET BY TAKE 1 [facility] MOUTH EVERY MOUTH EVERY TABLET BY l DAY DAY MOUTH Clinics EVERY DAY Contrave 8 Contrave 8 No 2 BID Contrave 8 [facility] mg-90 mg mg-90 mg mg-90 mg Com [facility] tablet,exte tablet,exte tablet,ext ty nded nded ended [facility]osp[facility] release release release l Take 2 Take 2 Take 2 Clinics tablets tablets tablets twice a day twice a day twice a by oral by oral day by route for route for oral route 90 days. 90 days. for 90 days. diethylprop diethylprop No diethylpro [facility] ion ER 75 ion ER 75 pion ER 75 [facility] mg mg mg ty tablet,exte tablet,exte tablet,ext [facility]osp[facility] nded nded ended l release release release Clinic s doxazosin 4 doxazosin 4 No doxazosin [facility] mg tablet mg tablet 4 mg [facility] ni TAKE 1 TAKE 1 tablet ty TABLET BY TABLET BY TAKE 1 [facility] MOUTH AT MOUTH AT TABLET BY l BEDTIME BEDTIME MOUTH AT Clini cs BEDTIME escitalopra escitalopra No escitalopr [facility] m 20 mg m 20 mg am 20 mg [facility] ni tablet TAKE tablet TAKE tablet ty 1 TABLET BY 1 TABLET BY TAKE 1 [facility] MOUTH EVERY MOUTH EVERY TABLET BY l DAY DAY MOUTH Clinics EVERY DAY famotidine famotidine No famotidine [facility] 20 mg 20 mg 20 mg [facility] tablet TAKE tablet TAKE tablet ty 1 TABLET BY 1 TABLET BY TAKE 1 [facility] MOUTH EVERY MOUTH EVERY TABLET BY l NIGHT AT NIGHT AT MOUTH Clinic s BEDTIME BEDTIME EVERY NIGHT AT BEDTIME finasteride finasteride No finasterid [facility] 5 mg tablet 5 mg tablet e 5 mg [facility]i TAKE 1 TAKE 1 tablet ty TABLET BY TABLET BY TAKE 1 [facility] MOUTH EVERY MOUTH EVERY TABLET BY l DAY DAY MOUTH Clinics EVERY DAY fluconazole fluconazole No fluconazol [facility] 150 mg 150 mg e 150 mg [facility] tablet TAKE tablet TAKE tablet ty 1 TABLET BY 1 TABLET BY TAKE 1 [facility]ospita MOUTH NOW. MOUTH NOW. TABLET BY l REPEAT IN REPEAT IN MOUTH NOW. Clinics 72 HOURS 72 HOURS REPEAT IN 72 HOURS folic acid folic acid No folic acid [facility] 1 mg tablet 1 mg tablet 1 mg [facility] TAKE 3 TAKE 3 tablet ty TABLETS BY TABLETS BY TAKE 3 [facility] MOUTH EVERY MOUTH EVERY TABLETS BY l DAY DAY MOUTH Clinics EVERY DAY gabapentin gabapentin No gabapentin [facility] 300 mg 300 mg 300 mg [facility] capsule capsule capsule ty TAKE 1 TAKE 1 TAKE 1 [facility] CAPSULE BY CAPSULE BY CAPSULE BY l MOUTH TWICE MOUTH TWICE MOUTH Clinics DAILY DAILY TWICE DAILY hydrocodone hydrocodone No hydrocodon [facility] 5 5 e 5 [facility] mg-acetamin mg-acetamin mg-acetami ty ophen 325 ophen 325 nophen 325 [facility] mg tablet mg tablet mg tablet l TAKE 1 TAKE 1 TAKE 1 Clinics TABLET BY TABLET BY TABLET BY MOUTH EVERY MOUTH EVERY MOUTH 6 HOURS 6 HOURS EVERY 6 HOURS hydroxychlo hydroxychlo No hydroxychl [facility] roquine 200 roquine 200 oroquine [facility] mg tablet mg tablet 200 mg ty TAKE 1 TAKE 1 tablet [facility] TABLET BY TABLET BY TAKE 1 l MOUTH TWICE MOUTH TWICE TABLET BY Clinics DAILY DAILY MOUTH TWICE DAILY levothyroxi levothyroxi No levothyrox [facility] ne 150 mcg ne 150 mcg ine 150 [facility] tablet TAKE tablet TAKE mcg tablet ty 1 TABLET BY 1 TABLET BY TAKE 1 [facility] MOUTH EVERY MOUTH EVERY TABLET BY l MORNING MORNING MOUTH Clinics EVERY MORNING medroxyprog medroxyprog No medroxypro [facility] esterone 10 esterone 10 gesterone [facility] mg tablet mg tablet 10 mg ty TAKE 1 TAKE 1 tablet [facility] TABLET BY TABLET BY TAKE 1 l MOUTH EVERY MOUTH EVERY TABLET BY Clinics DAY WITH DAY WITH MOUTH FOOD FOR 14 FOOD FOR 14 EVERY DAY DAYS DAYS WITH FOOD FOR 14 DAYS methotrexat methotrexat No methotrexa [facility] e sodium e sodium te sodium [facility] 2.5 mg 2.5 mg 2.5 mg ty tablet TAKE tablet TAKE tablet [facility] 5 TABLETS 5 TABLETS TAKE 5 l BY MOUTH 1 BY MOUTH 1 TABLETS BY Clinics TIME A WEEK TIME A WEEK MOUTH 1 DIRECTED DIRECTED TIME A WEEK DIRECTED metoclopram metoclopram No metoclopra [facility] rosario 10 mg rosario 10 mg mide 10 mg [facility] tablet TAKE tablet TAKE tablet ty DIRECTED DIRECTED TAKE [facility]osp[facility] PER PER DIRECTED l COLONOSCOPY COLONOSCOPY PER C linics PREP PACKET PREP PACKET COLONOSCOP Y PREP PACKET nitrofurant nitrofurant No nitrofuran [facility] oin oin toin [facility] monohydrate monohydrate monohydrat [...] FOR 5 DAYS omeprazole omeprazole No omeprazole [facility] 20 mg 20 mg 20 mg [facility] capsule,del capsule,del capsule,de ty ayed ayed layed [facility] release release release l TAKE 1 TAKE 1 TAKE 1 Clinics CAPSULE BY CAPSULE BY CAPSULE BY MOUTH EVERY MOUTH EVERY MOUTH MORNING MORNING EVERY MORNING ondansetron ondansetron No ondansetro [facility] 4 mg 4 mg n 4 mg [...] VOMITING AND VOMITING ondansetron ondansetron No ondansetro [facility] 8 mg 8 mg n 8 mg [facility] disintegrat disintegrat disintegra ty ing tablet ing tablet ting [facility] tablet l [facility] pantoprazol pantoprazol No pantoprazo [facility] e 40 mg e 40 mg le 40 mg Com[facility] ni tablet,carlos tablet,carlos tablet,del ty yed release yed release ayed [facility] TAKE 1 TAKE 1 release l TABLET BY TABLET BY TAKE 1 Cli nics MOUTH TWICE MOUTH TWICE TABLET BY DAILY DAILY MOUTH TWICE DAILY phentermine phentermine No phentermin [facility] 37.5 mg 37.5 mg e 37.5 mg Comm uni tablet tablet tablet ty [facility] l Clinics prednisone prednisone No prednisone [facility] 10 mg 10 mg 10 mg Communi [...] FOR 3 DAYS quetiapine quetiapine No quetiapine [facility] 400 mg 400 mg 400 mg [facility] tablet TAKE tablet TAKE tablet ty 3 TABLETS 3 TABLETS TAKE 3 [facility] BY MOUTH AT BY MOUTH AT TABLETS BY l BEDTIME BEDTIME MOUTH AT Clini cs BEDTIME ropinirole ropinirole No ropinirole [facility] 1 mg tablet 1 mg tablet 1 mg [facility] TAKE 1 TAKE 1 tablet ty TABLET BY TABLET BY TAKE 1 [facility] MOUTH AT MOUTH AT TABLET BY l BEDTIME BEDTIME MOUTH AT Clini cs BEDTIME spironolact spironolact No spironolac [facility] one 100 mg one 100 mg tone 100 [facility] tablet TAKE tablet TAKE mg tablet ty 1 TABLET BY 1 TABLET BY TAKE 1 [facility] MOUTH TWICE MOUTH TWICE TABLET BY l DAILY DAILY MOUTH Clinics TWICE DAILY spironolact spironolact No spironolac [facility] one 50 mg one 50 mg tone 50 mg [facility] tablet TAKE tablet TAKE tablet ty 1 TABLET BY 1 TABLET BY TAKE 1 [facility] MOUTH TWICE MOUTH TWICE TABLET BY l DAILY DAILY MOUTH Clinics TWICE DAILY sulfamethox sulfamethox No sulfametho [facility] azole 800 azole 800 xazole 800 [facility] mg-trimetho mg-trimetho mg-trimeth ty prim 160 mg prim 160 mg oprim 160 [facility] tablet tablet mg tablet l Clinics sumatriptan sumatriptan No sumatripta [facility] 100 mg 100 mg n 100 mg [facility] tablet TAKE tablet TAKE tablet ty 1 TABLET BY 1 TABLET BY TAKE 1 [facility] MOUTH EVERY MOUTH EVERY TABLET BY l DAY DAY MOUTH Clinics NEEDED NEEDED EVERY DAY NEEDED Sutab Sutab No Sutab [facility] 1.479-0.188 1.479-0.188 1.479-0.18 [facility]i -0.225 gram -0.225 gram 8-0.225 ty tablet TAKE tablet TAKE gram [facility] DIRECTED DIRECTED tablet l BY YOUR BY YOUR TAKE Clinic s COLONOSCOPY COLONOSCOPY DIRECTED PACKET PACKET BY YOUR INSTRUCTION INSTRUCTION COLONOSCOP S S Y PACKET INSTRUCTIO NS tranexamic tranexamic No tranexamic [facility] acid 650 mg acid 650 mg acid 650 [facility] tablet TAKE tablet TAKE mg tablet ty 2 TABLETS 2 TABLETS TAKE 2 [facility] BY MOUTH BY MOUTH TABLETS BY l THREE TIMES THREE TIMES MOUTH Clinics DAILY DAILY THREE DURING DURING TIMES MENSES FOR MENSES FOR DAILY 5 DAYS. 5 DAYS. DURING MENSES FOR 5 DAYS. trazodone trazodone No trazodone [facility] 100 mg 100 mg 100 mg [facility] tablet TAKE tablet TAKE tablet ty 1 TABLET BY 1 TABLET BY TAKE 1 [facility] MOUTH AT MOUTH AT TABLET BY l BEDTIME BEDTIME MOUTH AT Clini cs BEDTIME Uribel 118 Uribel 118 No Uribel 118 [facility] mg-10 mg-10 mg-10 [facility] mg-40.8 mg-40.8 mg-40.8 ty mg-36 mg mg-36 mg mg-36 mg [facility] capsule capsule capsule l TAKE 1 TAKE 1 TAKE 1 Clinics CAPSULE BY CAPSULE BY CAPSULE BY MOUTH FOUR MOUTH FOUR MOUTH FOUR TIMES DAILY TIMES DAILY TIMES FOR 10 DAYS FOR 10 DAYS DAILY FOR 10 DAYS valacyclovi valacyclovi No valacyclov [facility] r 1 gram r 1 gram ir 1 gram [facility] tablet tablet tablet ty [facility] valsartan valsartan No valsartan [facility] 80 mg 80 mg 80 mg [facility] tablet tablet tablet ty [facility] Virtussin Virtussin No Virtussin [facility] AC 10 AC 10 AC 10 [facility] mg-100 mg/5 mg-100 mg/5 mg-100 ty mL oral mL oral mg/5 mL Hospit a liquid TAKE liquid TAKE oral l 5 ML BY 5 ML BY liquid Clinics MOUTH EVERY MOUTH EVERY TAKE 5 ML 6 HOURS 6 HOURS BY MOUTH NEEDED NEEDED EVERY 6 HOURS NEEDED zinc zinc No zinc [facility] sulfate 50 sulfate 50 sulfate 50 [facility] mg zinc mg zinc mg zinc ty (220 mg) (220 mg) (220 mg) [facility] capsule capsule capsule l TAKE ONE TAKE ONE TAKE ONE Cli nics CAPSULE BY CAPSULE BY CAPSULE BY MOUTH EVERY MOUTH EVERY MOUTH DAY DAY EVERY DAY acyclovir acyclovir No acyclovir [facility] 400 mg 400 mg 400 mg [facility] tablet tablet tablet ty [facility] acyclovir acyclovir No acyclovir [facility] 800 mg 800 mg 800 mg [facility] tablet TAKE tablet TAKE tablet ty 1 TABLET BY 1 TABLET BY TAKE 1 [facility] MOUTH EVERY MOUTH EVERY TABLET BY l 4 HOURS 4 HOURS MOUTH Clinics WHILE AWAKE WHILE AWAKE EVERY 4 FOR 7 DAYS FOR 7 DAYS HOURS WHILE AWAKE FOR 7 DAYS albuterol albuterol No albuterol [facility] sulfate HFA sulfate HFA sulfate [facility]i 90 90 HFA 90 ty mcg/actuati mcg/actuati mcg/act[facility]at [facility] on aerosol on aerosol ion l inhaler inhaler aerosol Clinic s INHALE 2 INHALE 2 inhaler PUFFS BY PUFFS BY INHALE 2 MOUTH EVERY MOUTH EVERY PUFFS BY 4 HOURS 4 HOURS MOUTH NEEDED FOR NEEDED FOR EVERY 4 SHORTNESS SHORTNESS HOURS OF BREATH OF BREATH NEEDED FOR OR WHEEZING OR WHEEZING SHORTNESS OF BREATH OR WHEEZING alprazolam alprazolam No alprazolam [facility] 1 mg tablet 1 mg tablet 1 mg [facility] TAKE 1 TAKE 1 tablet ty TABLET BY TABLET BY TAKE 1 [facility] MOUTH THREE MOUTH THREE TABLET BY l TIMES TIMES MOUTH Clinics DAILY. DAILY. THREE TIMES DAILY. Amitiza 24 Amitiza 24 No Amitiza 24 [facility] mcg capsule mcg capsule mcg [facility] TAKE 1 TAKE 1 capsule ty CAPSULE BY CAPSULE BY TAKE 1 [facility] MOUTH TWICE MOUTH TWICE CAPSULE BY l DAILY WITH DAILY WITH MOUTH Cl inics FOOD AND FOOD AND TWICE WATER WATER DAILY WITH FOOD AND WATER amoxicillin amoxicillin No amoxicilli [facility] 500 mg 500 mg n 500 mg [facility] capsule capsule capsule ty [facility] l Clinics azithromyci azithromyci No azithromyc [facility] n 250 mg n 250 mg in [...] FOR 4 DAYS benzonatate benzonatate No benzonatat [facility] 100 mg 100 mg e 100 mg [facility] capsule capsule capsule ty TAKE 2 TAKE 2 TAKE 2 [facility]ospita CAPSULES BY CAPSULES BY CAPSULES l MOUTH TWICE MOUTH TWICE BY MOUTH Clinics DAILY DAILY TWICE NEEDED FOR NEEDED FOR DAILY COUGH COUGH NEEDED FOR COUGH cefuroxime cefuroxime No cefuroxime [facility] axetil 500 axetil 500 axetil 500 [facility] mg tablet mg tablet mg tablet ty TAKE 1 TAKE 1 TAKE 1 [facility]ospita TABLET BY TABLET BY TABLET BY l MOUTH TWICE MOUTH TWICE MOUTH Clinics DAILY DAILY TWICE DAILY cholecalcif cholecalcif No 1capsul Q1W cholecalci [facility] ry ry e(s) ferol [facility]i (vitamin (vitamin [...] for 84 days. citalopram citalopram No citalopram [facility] 40 mg 40 mg 40 mg [facility] tablet TAKE tablet TAKE tablet ty 1 TABLET BY 1 TABLET BY TAKE 1 [facility] MOUTH EVERY MOUTH EVERY TABLET BY l DAY DAY MOUTH Clinics EVERY DAY Contrave 8 Contrave 8 No 2 BID Contrave 8 [facility] mg-90 mg mg-90 mg mg-90 mg Com nick tablet,exte tablet,exte tablet,ext ty nded nded ended [facility] release release release l Take 2 Take 2 Take 2 Clinics tablets tablets tablets twice a day twice a day twice a by oral by oral day by route for route for oral route 90 days. 90 days. for 90 days. diethylprop diethylprop No diethylpro [facility] ion ER 75 ion ER 75 pion ER 75 [facility] mg mg mg ty tablet,exte tablet,exte tablet,ext [facility] nded nded ended l release release release Clinic s doxazosin 4 doxazosin 4 No doxazosin [facility] mg tablet mg tablet 4 mg Com[facility] ni TAKE 1 TAKE 1 tablet ty TABLET BY TABLET BY TAKE 1 [facility] MOUTH AT MOUTH AT TABLET BY l BEDTIME BEDTIME MOUTH AT Clini cs BEDTIME escitalopra escitalopra No escitalopr [facility] m 20 mg m 20 mg am 20 mg Com[facility] ni tablet TAKE tablet TAKE tablet ty 1 TABLET BY 1 TABLET BY TAKE 1 [facility] MOUTH EVERY MOUTH EVERY TABLET BY l DAY DAY MOUTH Clinics EVERY DAY famotidine famotidine No famotidine [facility] 20 mg 20 mg 20 mg [facility] tablet TAKE tablet TAKE tablet ty 1 TABLET BY 1 TABLET BY TAKE 1 [facility] MOUTH EVERY MOUTH EVERY TABLET BY l NIGHT AT NIGHT AT MOUTH Clinic s BEDTIME BEDTIME EVERY NIGHT AT BEDTIME finasteride finasteride No finasterid [facility] 5 mg tablet 5 mg tablet e 5 mg [facility]i TAKE 1 TAKE 1 tablet ty TABLET BY TABLET BY TAKE 1 [facility] MOUTH EVERY MOUTH EVERY TABLET BY l DAY DAY MOUTH Clinics EVERY DAY fluconazole fluconazole No fluconazol [facility] 150 mg 150 mg e 150 mg [facility] tablet TAKE tablet TAKE tablet ty 1 TABLET BY 1 TABLET BY TAKE 1 [facility] MOUTH NOW. MOUTH NOW. TABLET BY l REPEAT IN REPEAT IN MOUTH NOW. Clinics 72 HOURS 72 HOURS REPEAT IN 72 HOURS folic acid folic acid No folic acid [facility] 1 mg tablet 1 mg tablet 1 mg [facility] TAKE 3 TAKE 3 tablet ty TABLETS BY TABLETS BY TAKE 3 [facility] MOUTH EVERY MOUTH EVERY TABLETS BY l DAY DAY MOUTH Clinics EVERY DAY gabapentin gabapentin No gabapentin [facility] 300 mg 300 mg 300 mg [facility] capsule capsule capsule ty TAKE 1 TAKE 1 TAKE 1 [facility] CAPSULE BY CAPSULE BY CAPSULE BY l MOUTH TWICE MOUTH TWICE MOUTH Clinics DAILY DAILY TWICE DAILY hydrocodone hydrocodone No hydrocodon [facility] 5 5 e 5 [facility]i mg-acetamin mg-acetamin mg-acetami ty ophen 325 ophen 325 nophen 325 [facility] mg tablet mg tablet mg tablet l TAKE 1 TAKE 1 TAKE 1 Clinics TABLET BY TABLET BY TABLET BY MOUTH EVERY MOUTH EVERY MOUTH 6 HOURS 6 HOURS EVERY 6 HOURS hydroxychlo hydroxychlo No hydroxychl [facility] roquine 200 roquine 200 oroquine [facility] mg tablet mg tablet 200 mg ty TAKE 1 TAKE 1 tablet [facility] TABLET BY TABLET BY TAKE 1 l MOUTH TWICE MOUTH TWICE TABLET BY Clinics DAILY DAILY MOUTH TWICE DAILY levothyroxi levothyroxi No levothyrox [facility] ne 150 mcg ne 150 mcg ine 150 [facility]i tablet TAKE tablet TAKE mcg tablet ty 1 TABLET BY 1 TABLET BY TAKE 1 [facility] MOUTH EVERY MOUTH EVERY TABLET BY l MORNING MORNING MOUTH Clinics EVERY MORNING medroxyprog medroxyprog No medroxypro [facility] esterone 10 esterone 10 gesterone [facility] mg tablet mg tablet 10 mg ty TAKE 1 TAKE 1 tablet [facility] TABLET BY TABLET BY TAKE 1 l MOUTH EVERY MOUTH EVERY TABLET BY Clinics DAY WITH DAY WITH MOUTH FOOD FOR 14 FOOD FOR 14 EVERY DAY DAYS DAYS WITH FOOD FOR 14 DAYS methotrexat methotrexat No methotrexa [facility] e sodium e sodium te sodium [facility] 2.5 mg 2.5 mg 2.5 mg ty tablet TAKE tablet TAKE tablet [facility] 5 TABLETS 5 TABLETS TAKE 5 l BY MOUTH 1 BY MOUTH 1 TABLETS BY Clinics TIME A WEEK TIME A WEEK MOUTH 1 DIRECTED DIRECTED TIME A WEEK DIRECTED metoclopram metoclopram No metoclopra [facility] rosario 10 mg rosario 10 mg mide 10 mg [facility]i tablet TAKE tablet TAKE tablet ty DIRECTED DIRECTED TAKE [facility]osp[facility] PER PER DIRECTED l COLONOSCOPY COLONOSCOPY PER C linics PREP PACKET PREP PACKET COLONOSCOP Y PREP PACKET nitrofurant nitrofurant No nitrofuran [facility] oin oin toin [facility]i monohydrate monohydrate monohydrat [...] FOR 5 DAYS omeprazole omeprazole No omeprazole [facility] 20 mg 20 mg 20 mg [facility] capsule,del capsule,del capsule,de ty ayed ayed layed [facility] release release release l TAKE 1 TAKE 1 TAKE 1 Clinics CAPSULE BY CAPSULE BY CAPSULE BY MOUTH EVERY MOUTH EVERY MOUTH MORNING MORNING EVERY MORNING ondansetron ondansetron No ondansetro [facility] 4 mg 4 mg n 4 mg [...] VOMITING AND VOMITING ondansetron ondansetron No ondansetro [facility] 8 mg 8 mg n 8 mg [facility]i disintegrat disintegrat disintegra ty ing tablet ing tablet ting [facility] tablet l Clinics pantoprazol pantoprazol No pantoprazo [facility] e 40 mg e 40 mg le 40 mg Commu ni tablet,carlos tablet,carlos tablet,del ty yed release yed release ayed [facility] TAKE 1 TAKE 1 release l TABLET BY TABLET BY TAKE 1 Cli nics MOUTH TWICE MOUTH TWICE TABLET BY DAILY DAILY MOUTH TWICE DAILY phentermine phentermine No phentermin [facility] 37.5 mg 37.5 mg e 37.5 mg Comm uni tablet tablet tablet ty [facility] l Clinics prednisone prednisone No prednisone [facility] 10 mg 10 mg 10 mg Communi [...] FOR 3 DAYS quetiapine quetiapine No quetiapine [facility] 400 mg 400 mg 400 mg [facility] tablet TAKE tablet TAKE tablet ty 3 TABLETS 3 TABLETS TAKE 3 [facility] BY MOUTH AT BY MOUTH AT TABLETS BY l BEDTIME BEDTIME MOUTH AT Clini cs BEDTIME ropinirole ropinirole No ropinirole [facility] 1 mg tablet 1 mg tablet 1 mg [facility] TAKE 1 TAKE 1 tablet ty TABLET BY TABLET BY TAKE 1 [facility] MOUTH AT MOUTH AT TABLET BY l BEDTIME BEDTIME MOUTH AT Clini cs BEDTIME spironolact spironolact No spironolac [facility] one 100 mg one 100 mg tone 100 [facility] tablet TAKE tablet TAKE mg tablet ty 1 TABLET BY 1 TABLET BY TAKE 1 [facility] MOUTH TWICE MOUTH TWICE TABLET BY l DAILY DAILY MOUTH Clinics TWICE DAILY spironolact spironolact No spironolac [facility] one 50 mg one 50 mg tone 50 mg [facility] tablet TAKE tablet TAKE tablet ty 1 TABLET BY 1 TABLET BY TAKE 1 [facility] MOUTH TWICE MOUTH TWICE TABLET BY l DAILY DAILY MOUTH Clinics TWICE DAILY sulfamethox sulfamethox No sulfametho [facility] azole 800 azole 800 xazole 800 [facility] mg-trimetho mg-trimetho mg-trimeth ty prim 160 mg prim 160 mg oprim 160 [facility] tablet tablet mg tablet l Clinics sumatriptan sumatriptan No sumatripta [facility] 100 mg 100 mg n 100 mg [facility] tablet TAKE tablet TAKE tablet ty 1 TABLET BY 1 TABLET BY TAKE 1 [facility]osp[facility] MOUTH EVERY MOUTH EVERY TABLET BY l DAY DAY MOUTH Clinics NEEDED NEEDED EVERY DAY NEEDED Sutab Sutab No Sutab [facility] 1.479-0.188 1.479-0.188 1.479-0.18 [facility]i -0.225 gram -0.225 gram 8-0.225 ty tablet TAKE tablet TAKE gram [facility] DIRECTED DIRECTED tablet l BY YOUR BY YOUR TAKE Clinic s COLONOSCOPY COLONOSCOPY DIRECTED PACKET PACKET BY YOUR INSTRUCTION INSTRUCTION COLONOSCOP S S Y PACKET INSTRUCTIO NS tranexamic tranexamic No tranexamic [facility] acid 650 mg acid 650 mg acid 650 [facility] tablet TAKE tablet TAKE mg tablet ty 2 TABLETS 2 TABLETS TAKE 2 [facility] BY MOUTH BY MOUTH TABLETS BY l THREE TIMES THREE TIMES MOUTH Clinics DAILY DAILY THREE DURING DURING TIMES MENSES FOR MENSES FOR DAILY 5 DAYS. 5 DAYS. DURING MENSES FOR 5 DAYS. trazodone trazodone No trazodone [facility] 100 mg 100 mg 100 mg [facility] tablet TAKE tablet TAKE tablet ty 1 TABLET BY 1 [facility] M[facility] AT MOUTH AT TABLET BY l BEDTIME BEDTIME MOUTH AT Clini cs BEDTIME acyclovir acyclovir No acyclovir [facility] 400 mg 400 mg 400 mg [facility]i tablet tablet tablet ty [facility] Uribel 118 Uribel 118 No Uribel 118 [facility] mg-10 mg-10 mg-10 [facility] mg-40.8 mg-40.8 mg-40.8 ty mg-36 mg mg-36 mg mg-36 mg [facility] capsule capsule capsule l TAKE 1 TAKE 1 TAKE 1 Clinics CAPSULE BY CAPSULE BY CAPSULE BY MOUTH FOUR MOUTH FOUR MOUTH FOUR TIMES DAILY TIMES DAILY TIMES FOR 10 DAYS FOR 10 DAYS DAILY FOR 10 DAYS valacyclovi valacyclovi No valacyclov [facility] r 1 gram r 1 gram ir 1 gram [facility] tablet tablet tablet ty [facility] valsartan valsartan No valsartan [facility] 80 mg 80 mg 80 mg [facility] tablet tablet tablet ty [facility] Virtussin Virtussin No Virtussin [facility] AC 10 AC 10 AC 10 [facility] mg-100 mg/5 mg-100 mg/5 mg-100 ty mL oral mL oral mg/5 mL Hospit a liquid TAKE liquid TAKE oral l 5 ML BY 5 ML BY liquid Clinics MOUTH EVERY MOUTH EVERY TAKE 5 ML 6 HOURS 6 HOURS BY MOUTH NEEDED NEEDED EVERY 6 HOURS NEEDED zinc zinc No zinc [facility] sulfate 50 sulfate 50 sulfate 50 [facility] mg zinc mg zinc mg zinc ty (220 mg) (220 mg) (220 mg) [facility] capsule capsule capsule l TAKE ONE TAKE ONE TAKE ONE Cli nics CAPSULE BY CAPSULE BY CAPSULE BY MOUTH EVERY MOUTH EVERY MOUTH DAY DAY EVERY DAY acyclovir acyclovir No acyclovir [facility] 800 mg 800 mg 800 mg [facility] tablet TAKE tablet TAKE tablet ty 1 TABLET BY 1 TABLET BY TAKE 1 [facility] MOUTH EVERY MOUTH EVERY TABLET BY l 4 HOURS 4 HOURS MOUTH Clinics WHILE AWAKE WHILE AWAKE EVERY 4 FOR 7 DAYS FOR 7 DAYS HOURS WHILE AWAKE FOR 7 DAYS acyclovir acyclovir No acyclovir [facility] 400 mg 400 mg 400 mg [facility] tablet tablet tablet ty [facility] l [facility]ics acyclovir acyclovir No acyclovir [facility] 800 mg 800 mg 800 mg [facility] tablet TAKE tablet TAKE tablet ty 1 TABLET BY 1 TABLET BY TAKE 1 [facility]ospita MOUTH EVERY MOUTH EVERY TABLET BY l 4 HOURS 4 HOURS MOUTH Clinics WHILE AWAKE WHILE AWAKE EVERY 4 FOR 7 DAYS FOR 7 DAYS HOURS WHILE AWAKE FOR 7 DAYS albuterol albuterol No albuterol [facility] sulfate HFA sulfate HFA sulfate Communi 90 [...] BREATH OR WHEEZING alprazolam alprazolam No alprazolam [facility] 1 mg tablet 1 mg tablet 1 mg [facility] TAKE 1 TAKE 1 tablet ty TABLET BY TABLET BY TAKE 1 [facility] MOUTH THREE MOUTH THREE TABLET BY l TIMES DAILY TIMES DAILY MOUTH Clinics THREE TIMES DAILY amoxicillin amoxicillin No amoxicilli [facility] 500 mg 500 mg n 500 mg [facility] capsule capsule capsule ty [facility] l Clinics azithromyci azithromyci No azithromyc [facility] n 250 mg n 250 mg in [...] FOR 4 DAYS benzonatate benzonatate No benzonatat [facility] 100 mg 100 mg e 100 mg [facility] capsule capsule capsule ty TAKE 2 TAKE 2 TAKE 2 [facility]ospita CAPSULES BY CAPSULES BY CAPSULES l MOUTH TWICE MOUTH TWICE BY MOUTH Clinics DAILY DAILY TWICE NEEDED FOR NEEDED FOR DAILY COUGH COUGH NEEDED FOR COUGH cefuroxime cefuroxime No cefuroxime [facility] axetil 500 axetil 500 axetil 500 [facility] mg tablet mg tablet mg tablet ty TAKE 1 TAKE 1 TAKE 1 [facility]ospita TABLET BY TABLET BY TABLET BY l MOUTH TWICE MOUTH TWICE MOUTH Clinics DAILY DAILY TWICE DAILY cholecalcif cholecalcif No cholecalci [facility] ry ry ferol [facility] (vitamin (vitamin (vitamin ty D3) 1,250 D3) 1,250 D3) 1,250 [facility]ospita mcg (50,000 mcg (50,000 mcg l unit) unit) (50,000 Clinics capsule capsule unit) TAKE 1 TAKE 1 capsule CAPSULE BY CAPSULE BY TAKE 1 MOUTH EVERY MOUTH EVERY CAPSULE BY WEEK WEEK MOUTH EVERY WEEK albuterol albuterol No albuterol [facility] sulfate HFA sulfate HFA sulfate [facility] 90 [...] BREATH OR WHEEZING citalopram citalopram No citalopram [facility] 40 mg 40 mg 40 mg [facility] tablet TAKE tablet TAKE tablet ty 1 TABLET BY 1 TABLET BY TAKE 1 [facility]ita MOUTH EVERY MOUTH EVERY TABLET BY l DAY DAY MOUTH Clinics EVERY DAY Contrave 8 Contrave 8 No 2 BID Contrave 8 [facility] mg-90 mg mg-90 mg mg-90 mg Com nick tablet,exte tablet,exte tablet,ext ty nded nded ended [facility]ospita release release release l Take 2 Take 2 Take 2 Clinics tablets tablets tablets twice a day twice a day twice a by oral by oral day by route for route for oral route 90 days. 90 days. for 90 days. diethylprop diethylprop No diethylpro [facility] ion ER 75 ion ER 75 pion ER 75 [facility] mg mg mg ty tablet,exte tablet,exte tablet,ext [facility]ospita nded nded ended l release release release Clinic s doxazosin 4 doxazosin 4 No doxazosin [facility] mg tablet mg tablet 4 mg Commu ni TAKE 1 TAKE 1 tablet ty TABLET BY TABLET BY TAKE 1 [facility] MOUTH AT MOUTH AT TABLET BY l BEDTIME BEDTIME MOUTH AT Clini cs BEDTIME escitalopra escitalopra No escitalopr [facility] m 20 mg m 20 mg am 20 mg Commu ni tablet TAKE tablet TAKE tablet ty 1 TABLET BY 1 TABLET BY TAKE 1 [facility]ospita MOUTH EVERY MOUTH EVERY TABLET BY l DAY DAY MOUTH Clinics EVERY DAY estradiol estradiol No estradiol [facility] 12.5 mg 12.5 mg 12.5 mg [facility] i implant implant implant ty pellet 15 pellet 15 pellet 15 [facility] mg mg mg l Clinics famotidine famotidine No famotidine [facility] 20 mg 20 mg 20 mg [facility] tablet TAKE tablet TAKE tablet ty 1 TABLET BY 1 TABLET BY TAKE 1 [facility]ospita MOUTH EVERY MOUTH EVERY TABLET BY l NIGHT AT NIGHT AT MOUTH Clinic s BEDTIME BEDTIME EVERY NIGHT AT BEDTIME finasteride finasteride No finasterid [facility] 5 mg tablet 5 mg tablet e 5 mg [facility]i TAKE 1 TAKE 1 tablet ty TABLET BY TABLET BY TAKE 1 [facility] MOUTH EVERY MOUTH EVERY TABLET BY l DAY DAY MOUTH Clinics EVERY DAY fluconazole fluconazole No fluconazol [facility] 150 mg 150 mg e 150 mg [facility] tablet TAKE tablet TAKE tablet ty 1 TABLET BY 1 TABLET BY TAKE 1 [facility]ospita MOUTH NOW. MOUTH NOW. TABLET BY l REPEAT IN REPEAT IN MOUTH NOW. Clinics 72 HOURS 72 HOURS REPEAT IN 72 HOURS folic acid folic acid No folic acid [facility] 1 mg tablet 1 mg tablet 1 mg [facility] TAKE 3 TAKE 3 tablet ty TABLETS BY TABLETS BY TAKE 3 [facility] MOUTH EVERY MOUTH EVERY TABLETS BY l DAY DAY MOUTH Clinics EVERY DAY alprazolam alprazolam No alprazolam [facility] 1 mg tablet 1 mg tablet 1 mg [facility] TAKE 1 TAKE 1 tablet ty TABLET BY TABLET BY TAKE 1 [facility] MOUTH THREE MOUTH THREE TABLET BY l TIMES DAILY TIMES DAILY MOUTH Clinics THREE TIMES DAILY gabapentin gabapentin No gabapentin [facility] 300 mg 300 mg 300 mg [facility] capsule capsule capsule ty TAKE 1 TAKE 1 TAKE 1 [facility]ita CAPSULE BY CAPSULE BY CAPSULE BY l MOUTH TWICE MOUTH TWICE MOUTH Clinics DAILY DAILY TWICE DAILY hydrocodone hydrocodone No hydrocodon [facility] 5 5 e 5 [facility]i mg-acetamin mg-acetamin mg-acetami ty ophen 325 ophen 325 nophen 325 [facility]osp[facility] mg tablet mg tablet mg tablet l TAKE 1 TAKE 1 TAKE 1 Clinics TABLET BY TABLET BY TABLET BY MOUTH EVERY MOUTH EVERY MOUTH 6 HOURS 6 HOURS EVERY 6 HOURS hydroxychlo hydroxychlo No hydroxychl [facility] roquine 200 roquine 200 oroquine [facility] mg tablet mg tablet 200 mg ty TAKE 1 TAKE 1 tablet [facility]ospita TABLET BY TABLET BY TAKE 1 l MOUTH TWICE MOUTH TWICE TABLET BY Clinics DAILY DAILY MOUTH TWICE DAILY levothyroxi levothyroxi No levothyrox [facility] ne 150 mcg ne 150 mcg ine 150 [facility]i tablet TAKE tablet TAKE mcg tablet ty 1 TABLET BY 1 TABLET BY TAKE 1 [facility]ospita MOUTH EVERY MOUTH EVERY TABLET BY l MORNING MORNING MOUTH Clinics EVERY MORNING lubiproston lubiproston No lubiprosto [facility] e 24 mcg e 24 mcg ne 24 mcg [facility] capsule capsule capsule ty TAKE 1 TAKE 1 TAKE 1 [facility]ita CAPSULE BY CAPSULE BY CAPSULE BY l MOUTH TWICE MOUTH TWICE MOUTH Clinics DAILY WITH DAILY WITH TWICE FOOD FOOD DAILY WITH FOOD medroxyprog medroxyprog No medroxypro [facility] esterone 10 esterone 10 gesterone [facility] mg tablet mg tablet 10 mg ty TAKE 1 TAKE 1 tablet [facility]ospita TABLET BY TABLET BY TAKE 1 l MOUTH EVERY MOUTH EVERY TABLET BY Clinics DAY WITH DAY WITH MOUTH FOOD FOR 14 FOOD FOR 14 EVERY DAY DAYS DAYS WITH FOOD FOR 14 DAYS methotrexat methotrexat No methotrexa [facility] e sodium e sodium te sodium [facility] 2.5 mg 2.5 mg 2.5 mg ty tablet TAKE tablet TAKE tablet [facility]osp[facility] 5 TABLETS 5 TABLETS TAKE 5 l BY MOUTH 1 BY MOUTH 1 TABLETS BY Clinics TIME A WEEK TIME A WEEK MOUTH 1 DIRECTED DIRECTED TIME A WEEK DIRECTED metoclopram metoclopram No metoclopra [facility] rosario 10 mg rosario 10 mg mide 10 mg [facility] tablet TAKE tablet TAKE tablet ty 1 TABLET BY 1 TABLET BY TAKE 1 [facility]ita MOUTH EVERY MOUTH EVERY TABLET BY l 8 HOURS 8 HOURS MOUTH Cl inics NEEDED NEEDED EVERY 8 HOURS NEEDED Mounjaro 5 Mounjaro 5 No Mounjaro 5 [facility] mg/0.5 mL mg/0.5 mL mg/0.5 mL [facility] subcutaneou subcutaneou subcutaneo ty s pen s pen us pen Hospita injector injector injector l INJECT FIVE INJECT FIVE INJECT Clinics (5) MG (5) MG FIVE (5) UNDER THE UNDER THE MG UNDER SKIN SKIN THE SKIN WEEKLY. WEEKLY. WEEKLY. nitrofurant nitrofurant No nitrofuran [facility] oin oin toin [facility] monohydrate monohydrate monohydrat [...] FOR 5 DAYS. amoxicillin amoxicillin No amoxicilli [facility] 500 mg 500 mg n 500 mg [facility] capsule capsule capsule ty [facility] l Clinics omeprazole omeprazole No omeprazole [facility] 20 mg 20 mg 20 mg [facility] capsule,del capsule,del capsule,de ty ayed ayed layed [facility]osp[facility] release release release l TAKE 1 TAKE 1 TAKE 1 Clinics CAPSULE BY CAPSULE BY CAPSULE BY MOUTH EVERY MOUTH EVERY MOUTH MORNING IN MORNING IN EVERY THE MORNING THE MORNING MORNING IN THE MORNING ondansetron ondansetron No ondansetro [facility] 4 mg 4 mg n 4 mg [...] 5 DAYS NEEDED ondansetron ondansetron No ondansetro [facility] 8 mg 8 mg n 8 mg [facility] disintegrat disintegrat disintegra ty ing tablet ing tablet ting [facility] tablet l Clinics pantoprazol pantoprazol No pantoprazo [facility] e 40 mg e 40 mg le 40 mg Commu ni tablet,carlos tablet,carlos tablet,del ty yed release yed release ayed [facility] TAKE 1 TAKE 1 release l TABLET BY TABLET BY TAKE 1 Cli nics MOUTH TWICE MOUTH TWICE TABLET BY DAILY DAILY MOUTH TWICE DAILY phentermine phentermine No phentermin [facility] 37.5 mg 37.5 mg e 37.5 mg Comm uni tablet tablet tablet ty [facility] Clinics prednisone prednisone No prednisone [facility] 10 mg 10 mg 10 mg Commun[facility] [...] FOR 3 DAYS quetiapine quetiapine No quetiapine [facility] 400 mg 400 mg 400 mg [facility] tablet TAKE tablet TAKE tablet ty 3 TABLETS 3 TABLETS TAKE 3 [facility] BY MOUTH AT BY MOUTH AT TABLETS BY l BEDTIME BEDTIME MOUTH AT Clini cs BEDTIME ropinirole ropinirole No ropinirole [facility] 1 mg tablet 1 mg tablet 1 mg [facility] TAKE 1 TAKE 1 tablet ty TABLET BY TABLET BY TAKE 1 [facility] MOUTH AT MOUTH AT TABLET BY l BEDTIME BEDTIME MOUTH AT Clini cs BEDTIME spironolact spironolact No spironolac [facility] one 100 mg one 100 mg tone 100 [facility] tablet TAKE tablet TAKE mg tablet ty 1 TABLET BY 1 TABLET BY TAKE 1 [facility] MOUTH TWICE MOUTH TWICE TABLET BY l DAILY DAILY MOUTH Clinics TWICE DAILY azithromyci azithromyci No azithromyc [facility] n 250 mg n 250 mg in [...] FOR 4 DAYS spironolact spironolact No spironolac [facility] one 50 mg one 50 mg tone 50 mg [facility] tablet TAKE tablet TAKE tablet ty 1 TABLET BY 1 TABLET BY TAKE 1 [facility] MOUTH TWICE MOUTH TWICE TABLET BY l DAILY DAILY MOUTH Clinics TWICE DAILY sulfamethox sulfamethox No sulfametho [facility] azole 800 azole 800 xazole 800 [facility]i mg-trimetho mg-trimetho mg-trimeth ty prim 160 mg prim 160 mg oprim 160 [facility] tablet TAKE tablet TAKE mg tablet l 1 TABLET BY 1 TABLET BY TAKE 1 Clinics MOUTH TWICE MOUTH TWICE TABLET BY DAILY DAILY MOUTH TWICE DAILY sumatriptan sumatriptan No sumatripta [facility] 100 mg 100 mg n 100 mg [facility] tablet TAKE tablet TAKE tablet ty 1 TABLET BY 1 TABLET BY TAKE 1 [facility]ospita MOUTH EVERY MOUTH EVERY TABLET BY l DAY DAY MOUTH Clinics NEEDED NEEDED EVERY DAY NEEDED Sutab Sutab No Sutab [facility] 1.479-0.188 1.479-0.188 1.479-0.18 [facility]i -0.225 gram -0.225 gram 8-0.225 ty tablet TAKE tablet TAKE gram [facility] DIRECTED DIRECTED tablet l BY YOUR BY YOUR TAKE Clinic s COLONOSCOPY COLONOSCOPY DIRECTED PACKET PACKET BY YOUR INSTRUCTION INSTRUCTION COLONOSCOP S S Y PACKET INSTRUCTIO NS testosteron testosteron No 150mg testostero [facility] e 100 mg e 100 mg ne 100 mg [facility] implant implant implant ty pellet Take pellet Take pellet [facility]ospita 150 mg by 150 mg by Take 150 l implantatio implantatio mg by Clinics n route. n route. implantati on route. tranexamic tranexamic No tranexamic [facility] acid 650 mg acid 650 mg acid 650 [facility] tablet TAKE tablet TAKE mg tablet ty 2 TABLETS 2 TABLETS TAKE 2 [facility] BY MOUTH BY MOUTH TABLETS BY l THREE TIMES THREE TIMES MOUTH Clinics DAILY DAILY THREE DURING DURING TIMES MENSES FOR MENSES FOR DAILY 5 DAYS. 5 DAYS. DURING MENSES FOR 5 DAYS. trazodone trazodone No trazodone [facility] 100 mg 100 mg 100 mg [facility] tablet TAKE tablet TAKE tablet ty 1 TABLET BY 1 TABLET BY TAKE 1 [facility]ospita MOUTH AT MOUTH AT TABLET BY l BEDTIME BEDTIME MOUTH AT Clini cs BEDTIME Uribel 118 Uribel 118 No Uribel 118 [facility] mg-10 mg-10 mg-10 [facility] mg-40.8 mg-40.8 mg-40.8 ty mg-36 mg mg-36 mg mg-36 mg [facility] capsule capsule capsule l TAKE 1 TAKE 1 TAKE 1 Clinics CAPSULE BY CAPSULE BY CAPSULE BY MOUTH FOUR MOUTH FOUR MOUTH FOUR TIMES DAILY TIMES DAILY TIMES FOR 10 DAYS FOR 10 DAYS DAILY FOR 10 DAYS valacyclovi valacyclovi No valacyclov [facility] r 1 gram r 1 gram ir 1 gram [facility] tablet TAKE tablet TAKE tablet ty 1 TABLET BY 1 TABLET BY TAKE 1 [facility] MOUTH THREE MOUTH THREE TABLET BY l TIMES DAILY TIMES DAILY MOUTH Clinics FOR 7 DAYS FOR 7 DAYS THREE TIMES DAILY FOR 7 DAYS valacyclovi valacyclovi No valacyclov [facility] r 500 mg r 500 mg ir 500 mg [facility] tablet tablet tablet ty [facility] l Clinics benzonatate benzonatate No benzonatat [facility] 100 mg 100 mg e 100 mg [facility] capsule capsule capsule ty TAKE 2 TAKE 2 TAKE 2 [facility]ita CAPSULES BY CAPSULES BY CAPSULES l MOUTH TWICE MOUTH TWICE BY MOUTH Clinics DAILY DAILY TWICE NEEDED FOR NEEDED FOR DAILY COUGH COUGH NEEDED FOR COUGH valsartan valsartan No valsartan [facility] 80 mg 80 mg 80 mg [facility] tablet tablet tablet ty [facility] l [facility] Virtussin Virtussin No Virtussin [facility] AC 10 AC 10 AC 10 [facility] mg-100 mg/5 mg-100 mg/5 mg-100 ty mL oral mL oral mg/5 mL Hospit a liquid TAKE liquid TAKE oral l 5 ML BY 5 ML BY liquid Clinics MOUTH EVERY MOUTH EVERY TAKE 5 ML 6 HOURS 6 HOURS BY MOUTH NEEDED NEEDED EVERY 6 HOURS NEEDED zinc zinc No zinc [facility] sulfate 50 sulfate 50 sulfate 50 [facility] mg zinc mg zinc mg zinc ty (220 mg) (220 mg) (220 mg) [facility] capsule capsule capsule l TAKE ONE TAKE ONE TAKE ONE Cli nics CAPSULE BY CAPSULE BY CAPSULE BY MOUTH EVERY MOUTH EVERY MOUTH DAY DAY EVERY DAY cefuroxime cefuroxime No cefuroxime [facility] axetil 500 axetil 500 axetil 500 [facility] mg tablet mg tablet mg tablet ty TAKE 1 TAKE 1 TAKE 1 [facility] TABLET BY TABLET BY TABLET BY l MOUTH TWICE MOUTH TWICE MOUTH Clinics DAILY DAILY TWICE DAILY acyclovir acyclovir No 1 Q12H acyclovir [facility] 400 mg 400 mg 400 mg [facility] tablet Take tablet Take tablet ty 1 tablet 1 tablet Take 1 Hospi ta every 12 every 12 tablet l hours by hours by every 12 Cli nics oral route oral route hours by for 90 for 90 oral route days. days. for 90 days. acyclovir acyclovir No acyclovir [facility] 800 mg 800 mg 800 mg [facility] tablet TAKE tablet TAKE tablet ty 1 TABLET BY 1 TABLET BY TAKE 1 [facility] MOUTH EVERY MOUTH EVERY TABLET BY l 4 HOURS 4 HOURS MOUTH Clinics WHILE AWAKE WHILE AWAKE EVERY 4 FOR 7 DAYS FOR 7 DAYS HOURS WHILE AWAKE FOR 7 DAYS alprazolam alprazolam No alprazolam [facility] 1 mg tablet 1 mg tablet 1 mg [facility] TAKE 1 TAKE 1 tablet ty TABLET BY TABLET BY TAKE 1 [facility] MOUTH THREE MOUTH THREE TABLET BY l TIMES DAILY TIMES DAILY MOUTH Clinics THREE TIMES DAILY citalopram citalopram No citalopram [facility] 40 mg 40 mg 40 mg [facility] tablet TAKE tablet TAKE tablet ty 1 TABLET BY 1 TABLET BY TAKE 1 [facility] MOUTH EVERY MOUTH EVERY TABLET BY l DAY DAY MOUTH Clinics EVERY DAY estradiol estradiol No estradiol [facility] 12.5 mg 12.5 mg 12.5 mg [facility] i implant implant implant ty pellet 15 pellet 15 pellet 15 [facility] mg mg mg l Clinics famotidine famotidine No famotidine [facility] 20 mg 20 mg 20 mg [facility] tablet TAKE tablet TAKE tablet ty 1 TABLET BY 1 TABLET BY TAKE 1 [facility] MOUTH EVERY MOUTH EVERY TABLET BY l NIGHT AT NIGHT AT MOUTH Clinic s BEDTIME BEDTIME EVERY NIGHT AT BEDTIME cholecalcif cholecalcif No cholecalci [facility] ry ry ferol [facility] (vitamin (vitamin (vitamin ty D3) 1,250 D3) 1,250 D3) 1,250 [facility] mcg (50,000 mcg (50,000 mcg l unit) unit) (50,000 Clinics capsule capsule unit) TAKE 1 TAKE 1 capsule CAPSULE BY CAPSULE BY TAKE 1 MOUTH EVERY MOUTH EVERY CAPSULE BY WEEK WEEK MOUTH EVERY WEEK finasteride finasteride No finasterid [facility] 5 mg tablet 5 mg tablet e 5 mg [facility] TAKE 1 TAKE 1 tablet ty TABLET BY TABLET BY TAKE 1 [facility] MOUTH EVERY MOUTH EVERY TABLET BY l DAY DAY MOUTH Clinics EVERY DAY levothyroxi levothyroxi No levothyrox [facility] ne 150 mcg ne 150 mcg ine 150 [facility] tablet TAKE tablet TAKE mcg tablet ty 1 TABLET BY 1 TABLET BY TAKE 1 [facility] MOUTH EVERY MOUTH EVERY TABLET BY l MORNING MORNING MOUTH Clinics EVERY MORNING liothyronin liothyronin No 1 Q1D liothyroni [facility] e 5 mcg e 5 mcg ne 5 mcg Commu ni tablet Take tablet Take tablet ty 1 tablet 1 tablet Take 1 Hospi ta every day every day tablet l by oral by oral every day Clin ics route for route for by oral 90 days. 90 days. route for 90 days. lubiproston lubiproston No lubiprosto [facility] e 24 mcg e 24 mcg ne 24 mcg [facility] capsule capsule capsule ty TAKE 1 TAKE 1 TAKE 1 [facility] CAPSULE BY CAPSULE BY CAPSULE BY l MOUTH TWICE MOUTH TWICE MOUTH Clinics DAILY WITH DAILY WITH TWICE FOOD FOOD DAILY WITH FOOD Mounjaro 5 Mounjaro 5 No Mounjaro 5 [facility] mg/0.5 mL mg/0.5 mL mg/0.5 mL [facility] subcutaneou subcutaneou subcutaneo ty s pen s pen us pen [facility] injector injector injector l INJECT FIVE INJECT FIVE INJECT Clinics (5) MG (5) MG FIVE (5) UNDER THE UNDER THE MG UNDER SKIN SKIN THE SKIN WEEKLY. WEEKLY. WEEKLY. ondansetron ondansetron No ondansetro [facility] 4 mg 4 mg n 4 mg [...] 5 DAYS NEEDED quetiapine quetiapine No quetiapine [facility] 400 mg 400 mg 400 mg [facility] tablet TAKE tablet TAKE tablet ty 3 TABLETS 3 TABLETS TAKE 3 [facility] BY MOUTH AT BY MOUTH AT TABLETS BY l BEDTIME BEDTIME MOUTH AT Clini cs BEDTIME ropinirole ropinirole No ropinirole [facility] 1 mg tablet 1 mg tablet 1 mg [facility] TAKE 1 TAKE 1 tablet ty TABLET BY TABLET BY TAKE 1 [facility] MOUTH AT MOUTH AT TABLET BY l BEDTIME BEDTIME MOUTH AT Clini cs BEDTIME spironolact spironolact No spironolac [facility] one 100 mg one 100 mg tone 100 [facility] tablet TAKE tablet TAKE mg tablet ty 1 TABLET BY 1 TABLET BY TAKE 1 [facility] MOUTH TWICE MOUTH TWICE TABLET BY l DAILY DAILY MOUTH Clinics TWICE DAILY sumatriptan sumatriptan No sumatripta [facility] 100 mg 100 mg n 100 mg [facility] tablet TAKE tablet TAKE tablet ty 1 TABLET BY 1 TABLET BY TAKE 1 [facility] MOUTH EVERY MOUTH EVERY TABLET BY l DAY DAY MOUTH Clinics NEEDED NEEDED EVERY DAY NEEDED citalopram citalopram No citalopram [facility] 40 mg 40 mg 40 mg [facility] tablet TAKE tablet TAKE tablet ty 1 TABLET BY 1 TABLET BY TAKE 1 [facility] MOUTH EVERY MOUTH EVERY TABLET BY l DAY DAY MOUTH Clinics EVERY DAY testosteron testosteron No 150mg testostero [facility] e 100 mg e 100 mg ne 100 mg [facility] implant implant implant ty pellet Take pellet Take pellet [facility] 150 mg by 150 mg by Take 150 l implantatio implantatio mg by Clinics n route. n route. implantati on route. trazodone trazodone No trazodone [facility] 100 mg 100 mg 100 mg [facility] tablet TAKE tablet TAKE tablet ty 1 TABLET BY 1 TABLET BY TAKE 1 [facility] MOUTH AT MOUTH AT TABLET BY l BEDTIME BEDTIME MOUTH AT Clini cs BEDTIME zinc zinc No zinc [facility] sulfate 50 sulfate 50 sulfate 50 [facility] mg zinc mg zinc mg zinc ty (220 mg) (220 mg) (220 mg) [facility] capsule capsule capsule l TAKE ONE TAKE ONE TAKE ONE Cli nics CAPSULE BY CAPSULE BY CAPSULE BY MOUTH EVERY MOUTH EVERY MOUTH DAY DAY EVERY DAY Contrave 8 Contrave 8 No 2 BID Contrave 8 [facility] mg-90 mg mg-90 mg mg-90 mg Com nick tablet,exte tablet,exte tablet,ext ty nded nded ended [facility] release release release l Take 2 Take 2 Take 2 Clinics tablets tablets tablets twice a day twice a day twice a by oral by oral day by route for route for oral route 90 days. 90 days. for 90 days. diethylprop diethylprop No diethylpro [facility] ion ER 75 ion ER 75 pion ER 75 [facility] mg mg mg ty tablet,exte tablet,exte tablet,ext [facility] nded nded ended l release release release Clinic s doxazosin 4 doxazosin 4 No doxazosin [facility] mg tablet mg tablet 4 mg Com[facility] ni TAKE 1 TAKE 1 tablet ty TABLET BY TABLET BY TAKE 1 [facility] MOUTH AT MOUTH AT TABLET BY l BEDTIME BEDTIME MOUTH AT Clini cs BEDTIME escitalopra escitalopra No escitalopr [facility] m 20 mg m 20 mg am 20 mg Commu ni tablet TAKE tablet TAKE tablet ty 1 TABLET BY 1 TABLET BY TAKE 1 [facility] MOUTH EVERY MOUTH EVERY TABLET BY l DAY DAY MOUTH Clinics EVERY DAY estradiol estradiol No estradiol [facility] 12.5 mg 12.5 mg 12.5 mg [facility] i implant implant implant ty pellet 15 pellet 15 pellet 15 [facility] mg mg mg l Clinics famotidine famotidine No famotidine [facility] 20 mg 20 mg 20 mg [facility] tablet TAKE tablet TAKE tablet ty 1 TABLET BY 1 TABLET BY TAKE 1 [facility] MOUTH EVERY MOUTH EVERY TABLET BY l NIGHT AT NIGHT AT MOUTH Clinic s BEDTIME BEDTIME EVERY NIGHT AT BEDTIME finasteride finasteride No finasterid [facility] 5 mg tablet 5 mg tablet e 5 mg [facility] TAKE 1 TAKE 1 tablet ty TABLET BY TABLET BY TAKE 1 [facility] MOUTH EVERY MOUTH EVERY TABLET BY l DAY DAY MOUTH Clinics EVERY DAY fluconazole fluconazole No fluconazol [facility] 150 mg 150 mg e 150 mg [facility] tablet TAKE tablet TAKE tablet ty 1 TABLET BY 1 TABLET BY TAKE 1 [facility] MOUTH NOW. MOUTH NOW. TABLET BY l REPEAT IN REPEAT IN MOUTH NOW. Clinics 72 HOURS 72 HOURS REPEAT IN 72 HOURS folic acid folic acid No folic acid [facility] 1 mg tablet 1 mg tablet 1 mg [facility] TAKE 3 TAKE 3 tablet ty TABLETS BY TABLETS BY TAKE 3 [facility] MOUTH EVERY MOUTH EVERY TABLETS BY l DAY DAY MOUTH Clinics EVERY DAY gabapentin gabapentin No gabapentin [facility] 300 mg 300 mg 300 mg [facility] capsule capsule capsule ty TAKE 1 TAKE 1 TAKE 1 [facility] CAPSULE BY CAPSULE BY CAPSULE BY l MOUTH TWICE MOUTH TWICE MOUTH Clinics DAILY DAILY TWICE DAILY hydrocodone hydrocodone No hydrocodon [facility] 5 5 e 5 [facility] mg-acetamin mg-acetamin mg-acetami ty ophen 325 ophen 325 nophen 325 [facility] mg tablet mg tablet mg tablet l TAKE 1 TAKE 1 TAKE 1 Clinics TABLET BY TABLET BY TABLET BY MOUTH EVERY MOUTH EVERY MOUTH 6 HOURS 6 HOURS EVERY 6 HOURS hydroxychlo hydroxychlo No hydroxychl [facility] roquine 200 roquine 200 oroquine [facility] mg tablet mg tablet 200 mg ty TAKE 1 TAKE 1 tablet [facility] TABLET BY TABLET BY TAKE 1 l MOUTH TWICE MOUTH TWICE TABLET BY Clinics DAILY DAILY MOUTH TWICE DAILY levothyroxi levothyroxi No levothyrox [facility] ne 150 mcg ne 150 mcg ine 150 [facility] tablet TAKE tablet TAKE mcg tablet ty 1 TABLET BY 1 TABLET BY TAKE 1 [facility] MOUTH EVERY MOUTH EVERY TABLET BY l MORNING MORNING MOUTH Clinics EVERY MORNING lubiproston lubiproston No lubiprosto [facility] e 24 mcg e 24 mcg ne 24 mcg [facility] capsule capsule capsule ty TAKE 1 TAKE 1 TAKE 1 [facility] CAPSULE BY CAPSULE BY CAPSULE BY l MOUTH TWICE MOUTH TWICE MOUTH Clinics DAILY WITH DAILY WITH TWICE FOOD FOOD DAILY WITH FOOD medroxyprog medroxyprog No medroxypro [facility] esterone 10 esterone 10 gesterone [facility] mg tablet mg tablet 10 mg ty TAKE 1 TAKE 1 tablet [facility] TABLET BY TABLET BY TAKE 1 l MOUTH EVERY MOUTH EVERY TABLET BY Clinics DAY WITH DAY WITH MOUTH FOOD FOR 14 FOOD FOR 14 EVERY DAY DAYS DAYS WITH FOOD FOR 14 DAYS methotrexat methotrexat No methotrexa [facility] e sodium e sodium te sodium [facility] 2.5 mg 2.5 mg 2.5 mg ty tablet TAKE tablet TAKE tablet [facility] 5 TABLETS 5 TABLETS TAKE 5 l BY MOUTH 1 BY MOUTH 1 TABLETS BY Clinics TIME A WEEK TIME A WEEK MOUTH 1 DIRECTED DIRECTED TIME A WEEK DIRECTED metoclopram metoclopram No metoclopra [facility] rosario 10 mg rosario 10 mg mide 10 mg [facility] tablet TAKE tablet TAKE tablet ty 1 TABLET BY 1 TABLET BY TAKE 1 [facility] MOUTH EVERY MOUTH EVERY TABLET BY l 8 HOURS 8 HOURS MOUTH Cl inics NEEDED NEEDED EVERY 8 HOURS NEEDED Mounjaro 5 Mounjaro 5 No 5mg Q1W Mounjaro 5 [facility] mg/0.5 mL mg/0.5 mL mg/0.5 mL [facility]i subcutaneou subcutaneou subcutaneo ty s pen s pen us pen [facility] injector injector injector l Inject 5 mg Inject 5 mg Inject 5 Clinics every week every week mg every by by week by subcutaneou subcutaneou subcutaneo s route for s route for us route 84 days. 84 days. for 84 days. nitrofurant nitrofurant No nitrofuran [facility] oin oin toin Communi monohydrate monohydrate monohydrat [...] FOR 5 DAYS. omeprazole omeprazole No omeprazole [facility] 20 mg 20 mg 20 mg [facility] capsule,del capsule,del capsule,de ty ayed ayed layed [facility] release release release l TAKE 1 TAKE 1 TAKE 1 Clinics CAPSULE BY CAPSULE BY CAPSULE BY MOUTH EVERY MOUTH EVERY MOUTH MORNING IN MORNING IN EVERY THE MORNING THE MORNING MORNING IN THE MORNING ondansetron ondansetron No ondansetro [facility] 4 mg 4 mg n 4 mg [...] VOMITING AND VOMITING ondansetron ondansetron No ondansetro [facility] 8 mg 8 mg n 8 mg Communi disintegrat disintegrat disintegra ty ing tablet ing tablet ting [facility] tablet l Clinics pantoprazol pantoprazol No pantoprazo [facility] e 40 mg e 40 mg le 40 mg Commu ni tablet,carlos tablet,carlos tablet,del ty yed release yed release ayed [facility]ita TAKE 1 TAKE 1 release l TABLET BY TABLET BY TAKE 1 Cli nics MOUTH TWICE MOUTH TWICE TABLET BY DAILY DAILY MOUTH TWICE DAILY phentermine phentermine No phentermin [facility] 37.5 mg 37.5 mg e 37.5 mg Comm uni tablet tablet tablet ty Hospita l Clinics prednisone prednisone No prednisone [facility] 10 mg 10 mg 10 mg Communi [...] FOR 3 DAYS quetiapine quetiapine No quetiapine [facility] 400 mg 400 mg 400 mg Communi tablet TAKE tablet TAKE tablet ty 3 TABLETS 3 TABLETS TAKE 3 [facility] BY MOUTH AT BY MOUTH AT TABLETS BY l BEDTIME BEDTIME MOUTH AT Clini BEDTIME ropinirole ropinirole No ropinirole [facility] 1 mg tablet 1 mg tablet 1 mg C [facility] TAKE 1 TAKE 1 tablet ty TABLET BY TABLET BY TAKE 1 [facility] MOUTH AT MOUTH AT TABLET BY l BEDTIME BEDTIME MOUTH AT Clini BEDTIME spironolact spironolact No spironolac [facility] one 100 mg one 100 mg tone 100 Communi tablet TAKE tablet TAKE mg tablet ty 1 TABLET BY 1 TABLET BY TAKE 1 Hospita MOUTH TWICE MOUTH TWICE TABLET BY l DAILY DAILY MOUTH Clinics TWICE DAILY spironolact spironolact No spironolac [facility] one 50 mg one 50 mg tone 50 mg Communi tablet TAKE tablet TAKE tablet ty 1 TABLET BY 1 TABLET BY TAKE 1 Hospita MOUTH TWICE MOUTH TWICE TABLET BY l DAILY DAILY MOUTH Clinics TWICE DAILY sulfamethox sulfamethox No sulfametho [facility] azole 800 azole 800 xazole 800 Communi mg-trimetho mg-trimetho mg-trimeth ty prim 160 mg prim 160 mg oprim 160 Hospita tablet tablet mg tablet l Clinics sumatriptan sumatriptan No sumatripta [facility] 100 mg 100 mg n 100 mg Communi tablet TAKE tablet TAKE tablet ty 1 TABLET BY 1 TABLET BY TAKE 1 Hospita MOUTH EVERY MOUTH EVERY TABLET BY l DAY DAY MOUTH Clinics NEEDED NEEDED EVERY DAY NEEDED Sutab Sutab No Sutab [facility] 1.479-0.188 1.479-0.188 1.479-0.18 Communi -0.225 gram -0.225 gram 8-0.225 ty tablet TAKE tablet TAKE gram [facility] DIRECTED DIRECTED tablet l BY YOUR BY YOUR TAKE Clinic s COLONOSCOPY COLONOSCOPY DIRECTED PACKET PACKET BY YOUR INSTRUCTION INSTRUCTION COLONOSCOP S S Y PACKET INSTRUCTIO NS testosteron testosteron No 150mg testostero [facility] e 100 mg e 100 mg ne 100 mg Co [facility] implant implant implant ty pellet Take pellet Take pellet Hospita 150 mg by 150 mg by Take 150 l implantatio implantatio mg by Clinics n route. n route. implantati on route. tranexamic tranexamic No tranexamic [facility] acid 650 mg acid 650 mg acid 650 Communi tablet TAKE tablet TAKE mg tablet ty 2 TABLETS 2 TABLETS TAKE 2 [facility] BY MOUTH BY MOUTH TABLETS BY l THREE TIMES THREE TIMES MOUTH Clinics DAILY DAILY THREE DURING DURING TIMES MENSES FOR MENSES FOR DAILY 5 DAYS. 5 DAYS. DURING MENSES FOR 5 DAYS. trazodone trazodone No trazodone [facility] 100 mg 100 mg 100 mg Communi tablet TAKE tablet TAKE tablet ty 1 TABLET BY 1 TABLET BY TAKE 1 Hospita MOUTH AT MOUTH AT TABLET BY l BEDTIME BEDTIME MOUTH AT Clini cs BEDTIME Uribel 118 Uribel 118 No Uribel 118 [facility] mg-10 mg-10 mg-10 Communi mg-40.8 mg-40.8 mg-40.8 ty mg-36 mg mg-36 mg mg-36 mg [facility] capsule capsule capsule l TAKE 1 TAKE 1 TAKE 1 Clinics CAPSULE BY CAPSULE BY CAPSULE BY MOUTH FOUR MOUTH FOUR MOUTH FOUR TIMES DAILY TIMES DAILY TIMES FOR 10 DAYS FOR 10 DAYS DAILY FOR 10 DAYS valacyclovi valacyclovi No valacyclov [facility] r 1 gram r 1 gram ir 1 gram Co [facility] tablet TAKE tablet TAKE tablet ty 1 TABLET BY 1 TABLET BY TAKE 1 Hospita MOUTH THREE MOUTH THREE TABLET BY l TIMES DAILY TIMES DAILY MOUTH Clinics FOR 7 DAYS FOR 7 DAYS THREE TIMES DAILY FOR 7 DAYS diethylprop diethylprop No diethylpro [facility] ion ER 75 ion ER 75 pion ER 75 Communi mg mg mg ty tablet,exte tablet,exte tablet,ext Hospita nded nded ended l release release release [facility] s valacyclovi valacyclovi No valacyclov [facility] r 500 mg r 500 mg ir 500 mg Co [facility] tablet tablet tablet ty [facility] valsartan valsartan No valsartan [facility] 80 mg 80 mg 80 mg Communi tablet tablet tablet ty [facility] Virtussin Virtussin No Virtussin [facility] AC 10 AC 10 AC 10 Communi mg-100 mg/5 mg-100 mg/5 mg-100 ty mL oral mL oral mg/5 mL Hospit a liquid TAKE liquid TAKE oral l 5 ML BY 5 ML BY liquid Clinics MOUTH EVERY MOUTH EVERY TAKE 5 ML 6 HOURS 6 HOURS BY MOUTH NEEDED NEEDED EVERY 6 HOURS NEEDED zinc zinc No zinc [facility] sulfate 50 sulfate 50 sulfate 50 Communi mg zinc mg zinc mg zinc ty (220 mg) (220 mg) (220 mg) [facility] capsule capsule capsule l TAKE ONE TAKE ONE TAKE ONE Cli nics CAPSULE BY CAPSULE BY CAPSULE BY MOUTH EVERY MOUTH EVERY MOUTH DAY DAY EVERY DAY acyclovir acyclovir No acyclovir [facility] 400 mg 400 mg 400 mg Communi tablet tablet tablet ty [facility] doxazosin 4 doxazosin 4 No doxazosin [facility] mg tablet mg tablet 4 mg Commu ni TAKE 1 TAKE 1 tablet ty TABLET BY TABLET BY TAKE 1 [facility] MOUTH AT MOUTH AT TABLET BY l BEDTIME BEDTIME MOUTH AT Clini cs BEDTIME acyclovir acyclovir No acyclovir [facility] 800 mg 800 mg 800 mg Communi tablet TAKE tablet TAKE tablet ty 1 TABLET BY 1 TABLET BY TAKE 1 Hospita MOUTH EVERY MOUTH EVERY TABLET BY l 4 HOURS 4 HOURS MOUTH Clinics WHILE AWAKE WHILE AWAKE EVERY 4 FOR 7 DAYS FOR 7 DAYS HOURS WHILE AWAKE FOR 7 DAYS albuterol albuterol No albuterol [facility] sulfate HFA sulfate HFA sulfate Communi 90 [...] BREATH OR WHEEZING alprazolam alprazolam No alprazolam [facility] 1 mg tablet 1 mg tablet 1 mg C [facility] TAKE 1 TAKE 1 tablet ty TABLET BY TABLET BY TAKE 1 [facility] MOUTH THREE MOUTH THREE TABLET BY l TIMES DAILY TIMES DAILY MOUTH Clinics THREE TIMES DAILY amoxicillin amoxicillin No amoxicilli [facility] 500 mg 500 mg n 500 mg Communi capsule capsule capsule ty Hospita l Clinics escitalopra escitalopra No escitalopr [facility] m 20 mg m 20 mg am 20 mg Commu ni tablet TAKE tablet TAKE tablet ty 1 TABLET BY 1 TABLET BY TAKE 1 Hospita MOUTH EVERY MOUTH EVERY TABLET BY l DAY DAY MOUTH Clinics EVERY DAY azithromyci azithromyci No azithromyc [facility] n 250 mg n 250 mg in [...] FOR 4 DAYS benzonatate benzonatate No benzonatat [facility] 100 mg 100 mg e 100 mg Communi capsule capsule capsule ty TAKE 2 TAKE 2 TAKE 2 Hospita CAPSULES BY CAPSULES BY CAPSULES l MOUTH TWICE MOUTH TWICE BY MOUTH Clinics DAILY DAILY TWICE NEEDED FOR NEEDED FOR DAILY COUGH COUGH NEEDED FOR COUGH cefuroxime cefuroxime No cefuroxime [facility] axetil 500 axetil 500 axetil 500 Communi mg tablet mg tablet mg tablet ty TAKE 1 TAKE 1 TAKE 1 Hospita TABLET BY TABLET BY TABLET BY l MOUTH TWICE MOUTH TWICE MOUTH Clinics DAILY DAILY TWICE DAILY cholecalcif cholecalcif No cholecalci [facility] ry [facility] Jeraldi (vitamin (vitamin (vitamin ty D3) 1,250 D3) 1,250 D3) 1,250 Hospita mcg (50,000 mcg (50,000 mcg l unit) unit) (50,000 Clinics capsule capsule unit) TAKE 1 TAKE 1 capsule CAPSULE BY CAPSULE BY TAKE 1 MOUTH EVERY MOUTH EVERY CAPSULE BY WEEK WEEK MOUTH EVERY WEEK estradiol estradiol No estradiol [facility] 12.5 mg 12.5 mg 12.5 mg Commun i implant implant implant ty pellet 15 pellet 15 pellet 15 Hospita mg mg mg l Clinics citalopram citalopram No citalopram [facility] 40 mg 40 mg 40 mg Communi tablet TAKE tablet TAKE tablet ty 1 TABLET BY 1 TABLET BY TAKE 1 Hospita MOUTH EVERY MOUTH EVERY TABLET BY l DAY DAY MOUTH Clinics EVERY DAY Contrave 8 Contrave 8 No 2 BID Contrave 8 [facility] mg-90 mg mg-90 mg mg-90 mg Com nick tablet,exte tablet,exte tablet,ext ty nded nded ended Hospita release release release l Take 2 Take 2 Take 2 Clinics tablets tablets tablets twice a day twice a day twice a by oral by oral day by route for route for oral route 90 days. 90 days. for 90 days. famotidine famotidine No famotidine [facility] 20 mg 20 mg 20 mg Communi tablet TAKE tablet TAKE tablet ty 1 TABLET BY 1 TABLET BY TAKE 1 Hospita MOUTH EVERY MOUTH EVERY TABLET BY l NIGHT AT NIGHT AT MOUTH Clinic s BEDTIME BEDTIME EVERY NIGHT AT BEDTIME finasteride finasteride No finasterid [facility] 5 mg tablet 5 mg tablet e 5 mg Communi TAKE 1 TAKE 1 tablet ty TABLET BY TABLET BY TAKE 1 [facility] MOUTH EVERY MOUTH EVERY TABLET BY l DAY DAY MOUTH Clinics EVERY DAY fluconazole fluconazole No fluconazol [facility] 150 mg 150 mg e 150 mg Communi tablet TAKE tablet TAKE tablet ty 1 TABLET BY 1 TABLET BY TAKE 1 Hospita MOUTH NOW. MOUTH NOW. TABLET BY l REPEAT IN REPEAT IN MOUTH NOW. Clinics 72 HOURS 72 HOURS REPEAT IN 72 HOURS folic acid folic acid No folic acid [facility] 1 mg tablet 1 mg tablet 1 mg C [facility]i TAKE 3 TAKE 3 tablet ty TABLETS BY TABLETS BY TAKE 3 H ospita MOUTH EVERY MOUTH EVERY TABLETS BY l DAY DAY MOUTH Clinics EVERY DAY gabapentin gabapentin No gabapentin [facility] 300 mg 300 mg 300 mg Communi capsule capsule capsule ty TAKE 1 TAKE 1 TAKE 1 Hospita CAPSULE BY CAPSULE BY CAPSULE BY l MOUTH TWICE MOUTH TWICE MOUTH Clinics DAILY DAILY TWICE DAILY hydrocodone hydrocodone No hydrocodon [facility] 5 5 e 5 Communi mg-acetamin mg-acetamin mg-acetami ty ophen 325 ophen 325 nophen 325 Hospita mg tablet mg tablet mg tablet l TAKE 1 TAKE 1 TAKE 1 Clinics TABLET BY TABLET BY TABLET BY MOUTH EVERY MOUTH EVERY MOUTH 6 HOURS 6 HOURS EVERY 6 HOURS hydroxychlo hydroxychlo No hydroxychl [facility] roquine 200 roquine 200 oroquine Communi mg tablet mg tablet 200 mg ty TAKE 1 TAKE 1 tablet Hospita TABLET BY TABLET BY TAKE 1 l MOUTH TWICE MOUTH TWICE TABLET BY Clinics DAILY DAILY MOUTH TWICE DAILY levothyroxi levothyroxi No levothyrox [facility] ne 150 mcg ne 150 mcg ine 150 Communi tablet TAKE tablet TAKE mcg tablet ty 1 TABLET BY 1 TABLET BY TAKE 1 Hospita MOUTH EVERY MOUTH EVERY TABLET BY l MORNING MORNING MOUTH Clinics EVERY MORNING lubiproston lubiproston No lubiprosto [facility] e 24 mcg e 24 mcg ne 24 mcg [facility] capsule capsule capsule ty TAKE 1 TAKE 1 TAKE 1 Hospita CAPSULE BY CAPSULE BY CAPSULE BY l MOUTH TWICE MOUTH TWICE MOUTH Clinics DAILY WITH DAILY WITH TWICE FOOD FOOD DAILY WITH FOOD medroxyprog medroxyprog No medroxypro [facility] esterone 10 esterone 10 gesterone Communi mg tablet mg tablet 10 mg ty TAKE 1 TAKE 1 tablet Hospita TABLET BY TABLET BY TAKE 1 l MOUTH EVERY MOUTH EVERY TABLET BY Clinics DAY WITH DAY WITH MOUTH FOOD FOR 14 FOOD FOR 14 EVERY DAY DAYS DAYS WITH FOOD FOR 14 DAYS methotrexat methotrexat No methotrexa [facility] e sodium e sodium te sodium Co [facility]i 2.5 mg 2.5 mg 2.5 mg ty tablet TAKE tablet TAKE tablet Hospita 5 TABLETS 5 TABLETS TAKE 5 l BY MOUTH 1 BY MOUTH 1 TABLETS BY Clinics TIME A WEEK TIME A WEEK MOUTH 1 DIRECTED DIRECTED TIME A WEEK DIRECTED metoclopram metoclopram No metoclopra [facility] rosario 10 mg rosario 10 mg mide 10 mg Communi tablet TAKE tablet TAKE tablet ty 1 TABLET BY 1 TABLET BY TAKE 1 Hospita MOUTH EVERY MOUTH EVERY TABLET BY l 8 HOURS 8 HOURS MOUTH Cl inics NEEDED NEEDED EVERY 8 HOURS NEEDED Mounjaro 5 Mounjaro 5 No 5mg Q1W Mounjaro 5 [facility] mg/0.5 mL mg/0.5 mL mg/0.5 mL Communi subcutaneou subcutaneou subcutaneo ty s pen s pen us pen Hospita injector injector injector l Inject 5 mg Inject 5 mg Inject 5 Clinics every week every week mg every by by week by subcutaneou subcutaneou subcutaneo s route for s route for us route 84 days. 84 days. for 84 days. nitrofurant nitrofurant No nitrofuran [facility] oin oin toin Communi monohydrate monohydrate monohydrat [...] FOR 5 DAYS. omeprazole omeprazole No omeprazole [facility] 20 mg 20 mg 20 mg Communi capsule,del capsule,del capsule,de ty ayed ayed layed Hospita release release release l TAKE 1 TAKE 1 TAKE 1 Clinics CAPSULE BY CAPSULE BY CAPSULE BY MOUTH EVERY MOUTH EVERY MOUTH MORNING IN MORNING IN EVERY THE MORNING THE MORNING MORNING IN THE MORNING ondansetron ondansetron No ondansetro [facility] 4 mg 4 mg n 4 mg [...] VOMITING AND VOMITING ondansetron ondansetron No ondansetro [facility] 8 mg 8 mg n 8 mg Communi disintegrat disintegrat disintegra ty ing tablet ing tablet ting [facility] tablet l Clinics pantoprazol pantoprazol No pantoprazo [facility] e 40 mg e 40 mg le 40 mg Commu ni tablet,carlos tablet,carlos tablet,del ty yed release yed release ayed H [facility]spita TAKE 1 TAKE 1 release l TABLET BY TABLET BY TAKE 1 Cli nics MOUTH TWICE MOUTH TWICE TABLET BY DAILY DAILY MOUTH TWICE DAILY phentermine phentermine No phentermin [facility] 37.5 mg 37.5 mg e 37.5 mg Comm uni tablet tablet tablet ty Hospita l Clinics prednisone prednisone No prednisone [facility] 10 mg 10 mg 10 mg Communi [...] FOR 3 DAYS quetiapine quetiapine No quetiapine [facility] 400 mg 400 mg 400 mg Communi tablet TAKE tablet TAKE tablet ty 3 TABLETS 3 TABLETS TAKE 3 [facility] BY MOUTH AT BY MOUTH AT TABLETS BY l BEDTIME BEDTIME MOUTH AT [facility] BEDTIME ropinirole ropinirole No ropinirole [facility] 1 mg tablet 1 mg tablet 1 mg C [facility]i TAKE 1 TAKE 1 tablet ty TABLET BY TABLET BY TAKE 1 [facility] MOUTH AT MOUTH AT TABLET BY l BEDTIME BEDTIME MOUTH AT [facility] cs BEDTIME spironolact spironolact No spironolac [facility] one 100 mg one 100 mg tone 100 Communi tablet TAKE tablet TAKE mg tablet ty 1 TABLET BY 1 TABLET BY TAKE 1 Hospita MOUTH TWICE MOUTH TWICE TABLET BY l DAILY DAILY MOUTH Clinics TWICE DAILY spironolact spironolact No spironolac [facility] one 50 mg one 50 mg tone 50 mg Communi tablet TAKE tablet TAKE tablet ty 1 TABLET BY 1 TABLET BY TAKE 1 Hospita MOUTH TWICE MOUTH TWICE TABLET BY l DAILY DAILY MOUTH Clinics TWICE DAILY sulfamethox sulfamethox No sulfametho [facility] azole 800 azole 800 xazole 800 Communi mg-trimetho mg-trimetho mg-trimeth ty prim 160 mg prim 160 mg oprim 160 Hospita tablet tablet mg tablet l Clinics sumatriptan sumatriptan No sumatripta [facility] 100 mg 100 mg n 100 mg Communi tablet TAKE tablet TAKE tablet ty 1 TABLET BY 1 TABLET BY TAKE 1 Hospita MOUTH EVERY MOUTH EVERY TABLET BY l DAY DAY MOUTH Clinics NEEDED NEEDED EVERY DAY NEEDED Sutab Sutab No Sutab [facility] 1.479-0.188 1.479-0.188 1.479-0.18 Communi -0.225 gram -0.225 gram 8-0.225 ty tablet TAKE tablet TAKE gram H [facility]spita DIRECTED DIRECTED tablet l BY YOUR BY YOUR TAKE Clinic s COLONOSCOPY COLONOSCOPY DIRECTED PACKET PACKET BY YOUR INSTRUCTION INSTRUCTION COLONOSCOP S S Y PACKET INSTRUCTIO NS testosteron testosteron No 150mg testostero [facility] e 100 mg e 100 mg ne 100 mg Co [facility] implant implant implant ty pellet Take pellet Take pellet Hospita 150 mg by 150 mg by Take 150 l implantatio implantatio mg by Clinics n route. n route. implantati on route. tranexamic tranexamic No tranexamic [facility] acid 650 mg acid 650 mg acid 650 Communi tablet TAKE tablet TAKE mg tablet ty 2 TABLETS 2 TABLETS TAKE 2 [facility] BY MOUTH BY MOUTH TABLETS BY l THREE TIMES THREE TIMES MOUTH Clinics DAILY DAILY THREE DURING DURING TIMES MENSES FOR MENSES FOR DAILY 5 DAYS. 5 DAYS. DURING MENSES FOR 5 DAYS. trazodone trazodone No trazodone [facility] 100 mg 100 mg 100 mg Communi tablet TAKE tablet TAKE tablet ty 1 TABLET BY 1 TABLET BY TAKE 1 Hospita MOUTH AT MOUTH AT TABLET BY l BEDTIME BEDTIME MOUTH AT Clini cs BEDTIME Vital Signs Vital Name Observation Time Observation Value Comments Source BP Diastolic 2022-07-14 00:00:00 69 mm[Hg] [facility] Height 2022-07-14 00:00:00 64 [in_i] [facility] BMI (Body Mass 2022-07-14 00:00:00 34.2 kg/m2 [facility]) [facility] s BP Systolic 2022-07-14 00:00:00 130 mm[Hg] [facility] Body Weight 2022-07-14 00:00:00 3184 [oz_av] [facility] s BP Diastolic 2022-02-02 00:00:00 76 mm[Hg] [facility] Height 2022-02-02 00:00:00 64 [in_i] [facility] BMI (Body Mass 2022-02-02 00:00:00 34.2 kg/m2 [facility] Clinic s BP Systolic 2022-02-02 00:00:00 104 mm[Hg] [facility] Body Weight 2022-02-02 00:00:00 3184 [oz_av] [facility] s Systolic blood 2021-05-01 06:00:00 140 mm[Hg] [facility] Diastolic blood 2021-05-01 06:00:00 83 mm[Hg] [facility] Respiratory rate 2021-05-01 06:00:00 20 /min [facility] Oxygen saturation in 2021-05-01 06:00:00 97 /min [facility] Arterial blood by [facility] Pulse oximetry Branch Heart rate 2021-05-01 04:00:00 99 /min [facility] Body temperature 2021-05-01 04:00:00 37 Padmini [facility] Body weight 2021-05-01 00:10:00 86.183 kg [facility] BMI 2021-05-01 00:10:00 32.61 kg/m2 [facility] Systolic blood 2021-04-30 23:55:00 134 mm[Hg] [facility] Diastolic blood 2021-04-30 23:55:00 80 mm[Hg] [facility] Heart rate 2021-04-30 23:55:00 103 /min [facility] Body temperature 2021-04-30 23:55:00 36.5 Padmini [facility] Res[facility] 2021-04-30 23:55:00 20 /min [facility] Body height 2021-04-30 23:55:00 162.6 cm [facility] Body weight 2021-04-30 23:55:00 86.183 kg [facility] BMI 2021-04-30 23:55:00 32.61 kg/m2 [facility] Oxygen saturation in 2021-04-30 23:55:00 96 /min [facility] Arterial blood by [facility] Pulse oximetry Branch Systolic blood 2021-04-12 22:30:00 123 mm[Hg] [facility] Diastolic blood 2021-04-12 22:30:00 73 mm[Hg] [facility] Heart rate 2021-04-12 22:30:00 105 /min [facility] Body temperature 2021-04-12 22:30:00 36.61 Padmini [facility] Respiratory rate 2021-04-12 22:30:00 20 /min [facility] Body height 2021-04-12 22:30:00 162.6 cm [facility] Body weight 2021-04-12 22:30:00 86.183 kg [facility] BMI 2021-04-12 22:30:00 32.61 kg/m2 [facility] Oxygen saturation in 2021-04-12 22:30:00 96 /min [facility] Arterial blood by [facility] Pulse oximetry Branch Systolic blood 2021-04-13 00:00:00 116 mm[Hg] [facility] Diastolic blood 2021-04-13 00:00:00 82 mm[Hg] [facility] Heart rate 2021-04-13 00:00:00 102 /min [facility] Respiratory rate 2021-04-13 00:00:00 20 /min [facility] Oxygen saturation in 2021-04-13 00:00:00 97 /min [facility] Arterial blood by [facility] Pulse oximetry Branch Body temperature 2021-04-12 22:58:00 37.11 Padmini [facility] Body weight 2021-04-12 22:58:00 86.183 kg [facility] BMI 2021-04-12 22:58:00 32.61 kg/m2 [facility] Systolic blood 2021-04-12 22:46:00 123 mm[Hg] [facility] Diastolic blood 2021-04-12 22:46:00 73 mm[Hg] [facility] Heart rate 2021-04-12 22:46:00 105 /min [facility] Body temperature 2021-04-12 22:46:00 36.61 Padmini [facility] Respiratory rate 2021-04-12 22:46:00 20 /min [facility] Body height 2021-04-12 22:46:00 162.6 cm [facility] Body weight 2021-04-12 22:46:00 86.183 kg [facility] BMI 2021-04-12 22:46:00 32.61 kg/m2 [facility] Oxygen saturation in 2021-04-12 22:46:00 96 /min [facility] Arterial blood by [place] [facility] oxim[facility] Systolic blood 2021-04-08 23:40:00 128 mm[Hg] [facility] Diastolic blood 2021-04-08 23:40:00 88 mm[Hg] [facility] Heart rate 2021-04-08 23:40:00 99 /min [facility] Body temperature 2021-04-08 23:40:00 37 Padmini [facility] Respiratory rate 2021-04-08 23:40:00 20 /min [facility] Body height 2021-04-08 23:40:00 162.6 cm [facility] Body weight 2021-04-08 23:40:00 86.183 kg [facility] BMI 2021-04-08 23:40:00 32.61 kg/m2 [facility] Oxygen saturation in 2021-04-08 23:40:00 97 /min [facility] blood by [place] [facility] oxim[facility] Systolic blood 2020-04-01 07:33:00 133 mm[Hg] [facility] Diastolic blood 2020-04-01 07:33:00 75 mm[Hg] Unive rsity of pressure [facility] Heart rate 2020-04-01 07:33:00 98 /min [facility] Body temperature 2020-04-01 07:33:00 36.67 Padmini [facility] Respiratory rate 2020-04-01 07:33:00 20 /min [facility] Oxygen saturation in 2020-04-01 07:33:00 97 /min [facility] Arterial blood by [facility] Pulse oximetry [place] Body weight 2020-04-01 05:16:00 81.647 kg [facility] Procedures Procedure Date / Time Performing Clinician Source Performed CT CHEST PULMONARY 2021-05-01 04:39:51 Charan Healy [facility] ANGIOGRAM Medical Branch LIPASE 2021-05-01 03:04:00 Charan Healy [facility] TROPONIN I 2021-05-01 03:04:00 Charan Healy [facility] COMP. METABOLIC PANEL 2021-05-01 03:04:00 Charan Healy [facility] ([id number]) [facility] D-DIMER 2021-05-01 03:04:00 Charan Healy [facility] CBC WITH DIFF 2021-05-01 03:03:00 Fadumo [facility] NOTICE OF PRIVACY 2021-04-30 23:47:31 Doctor Unassigned, No [facility] CONSENT/REFUSAL FOR 2021-04-30 23:47:14 Doctor Unassigned, No [facility] DIAGNOSIS AND TREATMENT Name [facility] XR CHEST 1 VW 2021-04-12 23:30:00 Toby [facility] NOTICE OF PRIVACY 2021-04-12 22:51:44 Doctor Unassigned, No [facility] PRACTICES Name Medical Branch CONSENT/REFUSAL FOR 2021-04-12 22:51:23 [facility] Name Medical Branch POCT GRP A STREP 2021-04-08 23:51:00 [facility] ([facility]) [facility] POCT FLU A AND B 2021-04-08 23:51:00 [facility] (MOLECULAR) Medical Branch ASSIGNMENT OF BENEFITS 2021-04-08 23:16:40 Doctor Unassigned, No [facility] XR CHEST 1 VW 2020-04-01 06:29:43 Xochilt Vogt [place] [facility] COMP. METABOLIC PANEL 2020-04-01 05:57:00 Xochilt Vogt [facility] ([id number]) [facility] CBC WITH DIFFERENTIAL 2020-04-01 05:57:00 Xochilt Vogt [facility] COVID-19 (ID NOW RAPID 2020-04-01 05:57:00 Xochilt Vogt [facility] TESTING) Medical Branch ASSIGNMENT OF BENEFITS 2020-04-01 05:06:57 Doctor Unassigned, No [facility] Plan of Care Planned Activity Planned Date Details Comments Source Diagnostic Test 2022-08-25 estradiol, serum [facility] Pending 00:00:00 [code = estradiol, [facility] serum] Diagnostic Test 2022-08-25 testosterone, total, [facility] Pending 00:00:00 serum [code = [facility] testosterone, total, serum] Diagnostic Test 2022-08-25 [facility] Pending 00:00:00 (follicle-stimulatin [facility] g hormone), serum [code = [facility] (follicle-stimulatin g hormone), serum] Diagnostic Test 2022-08-25 thyroid peroxidase [facility] Pending 00:00:00 (tpo) Ab, serum [facility] Cl nics [code = thyroid peroxidase (tpo) Ab, serum] Diagnostic Test 2022-08-25 TSH + free T4, serum [facility] Pending 00:00:00 [code = TSH + free [facility] T4, serum] Encounters Start End Encounter Admission Attending Care Care Encounter Source Date/Time Date/Time Type Type Clinicians Facility Department ID 2021-07-26 Emergency [facility] [id number] [facility]-07-26 Emergency [facility] [id number] Univers 09:15[facility] 2022-08-31 2022-08-31 Outpatient SISSON_C [facility] [id number] [place] 00:[place]:00 00:00:00 1207 Commun i ty [facility] 2022-08-31 2022-08-31 [facility] [place] [id number] [place] 00:00:00 00:00:00 Rosemarie, [facility] Comm uni MSN, 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, Clinic s [address], [place] [address], [place] MSN, CAN INSPECTOR-C [id number] , Ph. 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, Clinic s [address], [place] [address], [place]N, CAN INSPECTOR-C [id number] , Ph. 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, Clinic s [address], [place] [address], [place], [place] MSN, CAN INSPECTOR-C [id number] , Ph. 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 2022-01-12 2022-01-12 Outpatient [facility] 2021 [place] 02:54:00 02:54:00 0420 Commun i ty Hospita l [facility] 2021-12-17 2021-12-17 Outpatient ERICKSON_R [facility] [id number] [place] 02:40:00 02:40:00 0325 Commun i ty Hospita l Clinics 2021-11-12 2021-11-12 Outpatient [facility] [id number] [place] 03:36:00 03:36:00 0218 Commun i ty Hospita l Clinics 2021-10-11 2021-10-11 Outpatient ERICK[facility] [id number] [place] 10:01:00 10:01:00 0117 Commun i ty Hospita l Clinics 2021-10-07 2021-10-07 Outpatient [facility] 116 [place] 04:23:00 04:23:00 0113 Commun i ty Hospita l Clinics 2021-10-01 2021-10-01 Outpatient [facility] [id number] [place] 05:21:00 05:21:00 0107 Commun i ty Hospita l Clinics 2021-10-01 2021-10-01 Christopher [facility] [place] 00:00:00 00:00:00 [facility] - DO: [address] [facility] l [address], HOSPITAL Clinic s [place], [place] CLINIC, [address] BHAVANA , Ph. 2021-10-01 2021-10-01 Outpatient Bhavana [facility] [id number] 00:00:00 00:00:00 Christopher [id number] López [id number] 2021-04-30 2021-05-01 Emergency Fadumo, K [facility] 1.2.840.114 [id number] Univers 20:47:00 01:23:00 Mariposa Melissa [id number] i ty of [place] 4.2.7.2.686 [facility] [phone] [facility] [address] 2021-04-30 2021-04-30 Nurse Nurse, [facility] Urgent Care [facility] 1.2 .840.114 [id number] [facility] 18:44:17 18:59:17 [facility] [id number] [place]y of [place] 4.2.7.2.686 Henrique as Professio [phone] De [address] One 2021-04-30 2021-04-30 [facility] [id number] Univers 18:45:00 18:45:[address] [facility] 2021-04-30 2021-04-30 [facility] [id number] Univers 18:20:00 18:20:[address] [facility] 2021-04-25 2021-04-25 Outpatient [facility] [id number] Univers 18:20:00 18:20:00 LISETH [facility] 2021-04-25 2021-04-25 Laboratory Lab, Adc Fam Pob I [facility] 1.. 840.114 [id number] Univers 17:44:09 18:04:09 Only Liseth Esparza [facility] 350.1.13. 10 ity of [place] 4.2.7.2.686 Henrique as Professio [phone] De dicut nal [address] [place] [address] One 2021-04-13 2021-04-13 [facility] [id number] Univers 14:30:00 14:30:00 LUIS E [facility] 2021-04-12 2021-04-12 [facility] 1..840.114 [id number] Univers 20:00:00 20:20:00 Care [facility] 350.1.13.10 it y of [place] 4.2.7.2.686 Henrique as Professio [phone] De dical nal [address] [place] [address] One 2021-04-12 2021-04-12 Outpatient R [facility] [id number] Univers 20:00:00 20:00:00 ity [facility] 2021-04-12 2021-04-12 [facility] 1..840.114 [id number] Univers 18:01:00 19:37:00 Zo Melissa 350.1.13.10 i ty of [place] 4.2.7.2.686 [facility] [id number] [facility] [address] 2021-04-12 2021-04-12 Nurse Bird Hoffmann [facility] 1.2 .840.114 [id number] Univers 17:44:38 17:59:38 [facility] [id number] ity of [place] 4.2.7.2.686 Henrique as Professio [phone] [address] Office Building One 2021-04-12 2021-04-12 Outpatient R [facility] [id number] Univers 17:15:00 17:15:[address] [facility] 2021-04-10 2021-04-10 Telemedici Darryn Howard [facility] 1.2. 840.114 [id number] Univers 11:21:33 11:51:33 ne Visit Unknown, [facility] 350.1.13.1 0 ity [place] [id number] [place] [address] [phone] [facility] Primary & [address] Specialty Care 2021-04-10 2021-04-10 Outpatient R UNKNOWN, [facility] [id number] Univers 11:45:00 11:45:[address] [facility] 2021-04-10 2021-04-10 Nurse SCOTTIE House 1.2.840.114 [id number] Univers 00:00:00 00:00:00 Triage Anna BLEDSOE 350.1.13.10 ity of [facility] 4.2.7.2.686 Henrique as [phone] [facility] [address] 2021-04-10 2021-04-10 [facility]phone [facility] 1.2.930.513 [id number] Univers 00:00:00 00:00:00 [facility] 350.1.13.10 it y of [place] 4.2.7.2.686 Henrique as Professio [phone] [address] Office Building One 2021-04-09 2021-04-09 Telephone Christopher [facility] [id number] [id number] Univers 00:00:00 00:00:00 [facility] 350.1.13.10 it y of [place] 4.2.7.2.686 Henrique as Professio [phone] De dical nal [address] One 2021-04-08 2021-04-08 Urgent Keara White [facility] 1.2.840.114 [id number] Univers 18:17:52 18:37:52 Care AnnemarieJesisca [facility] 350.1.13.10 ity of [place] 4.2.7.2.686 Henrique as Professio [phone] De dical nal [address] One 2021-04-08 2021-04-08 Outpatient R ANNEMARIE [facility] [id number] Univers 18:20:00 18:20:00 JESSICA ity o f [facility] 2021-04-08 2021-04-08 Orders Doctor SCOTTIE 1.2.840.114 [id number] Univers 00:00:00 00:00:00 Only Unassigned, LADI 350.1.13.10 ity of [place] Solis [facility] 4.2.7.2.686 Henrique as [phone] [facility] [address] 2020-08-12 2020-08-12 Outpatient attema_roshni [facility] [id number] [place] 02:46:00 02:46:00 [facility] 2020-04-01 2020-04-01 Emergency [facility] 1.2.396.686 [id number] Univers 00:20:31 02:36:00 Xochilt Aranda [place] 350.1.13.10 i [place] 4[place].2.[place] [phone] [facility] [address] 2020-04-01 2020-04-01 Emergency X [facility] ERT [id number] Univers 00:20:31 00:20:[address] [facility] Results Test Description Test Time Test Results Result Source Comments Comments CT CHEST Impression: No CTA Univer sity of PULMONARY 7 evidence for pulmonary [facility] ANGIOGRAM 05:33:54 embolus. Linear Branch atelectasis in the lower lobes bilaterally without other acutepulmonary process. RL: 460 AFC: [id number] Ordering physician: Charan HEALY Indication: Chest pain, [...] destructive lesion. Bilateral breast implants are inplace. [facility], Radiant Results Inft User - 05/01/2021 12:34 [...] lobes bilaterally without other acutepulmonary process.RL: 460AFC: [id number] signed by Amena Shi MD, PhD at 05/01/2021 12:33 AM TROPONIN I 2021-05-01 04:03:05 Test Item Value Reference Range Interpretation Comme nts TROPONIN I (test code = 0.000 ng/mL See_Comment [Au tomated message] The 2829917018) system which ge nerated this result tra [...] biotin. Lab Interpretation Normal (test code = 35671-6) [facility]. METABOLIC PANEL (80097)2021-05-01 03:53:09 Test Item Value Reference Range Interpretation Comments NA (test code = 140 mmol/L 135-145 5620321168) K (test code = 3.3 mmol/L 3.5-5.0 L 1766715331) CL (test code = 101 mmol/L 98-108 2264986960) CO2 TOTAL (test code = 30 mmol/L 23-31 5001716928) AGAP (test code = 2-16 5081251927) BUN (test code = 14 mg/dL 7-23 3682831463) GLUCOSE (test code = 88 mg/dL 70-110 5357805519) CREATININE (test code = 0.88 mg/dL 0.50-1.04 0823314878) TOTAL BILI (test code = 0.3 mg/dL 0.1-1.0 7878495148) CALCIUM (test code = 9.6 mg/dL 8.6-10.6 2730255656) T PROTEIN (test code = 8.6 g/dL 6.3-8.2 H 5131736316) ALBUMIN (test code = 4.8 g/dL 3.5-5.0 0706342917) ALK PHOS (test code = 134 U/L 34-122 H 7621469311) ALTv (test code = 28 U/L 5-35 1742-6) AST(SGOT) (test code = 33 U/L 13-40 9686118867) eGFR (test code = mL/min/1.73m2 6854274872) NEW (test code = NEW) Association of [...] tests). Lab Interpretation Abnormal (test code = 66254-6) [id number] 03:53:04 Test Item Value Reference Range Interpretation Comments LIPASE (test code = 2926106778) 120 U/L 0-220 Lab Interpretation (test code = Normal 20794-4) [id number] 03:45:46 Test Item Value Reference Interpretation Comments Range D-DIMER (test code = See_Comment H [Autom ated 5660069341) message] The system which generated this result [...] diagnosis. Lab Interpretation Abnormal (test code = 13003-0) [facility] WITH [id number] 03:41:28 Test Item Value Reference Range Interpretation Comments WBC (test code = See_Comment H [Automated 7490-2) message] The sy stem which generated this result transmitted reference range : 4.30 - 11.10 10*3/?L. The reference range was not used to interpret this result as normal/abnormal . RBC (test code = See_Comment [Automated 029-8) message] The sy stem which generated this [...] (test code = 51.0 fL 39.0-49.9 H 61030-1) RDW-CV (test code = 14.0 % 12.0-15.5 788-0) PLT (test code = See_Comment [Automated 777-3) message] The sy stem which generated this result transmitted reference range : 166 - 358 10*3/ ?L. The reference r devan was not used to interpret this result as normal/abnormal . MPV (test code = 10.1 fL 9.5-12.9 70492-1) NRBC/100 WBC (test See_Comment [Automat ed code = 8573422256) message] The system which generated this result transmitted reference range : 0.0 - 10.0 /100 WBCs. The refer ence range was not u sed to interpret th is result as normal/abnormal . NRBC x10^3 (test code <0.01 See_Comment [Auto mated = 0670621361) message] The s ystem which generated this result transmitted reference range : 10*3/?L. The reference range was not used to interpret this result as normal/abnormal . GRAN MAT (NEUT) % 55.6 % (test code = 770-8) IMM GRAN % (test code 0.50 % = 2689979181) LYMPH % (test code = 33.8 % 736-9) MONO % (test code = 7.4 % 5905-5) EOS % (test code = 2.2 % 713-8) BASO % (test code = 0.5 % 706-2) GRAN MAT x10^3(ANC) 6.42 10*3/uL 1.88-7.09 (test code = 9431100112) IMM GRAN x10^3 (test 0.06 10*3/uL 0.00-0.06 code = 7604971254) LYMPH x10^3 (test code 3.91 10*3/uL 1.32-3.29 H = 731-0) MONO x10^3 (test code 0.85 10*3/uL 0.33-0.92 = 742-7) EOS x10^3 (test code = 0.26 10*3/uL 0.03-0.39 711-2) BASO x10^3 (test code 0.06 10*3/uL 0.01-0.07 = 704-7) Lab Interpretation Abnormal (test code = 23624-4) [facility] FLU A AND B (MOLECULAR)2021-04-09 00:01:00 Test Item Value Reference Range Interpretation Comments POCT INFLUENZA A (test code = negative Negative - Negative 3840) POCT INFLUENZA B (test code = negative Negative - Negative 3841) Lab Interpretation (test code = Normal 08599-1) [facility] GRP A STREP (MOLECULAR)2021-04-08 23:51:00 Test Item Value Reference Range Interpretation Comments POCT GP A STREP (test neg Negative - code = 99401-4) Negative NEW (test code = NEW) accurate development and interpretation of all internal controls Lab Interpretation Normal (test code = 06249-1) [facility] RAPID TESTING)2020-04-01 06:48:00 Test Item Value Reference Range Interpretation Comments SARS-CoV-2 Rapid ID NOW Not Detected Not Detected (test code = 39367-9) NEW (test code = NEW) ID NOW COVID-19 Assay is an isothermal nucleic acid amplification test intended for the qualitative detection of nucleic acid from SARS-CoV-2 viral RNA in nasopharyngeal (UNIT AIDE) specimens. It is used under Emergency Use [...] indicated. Lab Interpretation Normal (test code = 41577-7) [facility] METABOLIC PANEL (99313)2020-04-01 06:38:00 Test Item Value Reference Range Interpretation Comments NA (test code = 139 mmol/L 135-145 7280031936) K (test code = 4.2 mmol/L 3.5-5 1835502588) CL (test code = 105 mmol/L 98-108 4608984386) CO2 TOTAL (test code = 25 mmol/L 23-31 2882738796) AGAP (test code = 2-16 2763330869) BUN (test code = 11 mg/dL 7-23 0766737070) GLUCOSE (test code = 112 mg/dL 70-110 H 2041329016) CREATININE (test code = 0.75 mg/dL 0.5-1.04 0839180678) TOTAL BILI (test code = 0.3 mg/dL 0.1-1.0 4166521726) CALCIUM (test code = 9.3 mg/dL 8.6-10.6 2756380416) T PROTEIN (test code = 7.9 g/dL 6.3-8.2 6713849484) ALBUMIN (test code = 4.3 g/dL 3.5-5 4837287224) ALK PHOS (test code = 107 U/L 34-122 9038289413) ALTv (test code = 15 U/L 5-35 1742-6) AST(SGOT) (test code = 21 U/L 13-40 8163114639) eGFR Calculation mL/min/1.73m2 (Non-) (test code = 2430438745) eGFR Calculation mL/min/1.73m2 () (test code = 1722300934) NEW (test code = NEW) Association of [...] tests). Lab Interpretation Abnormal (test code = 55227-9) [facility] WITH [id number] 06:10:00 Test Item Value Reference Range Interpretation Comments WBC (test code = See_Comment [Automated 7818-2) message] The sy stem which generated this result transmitted reference range : 4.30 - 11.10 10*3/?L. The reference range was not used to interpret this result as normal/abnormal . RBC (test code = See_Comment [Automated 152-8) message] The sy stem which generated this [...] (test code = 52.1 fL 39-49.9 H 80548-8) RDW-CV (test code = 14.3 % 12-15.5 788-0) PLT (test code = See_Comment [Automated 047-3) message] The sy stem which generated this result transmitted reference range : 166 - 358 10*3/ ?L. The reference r devan was not used to interpret this result as normal/abnormal . MPV (test code = 9.8 fL 9.5-12.9 05863-8) NRBC/100 WBC (test See_Comment [Automat ed code = 9883108334) message] The system which generated this result transmitted reference range : 0.0 - 10.0 /100 WBCs. The refer ence range was not u sed to interpret th is result as normal/abnormal . NRBC x10^3 (test code <0.01 See_Comment [Auto mated = 6174026088) message] The s ystem which generated this result transmitted reference range : 10*3/?L. The reference range was not used to interpret this result as normal/abnormal . GRAN MAT (NEUT) % 57.1 % (test code = 770-8) IMM GRAN % (test code 0.80 % = 3437119773) LYMPH % (test code = 31.5 % 736-9) MONO % (test code = 7.2 % 5905-5) EOS % (test code = 3.3 % 713-8) BASO % (test code = 0.1 % 706-2) GRAN MAT x10^3(ANC) 5.22 10*3/uL 1.88-7.09 (test code = 8241079411) IMM GRAN x10^3 (test 0.07 10*3/uL 0-0.06 H code = 6139422021) LYMPH x10^3 (test code 2.88 10*3/uL 1.32-3.29 = 731-0) MONO x10^3 (test code 0.66 10*3/uL 0.33-0.92 = 742-7) EOS x10^3 (test code = 0.30 10*3/uL 0.03-0.39 711-2) BASO x10^3 (test code <0.03 0.01-0.07 = 704-7) Lab Interpretation Abnormal (test code = 05581-2) [facility]
[2023-02-06 01:22] LABS: Hematocrit 40.9 % (36.0-45.0); Lymphocytes % 24.1 % (15.3-44.8); MCV 97.8 fL (80-100); MPV 9.2 fL (7.6-11.3); RBC Red Blood Cell Count 4.19 M/uL (3.86-4.86)
[2023-02-06 01:41] LABS: Albumin 3.8 g/dL (3.4-5.0); Bilirubin Total 0.2 mg/dL (0.2-1.0); Protein, Total 8.1 g/dL (6.4-8.2)
[2023-02-06 02:04] LABS: Specific Gravity 1.011 (1.005-1.030); Urine Bacteria >50 /HPF (<20); Urine Bilirubin NEGATIVE (Negative); Urine Blood Negative (Negative); Urine Clarity Turbid (Clear); Urine Color Yellow (Yellow); Urine Glucose NEGATIVE (Negative); Urine Protein TRACE (Negative); Urine RBC <5 /HPF (None Seen); Urine Urobilinogen Normal (Normal)
[2023-02-06 02:28] LABS: Protime INR 0.87
[2023-02-06] MEDS ORDERED: POTASSIUM CL SA 10 MEQ TAB PO ONE (02:29)
[2023-02-06] MEDS ORDERED: CEFTRIAXONE 1000 MG/VIAL ONE (02:29)
[2023-02-06] MEDS ORDERED: FENTANYL CITR 100 MCG/2 ML ONE (02:29)
[2023-02-06] MEDS ORDERED: NA CHLORIDE 0.9% 1,000 ML ONE (02:29)
[2023-02-06] MEDS ORDERED: NA CHLORIDE 0.9% 50 ML ONE (02:30)
[2023-02-06] MEDS ORDERED: KCL 20 MEQ/100 mL IVPB 100 ML IV ONE (02:30)
--- NOTE | 2023-02-06 04:08 | EDPHYS ---
Physician Documentation [facility] Name: Niki Yang Age: 52 yrs Sex: Female : 1970 Arrival Date: 02/05/2023 Time: 23:34 Bed 15 Private MD: Viktor Barrera T ED Physician Adam Jacobson HPI: 02/05 23:57 This 52 yrs old Female presents to ER via Unassigned with complaints of Urinary snw Problem, Vomiting/Diarrhea. 23:57 The patient presents to the emergency department with nausea, vomiting, diarrhea. snw Onset: The symptoms/episode began/occurred suddenly, today. Possible causes: antibiotics, pt started Macrobid 2 days ago for UTI, no relief of s/s. Associated signs and symptoms: Pertinent positives: diarrhea, nausea, vomiting. Severity of symptoms: At their worst the symptoms were moderate. The patient has experienced similar episodes in the past. 2 days ago, PCP . 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 - Social history:: Smoking status: Patient denies any tobacco usage or history of. - Family history:: not pertinent. ROS: 00:19 Eyes: Negative for injury, pain, redness, and discharge, ENT: Negative for injury, snw pain, and discharge, Neck: Negative for injury, pain, and swelling, Cardiovascular: Negative for chest pain, palpitations, and edema, Respiratory: Negative for shortness of breath, cough, wheezing, and pleuritic chest pain. 00:19 Back: Negative for injury and pain, : Negative for injury, bleeding, discharge, and swelling, MS/Extremity: Negative for injury and deformity, Skin: Negative for injury, rash, and discoloration, Neuro: Negative for headache, weakness, numbness, tingling, and seizure, Psych: Negative for depression, anxiety, suicide ideation, homicidal ideation, and hallucinations. 00:19 Constitutional: Positive for body aches, fatigue, malaise. 00:19 Abdomen/GI: Positive for abdominal pain, nausea, vomiting, and diarrhea. Exam: 00:19 Head/Face: Normocephalic, atraumatic. Eyes: Pupils equal round and reactive to light, snw extra-ocular motions intact. Lids and lashes normal. Conjunctiva and sclera are non-icteric and not injected. Cornea within normal limits. Periorbital areas with no swelling, redness, or edema. ENT: Nares patent. No nasal discharge, no septal abnormalities noted. Tympanic membranes are normal and external auditory canals are clear. Oropharynx with no redness, swelling, or masses, exudates, or evidence of obstruction, uvula midline. Mucous membranes moist. Neck: Trachea midline, no thyromegaly or masses palpated, and no cervical lymphadenopathy. Supple, full range of motion without nuchal rigidity, or vertebral point tenderness. No Meningismus. Chest/axilla: Normal chest wall appearance and motion. Nontender with no deformity. No lesions are appreciated. Cardiovascular: Regular rate and rhythm with a normal S1 and S2. No gallops, murmurs, or rubs. Normal PMI, no JVD. No pulse deficits. Respiratory: Lungs have equal breath sounds bilaterally, clear to auscultation and percussion. No rales, rhonchi or wheezes noted. No increased work of breathing, no retractions or nasal flaring. Back: No spinal tenderness. No costovertebral tenderness. Full range of motion. Skin: Warm, dry with normal turgor. Normal color with no rashes, no lesions, and no evidence of cellulitis. MS/ Extremity: Pulses equal, no cyanosis. Neurovascular intact. Full, normal range of motion. Neuro: Awake and alert, GCS 15, oriented to person, place, time, and situation. Cranial nerves II-XII grossly intact. Motor strength 5/5 in all extremities. Sensory grossly intact. Cerebellar exam normal. Normal gait. 00:19 Constitutional: The patient appears alert, awake, anxious, uncomfortable. 00:19 Abdomen/GI: Inspection: abdomen appears normal, Bowel sounds: normal, in all quadrants, Palpation: mild abdominal tenderness, in the epigastric area, right upper quadrant and left upper quadrant. Vital Signs: 02/05 23:59 BP 126 / 75; Pulse 97; Resp 20; Temp 97.6; Pulse Ox 100% ; vc1 02/06 01:10 BP 109 / 85; Pulse 98; Resp 17; Pulse Ox 97% ; vc1 02:00 BP 107 / 79; Pulse 104; Resp 17; Pulse Ox 99% ; vc1 03:00 BP 121 / 86; Pulse 94; Resp 16; Pulse Ox 95% ; vc1 03:13 Weight 68.04 kg; Height 5 ft. 0 in. ; vc1 03:13 Body Mass Index 29.29 (68.04 kg, 152.4 cm) vc1 MDM: 02/05 23:44 Patient medically screened. formerly [facility] 02/06 00:20 Differential diagnosis: Nonspecific abd pain, gastritis, pancreatitis, viral snw gastroenteritis, gastroenteritis. Data reviewed: vital signs, nurses notes. 04:01 ED course: Patient has hypokalemia and bacteriuria. Patient states she has improved sp4 after medications. Will provide prescription for Bactrim p.o. twice a day for 10 days, ondansetron as needed, Lomotil as needed, potassium tablets once a day for 10 days. . 02/05 23:52 Order name: Blood Culture Adult (2) 02/05 23:52 Order name: CBC with Diff; Complete Time: 01:31 02/05 23:52 Order name: CMP; Complete Time: 01:42 02/05 23:52 Order name: Lactate w/ 2H reflex if indic.; Complete Time: 01:43 02/05 23:52 Order name: Protime (+inr); Complete Time: 03:24 formerly [facility] 02/05 23:52 Order name: Ptt, Activated; Complete Time: 03:24 02/05 23:52 Order name: Urinalysis w/ reflexes; Complete Time: 02:05 02/05 23:52 Order name: Chest Single View XRAY 02/05 23:52 Order name: EKG; Complete Time: 23:53 02/05 23:52 Order name: Accucheck; Complete Time: 01:28 02/05 23:52 Order name: Cardiac monitoring; Complete Time: 02/05 23:52 Order name: EKG - Nurse/Tech; Complete Time: 02/05 23:52 Order name: IV Saline Lock - Large Bore; Complete Time: 02/05 23:52 Order name: Labs collected and sent; Complete Time: 02/05 23:52 Order name: O2 Per Protocol; Complete Time: 02/05 23:52 Order name: O2 Sat Monitoring; Complete Time: 02/05 23:52 Order name: Vital Signs; Complete Time: w EC: Rate is 96 beats/min. Rhythm is regular. QRS [place] is Normal. [place] interval is normal. ST snw Segment is elevated in lead V2. Clinical impression: NSR w/ Non-specific ST/T Changes. Administered Medications: 02:40 Drug: Potassium Chloride PO 40 mEq Route: PO; vc1 02:40 Drug: NS 0.9% IV 1000 ml Route: IV; Rate: 1 bolus; Site: left antecubital; vc1 02:40 Drug: fentaNYL (PF) IVP 25 mcg Route: IVP; Site: left antecubital; vc1 02:40 Drug: Rocephin IV 1 grams Route: IV; Rate: calculated rate; Site: left antecubital; vc1 03:12 Drug: Potassium Chloride IV 20 mEq Route: IV; Rate: calculated rate; Site: left vc1 antecubital; Disposition: 03:25 Co-signature as Attending Physician, Adam Jacobson MD I agree with the assessment sp4 and plan of care. I reviewed the patient's care provided by Advanced Practice Provider \T\ agree w/ the diagnosis \T\ care plan. I personally saw the pt \T\ performed a substantive portion of the visit, incldng all aspects of the (History/Exam/Medical Decision Making). Disposition Summary: 02/06/23 04:07 Discharge Ordered Location: Home sp4 Problem: new sp4 Symptoms: have improved sp4 Condition: Stable sp4 Diagnosis - Dehydration sp4 - Hypokalemia sp4 - UTI/ Urinary tract infection, site not specified sp4 Followup: snw - With: Emergency Department - When: As needed - Reason: Worsening of condition Followup: snw - With: - When: 2 - 3 days - Reason: Recheck today's complaints, Continuance of care, Re-evaluation by your physician Discharge Instructions: - Discharge Summary Sheet snw - Urinary Tract Infection, Adult, [id number] snw - Rehydration, Adult snw Forms: - Work release form snw - Antibiotic Education sp4 Prescriptions: - Tramadol 50 mg Oral Tablet - take 1 tablet by ORAL route every 8 hours as needed; 12 tablet; Refills: 0, snw Product Selection Permitted - Zofran 4 mg Oral Tablet - take 1 tablet by ORAL route every 6 hours As needed PRN nausea; 30 tablet; sp4 Refills: 0, Product Selection Permitted - Potassium Chloride 10 mEq Oral capsule, extended release - take 1 tablet by ORAL route Every night for 10 days; 10 tablet; Refills: 0, sp4 Product Selection Permitted - Lomotil 2.5-0.025 mg Oral Tablet - take 2 tablets by ORAL route every 6 hours As needed PRN diarrhea; 30 tablet; sp4 Refills: 0, Product Selection Permitted - Bactrim DS 800-160 mg Oral Tablet - take 1 tablet by ORAL route every 12 hours for 10 days; 20 tablet; Refills: 0, sp4 Product Selection Permitted Signatures: Dispatcher [employer] Talia Christianson FNP-C FNP-Malini Morrissey RN RN vc1 Adam Jacobson MD MD sp4
--- NOTE | 2023-02-06 04:08 | ER ---
Nurse's Notes [facility] Name: Niki Yang Age: 52 yrs Sex: Female : 1970 Arrival Date: 02/05/2023 Time: 23:34 Bed 15 Private MD: Viktor Barrera T Diagnosis: Dehydration;Hypokalemia;UTI/ Urinary tract infection, site not specified Presentation: 02/05 23:59 Chief complaint: Patient states: "I have a UTI and the last 4 out of 5 times I have vc1 been here I was admitted for sepsis because I waited to long. Tonight I started throwing up and having diarrhea so I figured I shouldn't wait this time.". Coronavirus screen: Vaccine status: Patient reports being unvaccinated. Client denies travel out of the [place] in the last 14 days. nausea, vomiting. Client presents with at least one sign or symptom that may indicate coronavirus-19. Ebola Screen: Patient negative for fever greater than or equal to 101.5 degrees Fahrenheit, and additional compatible Ebola Virus Disease symptoms Patient denies exposure to infectious person. Patient denies travel to an Ebola-affected area in the 21 days before illness onset. No symptoms or risks identified at this time. Initial Sepsis Screen: Does the patient meet any 2 criteria? HR > 90 bpm. No. Patient's initial sepsis screen is negative. Does the patient have a suspected source of infection? Yes: Dysuria/Frequency/Urgency/UTI. Risk Assessment: Do you want to hurt yourself or someone else? Patient reports no desire to harm self or others. Onset of symptoms is unknown. 23:59 Method Of Arrival: Ambulatory vc1 23:59 Acuity: SUSANA 3 vc1 Triage Assessment: 02/06 00:08 General: Appears in no apparent distress. uncomfortable, Behavior is cooperative, vc1 appropriate for age. Pain: Complains of pain in epigastric area, right upper quadrant and left upper quadrant Also complains of N/V/D. EENT: No deficits noted. No signs and/or symptoms were reported regarding the EENT system. Neuro: Level of Consciousness is awake, alert, obeys commands, Oriented to person, place, time, situation, Appropriate for age. Cardiovascular: No deficits noted. Respiratory: Airway is patent Respiratory effort is even, unlabored, Respiratory pattern is regular, symmetrical. GI: Reports upper abdominal pain, diarrhea, nausea, vomiting. : No deficits noted. No signs and/or symptoms were reported regarding the genitourinary system. Derm: No deficits noted. No signs and/or symptoms reported regarding the dermatologic system. Musculoskeletal: No deficits noted. No signs and/or symptoms reported regarding the musculoskeletal system. 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 - Social history:: Smoking status: Patient denies any tobacco usage or history of. - Family history:: not pertinent. Screenin:07 [facility] ED Fall Risk Assessment (Adult) History of falling in the last 3 months, vc1 including since admission No falls in past 3 months (0 pts) Confusion or Disorientation No (0 pts) Intoxicated or Sedated No (0 pts) Impaired Gait No (0 pts) Mobility Assist Device Used No (0 pt) Altered Elimination No (0 pt) Score/Fall Risk Level 0 - 2 = Low Risk Oriented to surroundings, Maintained a safe environment, Educated pt \\T\\ family on fall prevention, incl call for assistance when getting out of bed. Abuse screen: Denies threats or abuse. Nutritional screening: No deficits noted. Tuberculosis screening: No symptoms or risk factors identified. Assessment: 01:38 Reassessment: No changes from previously documented assessment. Patient and/or family vc1 updated on plan of care and expected duration. Pain level reassessed. Patient is alert, oriented x 3, equal unlabored respirations, skin warm/dry/pink. GI: Abdomen is flat, non-distended, Abd is soft Abdomen is tender to palpation in epigastric area, right upper quadrant and left upper quadrant. 02:00 Reassessment: No changes from previously documented assessment. Patient and/or family vc1 updated on plan of care and expected duration. Pain level reassessed. Patient is alert, oriented x 3, equal unlabored respirations, skin warm/dry/pink. 03:00 Reassessment: Patient and/or family updated on plan of care and expected duration. Pain vc1 level reassessed. Patient is alert, oriented x 3, equal unlabored respirations, skin warm/dry/pink. Patient states feeling better. Patient states symptoms have improved. 04:00 Reassessment: Patient and/or family updated on plan of care and expected duration. Pain vc1 level reassessed. Patient is alert, oriented x 3, equal unlabored respirations, skin warm/dry/pink. Patient states feeling better. Patient states symptoms have improved. Vital Signs: 02/05 23:59 BP 126 / 75; Pulse 97; Resp 20; Temp 97.6; Pulse Ox 100% ; vc1 02/06 01:10 BP 109 / 85; Pulse 98; Resp 17; Pulse Ox 97% ; vc1 02:00 BP 107 / 79; Pulse 104; Resp 17; Pulse Ox 99% ; vc1 03:00 BP 121 / 86; Pulse 94; Resp 16; Pulse Ox 95% ; vc1 03:13 Weight 68.04 kg; Height 5 ft. 0 in. ; vc1 03:13 Body Mass Index 29.29 (68.04 kg, 152.4 cm) vc1 ED Course: 02/05 23:36 Patient arrived in ED. mr 23:36 Viktor Barrera MD is Private Physician. mr 23:43 Talia Alcaraz FNP-C is [facility]. snw 23:43 Adam Jacobson MD is Attending Physician. snw 23:59 Malini Trotter, JAZZ is Primary Nurse. vc1 02/06 00:04 Triage completed. vc1 00:07 Arm band placed on right wrist. vc1 00:07 Patient has correct armband on for positive identification. Placed in gown. Bed in low vc1 position. Call light in reach. Side rails up X2. Client placed on continuous cardiac and pulse oximetry monitoring. NIBP monitoring applied. 00:08 Chest Single View XRAY In Process Unspecified. EDMS 01:09 CBC with Diff Sent. bc6 01:09 Blood Culture Adult (2) Sent. bc6 01:09 CMP Sent. bc6 01:09 Lactate w/ 2H reflex if indic. Sent. bc6 01:09 Protime (+inr) Sent. bc6 01:09 Ptt, Activated Sent. bc6 01:09 Inserted saline lock: 20 gauge in left antecubital area, using aseptic technique. bc6 04:07 Viktor Barrera MD is Referral Physician. sp4 04:47 No provider procedures requiring assistance completed. IV discontinued, intact, vc1 bleeding controlled, No redness/swelling at site. Pressure dressing applied. Administered Medications: 02:40 Drug: Potassium Chloride PO 40 mEq Route: PO; vc1 02:40 Drug: NS 0.9% IV 1000 ml Route: IV; Rate: 1 bolus; Site: left antecubital; vc1 02:40 Drug: fentaNYL (PF) IVP 25 mcg Route: IVP; Site: left antecubital; vc1 02:40 Drug: Rocephin IV 1 grams Route: IV; Rate: calculated rate; Site: left antecubital; vc1 03:12 Drug: Potassium Chloride IV 20 mEq Route: IV; Rate: calculated rate; Site: left vc1 antecubital; Medication: 00:36 VIS not applicable for this client. vc1 Outcome: 04:07 Discharge ordered by . sp4 04:47 Discharged to home ambulatory, with significant other. vc1 04:47 Condition: good 04:47 Discharge instructions given to patient, Instructed on discharge instructions, follow up and referral plans. medication usage, Demonstrated understanding of instructions, follow-up care, medications, Prescriptions given X 5 04:47 Patient left the ED. vc1 Signatures: Dispatcher [employer] EDMS Talia Alcaraz, HOTEL OR MOTEL MANAGER-C HOTEL OR MOTEL MANAGER-Cs[facility] mr Malini Trotter, RN RN vc1 Aida Beth 6 Adam Jacobson MD MD sp4
[2023-02-06 05:13] VITALS: TEMP 97.6
[2023-02-06 05:17] VITALS: BP 121/86; O2SAT 95
--- NOTE | 2023-02-06 11:42 | EKG ---
Test Date: 2023-02-06 Test Time: 01:21:33 [place] Drier: ALEX MEASUREMENT RESULTS: Intervals: Rate: 96 MT: 156 QRSD: 78 QT: 382 QTc: 482 [place]: P: 49 MT: 156 QRS: -12 T: 63 INTERPRETIVE STATEMENTS: Normal sinus rhythm Low voltage QRS Borderline ECG Compared to ECG 10/25/2022 03:37:51 Low QRS voltage now present Sinus tachycardia no longer present Myocardial infarct finding no longer present T-wave abnormality no longer present Possible ischemia no longer present Electronically Signed On 02-06-23 11:41:20 CDT by James Romo
--- NOTE | 2023-02-07 15:25 | RAD REPORT ---
EXAM DESCRIPTION: RAD - Chest Single View - 02/06/2023 12:04 am Chest Single View 02/06/2023 12:20 AM CDT CLINICAL HISTORY: 52 years, Female, ABDOMINAL DISTENTION COMPARISON: 10/25/2022. FINDINGS: Single view of the chest was obtained portable. Prior films were compared. External EKG le ads within the [id number] limits diagnosis. The cardiomediastinal silhouette demonstrate to be unr emarkable. The heart is not enlarged. The thoracic aorta is unremarkable. The pulmonary vasculature i s normal distribution. Costophrenic angles are sharp. No areas of consolidation or masses are seen. The rest of the soft tissue and bony structures demonstrate to be unremarkable. IMPRESSION: NO ACUTE CARDIOPULMONARY DISEASE SEEN. Electronically signed by: Inocente Murguia MD 02/06/2023 12:20 AM CDT Due to temporary technical issues with the PACS/Fluency reporting system, reports are being signed by the in house radiologist without review as a courtesy to ensure prompt reporting. The interpreting r adiologist is fully responsible for the content of the report.
== END 2023-02-06 04:47 | disposition home or self-care (01) ==
LOC: ER 23:34
DX: N39.0 Urinary tract infection, site not specified (principal); E86.0 Dehydration; E87.6 Hypokalemia; E03.9 Hypothyroidism, unspecified; M32.9 Systemic lupus erythematosus, unspecified; F41.9 Anxiety disorder, unspecified; F32.A Depression, unspecified; Z79.899 Other long term (current) drug therapy; Z28.310 Unvaccinated for COVID-19
CPT/HCPCS: 93005; 87040 ×2; 85025; 81001; 36415; 85610; 83605; 85730; 80053; 71045; J3480; J3010; J7030; J0696